=== PATIENT | male | born 1945 | race Hispanic/Latino ===

== ENCOUNTER 2018-07-09 22:51 | Inpatient (IN) | payer MEDICARE | END 2018-07-14 10:32 | LOC: ED 22:51 → ERH 07-10 01:57 → 3RSO 07-10 03:21 ==

== ENCOUNTER 2018-07-14 10:36 | Inpatient (IN) | payer MEDICARE ==
[2018-07-14 10:59] VITALS: BMI 30.4
[2018-07-14] MEDS ORDERED: Magnesium Hydroxide Susp 30 ml UD PO PRN (11:48)
[2018-07-14] MEDS ORDERED: Alum-Mag Hydrox-Simethicone Susp (30 mL) PO PRN (11:49)
--- NOTE | 2018-07-14 12:11 | PCM.BM ---
<Alban Simon - Last Filed: 07/14/18 12:07> Treatment Plan Problems - Problems identified on initial assessmt Altered thought process Date Initiated: 07/14/18 Time Initiated: 11:30 Assessment reference: NA Status: Active Priority: 1 Comment: Disorganized behavior Auditory hallucinatio Date Initiated: 07/14/18 Time Initiated: 11:30 Assessment reference: NA Status: Active Priority: 2 Low self esteem Date Initiated: 07/14/18 Time Initiated: 11:30 Assessment reference: NA Status: Active Priority: 3 Comment: believe his no good enough social isolation Date Initiated: 07/14/18 Time Initiated: 11:30 Assessment reference: NA Status: Active Priority: 4 Comment: Single ,lives by himself,retired Ineffective coping Date Initiated: 07/14/18 Time Initiated: 11:30 Assessment reference: NA Status: Active Priority: 5 Comment: Inabilty to cope with living situation Medication nonadherence Date Initiated: 07/14/18 Time Initiated: 11:30 Assessment reference: NA Status: Active Priority: 6 Comment: Nedds medications adjustment Treatment assets and liabiliti Patient Assests: cooperative, educated, insightful, motivated - Milieu Protocol Maintain good personal hygiene: every other day Encourage regular showers, every other day Assist patient to perform ADL's, every shift Remind patient to perform daily oral care Conduct patient checks and document Observation sheet: 1:1 Maintain personal safety: every shift Educate patient to report safety concerns to staff, every shift Monitor environment for contraband/sharps Medication safety: Monitor for expected outcome, potential side effects: every shift, Assess barriers to learning: every shift, Assess readiness for medication education: every shift Discharge/Continuing Care - Education Needs Education Needs: Family Personal Hygiene/Grooming, Patient Medication, Patient Diagnosis/Disease Process, Patient Coping Skills, Patient Community resources, Patient Activities of Daily Living, Patient Uses of Medical Equipment, Patient Health Practices/Safety, Patient Personal Hygiene/Grooming, Patient Aftercare Safety Plan - Discharge Discharge Criteria: Tolerates medication w/o severe side effects, Ability to care for self <Luh Cortez - Last Filed: 07/15/18 11:40> - Diagnosis (1) Schizophrenia Status: Acute Interventions: 07/15/18 11:38 Psychoeducation/psychotherapy Psychopharmacology/adjustment of medications as needed/ monitoring possible side effects Evaluate pt on daily basis Compliance with medications and follow up appointments Possible ECT treatmento Suicide and homicide risk assessment and prevention, coping strategies, safety plan Relapse prevention Reduction of symptoms Improve functional status Possible assertive community treatment Cognitive behavioral therapy Family involvement Possible social skill training as outpatient (2) Parkinson disease Status: Acute Interventions: 07/15/18 11:39 Neurology follow-up Physical therapy evaluation Improve motor function Possible ECT treatment, medical clearance requested Additional consultation by specialists as needed Lab work as needed (CBC, CMP, TSH, free T4, UA, Urine test for females as needed) CXR as needed EKG Physical therapy evaluation as needed 07/15/18 11:40 <Aracely Moreno - Last Filed: 07/16/18 12:09>
--- NOTE | 2018-07-14 13:42 | PN ---
DATE: 07/14/2018 SUBJECTIVE: The patient was followed up today. The patient presented to be more alert, oriented. The patient's family, his brother Abel, is next to the patient as well as patient's nephew is next to the patient. The patient presented much better to compare with yesterday. The patient was able to hold conversation. The patient was able to participate in treatment plan discussion. As per the patient's brother, the patient has long history of schizophrenia. The patient was stabilized on Prolixin for many years, more than 20 years, recently medication was changed to Seroquel, since that time, the patient has been slowly decompensating for past 6 months. The patient has tendency of wandering in the community. The patient has history of noncompliance with the medications due to side-effects, dizzy spells. The patient presented not at his bladder baseline of functioning. Going back to the patient's current presentation, patient is willing to be admitted to the psychiatric inpatient unit, signed consent with nurse, Alban. The patient was aware of his medications. The patient was aware of the treatment options of having ECT treatment in the future, narrative descriptions were provided to the patient as well as family. At the present moment, the patient will be transferred to the psychiatric inpatient unit for further evaluation and stabilization. This life underwriter discussed case with Dr. Castañeda. Neurology consultation will be called for ECT clearance. Cardiology consultation for ECT clearance will be also called. OBJECTIVE: VITAL SIGNS: Reviewed. Temperature 98.0, pulse 61, blood pressure 108/70, respirations 26 and saturation is 96. MEDICATIONS: Reviewed. This life underwriter will discontinue BuSpar because the patient does not present to be anxious, levodopa, carbidopa will be continued at 25/100. The patient is on Aricept 5 mg at the nighttime. The patient is on Lovenox. If the patient will be ambulating, this life underwriter will discontinue Lovenox. The patient is on Ativan 1 mg three times a day scheduled for catatonia and anxiety and stiffness. Zofran will be switched to p.o., Protonix, Seroquel will be 50 mg at the morning time and at the nighttime. LABORATORY DATA: Reviewed. Coagulation reviewed. Chemistry reviewed. Urinalysis reviewed. Toxicology reviewed. Serology reviewed. MENTAL STATUS EXAMINATION: The patient presented to be alert. The patient remembered this life underwriter. The patient had intense eye contact. Flat affect. Thought process concrete. Thought content, the patient presented to be mildly disorganized, but adamantly denied thoughts of harming himself or others. Insight and judgment seems to be limited, but improving. Impulses are well controlled. IMPRESSION: As per history schizophrenia. The patient has history of Parkinson's disease, was admitted to the medical side for altered mental status. PLAN: We will continue current management, current medication, ECT might be helpful for this patient to stabilize without psychotropic medications. Neurologist will be involved. Barrel Centerer will be involved. Family involved. If the patient will have capacity to point his brother to be his power of convalescent sitter, we will consider that option. The patient will be on one-to-one on the psychiatric inpatient unit for risk of falls and safety. Meanwhile, we will see the patient on the psychiatric unit tomorrow. Case was discussed with nursing staff and medical team. Should you have any questions give me a call back. Luh Cortez MD
[2018-07-15] MEDS: Pantoprazole 40 mg EC Tab PO SCH (07:04)
[2018-07-15 08:37] LABS: GLUCOSE,FASTING 85 mg/dL (65-110); HDL CHOLESTEROL 27 mg/dL (29-60)
[2018-07-15 08:48] LABS: LDL CHOLESTEROL 72 mg/dL (0-129)
[2018-07-15 08:52] LABS: FREE T4 1.41 ng/dL (0.78-2.19)
--- NOTE | 2018-07-15 11:38 | PCM.PSYCH ---
Initial Psychiatric Evaluation - Initial Psychiatric Evaluation Type of Admission: Voluntary Legal Status: Capacity (Patient has a capacity to sign consent for treatment) Chief Complaint (in patient's own words): "I feel all right, I do not know yet" Patient's Reaction to Hospitalization: Patient was transferred from the medical side for evaluation and stabilization of psychotic symptoms, disorganized thoughts/behavior, possible ECT treatment. History of Present Illness and Precipitating Events: Shortly, patient is a 72-year old male, reported history of schizophrenia, history of Parkinson's disease, denied previous history of psychiatric admissions, denied history of suicidal attempts, currently under care or of [facility] treatment, initially patient was found wandering in the community, barefoot, police brought patient to the emergency room, patient required medical admission for delirium, this personal lines underwriter was involved in to the patient care due to tree of mental illness, medication management, altered mental status. Patient was medically stable, collateral information's were obtained from patient brother Abel, patient required further evaluation and stabilization in to the psychiatric inpatient unit and possible ECT treatment. Patient was seen today in his room, patient is currently on one-to-one observation because high risk of falls and confusion. Patient presented with susceptible personal hygiene because PCP is taking good care of the patient, patient presented to be more alert, pleasant, corporative. Poor ADLs. Patient reported that she had "bad dreams, I do not know if I was hallucinating", patient reported that she ate, patient denied any thoughts of harming himself/others, patient reported that he does not feel confused, patient is aware that he is not psychiatric inpatient unit and today's date. Patient reported that no signs of anxiety, denied being ever abused in the past, patient reports he lives alone. Collaterals from patient brother Abel June 16, 2018: Patient has long history of mental illness/schizophrenia, patient was stabilized on Prolixin more than 50 years, recently Prolixin was changed to Seroquel due to worsening of parkinsonian symptoms, since that time November 2017 patient was slowly decompensating, patient had dizzy spells, lightheadedness, that is why patient would stop medications, including Parkinson's medications as well as antipsychotic medication. Patient family wants patient to be on ECT treatment this personal lines underwriter educated patient as well as family about the risk/benefits/alternatives. Discussed with Dr. Garrison, medical/neurology/cardiology clearance requested. Going back to the patient, patient is willing to have ECT treatment, but first he would like to think about it more. Patient had impression that he pointed his brother to be his power of regulatory attorney already, but it is not confirmed. Patient still wants his brother to be his power of regulatory attorney for medical decisions. Patient denied ever being abused. Patient denies using drugs, denied drinking alcohol, denies smoking cigarettes. Past psychiatric history: Patient denied ever been admitted to the psychiatric inpatient unit, denied history of suicidal attempts. Medical history: Hypertension, hyperlipidemia, obesity, diverticulosis, arthritis, Parkinson's disease (neurologist ). Family history: Denied family history of mental illness, patient denied family history of suicidal attempts. Social history: Never been , no kids, history of being a teacher, used to live with his mother, after she patient became depressed and hopeless. Lab Results 07/15/18 07:00: Free T4 1.41, TSH 3rd Generation 1.02 07/15/18 07:00: Fasting Glucose 85, Triglycerides 86, Cholesterol 121 L, LDL Cholesterol Direct 72, HDL Cholesterol 27 L Vital Signs Pulse BP 07/14/18 15:00 65 110/72 The patient failed the outpatient lower level of care: Yes Current Medications: Active Medications Generic Name Dose Route Start Last Admin Trade Name Freq PRN Reason Stop Dose Admin Acetaminophen 650 mg 07/14/18 11:49 Tylenol 325mg Tab PO Q6H PRN Pain, moderate (4-7) Al Hydrox/Mg Hydrox/Simethicone 30 ml 07/14/18 11:49 Maalox Plus 30 Ml PO DAILY PRN Indigestion / Heartburn Carbidopa/Levodopa 1 tab 07/14/18 13:00 07/15/18 09:39 Sinemet PO 1 tab DAILY JIMBO Administration Donepezil HCl 5 mg 07/14/18 22:00 07/14/18 21:42 Aricept PO 5 mg HS JIMBO Administration Lorazepam 1 mg 07/14/18 13:00 07/15/18 09:40 Ativan PO 1 mg TID JIMBO Administration Protocol Lorazepam 1 mg 07/14/18 12:44 Ativan PO TID PRN Agitation Protocol Magnesium Hydroxide 30 ml 07/14/18 11:48 Milk Of Magnesia PO DAILY PRN Constipation Ondansetron HCl 4 mg 07/14/18 12:56 Zofran Tab PO Q8H PRN Nausea/Vomiting Pantoprazole Sodium 40 mg 07/15/18 06:00 07/15/18 07:04 Protonix Ec Tab PO 40 mg 0600 JIMBO Administration Quetiapine Fumarate 50 mg 07/14/18 22:00 07/15/18 09:40 Seroquel PO 50 mg AMHS JIMBO Administration Protocol Present on Admission - Present on Admission Any Indicators Present on Admission: No Review of Systems - Review of Systems Systems not reviewed;Unavailable: Acuity of Condition - Constitutional Constitutional: As Per HPI - EENT Eyes: As Per HPI Ears: As Per HPI Nose/Mouth/Throat: As Per HPI - Cardiovascular Cardiovascular: As Per HPI - Respiratory Respiratory: As Per HPI - Gastrointestinal Gastrointestinal: As Per HPI - Genitourinary Genitourinary: As Per HPI - Reproductive: Male Reproductive:Male: As Per HPI - Musculoskeletal Musculoskeletal: As Per HPI - Integumentary Integumentary: As Per HPI - Neurological Neurological: As Per HPI - Psychiatric Psychiatric: As Per HPI - Endocrine Endocrine: As Per HPI - Hematologic/Lymphatic Hematologic: As Per HPI Past Patient History - Past Psychiatric History Previous Treatment History: None Prior Professional Help: See HPI Prior Psychiatric Treatment: See HPI At what hospital: See HPI Duration: See HPI Nature of Treatment: See HPI Explanation of prior treatment: See HPI - PSYCHIATRIC Hx Psychophysiologic Disorder: Yes Hx Paranoia: Yes Hx Psychosis: Yes Hx Substance Use: No (Unknown) - CARDIAC Hx Cardiac Disorders: Yes Hx Hypertension: Yes - PULMONARY Hx Respiratory Disorders: Yes Hx Sleep Apnea: Yes - NEUROLOGICAL Hx Neurological Disorder: Yes Hx Parkinson's Disease: Yes - HEENT Hx HEENT Problems: Yes Hx Glaucoma: Yes - RENAL Hx Chronic Kidney Disease: No - ENDOCRINE/METABOLIC Hx Endocrine Disorders: No - HEMATOLOGICAL/ONCOLOGICAL Hx Blood Disorders: Yes Hx Cancer: Yes (PROSTATE 2015) - INTEGUMENTARY Hx Dermatological Problems: No - MUSCULOSKELETAL/RHEUMATOLOGICAL Hx Musculoskeletal Disorders: No - GASTROINTESTINAL Hx Gastrointestinal Disorders: No - GENITOURINARY/GYNECOLOGICAL Hx Genitourinary Disorders: Yes Hx Prostate Problems: Yes (ca prostate) - SURGICAL HISTORY Hx Surgeries: Yes Other/Comment: TURP - Medical/Surgical History Reviewed & confirmed: by me Meds Allergies/Adverse Reactions: Allergies Allergy/AdvReac Type Severity Reaction Status Date / Time Unobtainable Allergy Verified 07/14/18 10:58 Mental Status Examination - Personal Presentation Personal Presentation: Looks stated age - Affect Affect: Constricted, Flat - Motor Activity Motor Activity: Psychomotor Retardation - Reliability in Providing Information Reliability in Providing Information: Fair - Speech Speech: Other (Underproductive, monotonic, low volume) - Mood Mood: Depressed - Formal Thought Process Formal Thought Process: Hallucinations, Other (at times disorganized) - Obsessions/Compulsions Obsessions: None Compulsions: None - Cognitive Functions Orientation: Person, Place, Situation, Time Sensorium: Alert Abstract Thinking: [place] Estimate of Intelligence: Average Judgement: Intact, as evidence by: Insight regarding need for hospitalization - Risk Risk: Self-mutilation, Diminished functioning - Strength & Assets Inventory Strength & Assets Inventory: Intelligence, Family support, Education, Employment history, Cooperative - Limitations Limitations: Other (Chronic mental illness combined with Parkinson's disease) Psychiatric Physical Exam - Physical Exam Reviewed and confirmed: Emergency Department Physical Exam Results - Vital Signs Recent Vital Signs: Last Vital Signs Temp Pulse 65 07/14/18 15:00 Resp BP 110/72 07/14/18 15:00 Pulse Ox - Labs Labs: Laboratory Results - last 24 hr 07/15/18 07/15/18 07:00 07:00 Fasting Glucose 85 Triglycerides 86 Cholesterol 121 L LDL Cholesterol Direct 72 HDL Cholesterol 27 L Free T4 1.41 TSH 3rd Generation 1.02 - EKG Data EKG Interpreted by: ER Physician DSM Plan - DSM 5 DSM 5 Diagnosis: Saira as per history, rule out schizoaffective Parkinson's disease Rule out medication induced(levodopa/carbidopa) psychosis - Recommended/Plan of Treatment Treatment Recommendations and Plan of Treatment: Milieu/structure/supportive therapy consultation for discharge plan and social issues Med management: Medications were confirmed by patient pharmacy, please see consultation note on the medical side Discussed with the family, patient brother Leonela Patient wants to point his brother to be his power of regulatory attorney for medical decisions Seroquel resumed Levodopa carbidopa Ativan 1 mg 3 times a day scheduled for catatonia/muscle relaxation/anxiety Aricept 5 mg at the nighttime Medical/neurology/cardiology clearance for ECT Patient was educated about ECT procedure, risk/benefits/alternatives discussed Patient is currently on one-to-one due to confusion, high risk of falls Physical therapy evaluation recommended Family involvement Follow up on labs Will monitor closely Pt was educated about risk/benefits and alternatives of medications, coping strategies (safety plan, suicide prevention), relapse prevention, importance of follow up with psychiatrist and therapist, stay away from drugs/alcohol/smoking Projected ELOS: 7 days Prognosis: Guarded Discharge Plan and Discharge Criteria: Mood will be stable, pt will be more hopeful, will be not psychotic or anxious, will be tolerating medications well, will not have major side effects, will be able to function, will not pose threat to self or others. - Tobacco Cessation Tobacco Use Status for the last 30 days: Non User Tobacco Use Treatment Practical Counseling Provided: No Tobacco Use Treatment FDA-Approved Cessation Medication Provided: No - Alcohol or Substance Abuse Does the patient have an Alcohol or Substance Abuse Disorder: No Initial Psych Certification - Initial Certification I certify that the inpatient psychiatric facility admission was medically necessary for either: Treatment which could reasonbly be expected to improve pt's condition, Diagnostic study I estimate of hospitalization is necessary for proper treatment of the patient: 7 Unit of Time: Days My plans for post-hospital care for this patient are: Outpatient ECT maintenance Medication management Possible day treatment program Possible adult daycare center
--- NOTE | 2018-07-15 23:14 | CON ---
DATE: 07/15/2018 The patient is now transferred out of the acute medical service to Psychiatry Service. The patient is seen and examined in room 517, bed 2. The patient is presently on one to one, lying in bed. The patient is alert, awake, responsive, oriented to person, place. Disoriented to year, date, month, time. Fourteen systems review was done. The patient is confused and disoriented. CODE STATUS: Full code. LIVING WILL/ADVANCE DIRECTIVE: None. Height is 5 feet 8 inches. Weight is 200 pounds. BMI 31. ALLERGIES: APPARENTLY UNAVAILABLE AND UNKNOWN. ACTIVE MEDICATIONS: Aricept 5 mg at bedtime, Ativan 1 mg t.i.d. p.r.n. and scheduled, Maalox 30 mL p.r.n., milk of magnesia p.r.n., Protonix 40 mg daily, Seroquel 50 mg a.m. and at bedtime. The patient is on Sinemet 25/100 once a day, Tylenol 650 mg p.o. every 6 hours p.r.n., Zofran 4 mg p.o. every 8 hours p.r.n. HOME MEDICATIONS: Aricept 5 mg at bedtime, Atacand 16 mg daily, Ativan 1 mg t.i.d. p.r.n., Avodart 0.5 mg daily, BuSpar 5 mg twice a day, Sinemet 25/100 daily, Prolixin 1 mg daily, Seroquel 25 mg at bedtime, Zoloft 25 mg daily, they are home medications prior to hospitalization. SOCIAL HISTORY: Unavailable for substance abuse, unavailable for alcohol use, unavailable for smoking use. OCCUPATIONAL HISTORY: Disabled, elderly male. FAMILY HISTORY: Not available. PAST MEDICAL AND SURGICAL HISTORY: History of hypertension, history of prostatic hypertrophy, history of prostate carcinoma as per the [facility] history, history of Parkinson disease, history of schizophrenia, psychosis, paranoia, anxiety, history of sleep apnea, history of prostate carcinoma in 2016. The patient's past medical history is recent hospitalization to [facility] from 07/10/2018 to 07/14/2018, history of early dementia with altered mental status, confusional state, and disorientation, history of asymptomatic bradycardia, history of schizophrenia, history of depression, history of Parkinson disease, history of hyperlipidemia, history of diverticulosis, history of degenerative joint disease, history of tonsillectomy, history of colonic polyp, history of hyponatremia, history of rhabdomyolysis with elevated CPK, history of leukocytosis, history of granulocytosis, history of normocytic anemia, dilutional history of transient transaminitis, history of hypokalemia, hypophosphatemia, hypomagnesemia, ketonuria, history of cardiomegaly with enlarged pulmonary artery, history of aortic arch punctate calcification, history of right lower lobe pleural thickening and trace pleural effusion, history of bilateral 20% to 39% proximal internal carotid artery stenosis, history of chronic microvascular ischemic disease of the brain, history of cerebral cortical atrophy of the brain and ventriculomegaly, history of hypertensive cardiovascular disease with left ventricular ejection fraction of 65%, history of mild tricuspid regurgitation with right ventricular systolic pressure of 33 mmHg, history of euvolemic hypo osmolar hyponatremia, etiology indeterminate, history of questionable esophagitis with diffuse esophageal mucosal thickening, history of toxic metabolic encephalopathy, history of colonic adenoma, history of deconditioning, history of gait dysfunction, history of dementia. The patient is seen in room 517, bed 2. PHYSICAL EXAMINATION: VITAL SIGNS: T-max afebrile, heart rate 65, blood pressure 110/72. GENERAL: The patient is sitting up in the bed. HEENT: Head examination, normocephalic, atraumatic. HEENT examination shows pinkish conjunctivae. Anicteric sclerae. No oropharyngeal lesion. NECK: No neck rigidity. CHEST: Kyphosis. LUNGS: Shows no audible crackle, rales, or wheezing. CARDIOVASCULAR: S1, S2. Regular rhythm. Questionable soft systolic murmur at left sternal border, right second intercostal space, left second intercostal space. ABDOMEN: Soft. Positive bowel sounds. GENITALIA: Male. RECTAL EXAMINATION: Deferred. EXTREMITIES: Show no pitting edema, no calf tenderness, no Homans sign. Positive upper extremity tremors noted. Gait examination not tested. Motor strength is 5/5 in upper and lower extremities. Cranial nerves II-XII grossly intact and limited. VASCULAR EXAMINATION: Palpable pulses. DIAGNOSTICS: Diagnostics were all reviewed. All diagnostic data, lab data, imaging study, cardiovascular testing from 07/10/2018 to 07/14/2018 was reviewed and is available in [facility] for review. The patient's today's lab, which was ordered by the Psychiatry, cholesterol 121, LDL 72, HDL 27, triglyceride 86, TSH 1.02. IMPRESSION AND PLAN: 1. Acute exacerbation of toxic metabolic encephalopathy with episodic confusion and disorientation. 2. Psychosis. 3. Questionable behavioral disorders with disorganized thoughts and behavior. 4. History of schizophrenia, history of Prolixin treatment, history of acute exacerbation of Parkinsonism, history of deconditioning. 5. Early dementia with possible behavioral disorder requiring one-to-one. 6. Anxiety disorder. 7. Parkinson's disease. 8. History of hypertension, hyperlipidemia. 9. Toxic metabolic encephalopathy. 10. Possible schizoaffective disorder. 11. Questionable drug-induced psychosis. 12. Early dementia versus advanced dementia with altered mental status, confusion, and disorientation. 13. History of depression and Parkinson disease. 14. History of hypertension, hyperlipidemia, history of diverticulosis, history of degenerative joint disease, history of prostatectomy, and colonic polyp. 15. Status post hyponatremia and rhabdomyolysis. 16. Mild normocytic anemia. 17. Transaminitis. 18. Status post hypokalemia, hypophosphatemia, hypomagnesemia. 19. Aortic arch punctate calcification. 20. Cardiomegaly with enlarged pulmonary artery. 21. Right lower lobe pleural thickening with trace pleural effusion. 22. Bilateral 20% to 39 % proximal internal carotid artery stenosis. 23. Chronic microvascular ischemic disease of the brain. 24. 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 25. Hypertensive cardiovascular disease with left ventricular ejection fraction of 65%. 26. Mild tricuspid regurgitation and right ventricular systolic pressure of 33 mmHg. 27. Euvolemic hypo-osmolar hyponatremia. etiology undetermined. 28. Questionable esophagitis with diffuse esophageal mucosal thickening. 29. Toxic metabolic encephalopathy. 30. History of colonic adenoma. 31. Deconditioning. 32. Gait dysfunction. 33. Anxiety disorder. 1. most likely dementia with altered mental status with confusion and disorientation. 2. Asymptomatic bradycardia. 3. History of schizophrenia. 4. History of depression and history of Parkinson's disease. 5. History of hypertension, hyperlipidemia, history of diverticulosis, history of degenerative joint disease, history of tonsillectomy, and history of colonic polyp. 6. Hyponatremia. 7. Rhabdomyolysis with elevated CPK. 8. Leukocytosis. 9. Leukocytosis with granulocytosis. 10. Mild normocytic anemia, probably dilutional. 11. Transient transaminitis. 12. Hypokalemia. 13. Hypophosphatemia and hypomagnesemia. 14. Trace ketonuria. 15. Cardiomegaly with enlarged pulmonary artery. 16. Aortic arch punctate calcification. 17. Right lower lobe pleural thickening and trace pleural effusion. 18. Bilateral 20% to 39% proximal internal carotid artery stenosis. 19. Chronic microvascular ischemic disease of the brain. 20. Cerebral cortical atrophy of the brain and ventriculomegaly. 21. Hypertensive cardiovascular disease with left ventricular ejection fraction of 65%. 22. Mild tricuspid regurgitation with right ventricular systolic pressure of 33 mmHg. 23. Symptomatic sinus bradycardia. 24. Euvolemic hypo-osmolar hyponatremia, etiology undetermined. 25. Ketonuria. 26. Questionable esophagitis with diffuse esophageal mucosal thickening. 27. Toxic metabolic encephalopathy. 28. History of colonic adenoma. 29. Deconditioning. 30. Gait dysfunction. 31. Mild dementia. 32. Anxiety disorder. 1. Altered mental status with confusion and disorientation, most likely dementia. 2. Asymptomatic bradycardia. 3. Questionable hypertension. 4. Transient leukocytosis with granulocytosis. 5. Mild normocytic anemia. 6. Hyponatremia. 7. Hypokalemia. 8. Hypophosphatemia. 9. Hypomagnesemia. 10. Rhabdomyolysis with elevated CPK of greater than 1000. 11. Transaminitis. 12. Trace ketonuria. 13. Cardiomegaly with enlarged pulmonary artery. 14. Aortic arch calcification. 15. Right lower lobe pleural calcification versus pleural effusion versus pleural thickening. 16. Diffuse esophageal mucosal thickening, questionable esophagitis. 17. Bilateral 20% to 39% proximal internal carotid artery stenosis. 18. White matter ischemic disease of the brain with chronic microvascular ischemic disease of the brain. 19. Mildly dilated left atrium. 20. Mild tricuspid regurgitation with left ventricular ejection fraction of 65%. 21. Euvolemic hypoosmolar hyponatremia. 22. Parkinson's disease. 23. Ketonuria. 24. History of schizophrenia. 25. Upper extremity tremors. 26. Psychosis. 27. Dementia. 28. Hypertension. 29. Prostatic hypertrophy. 30. History of depression. 1. Altered mental status, etiology undetermined. 2. Possible mild dementia. 3. Disorientation and confusion. 4. Leukocytosis, etiology undetermined. 5. Hyponatremia. 6. Rhabdomyolysis with CPK of greater than 1000. 7. Hypokalemia, hypomagnesemia, hypophosphatemia. 8. History of Parkinson's disease with upper extremity tremors. 9. Anemia. 10. Granulocytosis. 11. Transaminitis. 12. Altered mental status with toxic metabolic encephalopathy. 13. Dementia. 14. Cardiomegaly. 15. Enlarged pulmonary artery with questionable pulmonary hypertension. 16. Right lower lobe pleural thickening. 17. Esophageal thickening. 18. A 20% to 39% internal carotid artery stenosis. 19. Cerebral cortical atrophy of the brain. 20. Microvascular ischemic disease of the brain. 21. Asymptomatic sinus bradycardia. 22. Possible psychotic spectrum disorder. 23. Left ventricular ejection fraction of 65%. 24. History of depression. 25. Anxiety disorder. 26. Questionable esophagitis. 1. Altered mental status with acute encephalopathy, etiology unclear. 2. Leukocytosis with granulocytosis. 3. Mild normocytic anemia. 4. Hyponatremia, etiology undetermined. 5. Hypokalemia, hypophosphatemia, hypomagnesemia. 6. Mild transaminitis. 7. Acute rhabdomyolysis. 8. Cardiomegaly. 9. Enlarged pulmonary artery versus questionable pulmonary hypertension. 10. Right lower lobe pleural thickening. 11. Esophageal thickening, etiology undetermined versus esophagitis. 12. A 20% to 39% internal carotid artery stenosis. 13. Cerebral cortical atrophy of the brain. 14. Microvascular ischemic disease of the brain. 15. Sinus bradycardia. 16. Left ventricle ejection fraction of 65%. 17. Parkinson's disease with upper extremity tremors. 18. Psychotic spectrum disorder. 19. Hypophosphatemia. 20. Spastic metabolic encephalopathy. 21. Altered mental status. 22. Questionable dementia. 1. Altered mental status with possible acute encephalopathy and confusional state. 2. Parkinson's disease. 3. Hyponatremia. 4. Leukocytosis with granulocytosis. 5. Hypokalemia. 6. Hypophosphatemia. 7. Questionable esophagitis. 8. Cerebral cortical atrophy of the brain. 9. History of schizophrenia. 10. Hypertension. 11. Prostatic hypertrophy. 12. Depression. 13. Anxiety. 14. Granulocytosis. 15. Cardiomegaly. 16. Questionable pulmonary vascular congestion. 17. Questionable pulmonary hypertension. 18. Cardiovascular disease with left ventricular ejection fraction of 65-70%. 19. Esophagitis. At this time, the patient will be started on proton pump inhibitor. The patient will be started on all the medications as per the Psychiatry. The patient is already ordered. The patient will be resumed on Flomax. Because the patient takes Flomax at home and Avodart at home, which is not ordered, which will be ordered. The patient is on Protonix for GI prophylaxis. The patient will be continued on Aricept 5 mg at bedtime, Ativan 1 mg p.o. t.i.d. scheduled and p.r.n. The patient is on Maalox and milk of magnesia p.r.n., Protonix 40 mg daily, Seroquel 50 mg a.m. and at bedtime, Sinemet 25/100 daily, Tylenol p.r.n., Zofran p.r.n. The patient will be ordered physical therapy, occupational therapy, ambulation therapy. The patient will be started on Flomax because Avodart is non-formulary at present at this hospital. The patient is admitted to Psychiatry for possible evaluation of ECT therapy. We have requested Cardiology and Neurology evaluation and clearance for ECT therapy and the consult for Neurology and Cardiology is already requested. From medical perspective, the patient appears to be optimized and can proceed with ECT therapy with associated risk and benefits and consequences. The patient's recent neurologic and cardiac workup was not suggestive of any significant abnormalities except for age-related associated comorbidities and findings on the diagnostic testing. The patient at present is also being continued on one-to-one observation by Psychiatry, which will be continued till the patient is further stabilized and later on decision will be made regarding discontinuation of one-to-one. Dictated and electronically signed, not read. Janes Castañeda MD DAVID
--- NOTE | 2018-07-15 23:21 | CON ---
DATE: 07/15/2018 CARDIOLOGY CONSULTATION REASON FOR CONSULTATION: Questionable chest pain. HISTORY OF PRESENT ILLNESS: The patient is a 72-year-old male who has history of schizophrenia and asymptomatic bradycardia as well as history of Parkinson's who was admitted because of depression and hallucinations. When the patient was asked about his history of chest pain, he denied. He is unaware of a history of heart attack in the past. The patient's most recent cardiac workup including an echocardiographic study five days ago which revealed mildly dilated left atrium, normal left ventricular size and systolic function with mild tricuspid insufficiency. He underwent three EKGs. The first one and second one revealed normal sinus rhythm, and the third one revealed sinus bradycardia at 58 beats per minute. REVIEW OF SYSTEMS: The patient denies any chest pain or shortness of breath at this time. He feels anxious and afraid that people may be hurting him. MEDICATIONS: Aricept 5 mg at bedtime, Seroquel 50 mg twice a day, Sinemet one tablet daily, Protonix 40 mg p.o. once day, milk of magnesia 30 mL daily, Maalox Plus 30 mL daily, Flomax 0.4 mg once a day, Ativan 1 mg t.i.d. PHYSICAL EXAMINATION: GENERAL: The patient is an elderly male who does not appear to be in acute distress. VITAL SIGNS: Blood pressure 110/72, heart rate 65, temperature 98, and respirations 20. HEENT: Normocephalic. CHEST: Clear. HEART: S1 and S2 regular. EXTREMITIES: No edema. LABORATORY DATA: On 07/13; hemoglobin and hematocrit 13.5 and 40.4, white count and platelet count are within normal limit. On 07/13, SMA-7 was within normal limits except for anion gap of 9. TSH, total T3 and free T3 as well as free T4 and total T4 all within normal limits. Urine drug screen is negative. ASSESSMENT: 1. Mild sinus bradycardia on the last admission with a heart rate of 58. 2. Schizophrenia and paranoid ideation. 3. Improved hyponatremia. RECOMMENDATIONS: Obtain repeat 12-lead EKG and if within normal limits, the patient can undergo ECT from the cardiac point. Jorge Luis Babb MD
[2018-07-16] MEDS: Pantoprazole 40 mg EC Tab PO SCH (06:47)
[2018-07-16 10:52] LABS: BASO # 0.02 K/mm3 (0.0-2.0); BASO % 0.2 % (0.0-3.0); EOS # 0.1 (0.0-0.7); EOS % 1.3 % (1.5-5.0); HEMOGLOBIN 12.6 g/dL (14.0-18.0); LYMPH # 0.8 (1.2-3.4); MEAN CELL VOLUME 102.9 fl (80.0-105.0); MEAN CORPUSCULAR HEMOGLOBIN 32.9 pg (25.0-35.0); MEAN PLATELET VOLUME 10.3 fl (7.0-11.0); MONO # 0.8 (0.1-0.6); MONO % 9.1 % (1.0-6.0); RBC 3.83 10^6/uL (3.5-6.1); RED CELL DISTRIBUTION WIDTH 13.7 % (11.5-14.5); WHITE BLOOD COUNT 8.7 10^3/uL (4.5-11.0)
[2018-07-16 11:05] LABS: ALB/GLOB RATIO 1.1 (1.1-1.8); BILIRUBIN,DIRECT 0.3 mg/dL (0.0-0.4); CALCIUM 8.5 mg/dL (8.4-10.5)
--- NOTE | 2018-07-16 14:37 | PCM.PYCHPN ---
Psychiatric Progress Note - Psychiatric Progress Note Patient seen today, length of contact: 30 minutes Patient Chief Complaint: "I was diagnosed with schizophrenia, paranoid type" Problems Identified/Issues Discussed: Risk/benefits and alternatives of medications discussed, suicide/ homicide prevention, past psychiatric h/o, current psychiatric symptoms, medical problems , risk/benefits and alternatives of medications, medications compliance, coping strategies, substance abuse h/o, relapse prevention, importance of follow up with psychiatrist and therapist, discharge plan. Medical Problems: Parkinson's disease History of hypertension, history of prostatic hypertrophy, sleep apnea, history of prostatic carcinoma as per [facility] history. Diagnostic Results: 07/16/18 10:40 07/16/18 10:40 Lab Results 07/16/18 10:40: WBC 8.7, RBC 3.83, Hgb 12.6 L, Hct 39.4 L, MCV 102.9 D, MCH 32.9, MCHC 32.0, RDW 13.7, Plt Count 151, MPV 10.3, Neut % (Auto) 80.4 H, Lymph % (Auto) 9.0 L, [place] % (Auto) 9.1 H, Eos % (Auto) 1.3 L, Baso % (Auto) 0.2, Lymph # (Auto) 0.8 L, [place] # (Auto) 0.8 H, Eos # (Auto) 0.1, Baso # (Auto) 0.02, Absolute Neuts (auto) 6.99 H 07/16/18 10:40: Sodium 136, Potassium 4.4, Chloride 100, Carbon Dioxide 30, Anion Gap 11, BUN 26 H, Creatinine 1.4, Est GFR ( Amer) 60, Est GFR (Non- Af Amer) 50, Random Glucose 74, Calcium 8.5, Phosphorus 2.9, Magnesium 2.2, Total Bilirubin 0.3, Direct Bilirubin 0.3, AST 28, ALT 13, Alkaline Phosphatase 56, Total Protein 5.7 L, Albumin 3.0, Globulin 2.7, Albumin/Globulin Ratio 1.1 07/15/18 07:00: RPR Nonreactive 07/15/18 07:00: Free T4 1.41, TSH 3rd Generation 1.02 07/15/18 07:00: Fasting Glucose 85, Triglycerides 86, Cholesterol 121 L, LDL Cholesterol Direct 72, HDL Cholesterol 27 L Vital Signs Temp Pulse Resp BP 03/18/19 07:26 97.9 F 65 19 109/71 07/14/18 15:00 65 110/72 DSM 5 Symptoms Update: Shortly, patient is a 72-year old male, reported history of schizophrenia, history of Parkinson's disease, denied previous history of psychi atric admissions, denied history of suicidal attempts, currently under care or of [facility] treatment, initially patient was found wandering in the community, barefoot, police brought patient to the emergency room, patient required medical admission for delirium, this internal communications writer was involved in to the patient care due to tree of mental illness, medication management, altered mental status. Patient was medically stable, collateral information's were obtained from patient brother Abel, patient required further evaluation and stabilization in to the psychiatric inpatient unit and possible ECT treatment. Patient was seen today at the treatment team meeting, patient was on one-to-one observation because high risk of falls and confusion, today presented with some improvement, pt was able to communicate his needs, was ambulate with help of walker, will d/c 1:1. Patient was more coherent, more logical, was able to provide his past psychiatric history. Patient reported that he was diagnosed with cranial, paranoid type patient was stable for more than 15 years on Prolixin, patient reported that over last summer his Prolixin was changed for Risperdal, as a result "I was fighting off with my paranoia, I was not doing well...", After what patient was seen by psychiatrist and his family insisted that patient needs to go back on Prolixin. Patient reports incident occurred October or November 2017. pt reported that prior to admission "I am not sure what exactly happened, but I woke up in an eery trance...", pt reported that "everything was like in the movies, I am not sure if I took my medications or not...". as per report from the brother, pt was noncompliant with meds, was taking them on and off due to side effects of dizziness. Discussed treatment options, pt said that he wants to know more about ECT treatment, risk/benefits/alternatives discussed. Discussed assigning pt's family as pt's POA. Patient reports he wants to assign his brother as pt's POA. So far patient tolerates medications well, no side effects observed or reported, aims 0, no EPS. Impression: As per history of schizophrenia, paranoid type Parkinson's disease Medication Change: Yes Medical Record Reviewed: Yes Consults ordered or reviewed: Patient was seen by primary care physician Case Worker was called for ECT treatment Neurology was called for a ECT treatment Mental Status Examination - Cognitive Function Orientation: Person, Place, Situation, Time Memory: Intact Attention: Poor Concentration: Poor Association: Loose Fund of Knowledge: Poor - Mood Mood: Depressed - Affect Affect: Constricted, Flat - Formal Thought Process Formal Thought Process: Paranoia ("I am afraid that people are angry at me..."), Other (at times disorganized) - Suicidal Ideation Suicidal Ideation: No - Homicidal Ideation Homicidal Ideation: No Goal/Treatment Plan - Goal/Treatment Plan Need for Continued Stay: Remain at risks for inpatient hospitalization, Severe depression anxiety, Discharge may exacerbated symptoms, Severe functional impairment Progress Toward Problem(s) and Goals/Treatment Plan: Milieu/structure/supportive therapy SW consultation for discharge plan and social issues Med management: Medications were confirmed by patient pharmacy, please see consultation note on the medical side Discussed with the family, patient brother Leonela Patient wants to point his brother to be his power of attorney recruiter for medical decisions Seroquel 50mg in the morning and at the nighttime for psychosis Levodopa carbidopa resumed Ativan 1 mg 3 times a day scheduled for catatonia/muscle relaxation/anxiety Aricept 5 mg at the nighttime Medical/neurology/cardiology clearance for ECT Patient was educated about ECT procedure, risk/benefits/alternatives discussed One-to-one was discontinued July 16, 2018 Physical therapy evaluation, pt ambulates using a walker Family involvement Follow up on labs Will monitor closely Pt was educated about risk/benefits and alternatives of medications, coping strategies (safety plan, suicide prevention), relapse prevention, importance of follow up with psychiatrist and therapist, stay away from drugs/alcohol/smoking Estimated Date of D/C: 07/23/18
--- NOTE | 2018-07-16 22:44 | CARD ---
APPROVED REPORT Date of service: 07/16/2018 EKG Measurement Heart [id number] <Conclusion> Normal sinus rhythm Normal ECG
[2018-07-17] MEDS: Pantoprazole 40 mg EC Tab PO SCH (06:41)
--- NOTE | 2018-07-17 08:25 | PN ---
DATE: 07/16/2018 LOCATION: The patient is in room 517, bed 2. SUBJECTIVE: On one-to-one. The patient has been episodically confused, disoriented. The patient's overnight nurse's notes were reviewed. The patient requires one-to-one and in the last 24 hours, the patient has been on one-to-one. PHYSICAL EXAMINATION: VITAL SIGNS: From today are still not in the [employer]. HEENT: The patient's head examination is normocephalic, atraumatic. Examination shows pinkish conjunctivae. Anicteric sclerae. No oropharyngeal lesion. No facial asymmetry. Soft carotid bruit. CHEST: Kyphosis. LUNGS: Examination shows no audible crackle, rales or wheezing. CARDIOVASCULAR: S1, S2, regular rhythm. Questionable soft systolic murmur left sternal border, right second intercostal space, left second intercostal space. ABDOMEN: Soft. Positive bowel sound. No palpable hepatosplenomegaly. GENITALIA: Male. RECTAL: Examination is deferred. EXTREMITIES: No pitting edema. No calf tenderness. No Homans' sign. NEUROLOGIC: The patient is alert, awake, responsive, oriented to person and place. Disoriented to year, date, month. The patient is able to follow simple commands. Gait examination is not tested. VASCULAR: Palpable pulses. Cranial nerves II through XII are limited. DIAGNOSTIC DATA: None from today. IMPRESSION: 1. Acute alteration of mental status. 2. Acute exacerbation of schizophrenia. 3. Acute exacerbation of psychosis. 4. Questionable hallucination. 5. Questionable schizoaffective disorder. 6. Parkinson's disease with upper extremity tremors. 7. Asymptomatic bradycardia. 8. Early dementia. 9. History of hypertension, hyperlipidemia. 10. Status post rhabdomyolysis. 11. Status post hyponatremia. 12. Status post hypokalemia, hypomagnesemia, hypophosphatemia. PLAN: At this time, the patient was seen by rad technologist. A repeat EKG has been ordered prior to initiation of the ECT. According to the Cardiology if the repeat EKG is within normal limit, the patient can proceed with the ECT. Neurology evaluation and clearance is pending for ECT. The patient will be continued on therapeutic intervention as per the MAR of today, which has been reviewed. The patient will be ordered out of bed to chair, physical therapy, occupational therapy, ambulation therapy, gait training. The patient's condition, diagnosis, test results, all recommendation has been discussed and explained to the patient's brother by me during the acute care hospitalization on the medical service and now the patient's overall condition, diagnosis, treatment plan, management plan has been discussed with the patient's family and the brother by the psychiatrist. The patient will be followed closely on the Psychiatry service. The patient will be ordered repeat labs if needed. The patient will be continued to be monitored. Janes Castañeda MD
--- NOTE | 2018-07-17 09:44 | CP.PCM.PN ---
Objective - Vital Signs/Intake and Output Vital Signs (last 24 hours): Temp Pulse Resp BP Pulse Ox 97.8 F 64 16 121/71 97 07/17/18 07:26 07/17/18 07:26 07/17/18 07:26 07/17/18 07:26 07/17/18 07:26 - Medications Medications: Current Medications Acetaminophen (Tylenol 325mg Tab) 650 mg PO Q6H PRN PRN Reason: Pain, moderate (4-7) Al Hydrox/Mg Hydrox/Simethicone (Maalox Plus 30 Ml) 30 ml PO DAILY PRN PRN Reason: Indigestion / Heartburn Carbidopa/Levodopa (Sinemet) 1 tab PO DAILY [facility] Last Admin: 07/17/18 09:38 Dose: 1 tab Donepezil HCl (Aricept) 5 mg PO HS [facility] Last Admin: 07/16/18 21:38 Dose: 5 mg Lorazepam (Ativan) 1 mg PO TID [facility]; Protocol Last Admin: 07/17/18 09:38 Dose: 1 mg Lorazepam (Ativan) 1 mg PO TID PRN; Protocol PRN Reason: Agitation Magnesium Hydroxide (Milk Of Magnesia) 30 ml PO DAILY PRN PRN Reason: Constipation Ondansetron HCl (Zofran Tab) 4 mg PO Q8H PRN PRN Reason: Nausea/Vomiting Pantoprazole Sodium (Protonix Ec Tab) 40 mg PO 0600 [facility] Last Admin: 07/17/18 06:41 Dose: 40 mg Quetiapine Fumarate (Seroquel) 50 mg PO [facility]; Protocol Last Admin: 07/17/18 09:39 Dose: 50 mg Tamsulosin HCl (Flomax) 0.4 mg PO DAILY [facility] Last Admin: 07/17/18 09:38 Dose: 0.4 mg - Labs Labs: 07/16/18 10:40 07/16/18 10:40
--- NOTE | 2018-07-17 16:16 | PCM.PYCHPN ---
Psychiatric Progress Note - Psychiatric Progress Note Patient seen today, length of contact: 30 minutes Patient Chief Complaint: "I am willing to have ECT.." Problems Identified/Issues Discussed: Risk/benefits and alternatives of medications discussed, suicide/ homicide prev ention, past psychiatric h/o, current psychiatric symptoms, medical problems, risk/benefits and alternatives of medications, medications compliance, coping strategies, substance abuse h/o, relapse prevention, importance of follow up with psychiatrist and therapist, discharge plan. Medical Problems: Parkinson's disease History of hypertension, history of prostatic hypertrophy, sleep apnea, history of prostatic carcinoma as per [employer] history. Diagnostic Results: 07/16/18 10:40 07/16/18 10:40 Lab Results 07/16/18 10:40: WBC 8.7, RBC 3.83, Hgb 12.6 L, Hct 39.4 L, MCV 102.9 D, MCH 32.9, MCHC 32.0, RDW 13.7, Plt Count 151, MPV 10.3, Neut % (Auto) 80.4 H, Lymph % (Auto) 9.0 L, [place] % (Auto) 9.1 H, Eos % (Auto) 1.3 L, Baso % (Auto) 0.2, Lymph # (Auto) 0.8 L, [place] # (Auto) 0.8 H, Eos # (Auto) 0.1, Baso # (Auto) 0.02, Absolute Neuts (auto) 6.99 H 07/16/18 10:40: Sodium 136, Potassium 4.4, Chloride 100, Carbon Dioxide 30, Anion Gap 11, BUN 26 H, Creatinine 1.4, Est GFR ( Amer) 60, Est GFR (Non- Af Amer) 50, Random Glucose 74, Calcium 8.5, Phosphorus 2.9, Magnesium 2.2, Total Bilirubin 0.3, Direct Bilirubin 0.3, AST 28, ALT 13, Alkaline Phosphatase 56, Total Protein 5.7 L, Albumin 3.0, Globulin 2.7, Albumin/Globulin Ratio 1.1 07/15/18 07:00: RPR Nonreactive 07/15/18 07:00: Free T4 1.41, TSH 3rd Generation 1.02 07/15/18 07:00: Fasting Glucose 85, Triglycerides 86, Cholesterol 121 L, LDL Cholesterol Direct 72, HDL Cholesterol 27 L Vital Signs Temp Pulse Resp BP 07/16/18 07:26 97.9 F 65 19 109/71 07/14/18 15:00 65 110/72 DSM 5 Symptoms Update: Shortly, patient is a 72-year old male, reported history of schi zophrenia, history of Parkinson's disease, denied previous history of psychiatric admissions, denied history of suicidal attempts, currently under care or of [facility] treatment, initially patient was found wandering in the community, barefoot, police brought patient to the [facility] room, patient required medical admission for delirium, this narrative writer was involved in to the patient care due to tree of mental illness, medication management, altered mental status. Patient was medically stable, collateral information's were obtained from patient brother Abel, patient required further evaluation and stabilization in to the psychiatric inpatient unit and possible ECT treatment. Patient was seen today at the treatment team meeting with [facility], medical students, pt was educated about ECT again, risk/benefits and alternatives discussed, after narrative explanation of the ECT procedure, pt agreed to have it, pt has a capacity to make that decision. pt gave written consent to call his brother Abel, who was contacted, and was educated about the plan for ECT 07/18/18. Abel was appreciative, said that he is happy that pt will get treatment what might be beneficial. as per staff pt is more sleepy, will decrease ativan to 0.5mg tid. pt was advised NPO after midnight. cardiology/PMD cleared pt for ECT. Discussed assigning pt's family as pt's POA. Patient reports he wants to assign his brother as pt's POA. So far patient tolerates medications well, no side effects observed or reported, aims 0, no EPS. pt has resting tremor UE, flat affect, ambulates using a walker. Impression: As per history of schizophrenia, paranoid type Parkinson's disease Medication Change: Yes Medical Record Reviewed: Yes Mental Status Examination - Cognitive Function Orientation: Person, Place, Situation, Time Memory: Intact Attention: Poor Concentration: Poor Association: Loose Fund of Knowledge: Poor - Mood Mood: Depressed - Affect Affect: Constricted, Flat - Formal Thought Process Formal Thought Process: Paranoia ("I am afraid that people are angry at me..."), Other (at times disorganized) - Suicidal Ideation Suicidal Ideation: No - Homicidal Ideation Homicidal Ideation: No Goal/Treatment Plan - Goal/Treatment Plan Need for Continued Stay: Remain at risks for inpatient hospitalization, Severe depression anxiety, Discharge may exacerbated symptoms, Severe functional im pairment Progress Toward Problem(s) and Goals/Treatment Plan: Milieu/structure/supportive therapy SW consultation for discharge plan and social issues Med management: Medications were confirmed by patient pharmacy, please see consultation note on the medical side Discussed with the family, patient brother Leonela Patient wants to point his brother to be his power of reporting coordinator for medical decisions Seroquel 50mg in the morning and at the nighttime for psychosis Levodopa carbidopa resumed Ativan 0.5 mg 3 times a day scheduled for catatonia/muscle relaxation/anxiety Aricept 5 mg at the nighttime pt was cleared for ECT by cardiology, PMD Patient was educated about ECT procedure, risk/benefits/alternatives discussed ECT scheduled 07/18/18 10am One-to-one was discontinued July 16, 2018 Physical therapy evaluation, pt ambulates using a walker Family involvement Follow up on labs Will monitor closely Pt was educated about risk/benefits and alternatives of medications, coping strategies (safety plan, suicide prevention), relapse prevention, importance of follow up with psychiatrist and therapist, stay away from drugs/alcohol/smoking Estimated Date of D/C: 07/23/18
--- NOTE | 2018-07-18 02:54 | PN ---
DATE: 07/17/2018 SUBJECTIVE: The patient is seen today in room 519, bed 1. The patient is seen in the day room also. The patient is alert, awake, responsive, oriented to person, place and time, year, date, month, date of . The patient is able to follow simple commands. The patient states that he slept well without any adverse events documented. Overnight nurse's notes were reviewed. No adverse events were documented. The patient stayed calm. The patient is seen sitting up in the chair. PHYSICAL EXAMINATION: VITAL SIGNS: T-max 97.9, heart rate 64. There was one blood pressure reading of 98/48. Repeat blood pressure 131/74. HEENT: Head: Normocephalic, atraumatic. HEENT examination shows pinkish conjunctivae, anicteric sclerae. No oropharyngeal lesion. NECK: No neck rigidity. CHEST: Kyphosis. LUNGS: Show no audible crackle, rales or wheezing. CARDIOVASCULAR: S1 and S2, regular rhythm. No audible murmur, gallop or rub. Questionable soft systolic murmur in the left sternal border, right second intercostal space, left second intercostal space. ABDOMEN: Soft. Positive bowel sounds. GENITALIA: Male. RECTAL: Deferred. EXTREMITIES: No pitting edema. No calf tenderness. No Homans' sign. NEUROLOGIC: The patient is alert, awake, responsive. He is able to move upper lower extremity without assistance. Gait examination is independent. Oriented x2 to 3. Motor strength is 5/5. VASCULAR: Palpable pulses. DIAGNOSTIC DATA: WBC 8.7, hemoglobin and hematocrit 12.6 and 39.4, platelet 151. Sodium 136, potassium 4.4, chloride 100, CO2 of 30, BUN 26, creatinine 1.4, glucose 74, calcium 8.5, phosphorus 2.9, magnesium 2.2. RPR is negative. EKG done yesterday shows normal sinus rhythm, no ST elevation or depression, normal EKG. IMPRESSION AND PLAN: 1. Altered mental status with disorientation and confusion. 2. Acute exacerbation of schizophrenia with some hallucination and psychosis. 3. History of hypertension. 4. Normocytic anemia. 5. Microvascular ischemic disease of the brain. 6. Early dementia. 7. Status post rhabdomyolysis with elevated creatine phosphokinase. 8. Hypokalemia, hypomagnesemia, hypophosphatemia. 9. History of hyperlipidemia. 10. Status post granulocytosis. 11. Deconditioning. 12. Gait dysfunction. 13. History of anxiety, depression. Plan at this time, the patient is to be continued on the therapeutic intervention as per the Psychiatry and Medicine. The patient is awaiting ECT treatment. The patient's therapeutic interventions will be as per the MAR of today which is reviewed. The patient will continue to be in the psychiatry floor as per psychiatric management. The patient will be followed from medical perspective on a regular basis, and therapeutic intervention will be instituted as indicated. Dictated and electronically signed, not read. Janes Castañeda MD
[2018-07-18] MEDS: Pantoprazole 40 mg EC Tab PO SCH (06:22)
[2018-07-18] MEDS ORDERED: Sodium Chloride 0.9% 1,000 ML IV SCH (10:30)
[2018-07-18] MEDS ORDERED: Ketamine 10 mg/ml Inj (20 ml) ONE (10:30)
[2018-07-18] MEDS ORDERED: Propofol 10 mg/ml Inj (20 ML) ONE (10:31)
[2018-07-18] MEDS ORDERED: Succinylcholine 200 mg/10 ml Inj IV ONE (10:39)
--- NOTE | 2018-07-18 11:21 | PN ---
DATE: 07/18/2018 LOCATION: This patient is in the Behavioral Care Unit, [facility] in [place]. His medical doctor, Dr. Castañeda, I am covering for him. SUBJECTIVE: The patient is a 72-year-old male. He is admitted to the [facility] due to depression. The patient has history of schizophrenia in the past. The patient has history of dementia, movement disorder. The patient also has history of hypertension and speech disorder. He has no history of alcohol or smoking. The patient is not , he is single. He is seen this morning. He does not answers all questions. PHYSICAL EXAMINATION VITAL SIGNS: Pulse is 63, blood pressure 147/75, respirations 20, O2 sat is 97% on room air. HEENT: His head is normocephalic. . NECK: Thyroid is not enlarged. JVP is flat. Carotid pulses are present. LUNGS: Trachea is central. Breath sounds are vesicular. No adventitious sounds. HEART: Normal sinus rhythm. S1 and S2 present. No murmurs. ABDOMEN: Soft. Liver and spleen not palpable. GLOBAL PRESIDENT: The patient has stuttering speech, but no tremors at this time. MEDICATIONS: The patient list of medications consistent for Aricept 5 mg daily. The patient is on Ativan 1 mg three times a day p.r.n. for anxiety. The patient is on Flomax 0.4 mg daily, pantoprazole 40 mg daily. The patient is on Seroquel 50 mg at night, Sinemet dose is one tablet daily. The patient is on Tylenol for pain. His diet is heart-healthy diet. LABORATORY DATA: His white count is 8000, hemoglobin is 12.6, his platelet count 151,000. Chemistry; his chemical studies, liver function, kidney function, blood sugar ,renal functions are within normal range. His cholesterol is 121 and his thyroid functions are within normal range. ASSESSMENT AND PLAN: The patient is schedule to have ECT today and that has been approved. We will continue medical management while the patient is in the Behavioral Care Unit. Puneet Aranda MD [facility] # [id number]
--- NOTE | 2018-07-18 14:52 | PCM.PYCHPN ---
Psychiatric Progress Note - Psychiatric Progress Note Patient seen today, length of contact: 30 minutes Patient Chief Complaint: "I survived, it was not that grate..." Problems Identified/Issues Discussed: Risk/benefits and alternatives of medications as well as ECT discussed, suicide/ homicide prevention, past psychiatric h/o, current psychiatric symptoms, medical problems, risk/benefits and alternatives of medications, medications compliance, coping strategies, substance abuse h/o, relapse prevention, importance of follow up with psychiatrist and therapist, discharge plan. Medical Problems: Parkinson's disease History of hypertension, history of prostatic hypertrophy, sleep apnea, history of prostatic carcinoma as per [employer] history. Diagnostic Results: 07/16/18 10:40 07/16/18 10:40 Lab Results 07/16/18 10:40: WBC 8.7, RBC 3.83, Hgb 12.6 L, Hct 39.4 L, MCV 102.9 D, MCH 32.9, MCHC 32.0, RDW 13.7, Plt Count 151, MPV 10.3, Neut % (Auto) 80.4 H, Lymph % (Auto) 9.0 L, [place] % (Auto) 9.1 H, Eos % (Auto) 1.3 L, Baso % (Auto) 0.2, Lymph # (Auto) 0.8 L, [place] # (Auto) 0.8 H, Eos # (Auto) 0.1, Baso # (Auto) 0.02, Absolute Neuts (auto) 6.99 H 07/16/18 10:40: Sodium 136, Potassium 4.4, Chloride 100, Carbon Dioxide 30, Anion Gap 11, BUN 26 H, Creatinine 1.4, Est GFR ( Amer) 60, Est GFR (Non- Af Amer) 50, Random Glucose 74, Calcium 8.5, Phosphorus 2.9, Magnesium 2.2, Total Bilirubin 0.3, Direct Bilirubin 0.3, AST 28, ALT 13, Alkaline Phosphatase 56, Total Protein 5.7 L, Albumin 3.0, Globulin 2.7, Albumin/Globulin Ratio 1.1 07/15/18 07:00: RPR Nonreactive 07/15/18 07:00: Free T4 1.41, TSH 3rd Generation 1.02 07/15/18 07:00: Fasting Glucose 85, Triglycerides 86, Cholesterol 121 L, LDL Cholesterol Direct 72, HDL Cholesterol 27 L Vital Signs Temp Pulse Resp BP 07/16/18 07:26 97.9 F 65 19 109/71 07/14/18 15:00 65 110/72 DSM 5 Symptoms Update: Shortly, patient is a 72-year old male, reported history of schizophrenia, history of Parkinson's disease, denied previous history of psyc hiatric admissions, denied history of suicidal attempts, currently under care or of [facility] treatment, initially patient was found wandering in the community, barefoot, police brought patient to the emergency room, patient required medical admission for delirium, this teletypewriter operator was involved in to the patient care due to tree of mental illness, medication management, altered mental status. Patient was medically stable, collateral information's were obtained from patient brother Abel, patient required further evaluation and stabilization in to the psychiatric inpatient unit and possible ECT treatment. Patient was seen today in his room at am, pt presented to be anxious about ECT, pt was provided with emotional support, again this teletypewriter operator educated pt about the procedure, pt is willing to have it. later on pt was seen in OR, pt signed consent for treatment, pt had a capacity to do so, pt was educated about risk/benefits/alternatives, pt verbalized understanding. pt had BL ECT treatment: #1: BL ECT: Pulse width 0.30msec, frequency 40Hz, duration 8,000sec, current 800mA, pt had about 10seconds of motor seizures, which was considered 0% adequate by MECTA analysis, this teletypewriter operator gave another treatment after one minute of the first stimuli. #2: BL ECT:Pulse width 0.30msec,frequency 60Hz, duration 8,000sec, current 800mA, pt had about 55 seconds of motor seizures, which was considered again 0% adequate by MECTA analysis again, but motor seizures were prominent. no need for the third treatment today. anesthesiologist used 40mg succinylcholine, 30mg ketamine, 100mg propofol. pt was seen after the procedure, woke up, no agitation, no aggression, no confusion, no memory issues. pt was seen in the unit later on, pt said that "I survived...", referring to ECT treatment, pt asked this teletypewriter operator to contact his brother Abel, this wrier gave a call, notified brother about the procedure, pt's brother was appreciative, said that he will call pt later on today. pt did not make a decision about the his next treatment. so far patient tolerates medications well, no side effects observed or reported, aims 0, no EPS. pt has resting tremor UE, flat affect, ambulates using a walker. Impression: As per history of schizophrenia, paranoid type Parkinson's disease Medication Change: Yes (ativan decreased) Medical Record Reviewed: Yes Consults ordered or reviewed: Patient was seen by primary care physician Rod Cup Filler was called for ECT treatment Neurology was called for a ECT treatment Mental Status Examination - Cognitive Function Orientation: Person, Place, Situation, Time Memory: Intact Attention: Poor Concentration: Poor Association: Loose Fund of Knowledge: Poor - Mood Mood: Depressed - Affect Affect: Constricted, Flat - Formal Thought Process Formal Thought Process: Paranoia ("I am afraid that people are angry at me..."), Other (at times disorganized) - Suicidal Ideation Suicidal Ideation: No - Homicidal Ideation Homicidal Ideation: No Goal/Treatment Plan - Goal/Treatment Plan Need for Continued Stay: Remain at risks for inpatient hospitalization, Severe depression anxiety, Discharge may exacerbated symptoms, Severe functional impairment Progress Toward Problem(s) and Goals/Treatment Plan: Milieu/structure/supportive therapy SW consultation for discharge plan and social issues Med management: Medications were confirmed by patient pharmacy, please see consultation note on the medical side Discussed with the family, patient brother Leonela Patient wants to point his brother to be his power of criminal attorney for medical decisions Seroquel 50mg in the morning and at the nighttime for psychosis Levodopa carbidopa resumed Ativan 0.5 mg 3 times a day scheduled for catatonia/muscle relaxation/anxiety Aricept 5 mg at the nighttime pt was cleared for ECT by cardiology, PMD Patient was educated about ECT procedure, risk/benefits/alternatives discussed ECT scheduled 07/18/18 10am One-to-one was discontinued July 16, 2018 Physical therapy evaluation, pt ambulates using a walker Family involvement Follow up on labs Will monitor closely Pt was educated about risk/benefits and alternatives of medications, coping strategies (safety plan, suicide prevention), relapse prevention, importance of follow up with psychiatrist and therapist, stay away from drugs/alcohol/smoking Estimated Date of D/C: 07/23/18
[2018-07-19] MEDS: Pantoprazole 40 mg EC Tab PO SCH (06:44)
--- NOTE | 2018-07-19 10:50 | PN ---
DATE: 07/19/2018 SUBJECTIVE: This patient is in the Behavioral Care Unit, [facility] in [place]. He is seen this morning. He is awake and alert. He is very pleasant. He says that he is going for ECT today. PHYSICAL EXAMINATION: VITAL SIGNS: Pulse is 93, respirations are 20, his blood pressure 102/62 and his O2 stat is 100% on room air. HEENT: Head is normocephalic. LUNGS: Clear. HEART: Normal sinus rhythm. ABDOMEN: Soft. Liver and spleen not palpable. CENTRAL NERVOUS SYSTEM: The patient has no focal neurological deficit except for slurring of speech and he has had past history of movement disorder. He is on Sinemet one dose a day. MEDICATIONS: The list of medication, the patient gets Aricept for dementia, Flomax for benign prosthetic hyperplasia, pantoprazole for chronic gastritis. He is on a heart healthy diet. LABORATORY DATA: The MCV is 102 which is elevated and his hemoglobin is 12.6. The patient's chemistry no change from yesterday, his cholesterol is 121, LDL is 72 and HDL is 27 that is low. We will continue current management and we will followup. The patient's EKG shows normal sinus rhythm and no abnormalities. Puneet Aranda MD [id number]
--- NOTE | 2018-07-19 11:44 | PCM.PYCHPN ---
Psychiatric Progress Note - Psychiatric Progress Note Patient seen today, length of contact: 30 minutes Patient Chief Complaint: "I feel better, I can have another treatment tomorrow.." Problems Identified/Issues Discussed: Risk/benefits and alternatives of medications as well as ECT discussed, suicide/ homicide prevention, past psychiatric h/o, current psychiatric symptoms, medical problems, risk/benefits and alternatives of medications, medications compliance, coping strategies, substance abuse h/o, relapse prevention, importance of follow up with psychiatrist and therapist, discharge plan. Medical Problems: Parkinson's disease History of hypertension, history of prostatic hypertrophy, sleep apnea, history of prostatic carcinoma as per [facility] history. Diagnostic Results: 07/16/18 10:40 07/16/18 10:40 Lab Results 07/16/18 10:40: WBC 8.7, RBC 3.83, Hgb 12.6 L, Hct 39.4 L, MCV 102.9 D, MCH 32.9, MCHC 32.0, RDW 13.7, Plt Count 151, MPV 10.3, Neut % (Auto) 80.4 H, Lymph % (Auto) 9.0 L, [place] % (Auto) 9.1 H, Eos % (Auto) 1.3 L, Baso % (Auto) 0.2, Lymph # (Auto) 0.8 L, [place] # (Auto) 0.8 H, Eos # (Auto) 0.1, Baso # (Auto) 0.02, Absolute Neuts (auto) 6.99 H 07/16/18 10:40: Sodium 136, Potassium 4.4, Chloride 100, Carbon Dioxide 30, Anion Gap 11, BUN 26 H, Creatinine 1.4, Est GFR ( Amer) 60, Est GFR (Non- Af Amer) 50, Random Glucose 74, Calcium 8.5, Phosphorus 2.9, Magnesium 2.2, Total Bilirubin 0.3, Direct Bilirubin 0.3, AST 28, ALT 13, Alkaline Phosphatase 56, Total Protein 5.7 L, Albumin 3.0, Globulin 2.7, Albumin/Globulin Ratio 1.1 07/15/18 07:00: RPR Nonreactive 07/15/18 07:00: Free T4 1.41, TSH 3rd Generation 1.02 07/15/18 07:00: Fasting Glucose 85, Triglycerides 86, Cholesterol 121 L, LDL Cholesterol Direct 72, HDL Cholesterol 27 L Vital Signs Temp Pulse Resp BP 07/16/18 07:26 97.9 F 65 19 109/71 07/14/18 15:00 65 110/72 DSM 5 Symptoms Update: Shortly, patient is a 72-year old male, reported history of schizophrenia, history of Parkinson's disease, denied previous history of psychiatric admissions, denied history of suicidal attempts, currently under care or of [facility] treatment, initially patient was found wandering in the community, barefoot, police brought patient to the emergency room, patient required medical admission for delirium, this principal technical writer was involved in to the patient care due to tree of mental illness, medication marvin gement, altered mental status. Patient was medically stable, collateral information's were obtained from patient brother Abel, patient required further evaluation and stabilization in to the psychiatric inpatient unit and possible ECT treatment. Patient was seen today at the dinning area, pt presented better, shaved, affect was more reactive, pt said that he is willing to continue ECT treatment, second will be 07/20/18. pt has no memory issues, was ambulating with steady gait using walker. pt had BL ECT treatment 07/18/18: #1: BL ECT: Pulse width 0.30msec, frequency 40Hz, duration 8,000sec, current 800mA, pt had about 10seconds of motor seizures, which was considered 0% adequate by MECTA analysis, this principal technical writer gave another treatment after one minute of the first stimuli. #2: BL ECT:Pulse width 0.30msec,frequency 60Hz, duration 8,000sec, current 800mA, pt had about 55 seconds of motor seizures, which was considered again 0% adequate by MECTA analysis again, but motor seizures were prominent. no need for the third treatment today. anesthesiologist used 40mg succinylcholine, 30mg ketamine, 100mg propofol. so far patient tolerates medications well, no side effects observed or reported, aims 0, no EPS. as per staff pt is more visible in the unit, no agitation, no aggression. Impression: As per history of schizophrenia, paranoid type Parkinson's disease Medication Change: Yes (ativan decreased) Medical Record Reviewed: Yes Consults ordered or reviewed: Patient was seen by primary care physician Risk Control Analyst was called for ECT treatment Neurology was called for a ECT treatment Mental Status Examination - Cognitive Function Orientation: Person, Place, Situation, Time Memory: Intact Attention: Poor Concentration: Poor Association: Loose Fund of Knowledge: Poor - Mood Mood: Depressed - Affect Affect: Constricted (but more reactive today..) - Formal Thought Process Formal Thought Process: Paranoia ("I am afraid that people are angry at me..."), Other (at times disorganized) - Suicidal Ideation Suicidal Ideation: No - Homicidal Ideation Homicidal Ideation: No Goal/Treatment Plan - Goal/Treatment Plan Need for Continued Stay: Remain at risks for inpatient hospitalization, Severe depression anxiety, Discharge may exacerbated symptoms, Severe functional impairment Progress Toward Problem(s) and Goals/Treatment Plan: Milieu/structure/supportive therapy SW consultation for discharge plan and social issues Med management: Medications were confirmed by patient pharmacy, please see consultation note on the medical side Discussed with the family, patient brother Leonela Patient wants to point his brother to be his power of real estate attorney for medical decisions Seroquel 50mg in the morning and at the nighttime for psychosis Levodopa carbidopa resumed Ativan 0.5 mg 3 times a day scheduled for catatonia/muscle relaxation/anxiety Aricept 5 mg at the nighttime pt was cleared for ECT by cardiology, PMD Patient was educated about ECT procedure, risk/benefits/alternatives discussed ECT#1 BL 07/18/18 10am ECT #2 BL 07/20/18 One-to-one was discontinued July 16, 2018 Physical therapy evaluation, pt ambulates using a walker Family involvement Follow up on labs Will monitor closely Pt was educated about risk/benefits and alternatives of medications, coping strategies (safety plan, suicide prevention), relapse prevention, importance of follow up with psychiatrist and therapist, stay away from drugs/alcohol/smoking Estimated Date of D/C: 07/23/18
[2018-07-20] MEDS: Pantoprazole 40 mg EC Tab PO SCH (06:13)
[2018-07-20] MEDS ORDERED: Propofol 10 mg/ml Inj (20 ML) ONE (11:03)
[2018-07-20] MEDS ORDERED: Succinylcholine 200 mg/10 ml Inj IV ONE ×2 (11:04→11:05)
[2018-07-20] MEDS ORDERED: Ketamine 10 mg/ml Inj (20 ml) ONE (11:18)
[2018-07-20] MEDS ORDERED: Ketamine 10 mg/ml Inj (20 ml) IV ONE (11:24)
--- NOTE | 2018-07-20 11:41 | PCM.PYCHPN ---
Psychiatric Progress Note - Psychiatric Progress Note Patient seen today, length of contact: 30 minutes Patient Chief Complaint: "I feel better, I can have another treatment tomorrow.." Problems Identified/Issues Discussed: Risk/benefits and alternatives of medications as well as ECT discussed, suicide/ homicide prevention, past psychiatric h/o, current psychiatric symptoms, medical problems, risk/benefits and alternatives of medications, medications compliance, coping strategies, substance abuse h/o, relapse prevention, importance of follow up with psychiatrist and therapist, discharge plan. Medical Problems: Parkinson's disease History of hypertension, history of prostatic hypertrophy, sleep apnea, history of prostatic carcinoma as per [email or web address] history. Diagnostic Results: 07/16/18 10:40 07/16/18 10:40 Lab Results 07/16/18 10:40: WBC 8.7, RBC 3.83, Hgb 12.6 L, Hct 39.4 L, MCV 102.9 D, MCH 32.9, MCHC 32.0, RDW 13.7, Plt Count 151, MPV 10.3, Neut % (Auto) 80.4 H, Lymph % (Auto) 9.0 L, [place] % (Auto) 9.1 H, Eos % (Auto) 1.3 L, Baso % (Auto) 0.2, Lymph # (Auto) 0.8 L, [place] # (Auto) 0.8 H, Eos # (Auto) 0.1, Baso # (Auto) 0.02, Absolute Neuts (auto) 6.99 H 07/16/18 10:40: Sodium 136, Potassium 4.4, Chloride 100, Carbon Dioxide 30, Anion Gap 11, BUN 26 H, Creatinine 1.4, Est GFR ( Amer) 60, Est GFR (Non- Af Amer) 50, Random Glucose 74, Calcium 8.5, Phosphorus 2.9, Magnesium 2.2, Total Bilirubin 0.3, Direct Bilirubin 0.3, AST 28, ALT 13, Alkaline Phosphatase 56, Total Protein 5.7 L, Albumin 3.0, Globulin 2.7, Albumin/Globulin Ratio 1.1 07/15/18 07:00: RPR Nonreactive 07/15/18 07:00: Free T4 1.41, TSH 3rd Generation 1.02 07/15/18 07:00: Fasting Glucose 85, Triglycerides 86, Cholesterol 121 L, LDL Cholesterol Direct 72, HDL Cholesterol 27 L Vital Signs Temp Pulse Resp BP 07/16/18 07:26 97.9 F 65 19 109/71 07/14/18 15:00 65 110/72 DSM 5 Symptoms Update: Shortly, patient is a 72-year old male, reported history of schizophrenia, history of Parkinson's disease, denied previous history of psychiatric admissions, denied history of suicidal attempts, currently under care or of [facility] treatment, initially patient was found wandering in the community, barefoot, police brought patient to the emergency room, patient required medical admission for delirium, this technical document writer was involved in to the patient care due to tree of mental illness, medication manag ement, altered mental status. Patient was medically stable, collateral information's were obtained from patient brother Abel, patient required further evaluation and stabilization in to the psychiatric inpatient unit and possible ECT treatment. Patient was seen today in his room at am, pt presented with some improvement with his affect, pt was able to smile couple of times, pt said that he is mildly anxious about ECT "but I know what to expect", pt was provided with emotional support, again this technical document writer educated pt about the procedure, pt is willing to have it. as per report from the RNs, pt presented better yesterday, it was pt's birthday, pt was appreciative for a cake and birthday wishes. pt was seen in OR, pt signed consent for treatment, pt had a capacity to do so, pt was educated about risk/benefits/alternatives, pt verbalized understanding. first BL ECT treatment 07/18/18: this technical document writer needed to give two stimuli at the first session because pt is still on titration. MECTA analysis showed 0%adequacy on both occasions. ECT #2 BL 07/20/18 pt is still on titration. pt needed to have 2 stimuli. 1. this technical document writer increased frequency from 60 to 80Hz, Pulse width 0.30msec,duration 8,000sec, current 800mA, pt had about 8seconds of motor seizures, which was considered 20% adequate by MECTA analysis. 2. frequency again was increased from 80Hz to 100Hz, Pulse width 0.30msec,durat ion 8,000sec, current 800mA, pt had about 12seconds of motor seizures, which was considered 22% adequate by MECTA analysis. anesthesiologist used 40mg succinylcholine, 30mg ketamine, 100mg propofol. pt was seen after the procedure, woke up, no agitation, no aggression, no confusion, no memory issues. pt wants to continue with ECT, next will be on Monday. so far patient tolerates medications well, no side effects observed or reported, aims 0, no EPS. pt has resting tremor UE, flat affect, ambulates more steady, using a walker. Impression: As per history of schizophrenia, paranoid type Parkinson's disease Medication Change: Yes (seroquel decreased) Medical Record Reviewed: Yes Consults ordered or reviewed: Patient was seen by primary care physician Carpet Mechanic was called for ECT treatment Neurology was called for a ECT treatment Mental Status Examination - Cognitive Function Orientation: Person, Place, Situation, Time Memory: Intact Attention: Poor (some improvement) Concentration: Poor (some improvement) Association: Loose (some improvement) Fund of Knowledge: WNL - Mood Mood: Depressed (some improvement) - Affect Affect: Constricted (but more reactive today..) - Formal Thought Process Formal Thought Process: Paranoia (some improvement), Other (better organized thought process) - Suicidal Ideation Suicidal Ideation: No - Homicidal Ideation Homicidal Ideation: No Goal/Treatment Plan - Goal/Treatment Plan Need for Continued Stay: Remain at risks for inpatient hospitalization, Severe depression anxiety, Discharge may exacerbated symptoms, Severe functional impairment Progress Toward Problem(s) and Goals/Treatment Plan: Milieu/structure/supportive therapy SW consultation for discharge plan and social issues Med management: Medications were confirmed by patient pharmacy, please see consultation note on the medical side Discussed with the family, patient brother Leonela Patient wants to point his brother to be his power of state's attorney for medical decisions Seroquel 50mg at the morning d/c seroquel 75hs for psychosis Levodopa carbidopa resumed Ativan discontinued Aricept 5 mg at the nighttime pt was cleared for ECT by cardiology, PMD Patient was educated about ECT procedure, risk/benefits/alternatives discussed ECT#1 BL 07/18/18 10am ECT #2 BL 07/20/18 tolerated well ECT #3 BL 07/23/18 One-to-one was discontinued July 16, 2018 Physical therapy evaluation, pt ambulates using a walker Family involvement Follow up on labs Will monitor closely Pt was educated about risk/benefits and alternatives of medications, coping strategies (safety plan, suicide prevention), relapse prevention, importance of follow up with psychiatrist and therapist, stay away from drugs/alcohol/smoking Estimated Date of D/C: 07/23/18
[2018-07-20] MEDS ORDERED: Lactated Ringer's 1,000 ML IV SCH (12:00)
--- NOTE | 2018-07-20 12:53 | PN ---
DATE: 07/20/2018 SUBJECTIVE: The patient is in the Behavioral Care Unit, [facility] in [place]. He is admitted with depression. The patient has history of movement disorder and dementia. The patient also has history of benign prostatic hyperplasia. PHYSICAL EXAMINATION: GENERAL: This morning, he is comfortable. He said he feels a little bit better today. VITAL SIGNS: Pulse is 69, blood pressure 122/74, respirations are 20, his O2 sat is 100% oxygen in room air. LUNGS: Clear. HEART: Normal sinus rhythm. ABDOMEN: Soft. Liver and spleen not palpable. CENTRAL NERVOUS SYSTEM: No focal deficits. The patient has some slurring of speech, but no evidence of clear-cut tremors at this time. ASSESSMENT AND PLAN: We will continue medical management. His list of medicines consist of Aricept 10 mg daily, Flomax 0.4 mg daily. The patient is on pantoprazole, Sinemet, acetaminophen. Heart-healthy diet is ordered for the patient. Nutritional support. We will continue medical care. Puneet Aranda MD MTDCarli
[2018-07-21] MEDS: Pantoprazole 40 mg EC Tab PO SCH (06:30)
--- NOTE | 2018-07-21 10:36 | PCM.PYCHPN ---
Psychiatric Progress Note - Psychiatric Progress Note Patient seen today, length of contact: 30 minutes Problems Identified/Issues Discussed: I reviewed assessment and recent notes. I met with patient at bedside. Patient has been tolerating ECT well and staff note some improvement in his reactivity and communication on the unit. He has reported some improvement in anxiety and motivation. He can still be forgetful and vague but cooperative with treatment recommendations. There have been no major behavioral issues on the unit thus far. Diagnostic Results: As per history of schizophrenia, paranoid type Parkinson's disease Medication Change: Yes (seroquel decreased) Medical Record Reviewed: Yes Mental Status Examination - Cognitive Function Orientation: Person, Place, Situation, Time Memory: Intact Attention: Poor (some improvement) Concentration: Poor (some improvement) Association: Loose (some improvement) Fund of Knowledge: WNL - Mood Mood: Depressed (some improvement) - Affect Affect: Constricted (but more reactive today..) - Formal Thought Process Formal Thought Process: Paranoia (some improvement), Other (better organized thought process) - Suicidal Ideation Suicidal Ideation: No - Homicidal Ideation Homicidal Ideation: No Goal/Treatment Plan - Goal/Treatment Plan Need for Continued Stay: Remain at risks for inpatient hospitalization, Severe depression anxiety, Discharge may exacerbated symptoms, Severe functional impairment Progress Toward Problem(s) and Goals/Treatment Plan: * c/w current tx and plan, ECT planned for Monday07/23/18. * No new weekend lab results thus far * Vitals reviewed and noted below: Selected Entries 07/20/18 07/20/18 12:16 16:00 Temperature 98.8 F Pulse Rate 68 93 H Respiratory 14 Rate Blood Pressure 123/61 151/83 H Estimated Date of D/C: 07/23/18
--- NOTE | 2018-07-21 11:33 | PN ---
DATE: 07/21/2018 LOCATION: The patient is in [facility], Behavioral Care Unit room 519, bed 1. SUBJECTIVE: He is a 72-year-old male. The patient has history of depression and movement disorder. The patient also has history of prostatic hyperplasia and dementia. This morning, the patient is lying in bed. I talked to him, and he seems to be feeling okay; no complaints. PHYSICAL EXAMINATION: VITAL SIGNS: Pulse is 74, blood pressure 124/70 and respirations 18. HEENT: Head is normocephalic. NECK: Thyroid is not enlarged. JVP is flat. LUNGS: Trachea is central. Breath sounds are vesicular. No adventitious sounds are heard. HEART: Normal sinus rhythm. S1 and S2, present. ABDOMEN: Soft. Liver and spleen is not palpable. CENTRAL NERVOUS SYSTEM: No focal deficit. The patient does have slurred speech. LABORATORY DATA: Blood work remains the same. ASSESSMENT AND PLAN: The patient had one ECT treatment 2 days ago. He says that he feels he did have some improvement. We will continue medical management. His list of medicines consists of Aricept 5 mg daily and Flomax 0.4 mg daily. The patient is on pantoprazole 40 mg daily, Seroquel 75 mg at bedtime, and Sinemet 25/100 mg one tablet daily. Puneet Aranda MD DAVID
[2018-07-22] MEDS: Pantoprazole 40 mg EC Tab PO SCH (06:38)
--- NOTE | 2018-07-22 09:56 | PN ---
DATE: 07/22/2018 SUBJECTIVE: The patient is in Behavioral Care Unit, room 519, bed 1 on [facility] in [place]. The patient was admitted with depression. The patient has history of movement disorder. The patient also has history of benign prostatic hyperplasia and dementia. He is seen this morning, presently he says he is getting better slowly. PHYSICAL EXAMINATION: VITAL SIGNS: His pulse is 75, blood pressure 148/69, respirations 18 and O2 sat is 99% on room air. HEENT: Head is normocephalic. NECK: Thyroid is not enlarged. JVP is flat. Carotid pulses normal bilaterally. LUNGS: Trachea is central. Breath sounds are vesicular. No adventitious sounds. HEART: Normal sinus rhythm. S1 and S2, present. No murmurs. No rubs. ABDOMEN: Soft. Liver and spleen not palpable. CENTRAL NERVOUS SYSTEM: No focal deficit. The patient is able to ambulate and he has no complaints. MEDICATIONS: His medications consists of Aricept, Flomax, pantoprazole, Seroquel, Sinemet and acetaminophen. The patient will be on heart healthy diet. ASSESSMENT AND PLAN: His last blood work shows significant alteration in his MCV which is elevated. The patient is clinically improving. Puneet Aranda MD MTDCarli
--- NOTE | 2018-07-22 11:40 | PCM.PYCHPN ---
Psychiatric Progress Note - Psychiatric Progress Note Patient seen today, length of contact: 30 minutes Problems Identified/Issues Discussed: I reviewed recent notes and met with patient at bedside. Patient has been tolerating ECT well and staff note some improvement in his reactivity and comm unication on the unit. However patient has also been more confused, labile and psychotic. Multiple staff reports on Monday and Monday indicate that patient has been religiously preoccupied, delusional and hallucinating "hearing God's voice". Patient has been guarded during my questioning. He vaguely denies any new concerns including hallucinations, paranoia or emotional distress. It is difficult to elicit his full trust and cooperation. Patient remains agreeable to further ECT, aware that next treatment will be tomorrow. He remains unpredictable with poor I/J. Diagnostic Results: As per history of schizophrenia, paranoid type Parkinson's disease Medication Change: Yes (seroquel increased) Medical Record Reviewed: Yes Mental Status Examination - Cognitive Function Orientation: Person, Place, Situation, Time Memory: Intact Attention: Poor (some improvement) Concentration: Poor (some improvement) Association: Loose (some improvement) Fund of Knowledge: WNL - Mood Mood: Depressed (some improvement) - Affect Affect: Constricted (but more reactive today..) - Speech Speech: Soft - Formal Thought Process Formal Thought Process: Hallucinations, Delusions, Paranoia (some improvement), Loosening of associations, Other (better organized thought process) - Suicidal Ideation Suicidal Ideation: No - Homicidal Ideation Homicidal Ideation: No Goal/Treatment Plan - Goal/Treatment Plan Need for Continued Stay: Remain at risks for inpatient hospitalization, Severe depression anxiety, Discharge may exacerbated symptoms, Severe functional impairment Progress Toward Problem(s) and Goals/Treatment Plan: * c/w current tx and plan, ECT planned for Monday07/23/18 * * Increased Seroquel to 25 mg po daily and 100 mg po HS on 07/22/18 for disorganization, lability, delusions and hallucinations. * Appreciate f/u by Dr. Aranda on 07/21/18 and 07/22/18~. * No new weekend lab results * Vitals reviewed and noted below: Selected Entries 07/21/18 07/21/18 07:00 14:00 Temperature 98.8 F Pulse Rate 74 76 Respiratory 18 Rate Blood Pressure 124/70 142/79 Estimated Date of D/C: 07/23/18
[2018-07-23] MEDS: Pantoprazole 40 mg EC Tab PO SCH (07:16)
--- NOTE | 2018-07-23 09:39 | PN ---
DATE: 07/23/2018 SUBJECTIVE: This is a 72-year-old male. He is in [facility] in [facility]. He is in room 519, bed 1. The patient was seen this morning. He is awake. He says he might get the ECT treatment today. He is admitted with depression. The patient has history of movement disorder, dementia and also has history of benign prostate hyperplasia and gastritis. PHYSICAL EXAMINATION: VITAL SIGNS: This morning, pulse is 84, blood pressure 104/64, respirations are 20, O2 sat 100% on room air. The patient's temperature 99.2. HEENT: Head is normocephalic. NECK: Thyroid is not enlarged. Carotid pulses are present. LUNGS: Trachea is central. Breath sounds are vesicular. No adventitious sounds. HEART: Normal sinus rhythm. S1 and S2 present. No murmurs. ABDOMEN: Soft. Liver and spleen not palpable. CENTRAL NERVOUS SYSTEM: The patient has no focal deficit. He does have slurred speech, but no tremors or rigidity noted. LABORATORY DATA: The patient's blood work remains the same. MEDICATIONS: The patient is on Aricept 5 mg daily, Flomax 0.4 mg daily. The patient is on pantoprazole 40 mg daily, Seroquel 100 mg at night. The patient is on Sinemet 25/100 one daily. DIET: Heart-healthy diet. The patient is clinically improving. We will continue medical management with followup. Puneet Aranda MD MTDD
[2018-07-23] MEDS ORDERED: Propofol 10 mg/ml Inj (20 ML) ONE (15:11)
[2018-07-23] MEDS ORDERED: Sodium Chloride 0.9% 1,000 ML IV SCH (15:45)
--- NOTE | 2018-07-23 16:13 | PCM.PYCHPN ---
Psychiatric Progress Note - Psychiatric Progress Note Patient seen today, length of contact: 30 minutes Patient Chief Complaint: "I am fine.." Problems Identified/Issues Discussed: Risk/benefits and alternatives of medications as well as ECT discussed, suicide/ homicide prevention, past psychiatric h/o, current psychiatric symptoms, medical problems, risk/benefits and alternatives of medications, medications compliance, coping strategies, substance abuse h/o, relapse prevention, importance of follow up with psychiatrist and therapist, discharge plan. Medical Problems: Parkinson's disease History of hypertension, history of prostatic hypertrophy, sleep apnea, history of prostatic carcinoma as per [facility] history. Diagnostic Results: 07/16/18 10:40 07/16/18 10:40 Lab Results 07/16/18 10:40: WBC 8.7, RBC 3.83, Hgb 12.6 L, Hct 39.4 L, MCV 102.9 D, MCH 32.9, MCHC 32.0, RDW 13.7, Plt Count 151, MPV 10.3, Neut % (Auto) 80.4 H, Lymph % (Auto) 9.0 L, Baker % (Auto) 9.1 H, Eos % (Auto) 1.3 L, Baso % (Auto) 0.2, Lymph # (Auto) 0.8 L, Baker # (Auto) 0.8 H, Eos # (Auto) 0.1, Baso # (Auto) 0.02, Absolute Neuts (auto) 6.99 H 07/16/18 10:40: Sodium 136, Potassium 4.4, Chloride 100, Carbon Dioxide 30, Anion Gap 11, BUN 26 H, Creatinine 1.4, Est GFR ( Amer) 60, Est GFR (Non- Af Amer) 50, Random Glucose 74, Calcium 8.5, Phosphorus 2.9, Magnesium 2.2, Total Bilirubin 0.3, Direct Bilirubin 0.3, AST 28, ALT 13, Alkaline Phosphatase 56, Total Protein 5.7 L, Albumin 3.0, Globulin 2.7, Albumin/Globulin Ratio 1.1 07/15/18 07:00: RPR Nonreactive 07/15/18 07:00: Free T4 1.41, TSH 3rd Generation 1.02 07/15/18 07:00: Fasting Glucose 85, Triglycerides 86, Cholesterol 121 L, LDL Cholesterol Direct 72, HDL Cholesterol 27 L Vital Signs Temp Pulse Resp BP 03/18/19 07:26 97.9 F 65 19 109/71 07/14/18 15:00 65 110/72 DSM 5 Symptoms Update: Shortly, patient is a 72-year old male, reported history of schi zophrenia, history of Parkinson's disease, denied previous history of psychiatric admissions, denied history of suicidal attempts, currently under care or of [facility] treatment, initially patient was found wandering in the community, barefoot, police brought patient to the [facility] room, patient required medical admission for delirium, this senior technical writer was involved in to the patient care due to tree of mental illness, medication management, altered mental status. Patient was medically stable, collateral information's were obtained from patient brother Abel, patient required further evaluation and stabilization in to the psychiatric inpatient unit and ECT treatment. Patient was seen today in his room at am, pt presented to be mildly irritable, as per report over the weekend pt was psychotic, religiously preoccupied, pt was hearing "god's voice..." pt denied any psychotic symptoms today. it is a chance that it it related to the fact that Seroquel was decreased. will increase seroquel today. pt was seen in OR, pt signed consent for the ECT treatment, had a capacity to do so. first BL ECT treatment 07/18/18: this senior technical writer needed to give two stimuli at the first session because pt is still on titration. MECTA analysis showed 0%adequacy on both occasions. ECT #2 BL 07/20/18 pt is still on titration. pt needed to have 2 stimuli. ECT was considered 22% adequate by MECTA analysis. anesthesiologist used 40mg succinylcholine, 30mg ketamine, 100mg propofol. ECT #3 07/23/18 frequency was increased from 100Hz to 120Hz, Pulse width 0.30msec,duration 8,000sec, current 800mA, pt had about 10seconds of motor seizures, which was considered 22% adequate by MECTA analysis. this senior technical writer gave second treatment after one min of hyperventilation, pulse width was increased to 0.50msec, frequency 60Hz, duration 8,000sec, current 800mA, pt had about 12seconds of motor seizures, which was considered 27% adequate by MECTA analysis. anesthesiologist used 40mg succinylcholine, 30mg ketamine, 100mg propofol. pt was seen after the procedure, woke up, no agitation, no aggression, no confusion, no memory issues. pt wants to continue with ECT. so far patient tolerates medications well, no side effects observed or reported, aims 0, no EPS. pt has resting tremor UE, flat affect, ambulates more steady, using a walker, pt c/o pain in foot, will call fuel cell systems engineer. Impression: As per history of schizophrenia, paranoid type Parkinson's disease Medication Change: Yes (seroquel increased) Medical Record Reviewed: Yes Consults ordered or reviewed: Patient was seen by primary care physician Vibration Analyst was called for ECT treatment Neurology was called for a ECT treatment Mental Status Examination - Cognitive Function Orientation: Person, Place, Situation, Time Memory: Intact Attention: Poor (some improvement) Concentration: Poor (some improvement) Association: Loose (some improvement) Fund of Knowledge: WNL - Mood Mood: Depressed (some improvement) - Affect Affect: Constricted (but more reactive today..) - Speech Speech: Soft - Formal Thought Process Formal Thought Process: Hallucinations (over the weekend pt heard voice of god.), Delusions, Paranoia (some improvement), Loosening of associations, Other (better organized thought process) - Suicidal Ideation Suicidal Ideation: No - Homicidal Ideation Homicidal Ideation: No Goal/Treatment Plan - Goal/Treatment Plan Need for Continued Stay: Remain at risks for inpatient hospitalization, Severe depression anxiety, Discharge may exacerbated symptoms, Severe functional impairment Progress Toward Problem(s) and Goals/Treatment Plan: Milieu/structure/supportive therapy SW consultation for discharge plan and social issues Med management: Medications were confirmed by patient pharmacy, please see consultation note on the medical side Discussed with the family, patient brother Leonela Patient wants to point his brother to be his power of transactional attorney for medical decisions Seroquel 50mg at the morning 100hs for psychosis Levodopa carbidopa resumed Ativan discontinued Aricept 5 mg at the nighttime pt was cleared for ECT by cardiology, PMD Patient was educated about ECT procedure, risk/benefits/alternatives discussed ECT#1 BL 07/18/18 tolerated well ECT #2 BL 07/20/18 tolerated well ECT #3 BL 07/23/18 tolerated well One-to-one was discontinued July 16, 2018 Physical therapy evaluation, pt ambulates using a walker Family involvement Follow up on labs Will monitor closely Pt was educated about risk/benefits and alternatives of medications, coping strategies (safety plan, suicide prevention), relapse prevention, importance of follow up with psychiatrist and therapist, stay away from drugs/alcohol/smoking Estimated Date of D/C: 07/27/18
[2018-07-23 16:20] VITALS: O2SAT 99
[2018-07-24] MEDS: Pantoprazole 40 mg EC Tab PO SCH (06:45)
--- NOTE | 2018-07-24 10:02 | PN ---
DATE: 07/24/2018 LOCATION: The patient is in [facility], Behavioral Care Unit room 519, bed 1. SUBJECTIVE: The patient was admitted with schizophrenia, depression, dementia. The patient has history of gastritis. The patient is seen this morning, he is resting in bed. PHYSICAL EXAMINATION VITAL SIGNS: Pulse is 76, blood pressure 100/60 and respirations are 17. HEENT: Head is normocephalic. LUNGS: Clear. HEART: Normal sinus rhythm. ABDOMEN: Soft. Liver and spleen not palpable. CENTRAL NERVOUS SYSTEM: No focal deficits. MEDICATIONS: The patient's medications will be continued, there is no change. The patient is on Seroquel, pantoprazole, Aricept, Flomax, and Sinemet. DIET: The patient is on heart-healthy diet. ASSESSMENT AND PLAN: The patient has been treated with ECT and the patient will be continuously closely monitored for improvement. Puneet Aranda MD [email or web address]
--- NOTE | 2018-07-24 15:26 | PCM.PYCHPN ---
Psychiatric Progress Note - Psychiatric Progress Note Patient seen today, length of contact: 30 minutes Patient Chief Complaint: "I feel little better..." Problems Identified/Issues Discussed: Treatment plan, ECT procedure. Medical Problems: Parkinson's disease History of hypertension, history of prostatic hypertrophy, sleep apnea, history of prostatic carcinoma as per [facility] history. Diagnostic Results: 07/16/18 10:40 07/16/18 10:40 Lab Results 07/16/18 10:40: WBC 8.7, RBC 3.83, Hgb 12.6 L, Hct 39.4 L, MCV 102.9 D, MCH 32.9, MCHC 32.0, RDW 13.7, Plt Count 151, MPV 10.3, Neut % (Auto) 80.4 H, Lymph % (Auto) 9.0 L, [place] % (Auto) 9.1 H, Eos % (Auto) 1.3 L, Baso % (Auto) 0.2, Lymph # (Auto) 0.8 L, [place] # (Auto) 0.8 H, Eos # (Auto) 0.1, Baso # (Auto) 0.02, Absolute Neuts (auto) 6.99 H 07/16/18 10:40: Sodium 136, Potassium 4.4, Chloride 100, Carbon Dioxide 30, Anion Gap 11, BUN 26 H, Creatinine 1.4, Est GFR ( Amer) 60, Est GFR (Non- Af Amer) 50, Random Glucose 74, Calcium 8.5, Phosphorus 2.9, Magnesium 2.2, Total Bilirubin 0.3, Direct Bilirubin 0.3, AST 28, ALT 13, Alkaline Phosphatase 56, Total Protein 5.7 L, Albumin 3.0, Globulin 2.7, Albumin/Globulin Ratio 1.1 07/15/18 07:00: RPR Nonreactive 07/15/18 07:00: Free T4 1.41, TSH 3rd Generation 1.02 07/15/18 07:00: Fasting Glucose 85, Triglycerides 86, Cholesterol 121 L, LDL Cholesterol Direct 72, HDL Cholesterol 27 L Vital Signs Temp Pulse Resp BP 07/16/18 07:26 97.9 F 65 19 109/71 07/14/18 15:00 65 110/72 DSM 5 Symptoms Update: Shortly, patient is a 72-year old male, reported history of schizophrenia, history of Parkinson's disease, denied previous history of psychiatric admissions, denied history of suicidal attempts, currently under care or of [facility] treatment, initially patient was found wandering in the community, barefoot, police brought patient to the emergency room, patient required medical admission for delirium, this telegraphic typewriter operator chief was involved in to the patient care due to tree of mental illness, medication management, altered mental status. Patient was medically stable, collateral information's were obtained from patient brother Abel, patient required further evaluation and stabilization in to the psychiatric inpatient unit and ECT treatment. Patient was seen today in his room at am, pt presented to be calm and cooperative, patient reported today he feels "better", patient reported that he had lower extremity pain, redness of his right foot noticeable, will call for medical consultation. Patient reported that he did not hear any voices, denied seeing things, denied paranoid ideation. This telegraphic typewriter operator chief educated patient about ECT, patient is willing to have ECT treatment on this , July 26, 2018. There is no side effects from ECT treatment, no memory issues. yesterday patient wanted this telegraphic typewriter operator chief to give a call to his brother Abel, who was contacted 07/23/18, prolonged conversation about tx plan, pt's brother was appreciative. first BL ECT treatment 07/18/18: this telegraphic typewriter operator chief needed to give two stimuli at the first session because pt is still on titration. MECTA analysis showed 0%adequacy on both occasions. ECT #2 BL 07/20/18 pt is still on titration. pt needed to have 2 stimuli. ECT was considered 22% adequate by MECTA analysis. anesthesiologist used 40mg succinylcholine, 30mg ketamine, 100mg propofol. ECT #3 07/23/18 frequency was increased from 100Hz to 120Hz, Pulse width 0.30msec,duration 8,000sec, current 800mA, pt had about 10seconds of motor seizures, which was considered 22% adequate by MECTA analysis. this telegraphic typewriter operator chief gave second treatment after one min of hyperventilation, pulse width was increased to 0.50msec, frequency 60Hz, duration 8,000sec, current 800mA, pt had about 12seconds of motor seizures, which was considered 27% adequate by MECTA analysis. anesthesiologist used 40mg succinylcholine, 30mg ketamine, 100mg propofol. so far patient tolerates medications well, no side effects observed or reported, aims 0, no EPS. pt has resting tremor UE, affect is more reactive, pt was not able to walk due to LE pain (spur and redness) capacity planning engineer and medical team were called 07/24/18. Impression: As per history of schizophrenia, paranoid type Parkinson's disease Medication Change: Yes (seroquel increased) Medical Record Reviewed: Yes Mental Status Examination - Cognitive Function Orientation: Person, Place, Situation, Time Memory: Intact Attention: Poor (some improvement) Concentration: Poor (some improvement) Association: Loose (some improvement) Fund of Knowledge: WNL - Mood Mood: Depressed (some improvement) - Affect Affect: Constricted (but more reactive today..) - Speech Speech: Soft - Formal Thought Process Formal Thought Process: Hallucinations (over the weekend pt heard voice of god.), Delusions, Paranoia (some improvement), Loosening of associations, Other (better organized thought process) - Suicidal Ideation Suicidal Ideation: No - Homicidal Ideation Homicidal Ideation: No Goal/Treatment Plan - Goal/Treatment Plan Need for Continued Stay: Remain at risks for inpatient hospitalization, Severe depression anxiety, Discharge may exacerbated symptoms, Severe functional impairment Progress Toward Problem(s) and Goals/Treatment Plan: Milieu/structure/supportive therapy SW consultation for discharge plan and social issues Med management: Medications were confirmed by patient pharmacy, please see consultation note on the medical side Discussed with the family, patient brother Leonela Patient wants to point his brother to be his power of litigation attorney for medical decisions Seroquel 50mg at the morning 100hs for psychosis Levodopa carbidopa resumed Ativan discontinued Aricept 5 mg at the nighttime pt was cleared for ECT by cardiology, PMD Patient was educated about ECT procedure, risk/benefits/alternatives discussed ECT#1 BL 07/18/18 tolerated well ECT #2 BL 07/20/18 tolerated well ECT #3 BL 07/23/18 tolerated well One-to-one was discontinued July 16, 2018 Physical therapy evaluation, pt ambulates using a walker Family involvement Follow up on labs Will monitor closely Pt was educated about risk/benefits and alternatives of medications, coping strategies (safety plan, suicide prevention), relapse prevention, importance of follow up with psychiatrist and therapist, stay away from drugs/alcohol/smoking Estimated Date of D/C: 07/27/18
[2018-07-25] MEDS: Pantoprazole 40 mg EC Tab PO SCH (06:22)
[2018-07-25 07:01] VITALS: BP 112/59; PULSE 77; RESP 20; TEMP 99.8
--- NOTE | 2018-07-25 10:02 | CP.PCM.CON ---
<Edin Mata - Last Filed: 07/25/18 11:19> History of Present Illness - History of Present Illness History of Present Illness: Podiatry consult note - Arjun/Tommy 73M with pmhx of hypertension, hyperlipidemia, obesity, diverticulosis, arthritis, Parkinson's disease seen and evaluated at bedside in the [facility] with Dr. Oritz for left foot abscess. Patient has been on psych floor at the hospital and was sent down for evaluation of the lesion. Patient states that he has had this for about 3 days. States it is not currently painful but causes him pain and discomfort when his legs are down. States he has not noticed if it has gotten bigger or if the skin surrounding it has become more red since it started. Denies stepping on anything over the past few days or before the swell ing in his foot started. Denies n/v/f/c/sob/cp today and has no other acute complaints. PMHx: above All: quinapril Past Patient History - Infectious Disease Hx of Infectious Diseases: None - Tetanus Immunizations Tetanus Immunization: Unknown - Past Medical History & Family History Past Medical History?: Yes - Past Social History Smoking Status: Unknown If Ever Smoked - CARDIAC Hx Hypertension: Yes - PULMONARY Hx Respiratory Disorders: Yes Hx Sleep Apnea: Yes - NEUROLOGICAL Hx Neurological Disorder: Yes Hx Parkinson's Disease: Yes - HEENT Hx HEENT Problems: Yes Hx Glaucoma: Yes - RENAL Hx Chronic Kidney Disease: No - ENDOCRINE/METABOLIC Hx Endocrine Disorders: No - HEMATOLOGICAL/ONCOLOGICAL Hx Blood Transfusions: No Hx Blood Transfusion Reaction: No - INTEGUMENTARY Hx Dermatological Problems: No - MUSCULOSKELETAL/RHEUMATOLOGICAL Hx Arthritis: Yes - GASTROINTESTINAL Hx Gastrointestinal Disorders: No - GENITOURINARY/GYNECOLOGICAL Hx Genitourinary Disorders: Yes Hx Prostate Problems: Yes (ca prostate) - PSYCHIATRIC Hx Depression: Yes Hx Emotional Abuse: No Hx Physical Abuse: No - SURGICAL HISTORY Hx Surgeries: Yes - ANESTHESIA Hx Anesthesia Reactions: No Hx Malignant Hyperthermia: No Meds Allergies/Adverse Reactions: Allergies Allergy/AdvReac Type Severity Reaction Status Date / Time quinapril Allergy REDNESS Verified 07/25/18 09:18 - Medications Medications: Current Medications Acetaminophen (Tylenol 325mg Tab) 650 mg PO Q6H PRN PRN Reason: Pain, moderate (4-7) Last Admin: 03/26/19 18:01 Dose: 650 mg Al Hydrox/Mg Hydrox/Simethicone (Maalox Plus 30 Ml) 30 ml PO DAILY PRN PRN Reason: Indigestion / Heartburn Carbidopa/Levodopa (Sinemet) 1 tab PO DAILY [facility] Last Admin: 07/25/18 08:29 Dose: 1 tab Donepezil HCl (Aricept) 5 mg PO HS [facility] Last Admin: 07/24/18 21:57 Dose: 5 mg Ibuprofen (Motrin Tab) 600 mg PO TID PRN PRN Reason: Pain, severe (8-10) Magnesium Hydroxide (Milk Of Magnesia) 30 ml PO DAILY PRN PRN Reason: Constipation Ondansetron HCl (Zofran Tab) 4 mg PO Q8H PRN PRN Reason: Nausea/Vomiting Pantoprazole Sodium (Protonix Ec Tab) 40 mg PO 0600 [facility] Last Admin: 07/25/18 06:22 Dose: 40 mg Quetiapine Fumarate (Seroquel) 100 mg PO HS [facility]; Protocol Last Admin: 07/24/18 21:57 Dose: 100 mg Quetiapine Fumarate (Seroquel) 50 mg PO DAILY [facility]; Protocol Last Admin: 07/25/18 08:29 Dose: 50 mg Tamsulosin HCl (Flomax) 0.4 mg PO DAILY [facility] Last Admin: 07/25/18 08:29 Dose: 0.4 mg Physical Exam - Constitutional Appears: Non-toxic - Head Exam Head Exam: ATRAUMATIC - Extremities Exam Additional comments: LLE focused exam VASC: DP and PT pulses palpable; cap refill <3 seconds to all digits; temp gradient warm to warm; moderate edema noted to the foot, does not extend up ankle DERM: abscess noted at the plantar aspect of the forefoot with lesion present centrally; erythema and cellulitis present globally at the forefoot; no drainage or malodor present, no openings ORTHO: no pain on palpation of lesion; no pain on calf compression NEURO: gross and protective sensation intact - Neurological Exam Neurological exam: Alert, Oriented x3 - Psychiatric Exam Psychiatric exam: Normal Affect Results - Vital Signs Recent Vital Signs: Last Vital Signs Temp 99.8 F H 07/25/18 06:59 Pulse 77 07/25/18 06:59 Resp 20 07/25/18 06:59 BP 112/59 L 07/25/18 06:59 Pulse Ox 99 07/23/18 16:16 - Labs Result Diagrams: 07/16/18 10:40 07/16/18 10:40 Labs: Laboratory Results - last 24 hr 07/24/18 12:05 Uric Acid 5.3 Assessment & Plan - Assessment and Plan (Free Text) Assessment: 73M with left foot abscess and cellulitis Plan: Patient seen and evaluated with Dr. Ortiz Temp 99.8, WBC 17.5 Incision and drainage performed in the ED - ankle block performed with 20cc of 1% lidocaine plain - betadine to sterilize area - 15 blade used to incise, 10cc of purulent drainage expressed - site deroofed revealing normal healthy tissue with central lesion - patient tolerated well - flushed with betadine/saline, packed and dressed with dry sterile dressing Left foot x-ray and MRI ordered - f/u Abx per medicine Wound cx taken - f/u Will continue to follow - Date & Time Date: 07/25/18 Time: 10:06 <Alfred Ortiz - Last Filed: 07/26/18 07:09> Results - Vital Signs Recent Vital Signs: Last Vital Signs Temp 99.8 F H 07/25/18 06:59 Pulse 77 07/25/18 06:59 Resp 20 07/25/18 06:59 BP 112/59 L 07/25/18 06:59 Pulse Ox 99 07/23/18 16:16 - Labs Result Diagrams: 07/16/18 10:40 07/16/18 10:40 Attending/Attestation - Attestation I have personally seen and examined this patient.: Yes I have fully participated in the care of the patient.: Yes I have reviewed all pertinent clinical information: Yes
--- NOTE | 2018-07-25 10:20 | PN ---
DATE: 07/25/2018 SUBJECTIVE: The patient is a 73-year-old white male. He is in the Behavioral Care Unit. This morning when I saw the patient, he complained of pain in his left foot. He has a mass on the sole of the foot close to the third, fourth and fifth digits. The patient has possible abscess associated with callus. There is no open wound, no drainage. The patient has pain on touching it. PHYSICAL EXAMINATION: VITAL SIGNS: Pulse is 77, temperature 99.8 and respirations are 20. HEENT: Head is normocephalic. He does have tremors of both hands. LUNGS: Clear. HEART: Normal sinus rhythm. ABDOMEN: Soft. Liver and spleen not palpable. CENTRAL NERVOUS SYSTEM: The patient is depressed, history of schizophrenia. The patient has history of benign prostetic hyperplasia. The patient also has history of dementia and movement disorder. DIAGNOSES: The patient is on Flomax and Sinemet. The patient is on Seroquel, Aricept, Motrin for pain and pantoprazole 40 mg daily. The patient is going to be discharged from the Behavioral Care Unit and will be seen in the emergency room and admitted to medical floor. The patient will need Infectious Disease consultation, IV antibiotics and Nursing Program Manager to see the patient. He probably needs surgical drainage of that abscess. The patient's condition seems to be acute medical right now. We will continue current management. We will take care of the medications. Puneet Aranda MD [email or web address]
--- NOTE | 2018-07-25 14:20 | PCM.PYCHDC ---
Mental Status Examination - Mental Status Examination Orientation: Person, Place, Situation, Time Memory: Intact Mood: Neutral Affect: Constricted Attention: Poor Concentration: Poor Association: WNL Fund of Knowledge: WNL Formal Thought Process: Delusions, Paranoia Description of patient's judgement and insight: improving Psychotic Thoughts and Behaviors: Delusions, paranoia which seems to be improving Suicidal Ideation: No Current Homicidal Ideation?: No Plan: Patient denied intent or plan to kill himself Discharge Summary - Discharge Note Reason for Hospitalization: Patient was transferred from the medical side for evaluation and stabilization of psychotic symptoms, disorganized thoughts/behavior, possible ECT treatment. Psychiatric History (includes Medical, Family, Personal Hx): See HPI Laboratory Data: 07/16/18 10:40 07/16/18 10:40 Lab Results 07/24/18 12:05: Uric Acid 5.3 07/16/18 10:40: WBC 8.7, RBC 3.83, Hgb 12.6 L, Hct 39.4 L, MCV 102.9 D, MCH 32.9, MCHC 32.0, RDW 13.7, Plt Count 151, MPV 10.3, Neut % (Auto) 80.4 H, Lymph % (Auto) 9.0 L, [place] % (Auto) 9.1 H, Eos % (Auto) 1.3 L, Baso % (Auto) 0.2, Lymph # (Auto) 0.8 L, [place] # (Auto) 0.8 H, Eos # (Auto) 0.1, Baso # (Auto) 0.02, Absolute Neuts (auto) 6.99 H 07/16/18 10:40: Sodium 136, Potassium 4.4, Chloride 100, Carbon Dioxide 30, Anion Gap 11, BUN 26 H, Creatinine 1.4, Est GFR ( Amer) 60, Est GFR (Non- Af Amer) 50, Random Glucose 74, Calcium 8.5, Phosphorus 2.9, Magnesium 2.2, Total Bilirubin 0.3, Direct Bilirubin 0.3, AST 28, ALT 13, Alkaline Phosphatase 56, Total Protein 5.7 L, Albumin 3.0, Globulin 2.7, Albumin/Globulin Ratio 1.1 07/15/18 07:00: RPR Nonreactive 07/15/18 07:00: Free T4 1.41, TSH 3rd Generation 1.02 07/15/18 07:00: Fasting Glucose 85, Triglycerides 86, Cholesterol 121 L, LDL Cholesterol Direct 72, HDL Cholesterol 27 L Vital Signs Temp Pulse Resp BP Pulse Ox 07/25/18 06:59 99.8 F H 77 20 112/59 L 07/24/18 16:00 84 123/77 07/24/18 14:00 84 123/77 07/24/18 07:00 97.6 F 76 17 97/60 L 07/23/18 16:30 84 20 106/62 07/23/18 16:16 99.7 F H 76 18 107/56 L 99 07/23/18 16:02 92 H 109/61 07/23/18 16:01 99.7 F H 77 18 111/57 L 97 07/23/18 15:46 99.7 F H 82 18 108/55 L 97 07/23/18 15:32 84 20 106/62 98 07/23/18 15:31 98 F 81 12 110/62 99 07/23/18 14:00 99.7 F H 83 18 131/61 96 07/23/18 09:00 99.2 F 84 20 104/64 07/23/18 07:33 99.2 F 84 20 104/64 07/22/18 15:57 81 128/74 07/22/18 07:11 98.2 F 75 18 148/69 07/21/18 14:00 76 142/79 07/21/18 07:00 98.8 F 74 18 124/70 07/20/18 16:00 93 H 151/83 H 07/20/18 12:16 98.8 F 68 14 123/61 99 07/20/18 12:00 98.8 F 68 14 120/72 99 07/20/18 11:45 98.8 F 69 12 137/72 99 07/20/18 10:40 98.2 F 87 20 157/75 H 96 07/20/18 07:36 98.0 F 69 20 122/74 07/19/18 16:54 75 126/74 07/19/18 07:04 98.7 F 93 H 20 102/62 07/18/18 16:00 101 H 111/71 07/18/18 11:57 97.4 F L 86 16 155/69 H 100 07/18/18 11:42 97.4 F L 80 16 145/68 100 07/18/18 11:27 97.4 F L 88 16 118/63 99 07/18/18 11:12 97.4 F L 96 H 15 156/64 H 99 07/18/18 10:57 97.4 F L 94 H 14 186/79 H 95 07/18/18 09:40 97.4 F L 71 18 128/60 97 07/18/18 07:29 97.9 F 63 20 147/75 07/17/18 16:00 65 131/74 07/17/18 07:26 97.8 F 64 16 121/71 97 07/16/18 16:40 64 98/48 L 07/16/18 07:26 97.9 F 65 19 109/71 07/14/18 15:00 65 110/72 Consultations:: List each consultation separately and include: 1. Reason for request. 2. Findings. 3. Follow-up Consultations: Patient was seen by primary care physician Director Of Training was called for ECT treatment Neurology was called for a ECT treatment Patient was seen by podiatry team 07/25/18 for the left foot abscess Incision and drainage performed in the ED Left foot x-ray and MRI ordered - f/u Abx per medicine Wound cx taken - f/u Discussed with , ED pt requires IV abx and medical admission will f/u with pt on the medical site Summary of Hospital Course include:: 1. Description of specific treatment plan utilized for patients during their course of treatmen. 2. Summarize the time- course for resolution of acute symptoms and/or regressed behaviors. 3. Describe issues identified and worked on during hospitalization. 4. Describe medication utilized. 5. Describe medical problems identified and treated. 6. Reassessment of suicide risk Summary of Hospital Course: Shortly, patient is a 72-year old male, reported history of schizophrenia, history of Parkinson's disease, denied previous history of psychiatric admissions, denied history of suicidal attempts, currently under care or of [facility] treatment, initially patient was found wandering in the community, barefoot, police brought patient to the emergency room, patient required medical admission for delirium, this marine underwriter was involved in to the patient care due to tree of mental illness, medication management, altered mental status. Patient was medically stable, collateral information's were obtained from patient brother Abel, patient required further evaluation and stabilization in to the psychiatric inpatient unit and ECT treatment. Patient tolerated ECT treatments well, had 3 BL ECTs, no memory issues, please see previous notes for more detailed information. pt was seen by medical/podiatry consult for left food abscess, required medical transfer. pt's brother Abel, was contacted, notified that pt requires medical admission, tx plan was discussed in details. Patient will be followed up on the medical side, for now all psychotropic meds will be continued. ECT which was scheduled for 07/26/2018 will be canceled. 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
== END 2018-07-25 09:12 | disposition short-term general hospital (02) | DRG 885 ==
LOC: PSYC 10:36
PROVIDERS: ADMIT Psychiatry & Neurology Psychiatry; ATTEND Psychiatry & Neurology Psychiatry
DX: F20.0 Paranoid schizophrenia (principal); G92 Toxic encephalopathy; L02.612 Cutaneous abscess of left foot; L03.116 Cellulitis of left lower limb; M62.82 Rhabdomyolysis; F60.0 Paranoid personality disorder; F32.89 Other specified depressive episodes; G20 Parkinson's disease; F03.90 Unspecified dementia, unspecified severity, without behavioral disturbance, psychotic disturbance, mood disturbance, and anxiety; D64.9 Anemia, unspecified; E78.5 Hyperlipidemia, unspecified; G93.89 Other specified disorders of brain; G47.30 Sleep apnea, unspecified; H40.9 Unspecified glaucoma; I11.9 Hypertensive heart disease without heart failure; I25.10 Atherosclerotic heart disease of native coronary artery without angina pectoris; I65.23 Occlusion and stenosis of bilateral carotid arteries; I70.0 Atherosclerosis of aorta; K20.9 Esophagitis, unspecified; N40.0 Benign prostatic hyperplasia without lower urinary tract symptoms; Z68.31 Body mass index [BMI] 31.0-31.9, adult; Z79.899 Other long term (current) drug therapy; Z85.46 Personal history of malignant neoplasm of prostate; Z86.010 Personal history of colon polyps; Z90.79 Acquired absence of other genital organ(s); Z91.14 Patient's other noncompliance with medication regimen; Z91.81 History of falling; Z88.8 Allergy status to other drugs, medicaments and biological substances

== ENCOUNTER 2018-07-25 09:11 | Inpatient (IN) | payer MEDICARE ==
[2018-07-25] MEDS ORDERED: Vancomycin 1gm in NS 250ml 1 GM/250 ML BAG IVPB STA ×3 (09:40→16:00)
--- NOTE | 2018-07-25 09:49 | ED PDOC ---
Arrival/HPI - General Chief Complaint: Abnormal Skin Integrity Time Seen by Provider: 07/25/18 09:25 Historian: Patient - History of Present Illness Narrative History of Present Illness (Text): 07/25/18 09:35 73 year old M with pmh of hypertension, sleep apnea, prostate cancer and psych history presents with cc of left foot swelling. Patient reports that he did not notice swelling on foot until recently because he has been wearing socks. He denies any fever, chills or bodyaches. He does have pain to the foot. On 07/15/2018, patient was transferred from the medical side to the psychiatry floor (Dr. Arvizu) for evaluation and stabilization of psychotic symptoms, disorganized thoughts/behavior, and ECT treatment. During his psychiatry stay they noticed swelling of his left foot with readness and what appeared to be an abscess. They consulted Dr. Sanders at that time. PMD: Dr. Castañeda Tool Trouble Shooter: Dr. Harjit Garcia Symptom Onset: Gradual Symptom Course: Unchanged Activities at Onset: Light Context: Home Past Medical History - Provider Review Nursing Documentation Reviewed: Yes - Infectious Disease Hx of Infectious Diseases: None - Tetanus Immunization Tetanus Immunization: Unknown - Cardiac Hx Cardiac Disorders: Yes Hx Hypertension: Yes - Pulmonary Hx Respiratory Disorders: Yes Hx Sleep Apnea: Yes - Neurological Hx Neurological Disorder: Yes Hx Parkinson's Disease: Yes - HEENT Hx HEENT Disorder: Yes Hx Glaucoma: Yes - Renal Hx Renal Disorder: No - Endocrine/Metabolic Hx Endocrine Disorders: No - Hematological/Oncological Hx Blood Transfusions: No Hx Blood Transfusion Reaction: No - Integumentary Hx Dermatological Disorder: No - Musculoskeletal/Rheumatological Hx Musculoskeletal Disorders: Yes Hx Arthritis: Yes - Gastrointestinal Hx Gastrointestinal Disorders: No - Genitourinary/Gynecological Hx Genitourinary Disorders: Yes Hx Prostate Problems: Yes (ca prostate) - Psychiatric Hx Psychophysiologic Disorder: Yes Hx Depression: Yes Hx Substance Use: No - Surgical History Hx Tonsillectomy: Yes - Anesthesia Hx Anesthesia Reactions: No Hx Malignant Hyperthermia: No - Suicidal Assessment Feels Threatened In Home Enviroment: No Family/Social History - Physician Review Nursing Documentation Reviewed: Yes Family/Social History: Unknown Family HX Smoking Status: Unknown If Ever Smoked Hx Alcohol Use: No Hx Substance Use: No Allergies/Home Meds Allergies/Adverse Reactions: Allergies quinapril Allergy (Verified 03/27/19 09:18) REDNESS Home Medications: Home Meds Medication Instructions Recorded Confirmed Carbidopa/Levodopa 1 each PO DAILY 07/10/18 07/25/18 [Carbidopa-Levodopa 25-100 Tab] QUEtiapine [Seroquel] 100 mg PO HS 07/10/18 07/25/18 Aluminum Hydroxide/Magnesium H 30 ml PO PRN PRN 07/25/18 07/25/18 [Maalox 30 ml] Ibuprofen [Motrin Tab] 600 mg PO TID PRN 07/25/18 07/25/18 Ondansetron HCl [Zofran] 4 mg PO Q8 PRN 07/25/18 07/25/18 Pantoprazole [Protonix EC Tab] 40 mg PO DAILY 07/25/18 07/25/18 Quetiapine Fumarate [Seroquel] 50 mg PO DAILY 07/25/18 07/25/18 Tamsulosin [Flomax] 1 cap PO DAILY 07/25/18 07/25/18 Review of Systems - Physician Review All systems were reviewed & negative as marked: Yes - Review of Systems Constitutional: Normal Eyes: Normal ENT: Normal Respiratory: Normal Cardiovascular: Normal Gastrointestinal: Normal Genitourinary Male: Normal Musculoskeletal: Arthralgias (Left foot swelling) Skin: Cellulitis (Left foot) Neurological: Normal Endocrine: Normal Hemo/Lymphatic: Normal Psychiatric: Normal. absent: Suicidal Ideation Physical Exam Vital Signs Reviewed: Yes Vital Signs Temp Pulse Resp BP Pulse Ox 07/25/18 09:19 98.5 F 88 17 115/58 L 96 Temperature: Afebrile Blood Pressure: Normal Pulse: Regular Respiratory Rate: Normal Appearance: Positive for: Well-Appearing, Non-Toxic, Comfortable Pain Distress: Mild Mental Status: Positive for: Alert and Oriented X 3 - Systems Exam Head: Present: Atraumatic, Normocephalic Pupils: Present: PERRL Extroacular Muscles: Present: EOMI Conjunctiva: Present: Normal Mouth: Present: Moist Mucous Membranes Neck: Present: Normal Range of Motion Respiratory/Chest: Present: Clear to Auscultation, Good Air Exchange. No: Respiratory Distress, Accessory Muscle Use Cardiovascular: Present: Regular Rate and Rhythm, Normal S1, S2. No: Murmurs Abdomen: No: Tenderness, Distention, Peritoneal Signs Back: Present: Normal Inspection Upper Extremity: Present: Normal Inspection. No: Cyanosis, Edema Lower Extremity: Present: NORMAL PULSES, Tenderness (left foot), Swelling (Left foot up to ankle), Erythema (Left foot up to ankle), Other (Left foot [id number] fluctuant abscess to left foot plantar service) Neurological: Present: GCS=15, CN II-XII Intact, Speech Normal, Motor Func Grossly Intact Skin: Present: Warm, Dry, Normal Color. No: Rashes Psychiatric: Present: Alert, Oriented x 3, Normal Insight, Normal Concentration. No: Suicidal Ideation Medical Decision Making ED Course and Treatment: 07/25/18 09:37 Impression: 73 year old M presents with cc of left foot swelling Differential Diagnosis included but are not limited to: -- Left foot abscess -- Left foot cellulitis Plan: -- Labs -- Vancomycin -- Reassess and disposition Prior Visits: Notes and results from previous visits were reviewed. Progress Notes: 07/25/18 09:37Consult with podiatry resident Edin who works with Dr. Sanders, who going to come evaluate patient. Dr. Sanders mentioned that the patient has already been under their service. 07/25/18 11:02 Code sepsis was called due to suspected infection with two SIRS criteria of RR 20 and WBC 17 plus an elevated LA of 2.1. IVF were added. Discussed case with Dr. Daly covering for Dr. Castañeda. Consult requested for Dr. Vergara, infectious disease 07/25/18 12:[address] Ortiz came to evaluate foot and performed an I&D with Resident Jesus. He will continue to follow the wound. - RAD Interpretation Radiology Orders: 07/25/18 09:34 FOOT LEFT 3 VIEWS ROUTINE [RAD] Stat - Medication Orders Current Medication Orders: Vancomycin HCl (Vancomycin 1gm) 1 gm in 250 mls @ 167 mls/hr IVPB STAT STA; Protocol Stop: 07/25/18 11:09 - Scribe Statement The provider has reviewed the documentation as recorded by the Nevin Ceballos All medical record entries made by the Scribe were at my direction and personally dictated by me. I have reviewed the chart and agree that the record accurately reflects my personal performance of the history, physical exam, medical decision making, and the department course for this patient. I have also personally directed, reviewed, and agree with the discharge instructions and disposition. Disposition/Present on Arrival - Present on Arrival Any Indicators Present on Arrival: No History of DVT/PE: No History of Uncontrolled Diabetes: No Urinary Catheter: No History of Decub. Ulcer: No History Surgical Site Infection Following: None - Disposition Have Diagnosis and Disposition been Completed?: Yes Diagnosis: Foot abscess, left, Cellulitis of left foot Disposition: HOSPITALIZED Disposition Time: 11:02 Patient Plan: Admission Patient Problems: Current Active Problems Problem Status Onset Schizophrenia Acute Parkinson disease Acute Condition: FAIR
[2018-07-25] MEDS ORDERED: Lidocaine 1% Inj (20ml) IJ STA (10:13)
[2018-07-25 10:18] LABS: BASO # 0.03 K/mm3 (0.0-2.0); BASO % 0.2 % (0.0-3.0); EOS # 0.1 (0.0-0.7); EOS % 0.4 % (1.5-5.0); HEMOGLOBIN 12.7 g/dL (14.0-18.0); LYMPH # 0.8 (1.2-3.4); LYMPH % 4.6 % (22.0-35.0); MEAN CELL VOLUME 103.7 fl (80.0-105.0); MEAN CORPUSCULAR HEMOGLOBIN 33.6 pg (25.0-35.0); MEAN CORPUSCULAR HGB CONC 32.4 g/dl (31.0-37.0); MEAN PLATELET VOLUME 10.1 fl (7.0-11.0); MONO # 0.7 (0.1-0.6); MONO % 3.8 % (1.0-6.0); PLATELET COUNT 154 10^3/uL (120.0-450.0); RBC 3.78 10^6/uL (3.5-6.1); RED CELL DISTRIBUTION WIDTH 14.1 % (11.5-14.5); WHITE BLOOD COUNT 17.5 10^3/uL (4.5-11.0)
[2018-07-25] MEDS ORDERED: Lidocaine 1% 5ml Abboject ONE ×2 (10:19→10:21)
[2018-07-25 10:31] LABS: ALB/GLOB RATIO 0.9 (1.1-1.8); CALCIUM 8.6 mg/dL (8.4-10.5)
[2018-07-25 10:32] LABS: VENOUS BLOOD GAS BASE EXCESS 3.9 mmol/L (0.0-2.0); VENOUS BLOOD GAS PO2 25 mm/Hg (30-55); VENOUS BLOOD PH 7.38 (7.32-7.43)
[2018-07-25] MEDS ORDERED: Piperacill/Tazo 4.5gm in NS 4.5 GM/100 ML BAG IVPB STA (10:42)
[2018-07-25 10:48] LABS: LYMPHOCYTE 6 % (22.0-35.0); MONOCYTE 3 % (1.0-6.0); NEUTROPHIL 91 % (50.0-70.0); PLATELET ESTIMATE NORMAL (NORMAL)
[2018-07-25 10:49] LABS: ANISOCYTOSIS 1+; OVALOCYTES SLIGHT; POIKILOCYTOSIS SLIGHT; TEAR DROP CELLS SLIGHT; TOXIC GRANULATION SLIGHT
[2018-07-25] MEDS: Sodium Chloride 0.9% 1,000 ML IV SCH ×2 (11:04→21:47)
--- NOTE | 2018-07-25 12:13 | RAD ---
Date of service: 07/25/2018 PROCEDURE: Left Foot Radiographs. HISTORY: left foot abscess COMPARISON: None. TECHNIQUE: 3 views obtained. FINDINGS: BONES: Normal. No fracture. JOINTS: Normal. SOFT TISSUES: Normal. OTHER FINDINGS: None. IMPRESSION: Negative study
[2018-07-25] MEDS ORDERED: Piperacillin/Tazobact 3.375 gm 100 ML IVPB SCH (14:00)
[2018-07-25 14:09] LABS: VENOUS BLOOD GAS BASE EXCESS 2.5 mmol/L (0.0-2.0); VENOUS BLOOD GAS PO2 31 mm/Hg (30-55); VENOUS BLOOD PH 7.38 (7.32-7.43)
--- NOTE | 2018-07-25 14:18 | CP.PCM.CON ---
<Diogenes Early - Last Filed: 07/25/18 15:13> History of Present Illness - History of Present Illness History of Present Illness: Diogenes Early D.O. PGY-3, Internal Medicine Resident, Infectious Disease Consultation Note 73-year-old male with a past medical history of hypertension, hyperlipidemia, diverticulosis, paranoid schizophrenia, and arthritis who was being managed in the [facility] when he developed pain in his left foot while walking. Infectious disease consultation was called for a left foot abscess. Patient was seen and examined at bedside. Patient states that he was ambulating around in the psychiatric [facility] when he noticed that he was having increasing pain with walking. Patient states that he had a callus there and he thinks that it opened up. Patient states that he has not had these issues before. Patient denies any fevers, chills, nausea, vomiting, diarrhea, constipation, lightheadedness or other complaints at this time. Denies having any cough or shortness of breath or chest pain. Review of Systems - Review of Systems All systems: reviewed and no additional remarkable complaints except (as per HPI) Past Patient History - Infectious Disease Hx of Infectious Diseases: None - Tetanus Immunizations Tetanus Immunization: Unknown - Past Medical History & Family History Past Medical History?: Yes - Past Social History Smoking Status: Unknown If Ever Smoked - CARDIAC Hx Cardiac Disorders: Yes Hx Hypertension: Yes - PULMONARY Hx Respiratory Disorders: Yes Hx Sleep Apnea: Yes - NEUROLOGICAL Hx Neurological Disorder: Yes Hx Parkinson's Disease: Yes - HEENT Hx HEENT Problems: Yes Hx Glaucoma: Yes - RENAL Hx Chronic Kidney Disease: No - ENDOCRINE/METABOLIC Hx Endocrine Disorders: No - HEMATOLOGICAL/ONCOLOGICAL Hx Blood Transfusions: No Hx Blood Transfusion Reaction: No - INTEGUMENTARY Hx Dermatological Problems: No - MUSCULOSKELETAL/RHEUMATOLOGICAL Hx Musculoskeletal Disorders: Yes Hx Arthritis: Yes - GASTROINTESTINAL Hx Gastrointestinal Disorders: No - GENITOURINARY/GYNECOLOGICAL Hx Genitourinary Disorders: Yes Hx Prostate Problems: Yes (ca prostate) - PSYCHIATRIC Hx Psychophysiologic Disorder: Yes Hx Depression: Yes Hx Substance Use: No - SURGICAL HISTORY Hx Tonsillectomy: Yes - ANESTHESIA Hx Anesthesia Reactions: No Hx Malignant Hyperthermia: No Meds Allergies/Adverse Reactions: Allergies Allergy/AdvReac Type Severity Reaction Status Date / Time quinapril Allergy REDNESS Verified 07/25/18 09:18 - Medications Medications: Current Medications Acetaminophen (Tylenol 325mg Tab) 650 mg PO Q6 PRN PRN Reason: TEMP>=99.5F Carbidopa/Levodopa (Sinemet) 1 tab PO DAILY [facility] Sodium Chloride (Sodium Chloride 0.9%) 1,000 mls @ 100 mls/hr IV .Q10H [facility] Last Admin: 07/25/18 11:04 Dose: 100 mls/hr Piperacillin Sod/Tazobactam Sod (Zosyn 3.375 In Ns 100ml) 100 mls @ 25 mls/hr IVPB Q8 [facility] Stop: 08/01/18 14:01 Vancomycin HCl (Vancomycin 1gm) 1 gm in 250 mls @ 167 mls/hr IVPB STAT STA; Protocol Stop: 07/25/18 15:45 Ibuprofen (Motrin Tab) 600 mg PO TID PRN PRN Reason: Pain, moderate (4-7) Pantoprazole Sodium (Protonix Ec Tab) 40 mg PO DAILY [facility] Quetiapine Fumarate (Seroquel) 50 mg PO DAILY [facility] Quetiapine Fumarate (Seroquel) 100 mg PO HS [facility]; Protocol Tamsulosin HCl (Flomax) 1 mg PO DAILY [facility] Physical Exam - Constitutional Appears: Non-toxic, No Acute Distress, Chronically Ill - Head Exam Head Exam: ATRAUMATIC, NORMOCEPHALIC - Eye Exam Eye Exam: EOMI. absent: Scleral icterus - ENT Exam ENT Exam: Mucous Membranes Moist, Normal Oropharynx - Neck Exam Neck exam: Positive for: Normal Inspection - Respiratory Exam Respiratory Exam: absent: Rales, Rhonchi, Wheezes - Cardiovascular Exam Cardiovascular Exam: +S1, +S2. absent: Gallop, Rubs - GI/Abdominal Exam GI & Abdominal Exam: Normal Bowel Sounds, Soft. absent: Distended, Tenderness - Extremities Exam Additional comments: left foot s/p I&D on plantar aspect, well wrapped - Neurological Exam Neurological exam: Alert - Skin Skin Exam: Dry, Warm Results - Vital Signs Recent Vital Signs: Last Vital Signs Temp 98.2 F 07/25/18 14:05 Pulse 86 07/25/18 14:05 Resp 18 07/25/18 14:05 BP 122/75 07/25/18 14:05 Pulse Ox 96 07/25/18 14:05 - Labs Result Diagrams: 07/25/18 09:47 07/25/18 09:47 Labs: Laboratory Results - last 24 hr 07/25/18 07/25/18 07/25/18 09:47 09:47 10:20 WBC 17.5 H D RBC 3.78 Hgb 12.7 L Hct 39.2 L MCV 103.7 MCH 33.6 MCHC 32.4 RDW 14.1 Plt Count 154 MPV 10.1 Neut % (Auto) 91.0 H Lymph % (Auto) 4.6 L [place] % (Auto) 3.8 Eos % (Auto) 0.4 L Baso % (Auto) 0.2 Lymph # (Auto) 0.8 L [place] # (Auto) 0.7 H Eos # (Auto) 0.1 Baso # (Auto) 0.03 Absolute Neuts (auto) 15.89 H Neutrophils % (Manual) 91 H Lymphocytes % (Manual) 6 L Monocytes % (Manual) 3 Toxic Granulation Slight Platelet Evaluation Normal Poikilocytosis (manual Slight Anisocytosis (manual) 1+ Macrocytosis (manual) 1+ Tear Drop Cells Slight Ovalocytes Slight pO2 25 L VBG pH 7.38 VBG pCO2 51.0 VBG HCO3 30.2 H VBG Total CO2 31.8 H VBG O2 Sat (Calc) 50.5 VBG Base Excess 3.9 H VBG Potassium 3.9 Glucose 131 H Lactate 2.1 FiO2 21.0 Sodium 140 139.0 Potassium 3.8 Chloride 104 105.0 Carbon Dioxide 30 Anion Gap 10 BUN 26 H Creatinine 1.5 Est GFR ( Amer) 55 Est GFR (Non-Af Amer) 46 Random Glucose 120 H Calcium 8.6 Magnesium 2.1 Total Bilirubin 0.5 AST 28 ALT 12 Alkaline Phosphatase 96 Total Protein 6.2 Albumin 3.0 Globulin 3.2 Albumin/Globulin Ratio 0.9 L Venous Blood Potassium 3.9 07/25/18 13:52 WBC RBC Hgb Hct MCV MCH MCHC RDW Plt Count MPV Neut % (Auto) Lymph % (Auto) [place] % (Auto) Eos % (Auto) Baso % (Auto) Lymph # (Auto) [place] # (Auto) Eos # (Auto) Baso # (Auto) Absolute Neuts (auto) Neutrophils % (Manual) Lymphocytes % (Manual) Monocytes % (Manual) Toxic Granulation Platelet Evaluation Poikilocytosis (manual Anisocytosis (manual) Macrocytosis (manual) Tear Drop Cells Ovalocytes pO2 31 VBG pH 7.38 VBG pCO2 48.0 VBG HCO3 28.4 H VBG Total CO2 29.9 H VBG O2 Sat (Calc) 63.3 VBG Base Excess 2.5 H VBG Potassium 3.6 Glucose 98 Lactate 1.0 FiO2 21.0 Sodium 140.0 Potassium Chloride 108.0 H Carbon Dioxide Anion Gap BUN Creatinine Est GFR ( Amer) Est GFR (Non-Af Amer) Random Glucose Calcium Magnesium Total Bilirubin AST ALT Alkaline Phosphatase Total Protein Albumin Globulin Albumin/Globulin Ratio Venous Blood Potassium 3.6 Assessment & Plan - Assessment and Plan (Free Text) Assessment: 73-year-old male with a past medical history of hypertension, hyperlipidemia, diverticulosis, paranoid schizophrenia, and arthritis who was being managed in the psychiatric [facility] when he developed pain in his left foot while walking. Infectious disease consultation was called for a left foot abscess. Plan: Sepsis secondary to the left foot abscess and cellulitis, concern for osteomyelitis Hypertension Hyperlipidemia Schizophrenia paranoid type Arthritis Status post incision and drainage by podiatry, note appreciated and reviewed Going for MRI of the foot for concerns of osteomyelitis Given 1 g of vancomycin by ER, will give another gram x1 to reach 25 mg/kg We will continue with Zosyn 3.375 every 8 hours Creatinine clearance is 40 Wound cultured Blood culture ESR CRP ordered We will follow with you Patient was seen and examined and case was discussed with attending physician Thank you for the pleasure participating in the care of this patient - Date & Time Date: 07/25/18 Time: 14:30 <Justin Sinha - Last Filed: 07/25/18 22:45> Meds - Medications Medications: Current Medications Acetaminophen (Tylenol 325mg Tab) 650 mg PO Q6 PRN PRN Reason: TEMP>=99.5F Carbidopa/Levodopa (Sinemet) 1 tab PO DAILY [facility] Sodium Chloride (Sodium Chloride 0.9%) 1,000 mls @ 100 mls/hr IV .Q10H [facility] Last Admin: 07/25/18 21:47 Dose: 100 mls/hr Piperacillin Sod/Tazobactam Sod (Zosyn 3.375 In Ns 100ml) 100 mls @ 25 mls/hr IVPB Q8 [facility] Stop: 08/01/18 14:01 Last Admin: 07/25/18 21:46 Dose: 25 mls/hr Ibuprofen (Motrin Tab) 600 mg PO TID PRN PRN Reason: Pain, moderate (4-7) Pantoprazole Sodium (Protonix Ec Tab) 40 mg PO DAILY [facility] Quetiapine Fumarate (Seroquel) 50 mg PO DAILY [facility] Quetiapine Fumarate (Seroquel) 100 mg PO HS [facility]; Protocol Last Admin: 07/25/18 21:46 Dose: 100 mg Tamsulosin HCl (Flomax) 1 mg PO DAILY [facility] Results - Vital Signs Recent Vital Signs: Last Vital Signs Temp 98.2 F 07/25/18 14:05 Pulse 86 07/25/18 14:05 Resp 18 07/25/18 17:06 BP 122/75 07/25/18 14:05 Pulse Ox 96 07/25/18 14:05 - Labs Result Diagrams: 07/25/18 09:47 07/25/18 09:47 Labs: Laboratory Results - last 24 hr 07/25/18 07/25/18 07/25/18 09:47 09:47 09:47 WBC 17.5 H D RBC 3.78 Hgb 12.7 L Hct 39.2 L MCV 103.7 MCH 33.6 MCHC 32.4 RDW 14.1 Plt Count 154 MPV 10.1 Neut % (Auto) 91.0 H Lymph % (Auto) 4.6 L [place] % (Auto) 3.8 Eos % (Auto) 0.4 L Baso % (Auto) 0.2 Lymph # (Auto) 0.8 L [place] # (Auto) 0.7 H Eos # (Auto) 0.1 Baso # (Auto) 0.03 Absolute Neuts (auto) 15.89 H Neutrophils % (Manual) 91 H Lymphocytes % (Manual) 6 L Monocytes % (Manual) 3 Toxic Granulation Slight Platelet Evaluation Normal Poikilocytosis (manual Slight Anisocytosis (manual) 1+ Macrocytosis (manual) 1+ Tear Drop Cells Slight Ovalocytes Slight ESR 60 H pO2 VBG pH VBG pCO2 VBG HCO3 VBG Total CO2 VBG O2 Sat (Calc) VBG Base Excess VBG Potassium Glucose Lactate FiO2 Sodium 140 Potassium 3.8 Chloride 104 Carbon Dioxide 30 Anion Gap 10 BUN 26 H Creatinine 1.5 Est GFR ( Amer) 55 Est GFR (Non-Af Amer) 46 Random Glucose 120 H Calcium 8.6 Magnesium 2.1 Total Bilirubin 0.5 AST 28 ALT 12 Alkaline Phosphatase 96 C-React Prot High Sens Total Protein 6.2 Albumin 3.0 Globulin 3.2 Albumin/Globulin Ratio 0.9 L Venous Blood Potassium 07/25/18 07/25/18 07/25/18 09:47 10:20 13:52 WBC RBC Hgb Hct MCV MCH MCHC RDW Plt Count MPV Neut % (Auto) Lymph % (Auto) [place] % (Auto) Eos % (Auto) Baso % (Auto) Lymph # (Auto) [place] # (Auto) Eos # (Auto) Baso # (Auto) Absolute Neuts (auto) Neutrophils % (Manual) Lymphocytes % (Manual) Monocytes % (Manual) Toxic Granulation Platelet Evaluation Poikilocytosis (manual Anisocytosis (manual) Macrocytosis (manual) Tear Drop Cells Ovalocytes ESR pO2 25 L 31 VBG pH 7.38 7.38 VBG pCO2 51.0 48.0 VBG HCO3 30.2 H 28.4 H VBG Total CO2 31.8 H 29.9 H VBG O2 Sat (Calc) 50.5 63.3 VBG Base Excess 3.9 H 2.5 H VBG Potassium 3.9 3.6 Glucose 131 H 98 Lactate 2.1 1.0 FiO2 21.0 21.0 Sodium 139.0 140.0 Potassium Chloride 105.0 108.0 H Carbon Dioxide Anion Gap BUN Creatinine Est GFR ( Amer) Est GFR (Non-Af Amer) Random Glucose Calcium Magnesium Total Bilirubin AST ALT Alkaline Phosphatase C-React Prot High Sens > 15.00 H Total Protein Albumin Globulin Albumin/Globulin Ratio Venous Blood Potassium 3.9 3.6 Assessment & Plan - Assessment and Plan (Free Text) Plan: Infectious Diseases Attending Physician Attestation Patient seen and examined at bedside, discussed with medical esthetician. I have reviewed the HPI, ROS, Family, Medical, Social and personal histories, physical examination findings. I have also reviewed the pertinent labs and diagnostic imaging. I have fully participiated in the care of this patient. I agree with the above findings, assessment, plan.
[2018-07-25 17:24] VITALS: BMI 31.8
--- NOTE | 2018-07-25 19:03 | PCM.SEPTIC ---
Sepsis Progress Note - Reassessment Type Date of Evaluation: 07/25/18 Time of Evaluation: 15:00 Reassessment Type: Non-invasive reassessment - Non Invasive Reassessment Were the most recent vital sign reviewed: Yes Vital Sign (Latest): Temp Pulse Resp BP Pulse Ox 98.2 F 86 18 122/75 96 07/25/18 14:05 07/25/18 14:05 07/25/18 17:06 07/25/18 14:05 07/25/18 14:05 Cardiovascular: Yes: Regular Rate, Rhythm Respiratory: Yes: Normal Breath Sounds Capillary Refill: Normal (Less than 2 sec) Pulses: Normal Radial Skin: Normal Color, Warm
--- NOTE | 2018-07-25 20:32 | HP ---
DATE OF EXAM: 07/25/2018 LOCATION: I am seeing the patient on the medical floor. He is on the third floor, room 361. HISTORY OF PRESENT ILLNESS: The patient is admitted this morning after evaluation from the Behavioral Care Unit. He was found to have an abscess in the left foot involving the callus area. The patient's abscess in the foot was drained by the senior consultant and the patient was admitted for wound care as well as antibiotic treatment. PAST MEDICAL HISTORY: The patient's past history is significant in that he has history of movement disorder (Parkinson's syndrome). The patient has history of dementia, benign prostate hyperplasia. The patient has been treated with ECT up on the Behavioral Care Unit. The patient was on antipsychotic and depression medications. PHYSICAL EXAMINATION GENERAL: The patient is comfortable, lying down. He has no complaint at the moment. VITAL SIGNS: Currently temperature 99.8, blood pressure 112/59, his respirations are 20, O2 saturation is 98%, and pulse is 77. LUNGS: Clear. HEART: Normal sinus rhythm. ABDOMEN: Soft. Liver and spleen not palpable. CENTRAL NERVOUS SYSTEM: No focal deficit. The patient does have tremors that have manifested in both arms. No tremors in the legs. MEDICATIONS: The patient's list of medications consists of Aricept 5 mg daily and Flomax 0.4 mg daily. The patient is on Motrin for pain and pantoprazole. The patient is on Seroquel, Sinemet 1 tablet daily 25/100 mg. The patient is treated with antibiotics. The patient was treated with vancomycin. IMPRESSION AND PLAN: The patient will be seen by Infectious Disease for followup. We will continue medical management and follow up with the senior consultant and Infectious Disease service. The patient's drainage from the abscess was sent to the lab for test. His lab findings while in the emergency room, no results are posted. Puneet Aranda MD
[2018-07-25] MEDS: Piperacillin/Tazobact 3.375 gm 100 ML IVPB SCH (21:46)
[2018-07-26] MEDS: Piperacillin/Tazobact 3.375 gm 100 ML IVPB SCH ×3 (05:25→22:10)
[2018-07-26 08:54] LABS: BASO # 0.06 K/mm3 (0.0-2.0); BASO % 0.5 % (0.0-3.0); EOS # 0.1 (0.0-0.7); EOS % 1.1 % (1.5-5.0); HEMOGLOBIN 12.2 g/dL (14.0-18.0); LYMPH # 1.2 (1.2-3.4); LYMPH % 9.5 % (22.0-35.0); MEAN CELL VOLUME 103.8 fl (80.0-105.0); MEAN CORPUSCULAR HEMOGLOBIN 33.2 pg (25.0-35.0); MEAN PLATELET VOLUME 10.8 fl (7.0-11.0); MONO # 0.7 (0.1-0.6); MONO % 5.3 % (1.0-6.0); RBC 3.67 10^6/uL (3.5-6.1); RED CELL DISTRIBUTION WIDTH 13.9 % (11.5-14.5); WHITE BLOOD COUNT 12.7 10^3/uL (4.5-11.0)
--- NOTE | 2018-07-26 09:40 | CP.PCM.PN ---
Subjective - Date & Time of Evaluation Date of Evaluation: 07/26/18 Time of Evaluation: 09:37 - Subjective Subjective: Podiatry progress note - Drs. Ortiz/Tommy 73M seen and evaluated at bedside with Dr. Sanders. Patient in pain to left foot. Per Dr. Sanders, patient will not allow her to touch dressing and will only do it himself. States there is pain whenever the bottom of his left foot is touched. Denies n/v/f/c/sob today. Objective - Vital Signs/Intake and Output Vital Signs (last 24 hours): Temp Pulse Resp BP Pulse Ox 98.5 F 69 19 136/76 97 07/26/18 06:00 07/26/18 06:00 07/26/18 06:00 07/26/18 06:00 07/26/18 06:00 Intake and Output: 07/26/18 07/26/18 06:59 18:59 Intake Total 580 240 Output Total 800 370 Balance -220 -130 - Medications Medications: Current Medications Acetaminophen (Tylenol 325mg Tab) 650 mg PO Q6 PRN PRN Reason: TEMP>=99.5F Carbidopa/Levodopa (Sinemet) 1 tab PO DAILY [facility] Sodium Chloride (Sodium Chloride 0.9%) 1,000 mls @ 100 mls/hr IV .Q10H [facility] Last Admin: 07/25/18 21:47 Dose: 100 mls/hr Piperacillin Sod/Tazobactam Sod (Zosyn 3.375 In Ns 100ml) 100 mls @ 25 mls/hr IVPB Q8 [facility] Stop: 08/01/18 14:01 Last Admin: 07/26/18 05:25 Dose: 25 mls/hr Ibuprofen (Motrin Tab) 600 mg PO TID PRN PRN Reason: Pain, moderate (4-7) Pantoprazole Sodium (Protonix Ec Tab) 40 mg PO DAILY [facility] Quetiapine Fumarate (Seroquel) 50 mg PO DAILY [facility] Quetiapine Fumarate (Seroquel) 100 mg PO HS [facility]; Protocol Last Admin: 07/25/18 21:46 Dose: 100 mg Tamsulosin HCl (Flomax) 1 mg PO DAILY [facility] - Labs Labs: 07/26/18 06:00 07/26/18 06:00 - Constitutional Appears: Non-toxic - Head Exam Head Exam: ATRAUMATIC - Extremities Exam Additional comments: LLE focused exam VASC: DP and PT pulses palpable; cap refill <3 seconds to all digits; temp gradient warm to warm; moderate edema noted to the foot, does not extend up ankle DERM: drained abscess noted at the plantar aspect of the forefoot with lesion present centrally; purulent drainage appreciated at the central lesion, no malodor, granular wound base and margins, central lesion probes but secondary to guarding unable to explore depth ORTHO: severe pain upon palpation; no pain on calf compression NEURO: gross and protective sensation intact - Neurological Exam Neurological Exam: Alert, Awake, Oriented x3 - Psychiatric Exam Psychiatric exam: Normal Affect Assessment and Plan - Assessment and Plan (Free Text) Assessment: 73M with left foot abscess and cellulitis Plan: Patient seen and evaluated with Dr. Sanders Afebrile, WBC 12.7 Patient refused to allow Dr. Sanders to take off dressing and did himself while in severe pain Dressing reapplied without repacking as patient in too much pain and discomfort Left foot x-ray - negative study Left foot MRI pending Abx per medicine Wound cx taken - pending Patient for OR today at 4:00PM Maintain NPO Will continue to follow
[2018-07-26] MEDS: Pantoprazole 40 mg EC Tab PO SCH (10:04)
[2018-07-26] MEDS: Sodium Chloride 0.9% 1,000 ML IV SCH (10:35)
--- NOTE | 2018-07-26 14:01 | PN ---
DATE: 07/26/2018 SUBJECTIVE: The patient is in [facility], room 361, bed 2. The patient was admitted yesterday after being treated for an abscess in the foot on the left leg. The patient has cellulitis in the foot in addition. The patient has past history of schizophrenia, depression, dementia. The patient also has history of movement disorder (Parkinson's syndrome). The patient is seen this morning. He is relatively comfortable. He has no complaints. PHYSICAL EXAMINATION: VITAL SIGNS: His pulse is 86, temperature 98.2, O2 sat is 96%, respirations are 18 per minute. HEENT: Head is normocephalic. LUNGS: Trachea is central. Breath sounds are vesicular. No adventitious sounds are heard. HEART: Normal sinus rhythm. S1 and S2, present. No murmur. ABDOMEN: Soft. Liver and spleen are not palpable. CENTRAL NERVOUS SYSTEM: No focal deficits. EXTREMITIES: The patient has wound of the left foot that has been wrapped up, treated by the shop router. Excision and drainage of the abscess underlying callus of the left foot is noted. MEDICATIONS: On medications at this time, he get Flomax 0.4 mg p.o. daily. The patient is on Motrin 600 mg 8 times a day, Pantoprazole 40 mg daily, Seroquel 100 mg daily. The patient is getting Sinemet one tablet daily 25/100 mg. The patient gets antibiotic Zosyn 3.375 mg every 8 hours. ASSESSMENT AND PLAN: Of course the patient is on wound care. We will followup. Condition is improving. Puneet Aranda MD [facility]
--- NOTE | 2018-07-26 15:10 | CP.PCM.PN ---
<Diogenes Early - Last Filed: 07/26/18 15:06> Subjective - Date & Time of Evaluation Date of Evaluation: 07/26/18 Time of Evaluation: 09:05 - Subjective Subjective: Diogenes Early D.O. PGY-3, Internal Medicine Resident, Infectious Disease Progress Note 73-year-old male with a past medical history of hypertension, hyperlipidemia, diverticulosis, paranoid schizophrenia, and arthritis who was being managed in the psychiatric matthew when he developed pain in his left foot while walking. Infectious disease consultation was called for a left foot abscess. Patient was seen and examined at bedside. Somewhat anxious at the moment. Denies any discomfort. Objective - Vital Signs/Intake and Output Vital Signs (last 24 hours): Temp Pulse Resp BP Pulse Ox 98.5 F 69 19 136/76 97 07/26/18 06:00 07/26/18 06:00 07/26/18 06:00 07/26/18 06:00 07/26/18 06:00 Intake and Output: 07/26/18 07/26/18 06:59 18:59 Intake Total 580 240 Output Total 800 370 Balance -220 -130 - Medications Medications: Current Medications Acetaminophen (Tylenol 325mg Tab) 650 mg PO Q6 PRN PRN Reason: TEMP>=99.5F Carbidopa/Levodopa (Sinemet) 1 tab PO DAILY [facility] Last Admin: 07/26/18 10:05 Dose: 1 tab Sodium Chloride (Sodium Chloride 0.9%) 1,000 mls @ 100 mls/hr IV .Q10H [facility] Last Admin: 07/26/18 10:35 Dose: 100 mls/hr Piperacillin Sod/Tazobactam Sod (Zosyn 3.375 In Ns 100ml) 100 mls @ 25 mls/hr IVPB Q8 [facility] Stop: 08/01/18 14:01 Last Admin: 07/26/18 14:16 Dose: 25 mls/hr Ibuprofen (Motrin Tab) 600 mg PO TID PRN PRN Reason: Pain, moderate (4-7) Last Admin: 07/26/18 14:15 Dose: 600 mg Pantoprazole Sodium (Protonix Ec Tab) 40 mg PO DAILY [facility] Last Admin: 07/26/18 10:04 Dose: 40 mg Quetiapine Fumarate (Seroquel) 50 mg PO DAILY [facility] Last Admin: 07/26/18 10:04 Dose: 50 mg Quetiapine Fumarate (Seroquel) 100 mg PO HS [facility]; Protocol Last Admin: 07/25/18 21:46 Dose: 100 mg Tamsulosin HCl (Flomax) 0.4 mg PO DAILY [facility] Last Admin: 07/26/18 10:22 Dose: 0.4 mg - Labs Labs: 07/26/18 06:00 07/26/18 06:00 - Constitutional Appears: Non-toxic, No Acute Distress, Chronically Ill - Head Exam Head Exam: ATRAUMATIC, NORMOCEPHALIC - Eye Exam Eye Exam: EOMI. absent: Scleral icterus - ENT Exam ENT Exam: Mucous Membranes Moist, Normal Oropharynx - Neck Exam Neck exam: Positive for: Normal Inspection - Respiratory Exam Respiratory Exam: absent: Rales, Rhonchi, Wheezes - Cardiovascular Exam Cardiovascular Exam: +S1, +S2. absent: Gallop, Rubs - GI/Abdominal Exam GI & Abdominal Exam: Normal Bowel Sounds, Soft. absent: Distended, Tenderness - Extremities Exam Additional comments: left foot s/p I&D on plantar aspect, well wrapped - Neurological Exam Neurological exam: Alert, Awake, Orientedx4 - Skin Skin Exam: Dry, Warm Assessment and Plan - Assessment and Plan (Free Text) Assessment: 73-year-old male with a past medical history of hypertension, hyperlipidemia, diverticulosis, paranoid schizophrenia, and arthritis who was being managed in the psychiatric matthew when he developed pain in his left foot while walking. Infectious disease consultation was called for a left foot abscess. Plan: Sepsis secondary to the left foot abscess and cellulitis, concern for osteomyelitis Hypertension Hyperlipidemia Schizophrenia paranoid type Arthritis WCx growing group A strep For foot MRI per podiatry Per podiatry going to OR today at 4pm ESR and CRP elevated Blood culture negative / day 1 Continue with Zosyn day 2 We will follow with you Patient was seen and examined and case was discussed with attending physician Thank you for the pleasure participating in the care of this patient <Justin Sinha - Last Filed: 07/26/18 23:07> Objective - Vital Signs/Intake and Output Vital Signs (last 24 hours): Temp Pulse Resp BP Pulse Ox 98 F 77 12 149/60 98 07/26/18 17:26 07/26/18 17:26 07/26/18 17:26 07/26/18 17:26 07/26/18 17:26 Intake and Output: 07/26/18 07/27/18 18:59 06:59 Intake Total 1240 2220 Output Total 370 800 Balance 870 1420 - Medications Medications: Current Medications Acetaminophen (Tylenol 325mg Tab) 650 mg PO Q6 PRN PRN Reason: TEMP>=99.5F Carbidopa/Levodopa (Sinemet) 1 tab PO DAILY [facility] Last Admin: 07/26/18 10:05 Dose: 1 tab Sodium Chloride (Sodium Chloride 0.9%) 1,000 mls @ 100 mls/hr IV .Q10H [facility] Last Admin: 07/26/18 10:35 Dose: 100 mls/hr Piperacillin Sod/Tazobactam Sod (Zosyn 3.375 In Ns 100ml) 100 mls @ 25 mls/hr IVPB Q8 [facility] Stop: 08/01/18 14:01 Last Admin: 07/26/18 22:10 Dose: 25 mls/hr Ibuprofen (Motrin Tab) 600 mg PO TID PRN PRN Reason: Pain, moderate (4-7) Last Admin: 07/26/18 14:15 Dose: 600 mg Oxychlorosene Sodium (Clorpactin Wcs-90) 2 gm TOP DAILY [facility] Oxycodone/Acetaminophen (Percocet 5/325 Mg Tab) 1 tab PO Q4H PRN PRN Reason: Pain, moderate (4-7) Stop: 07/29/18 16:59 Oxycodone/Acetaminophen (Percocet 5/325 Mg Tab) 2 tab PO Q4H PRN PRN Reason: Pain, severe (8-10) Stop: 07/29/18 16:59 Pantoprazole Sodium (Protonix Ec Tab) 40 mg PO DAILY [facility] Last Admin: 07/26/18 10:04 Dose: 40 mg Quetiapine Fumarate (Seroquel) 50 mg PO DAILY [facility] Last Admin: 07/26/18 10:04 Dose: 50 mg Quetiapine Fumarate (Seroquel) 100 mg PO HS [facility]; Protocol Last Admin: 07/26/18 22:08 Dose: 100 mg Tamsulosin HCl (Flomax) 0.4 mg PO DAILY [facility] Last Admin: 07/26/18 10:22 Dose: 0.4 mg - Labs Labs: 07/26/18 06:00 07/26/18 06:00 Assessment and Plan - Assessment and Plan (Free Text) Plan: Infectious Diseases Attending Physician Attestation Patient seen and examined at bedside, discussed with senior medical billing specialist. I have reviewed the HPI, ROS, physical examination findings. I have also reviewed the pertinent labs and diagnostic imaging. I have fully participiated in the care of this patient. I agree with the above findings, assessment, plan.
[2018-07-26] MEDS ORDERED: Lidocaine 1% Inj (20ml) ONE (15:21)
[2018-07-26] MEDS ORDERED: Bupivacaine 0.5% 50 ML IJ ONE (15:21)
[2018-07-26] MEDS ORDERED: Gentamicin 80 mg in 0.9% NS 80 MG/100 ML BAG IVPB ONE (15:41)
[2018-07-26] MEDS ORDERED: Etomidate 20 mg/10ml Inj IV ONE (16:07)
[2018-07-26] MEDS ORDERED: Propofol 10 mg/ml Inj (20 ML) ONE (16:07)
[2018-07-26] MEDS ORDERED: Bupivacaine 0.5% Inj(30mL) IJ ONE (16:15)
[2018-07-26] MEDS ORDERED: Lidocaine 2 GM/50 ML Vial (4%) IV ONE (16:15)
[2018-07-26] MEDS ORDERED: Phenylephrine 10 mg/ml Inj ONE (16:26)
[2018-07-26] MEDS ORDERED: Oxycodone/Acetaminophen 5/325 mg Tab PO PRN (16:58)
[2018-07-26] MEDS ORDERED: Lactated Ringer's 1,000 ML IV SCH (17:00)
[2018-07-26] MEDS ORDERED: HYDROmorphone 0.5 mg/0.5 ml ISec IVP PRN (17:00)
--- NOTE | 2018-07-26 17:02 | PCM.SURG1 ---
<Edin Mata - Last Filed: 07/26/18 17:00> Surgeon's Initial Post Op Note - Surgeon's Notes Surgeon: Dr. Ortiz DPM Farm Contractor: Dr. Mata PGY1 Type of Anesthesia: General LMA, Local Pre-Operative Diagnosis: left foot abscess Operative Findings: see dictation. misonix with genta. iodoform packing Post-Operative Diagnosis: same Operation Performed: left foot incision and drainage with misonix Specimen/Specimens Removed: none Estimated Blood Loss: EBL {In ML}: 2 Blood Products Given: N/A Drains Used: No Drains Post-Op Condition: Good Date of Surgery/Procedure: 07/26/18 Time of Surgery/Procedure: 17:02 <Alfred Ortiz - Last Filed: 07/27/18 10:35> Attending/Attestation - Attestation I have personally seen and examined this patient.: Yes I have fully participated in the care of the patient.: Yes I have reviewed all pertinent clinical information: Yes
--- NOTE | 2018-07-26 20:24 | CON ---
DATE: 07/26/2018 HISTORY OF PRESENT ILLNESS: The patient is a 73-year-old male with a history of Parkinson's disease who was transferred to the medical floor from the psychiatric unit for treatment of left foot abscess. The patient had been initially admitted to the psychiatric unit due to confusion and hallucinations and treated with ECT; however as noted, that treatment could not be continued after three treatments due to necessity of a medical transfer. While the patient was on the psychiatric unit, he was treated with Seroquel and had thoughts of delusions, hallucinations, restlessness, agitation, interspersed with and anxiety/dysphoria. I met with the patient at bedside and he does appear to be a little bit more alert and focused this morning. He is aware of what year it is, that is 07/26/2018. He is aware of the current circumstances, he reports that he has pain in his foot, he is not well because of that, but he denies having any hopelessness or suicidal thoughts. He has no thoughts of harming others. He will not respond very much questions about hallucinations except to say "I really don't know what's real or what's not." The patient is aware that he is confused. He reports he has memory issues and does report desire to improve. Generally, affect is a little bit more bright and related than prior encounters, though overall it seems constricted. Insight and judgment are fair to poor. Vital signs and labs were reviewed. Relevant psychiatric medications on the medical floor include Seroquel 50 mg daily, 100 mg at bedtime. IMPRESSION: Schizophrenia by history, likely contribution to delirium at this time. RECOMMENDATIONS: We will continue with Seroquel 50 mg a.m. and 100 mg at bedtime. There is no acute indication to change his medication dose at this time. The patient should returns to the psychiatric unit once he is medically cleared. Until then, Psychiatry will follow up with him daily, monitor his progress, symptoms and indications to change medications. Sneha Rodriguez MD [facility] # [id number]
[2018-07-27] MEDS: Piperacillin/Tazobact 3.375 gm 100 ML IVPB SCH (05:33)
[2018-07-27 06:46] LABS: BASO # 0.12 K/mm3 (0.0-2.0); EOS # 0.2 (0.0-0.7); EOS % 1.9 % (1.5-5.0); HEMOGLOBIN 11.5 g/dL (14.0-18.0); LYMPH # 1.3 (1.2-3.4); LYMPH % 10.8 % (22.0-35.0); MEAN CELL VOLUME 102.9 fl (80.0-105.0); MEAN CORPUSCULAR HEMOGLOBIN 33.2 pg (25.0-35.0); MEAN CORPUSCULAR HGB CONC 32.3 g/dl (31.0-37.0); MEAN PLATELET VOLUME 10.6 fl (7.0-11.0); MONO # 0.8 (0.1-0.6); MONO % 6.5 % (1.0-6.0); RBC 3.46 10^6/uL (3.5-6.1); RED CELL DISTRIBUTION WIDTH 13.8 % (11.5-14.5); WHITE BLOOD COUNT 11.8 10^3/uL (4.5-11.0)
[2018-07-27 07:33] LABS: ALB/GLOB RATIO 0.9 (1.1-1.8); ALBUMIN 2.6 g/dL (3.0-4.8); CALCIUM 8.2 mg/dL (8.4-10.5)
[2018-07-27] MEDS: Oxychlorosene Topical 2 gm Packet TOP SCH (10:19)
[2018-07-27] MEDS: Pantoprazole 40 mg EC Tab PO SCH (10:20)
--- NOTE | 2018-07-27 10:34 | PN ---
DATE: 07/27/2018 SUBJECTIVE: The patient is in [facility] in [place], room 361,bed 2. The patient was admitted with history of depression, schizophrenia, dementia, benign prostatic hyperplasia and movement disorder. The patient had an infection in the left foot associated with callus and abscess. This was drained by the serger. The patient is on IV antibiotics. PHYSICAL EXAMINATION VITAL SIGNS: This morning, the pulse is 77, blood pressure 149/60, temperature 98 and O2 sat 98% on room air. HEENT: Head is normocephalic. NECK: Thyroid is not enlarged. JVP is flat. LUNGS: Clear. HEART: Normal sinus rhythm. S1 and S2 present. ABDOMEN: Soft. Liver and spleen not palpable. CENTRAL NERVOUS SYSTEM: The patient has no focal deficits; his speech is slurred and stammering. He answers questions, but delayed. The patient is depressed. We have requested behavioral care physician to see the patient. MEDICATIONS: The patient is on medications. Currently the patient gets wound care. The patient gets Flomax 0.4 mg daily, Motrin 600 mg 3 times a day, Percocet 1 tablet every 4 hours p.r.n. for pain. The patient gets pantoprazole 40 mg daily and Seroquel 100 mg at night. The patient gets Sinemet 25/100 mg one daily. The patient is also on Zosyn 3.375 mg 3 times a day IV. We will continue medical management. The patient is being followed up by the Cnc Router Operator, infectious disease, and also the behavioral care physician. The patient requires these medical treatments. Puneet Aranda MD [facility]
[2018-07-27] MEDS: Oxycodone/Acetaminophen 5/325 mg Tab PO PRN ×2 (10:36→21:50)
[2018-07-27] MEDS: Morphine 2 mg/ml ISec IVP PRN (10:59)
--- NOTE | 2018-07-27 11:32 | CP.PCM.PN ---
<Diogenes Early - Last Filed: 07/27/18 11:29> Subjective - Date & Time of Evaluation Date of Evaluation: 07/27/18 Time of Evaluation: 07:38 - Subjective Subjective: Diogenes Early D.O. PGY-3, Internal Medicine Resident, Infectious Disease Progress Note 73-year-old male with a past medical history of hypertension, hyperlipidemia, diverticulosis, paranoid schizophrenia, and arthritis who was being managed in the psychiatric matthew when he developed pain in his left foot while walking. Infectious disease consultation was called for a left foot abscess. Patient was seen and examined at bedside. Very anxious today. Also paranoid. States he feels "infected." Objective - Vital Signs/Intake and Output Vital Signs (last 24 hours): Temp Pulse Resp BP Pulse Ox 98.9 F 76 20 138/77 93 L 07/27/18 06:00 07/27/18 06:00 07/27/18 06:00 07/27/18 06:00 07/27/18 06:00 Intake and Output: 07/27/18 07/27/18 06:59 18:59 Intake Total 2220 Output Total 1400 Balance 820 - Medications Medications: Current Medications Acetaminophen (Tylenol 325mg Tab) 650 mg PO Q6 PRN PRN Reason: TEMP>=99.5F Carbidopa/Levodopa (Sinemet) 1 tab PO DAILY [facility] Last Admin: 07/27/18 10:20 Dose: 1 tab Sodium Chloride (Sodium Chloride 0.9%) 1,000 mls @ 100 mls/hr IV .Q10H [facility] Last Admin: 07/26/18 10:35 Dose: 100 mls/hr Piperacillin Sod/Tazobactam Sod (Zosyn 3.375 In Ns 100ml) 100 mls @ 25 mls/hr IVPB Q8 [facility] Stop: 08/01/18 14:01 Last Admin: 07/27/18 05:33 Dose: 25 mls/hr Ibuprofen (Motrin Tab) 600 mg PO TID PRN PRN Reason: Pain, moderate (4-7) Last Admin: 07/26/18 14:15 Dose: 600 mg Morphine Sulfate (Morphine) 2 mg IVP DAILY PRN PRN Reason: Pain, severe (8-10) Last Admin: 07/27/18 10:59 Dose: 2 mg Oxychlorosene Sodium (Clorpactin Wcs-90) 2 gm TOP DAILY [facility] Last Admin: 07/27/18 10:19 Dose: Not Given Oxycodone/Acetaminophen (Percocet 5/325 Mg Tab) 1 tab PO Q4H PRN PRN Reason: Pain, moderate (4-7) Stop: 07/29/18 16:59 Last Admin: 07/27/18 10:36 Dose: 1 tab Oxycodone/Acetaminophen (Percocet 5/325 Mg Tab) 2 tab PO Q4H PRN PRN Reason: Pain, severe (8-10) Stop: 07/29/18 16:59 Pantoprazole Sodium (Protonix Ec Tab) 40 mg PO DAILY [facility] Last Admin: 07/27/18 10:20 Dose: 40 mg Quetiapine Fumarate (Seroquel) 50 mg PO DAILY [facility] Last Admin: 07/27/18 10:20 Dose: 50 mg Quetiapine Fumarate (Seroquel) 100 mg PO HS [facility]; Protocol Last Admin: 07/26/18 22:08 Dose: 100 mg Tamsulosin HCl (Flomax) 0.4 mg PO DAILY [facility] Last Admin: 07/27/18 10:19 Dose: 0.4 mg - Labs Labs: 07/27/18 06:25 07/27/18 06:25 - Constitutional Appears: Non-toxic, No Acute Distress, Chronically Ill, anxious - Head Exam Head Exam: ATRAUMATIC, NORMOCEPHALIC - Eye Exam Eye Exam: EOMI. absent: Scleral icterus - ENT Exam ENT Exam: Mucous Membranes Moist, Normal Oropharynx - Neck Exam Neck exam: Positive for: Normal Inspection - Respiratory Exam Respiratory Exam: absent: Rales, Rhonchi, Wheezes - Cardiovascular Exam Cardiovascular Exam: +S1, +S2. absent: Gallop, Rubs - GI/Abdominal Exam GI & Abdominal Exam: Normal Bowel Sounds, Soft. absent: Distended, Tenderness - Extremities Exam Additional comments: left foot s/p I&D on plantar aspect, well wrapped - Neurological Exam Neurological exam: Alert, Awake, Orientedx4 - Skin Skin Exam: Dry, Warm Assessment and Plan - Assessment and Plan (Free Text) Assessment: 73-year-old male with a past medical history of hypertension, hyperlipidemia, diverticulosis, paranoid schizophrenia, and arthritis who was being managed in the psychiatric matthew when he developed pain in his left foot while walking. Infectious disease consultation was called for a left foot abscess. Plan: Sepsis secondary to the left foot abscess and cellulitis, concern for osteomyelitis Hypertension Hyperlipidemia Schizophrenia paranoid type Arthritis WCx growing group A strep For foot MRI per podiatry S/p surgical intervention with podiatry yesterday ESR and CRP elevated Blood culture negative 2/ day 2 Continue with Zosyn day 3 We will follow with you Patient was seen and examined and case was discussed with attending physician Thank you for the pleasure participating in the care of this patient <Brayan Vergara - Last Filed: 07/27/18 12:05> Objective - Vital Signs/Intake and Output Vital Signs (last 24 hours): Temp Pulse Resp BP Pulse Ox 98.9 F 76 20 138/77 93 L 07/27/18 06:00 07/27/18 06:00 07/27/18 06:00 07/27/18 06:00 07/27/18 06:00 Intake and Output: 07/27/18 07/27/18 06:59 18:59 Intake Total 2220 Output Total 1400 Balance 820 - Medications Medications: Current Medications Acetaminophen (Tylenol 325mg Tab) 650 mg PO Q6 PRN PRN Reason: TEMP>=99.5F Carbidopa/Levodopa (Sinemet) 1 tab PO DAILY [facility] Last Admin: 07/27/18 10:20 Dose: 1 tab Sodium Chloride (Sodium Chloride 0.9%) 1,000 mls @ 100 mls/hr IV .Q10H [facility] Last Admin: 07/26/18 10:35 Dose: 100 mls/hr Piperacillin Sod/Tazobactam Sod (Zosyn 3.375 In Ns 100ml) 100 mls @ 25 mls/hr IVPB Q8 [facility] Stop: 08/01/18 14:01 Last Admin: 07/27/18 05:33 Dose: 25 mls/hr Ibuprofen (Motrin Tab) 600 mg PO TID PRN PRN Reason: Pain, moderate (4-7) Last Admin: 07/26/18 14:15 Dose: 600 mg Morphine Sulfate (Morphine) 2 mg IVP DAILY PRN PRN Reason: Pain, severe (8-10) Last Admin: 07/27/18 10:59 Dose: 2 mg Oxychlorosene Sodium (Clorpactin Wcs-90) 2 gm TOP DAILY [facility] Last Admin: 07/27/18 10:19 Dose: Not Given Oxycodone/Acetaminophen (Percocet 5/325 Mg Tab) 1 tab PO Q4H PRN PRN Reason: Pain, moderate (4-7) Stop: 07/29/18 16:59 Last Admin: 07/27/18 10:36 Dose: 1 tab Oxycodone/Acetaminophen (Percocet 5/325 Mg Tab) 2 tab PO Q4H PRN PRN Reason: Pain, severe (8-10) Stop: 07/29/18 16:59 Pantoprazole Sodium (Protonix Ec Tab) 40 mg PO DAILY [facility] Last Admin: 07/27/18 10:20 Dose: 40 mg Quetiapine Fumarate (Seroquel) 50 mg PO DAILY [facility] Last Admin: 07/27/18 10:20 Dose: 50 mg Quetiapine Fumarate (Seroquel) 100 mg PO HS [facility]; Protocol Last Admin: 07/26/18 22:08 Dose: 100 mg Tamsulosin HCl (Flomax) 0.4 mg PO DAILY [facility] Last Admin: 07/27/18 10:19 Dose: 0.4 mg - Labs Labs: 07/27/18 06:25 07/27/18 06:25 Attending/Attestation - Attestation I have personally seen and examined this patient.: Yes I have fully participated in the care of the patient.: Yes I have reviewed all pertinent clinical information, including history, physical exam and plan: Yes
--- NOTE | 2018-07-27 11:45 | CP.PCM.PN ---
<Edin Mata - Last Filed: 07/27/18 11:42> Subjective - Date & Time of Evaluation Date of Evaluation: 07/27/18 Time of Evaluation: 11:42 - Subjective Subjective: Podiatry progress note - Drs. rOtiz/Tommy 73M seen and evaluated at bedside with Dr. Ortiz POD 1 left foot incision and drainage with misonix probe. Patient reports mild pain to the left foot. States there is pain whenever the bottom of his left foot is touched. Patient kicks when dressing is looked at or touched. Denies n/v/f/c/sob today. Objective - Vital Signs/Intake and Output Vital Signs (last 24 hours): Temp Pulse Resp BP Pulse Ox 98.9 F 76 20 138/77 93 L 07/27/18 06:00 07/27/18 06:00 07/27/18 06:00 07/27/18 06:00 07/27/18 06:00 Intake and Output: 07/27/18 07/27/18 06:59 18:59 Intake Total 2220 Output Total 1400 Balance 820 - Medications Medications: Current Medications Acetaminophen (Tylenol 325mg Tab) 650 mg PO Q6 PRN PRN Reason: TEMP>=99.5F Carbidopa/Levodopa (Sinemet) 1 tab PO DAILY [facility] Last Admin: 07/27/18 10:20 Dose: 1 tab Sodium Chloride (Sodium Chloride 0.9%) 1,000 mls @ 100 mls/hr IV .Q10H [facility] Last Admin: 07/26/18 10:35 Dose: 100 mls/hr Piperacillin Sod/Tazobactam Sod (Zosyn 3.375 In Ns 100ml) 100 mls @ 25 mls/hr IVPB Q8 [facility] Stop: 08/01/18 14:01 Last Admin: 07/27/18 05:33 Dose: 25 mls/hr Ibuprofen (Motrin Tab) 600 mg PO TID PRN PRN Reason: Pain, moderate (4-7) Last Admin: 07/26/18 14:15 Dose: 600 mg Morphine Sulfate (Morphine) 2 mg IVP DAILY PRN PRN Reason: Pain, severe (8-10) Last Admin: 07/27/18 10:59 Dose: 2 mg Oxychlorosene Sodium (Clorpactin Wcs-90) 2 gm TOP DAILY [facility] Last Admin: 07/27/18 10:19 Dose: Not Given Oxycodone/Acetaminophen (Percocet 5/325 Mg Tab) 1 tab PO Q4H PRN PRN Reason: Pain, moderate (4-7) Stop: 07/29/18 16:59 Last Admin: 07/27/18 10:36 Dose: 1 tab Oxycodone/Acetaminophen (Percocet 5/325 Mg Tab) 2 tab PO Q4H PRN PRN Reason: Pain, severe (8-10) Stop: 07/29/18 16:59 Pantoprazole Sodium (Protonix Ec Tab) 40 mg PO DAILY [facility] Last Admin: 07/27/18 10:20 Dose: 40 mg Quetiapine Fumarate (Seroquel) 50 mg PO DAILY [facility] Last Admin: 07/27/18 10:20 Dose: 50 mg Quetiapine Fumarate (Seroquel) 100 mg PO HS [facility]; Protocol Last Admin: 07/26/18 22:08 Dose: 100 mg Tamsulosin HCl (Flomax) 0.4 mg PO DAILY [facility] Last Admin: 07/27/18 10:19 Dose: 0.4 mg - Labs Labs: 07/27/18 06:25 07/27/18 06:25 - Constitutional Appears: Non-toxic - Head Exam Head Exam: ATRAUMATIC - Extremities Exam Additional comments: LLE focused exam VASC: DP and PT pulses palpable; cap refill <3 seconds to all digits; temp gradient warm to warm; moderate edema noted to the foot, does not extend up ankle DERM: surgical site appears well coapted with no signs of pus or necrosis or wound margins; dressing shows sanguinous drainage but no purulence; packing intact, mild erythema periwound; no streaking noted, no malodor ORTHO: severe pain upon palpation; no pain on calf compression NEURO: gross and protective sensation intact - Neurological Exam Neurological Exam: Alert, Awake - Psychiatric Exam Psychiatric exam: Normal Affect Assessment and Plan - Assessment and Plan (Free Text) Assessment: 73M POD 1 left foot incision and drainage with misonix debridement Plan: Patient seen and evaluated with Dr. Diana OROZCO, WBC 11.8 Morphine given prior to dressing change, patient amenable to change Dressing taken down, flushed with clorpactin/saline, packing removed, dressed with maxorb, dry sterile dressing, MIRI Trend WBC Continue abx per medicine/ID Continue NWB, shoe at bedside, will start PT with wedge shoe in next few days Intraop wound culture pending L foot MRI - pending Will continue to follow <Alfred Ortiz - Last Filed: 07/27/18 13:42> Objective - Vital Signs/Intake and Output Vital Signs (last 24 hours): Temp Pulse Resp BP Pulse Ox 98.9 F 76 20 138/77 93 L 07/27/18 06:00 07/27/18 06:00 07/27/18 06:00 07/27/18 06:00 07/27/18 06:00 Intake and Output: 07/27/18 07/27/18 06:59 18:59 Intake Total 2220 Output Total 1400 Balance 820 - Medications Medications: Current Medications Acetaminophen (Tylenol 325mg Tab) 650 mg PO Q6 PRN PRN Reason: TEMP>=99.5F Carbidopa/Levodopa (Sinemet) 1 tab PO DAILY [facility] Last Admin: 07/27/18 10:20 Dose: 1 tab Sodium Chloride (Sodium Chloride 0.9%) 1,000 mls @ 100 mls/hr IV .Q10H [facility] Last Admin: 07/26/18 10:35 Dose: 100 mls/hr Ceftriaxone Sodium (Rocephin 2 Gm Ivpb) 2 gm in 100 mls @ 100 mls/hr IVPB DAILY [facility]; Protocol Stop: 08/04/18 10:01 Ibuprofen (Motrin Tab) 600 mg PO TID PRN PRN Reason: Pain, moderate (4-7) Last Admin: 07/26/18 14:15 Dose: 600 mg Morphine Sulfate (Morphine) 2 mg IVP DAILY PRN PRN Reason: Pain, severe (8-10) Last Admin: 07/27/18 10:59 Dose: 2 mg Oxychlorosene Sodium (Clorpactin Wcs-90) 2 gm TOP DAILY [facility] Last Admin: 07/27/18 10:19 Dose: Not Given Oxycodone/Acetaminophen (Percocet 5/325 Mg Tab) 1 tab PO Q4H PRN PRN Reason: Pain, moderate (4-7) Stop: 07/29/18 16:59 Last Admin: 07/27/18 10:36 Dose: 1 tab Oxycodone/Acetaminophen (Percocet 5/325 Mg Tab) 2 tab PO Q4H PRN PRN Reason: Pain, severe (8-10) Stop: 07/29/18 16:59 Pantoprazole Sodium (Protonix Ec Tab) 40 mg PO DAILY [facility] Last Admin: 07/27/18 10:20 Dose: 40 mg Quetiapine Fumarate (Seroquel) 50 mg PO DAILY [facility] Last Admin: 07/27/18 10:20 Dose: 50 mg Quetiapine Fumarate (Seroquel) 100 mg PO HS [facility]; Protocol Last Admin: 07/26/18 22:08 Dose: 100 mg Tamsulosin HCl (Flomax) 0.4 mg PO DAILY [facility] Last Admin: 07/27/18 10:19 Dose: 0.4 mg - Labs Labs: 07/27/18 06:25 07/27/18 06:25 Attending/Attestation - Attestation I have personally seen and examined this patient.: Yes I have fully participated in the care of the patient.: Yes I have reviewed all pertinent clinical information, including history, physical exam and plan: Yes
[2018-07-27] MEDS: Sodium Chloride 0.9% 1,000 ML IV SCH (20:30)
--- NOTE | 2018-07-28 01:12 | CON ---
DATE: 07/27/2018 HISTORY OF PRESENT ILLNESS: The patient is a 73-year-old male with a history of Parkinson's disease, rule out schizophrenia, was transferred to the medical floor from the psychiatric unit after three ECT treatments for treatment of left foot abscess. Psychiatrist is following up with him on the medical floor to monitor his psychiatric symptoms until he is transferred back to psychiatry to resume his ECT. The patient has been fairly calm and cooperative while on the medical floor and much less verbally psychotic than he was when last following up with him last weekend. He is aware of current circumstances, and reports that he has pain, unchanged, in his foot, and otherwise he denies any other discomfort. Reports he is tolerating his current medications of Seroquel. Denies any suicidal thoughts. Does admit to having hallucination, but did not elaborate though has trouble distinguishing reality from nonreality. This is what he is aware that he is confused. He is also less religiously preoccupied and paranoid than I observed him last weekend. Overall, he remains confused, disorganized and unpredictable, but showing improvement and , and focused in the past week. The patient does not require psychiatric stabilization once he is medically cleared. Vital signs and labs were reviewed. Relevant psychiatric medications include Seroquel 50 daily and 100 at bedtime. IMPRESSION: Schizophrenia, likely contribution by delirium at this time. RECOMMENDATIONS: We will continue Seroquel 50 mg a.m. and 100 mg at bedtime. There is no acute indication to change his medication at this time. The patient will return to psychiatric unit once he is medically cleared. Until then, Psychiatrist will follow up with him and monitor his progress and any indications to modify his medications. Sneha Rodriguez MD
[2018-07-28] MEDS: Sodium Chloride 0.9% 1,000 ML IV SCH (05:37)
[2018-07-28] MEDS ORDERED: Morphine 2 mg/ml ISec IVP STA (07:23)
--- NOTE | 2018-07-28 08:50 | CP.PCM.PN ---
<Michelle Joshi - Last Filed: 07/28/18 08:46> Subjective - Date & Time of Evaluation Date of Evaluation: 07/28/18 Time of Evaluation: 08:47 - Subjective Subjective: Podiatry progress note - Drs. Ortiz/Tommy 73M seen and evaluated at bedside with Dr. Ortiz POD 2 left foot incision and drainage with misonix probe. Patient reports mild pain to the left foot. Patient irritable and kicks when dressing is looked at or touched. Denies n/v/f/c/sob today. Objective - Vital Signs/Intake and Output Vital Signs (last 24 hours): Temp Pulse Resp BP Pulse Ox 99.5 F 81 18 132/75 94 L 07/28/18 00:00 07/28/18 00:00 07/28/18 00:00 07/28/18 00:00 07/28/18 00:00 Intake and Output: 07/28/18 07/28/18 06:59 18:59 Intake Total 1080 Balance 1080 - Medications Medications: Current Medications Acetaminophen (Tylenol 325mg Tab) 650 mg PO Q6 PRN PRN Reason: TEMP>=99.5F Carbidopa/Levodopa (Sinemet) 1 tab PO DAILY [facility] Last Admin: 07/27/18 10:20 Dose: 1 tab Sodium Chloride (Sodium Chloride 0.9%) 1,000 mls @ 100 mls/hr IV .Q10H [facility] Last Admin: 07/28/18 05:37 Dose: 100 mls/hr Ceftriaxone Sodium (Rocephin 2 Gm Ivpb) 2 gm in 100 mls @ 100 mls/hr IVPB DAILY [facility]; Protocol Stop: 08/04/18 10:01 Ibuprofen (Motrin Tab) 600 mg PO TID PRN PRN Reason: Pain, moderate (4-7) Last Admin: 07/26/18 14:15 Dose: 600 mg Morphine Sulfate (Morphine) 2 mg IVP DAILY PRN PRN Reason: Pain, severe (8-10) Last Admin: 07/27/18 10:59 Dose: 2 mg Oxychlorosene Sodium (Clorpactin Wcs-90) 2 gm TOP DAILY [facility] Last Admin: 07/27/18 10:19 Dose: Not Given Oxycodone/Acetaminophen (Percocet 5/325 Mg Tab) 1 tab PO Q4H PRN PRN Reason: Pain, moderate (4-7) Stop: 07/29/18 16:59 Last Admin: 07/27/18 21:50 Dose: 1 tab Oxycodone/Acetaminophen (Percocet 5/325 Mg Tab) 2 tab PO Q4H PRN PRN Reason: Pain, severe (8-10) Stop: 07/29/18 16:59 Pantoprazole Sodium (Protonix Ec Tab) 40 mg PO DAILY [facility] Last Admin: 07/27/18 10:20 Dose: 40 mg Quetiapine Fumarate (Seroquel) 50 mg PO DAILY [facility] Last Admin: 07/27/18 10:20 Dose: 50 mg Quetiapine Fumarate (Seroquel) 100 mg PO HS [facility]; Protocol Last Admin: 07/27/18 21:46 Dose: 100 mg Tamsulosin HCl (Flomax) 0.4 mg PO DAILY [facility] Last Admin: 07/27/18 10:19 Dose: 0.4 mg - Labs Labs: 07/27/18 06:25 07/27/18 06:25 - Constitutional Appears: Well, Non-toxic, No Acute Distress - Head Exam Head Exam: ATRAUMATIC, NORMOCEPHALIC - Extremities Exam Additional comments: LLE focused exam VASC: DP and PT pulses palpable; cap refill <3 seconds to all digits; temp gradient warm to warm; moderate edema noted to the foot, does not extend up ankle DERM: surgical site appears well coapted with no signs of pus or necrosis or wound margins; dressing shows sanguinous drainage but no purulence; mild erythema periwound; no streaking noted, no malodor ORTHO: severe pain upon palpation; no pain on calf compression NEURO: gross and protective sensation intact - Neurological Exam Neurological Exam: Alert, Awake, Oriented x3 - Psychiatric Exam Psychiatric exam: Normal Affect, Normal Mood Assessment and Plan - Assessment and Plan (Free Text) Assessment: 73M POD 2 left foot incision and drainage with misonix debridement Plan: Patient seen and evaluated with Dr. Diana OROZCO, WBC 11.8 Morphine given prior to dressing change, patient amenable to change Dressing taken down, flushed with clorpactin/saline, packing removed, dressed with maxorb, dry sterile dressing, MIRI Trend WBC Continue abx per medicine/ID Continue NWB, shoe at bedside, will start PT with wedge shoe in next few days Intraop wound culture pending L foot MRI - pending Will continue to follow <Alfred Ortiz - Last Filed: 07/28/18 11:31> Objective - Vital Signs/Intake and Output Vital Signs (last 24 hours): Temp Pulse Resp BP Pulse Ox 99.5 F 81 18 132/75 94 L 07/28/18 00:00 07/28/18 00:00 07/28/18 00:00 07/28/18 00:00 07/28/18 00:00 Intake and Output: 07/28/18 07/28/18 06:59 18:59 Intake Total 1080 Balance 1080 - Medications Medications: Current Medications Acetaminophen (Tylenol 325mg Tab) 650 mg PO Q6 PRN PRN Reason: TEMP>=99.5F Carbidopa/Levodopa (Sinemet) 1 tab PO DAILY [facility] Last Admin: 07/28/18 10:09 Dose: 1 tab Sodium Chloride (Sodium Chloride 0.9%) 1,000 mls @ 100 mls/hr IV .Q10H [facility] Last Admin: 07/28/18 05:37 Dose: 100 mls/hr Ceftriaxone Sodium (Rocephin 2 Gm Ivpb) 2 gm in 100 mls @ 100 mls/hr IVPB DAILY [facility]; Protocol Stop: 08/04/18 10:01 Last Admin: 07/28/18 10:09 Dose: 100 mls/hr Ibuprofen (Motrin Tab) 600 mg PO TID PRN PRN Reason: Pain, moderate (4-7) Last Admin: 07/26/18 14:15 Dose: 600 mg Morphine Sulfate (Morphine) 2 mg IVP DAILY PRN PRN Reason: Pain, severe (8-10) Last Admin: 07/27/18 10:59 Dose: 2 mg Oxychlorosene Sodium (Clorpactin Wcs-90) 2 gm TOP DAILY [facility] Last Admin: 07/28/18 10:11 Dose: Not Given Oxycodone/Acetaminophen (Percocet 5/325 Mg Tab) 1 tab PO Q4H PRN PRN Reason: Pain, moderate (4-7) Stop: 07/29/18 16:59 Last Admin: 07/27/18 21:50 Dose: 1 tab Oxycodone/Acetaminophen (Percocet 5/325 Mg Tab) 2 tab PO Q4H PRN PRN Reason: Pain, severe (8-10) Stop: 07/29/18 16:59 Pantoprazole Sodium (Protonix Ec Tab) 40 mg PO DAILY [facility] Last Admin: 07/28/18 10:09 Dose: 40 mg Quetiapine Fumarate (Seroquel) 50 mg PO DAILY [facility] Last Admin: 07/28/18 10:09 Dose: 50 mg Quetiapine Fumarate (Seroquel) 100 mg PO [facility]; Protocol Last Admin: 07/27/18 21:46 Dose: 100 mg Tamsulosin HCl (Flomax) 0.4 mg PO DAILY [facility] Last Admin: 07/28/18 10:08 Dose: 0.4 mg - Labs Labs: 07/27/18 06:25 07/27/18 06:25 Attending/Attestation - Attestation I have personally seen and examined this patient.: Yes I have fully participated in the care of the patient.: Yes I have reviewed all pertinent clinical information, including history, physical exam and plan: Yes
[2018-07-28] MEDS: cefTRIAXone 2 GM IN NS 2 GM/100 ML BAG IVPB SCH (10:09)
[2018-07-28] MEDS: Pantoprazole 40 mg EC Tab PO SCH (10:09)
[2018-07-28] MEDS: Oxychlorosene Topical 2 gm Packet TOP SCH (10:11)
--- NOTE | 2018-07-28 15:20 | MRI ---
Date of service: 07/28/2018 PROCEDURE: MRI of the left foot without contrast HISTORY: left foot abscess, sx today COMPARISON: TECHNIQUE: The study is extremely limited. The patient was in severe pain and could not finish the exam. Only 1 sequence was performed axial to the long axis of the foot using fat-suppressed T2 imaging. FINDINGS: There is no obvious abscess or osteomyelitis. The study is limited. There is subcutaneous edema over the dorsum of the foot. IMPRESSION: Limited study. No evidence of osteomyelitis
--- NOTE | 2018-07-28 22:04 | PN ---
DATE: 07/28/2018 SUBJECTIVE: The patient is in bed, in no acute distress. PHYSICAL EXAMINATION: VITAL SIGNS: Temperature of 99, blood pressure is 150/80, and respiratory rate of 20. HEENT: Unremarkable. NECK: Supple. LUNGS: Have decreased breath sounds. HEART: Normal S1 and S2. ABDOMEN: Soft. LABORATORY DATA: Reveals a white count of 11,800 and hemoglobin 11. Chemistries are noted. Microbiology reveals left foot culture is group A Strep pyogenes. The blood cultures are negative. The patient also had an MRI of the foot. No evidence of osteomyelitis. MEDICATIONS: Review of orders reveals the patient to be on ceftriaxone. ASSESSMENT AND PLAN: This is a 73-year-old male who was seen earlier today with sepsis with group A Strep left foot cellulitis. Negative MRI for osteomyelitis. Hypertension, hyperlipidemia, schizophrenia paranoid type and currently on ceftriaxone and maybe able to switch to p.o. antibiotics to complete therapy. Brayan Vergara MD
[2018-07-29] MEDS: Sodium Chloride 0.9% 1,000 ML IV SCH ×2 (07:49→20:34)
[2018-07-29] MEDS ORDERED: Morphine 2 mg/ml ISec IVP STA (10:33)
[2018-07-29] MEDS: cefTRIAXone 2 GM IN NS 2 GM/100 ML BAG IVPB SCH (10:46)
[2018-07-29] MEDS: Pantoprazole 40 mg EC Tab PO SCH (10:46)
[2018-07-29] MEDS: Oxychlorosene Topical 2 gm Packet TOP SCH (11:18)
--- NOTE | 2018-07-29 11:52 | CP.PCM.PN ---
<Michelle Joshi - Last Filed: 07/29/18 11:50> Subjective - Date & Time of Evaluation Date of Evaluation: 07/29/18 Time of Evaluation: 11:50 - Subjective Subjective: Podiatry progress note - Drs. Ortiz/Tommy 73M seen and evaluated at bedside with Dr. Ortiz POD3 left foot incision and drainage with misonix probe. Patient reports mild pain to the left foot. Patient irritable and kicks when dressing is looked at or touched. Denies n/v/f/c/sob today. Objective - Vital Signs/Intake and Output Vital Signs (last 24 hours): Temp Pulse Resp BP Pulse Ox 98.5 F 61 18 143/81 96 07/29/18 07:00 07/29/18 07:00 07/29/18 07:00 07/29/18 07:00 07/29/18 07:00 Intake and Output: 07/29/18 07/29/18 06:59 18:59 Intake Total 0 Output Total 240 Balance -240 - Medications Medications: Current Medications Acetaminophen (Tylenol 325mg Tab) 650 mg PO Q6 PRN PRN Reason: TEMP>=99.5F Carbidopa/Levodopa (Sinemet) 1 tab PO DAILY [facility] Last Admin: 07/29/18 10:46 Dose: 1 tab Sodium Chloride (Sodium Chloride 0.9%) 1,000 mls @ 100 mls/hr IV .Q10H [facility] Last Admin: 07/29/18 07:49 Dose: 100 mls/hr Ceftriaxone Sodium (Rocephin 2 Gm Ivpb) 2 gm in 100 mls @ 100 mls/hr IVPB DAILY [facility]; Protocol Stop: 08/04/18 10:01 Last Admin: 07/29/18 10:46 Dose: 100 mls/hr Ibuprofen (Motrin Tab) 600 mg PO TID PRN PRN Reason: Pain, moderate (4-7) Last Admin: 07/29/18 06:13 Dose: 600 mg Morphine Sulfate (Morphine) 2 mg IVP DAILY PRN PRN Reason: Pain, severe (8-10) Last Admin: 07/27/18 10:59 Dose: 2 mg Oxychlorosene Sodium (Clorpactin Wcs-90) 2 gm TOP DAILY [facility] Last Admin: 07/29/18 11:18 Dose: Not Given Oxycodone/Acetaminophen (Percocet 5/325 Mg Tab) 1 tab PO Q4H PRN PRN Reason: Pain, moderate (4-7) Stop: 07/29/18 16:59 Last Admin: 07/27/18 21:50 Dose: 1 tab Oxycodone/Acetaminophen (Percocet 5/325 Mg Tab) 2 tab PO Q4H PRN PRN Reason: Pain, severe (8-10) Stop: 07/29/18 16:59 Pantoprazole Sodium (Protonix Ec Tab) 40 mg PO DAILY [facility] Last Admin: 07/29/18 10:46 Dose: 40 mg Quetiapine Fumarate (Seroquel) 50 mg PO DAILY [facility] Last Admin: 07/29/18 10:46 Dose: 50 mg Quetiapine Fumarate (Seroquel) 100 mg PO [facility]; Protocol Last Admin: 07/28/18 21:00 Dose: 100 mg Tamsulosin HCl (Flomax) 0.4 mg PO DAILY [facility] Last Admin: 07/29/18 10:46 Dose: 0.4 mg - Labs Labs: 07/27/18 06:25 07/27/18 06:25 - Constitutional Appears: Well, Non-toxic, No Acute Distress - Head Exam Head Exam: ATRAUMATIC, NORMOCEPHALIC - Extremities Exam Additional comments: LLE focused exam VASC: DP and PT pulses palpable; cap refill <3 seconds to all digits; temp gradient warm to warm; moderate edema noted to the foot, does not extend up ankle DERM: surgical site appears well coapted with no signs of pus or necrosis or wound margins; dressing shows sanguinous drainage but no purulence; mild erythema periwound; no streaking noted, no malodor ORTHO: severe pain upon palpation; no pain on calf compression NEURO: gross and protective sensation intact - Neurological Exam Neurological Exam: Awake - Psychiatric Exam Psychiatric exam: Normal Affect, Normal Mood Assessment and Plan - Assessment and Plan (Free Text) Assessment: 73M POD3 left foot incision and drainage with misonix debridement Plan: Patient seen and evaluated with Dr. Diana OROZCO, WBC 11.8 (07/27) Morphine given prior to dressing change, patient amenable to change Dressing taken down, flushed with clorpactin/saline, packing removed, dressed with maxorb, dry sterile dressing, MIRI Trend WBC Continue abx per medicine/ID Continue NWB, shoe at bedside, will start PT with wedge shoe in next few days Intraop wound culture: Prelim, no growth L foot MRI - patient refusing MRI as he is not able to be still during MRI Will continue to follow <Alfred Ortiz - Last Filed: 07/31/18 08:07> Objective - Vital Signs/Intake and Output Vital Signs (last 24 hours): Temp Pulse Resp BP Pulse Ox 98.8 F 75 20 123/76 96 07/30/18 16:28 07/30/18 16:28 07/30/18 16:28 07/30/18 16:28 07/30/18 16:28 Intake and Output: 07/31/18 07/31/18 06:59 18:59 Intake Total 120 Output Total 600 Balance -480 - Medications Medications: Current Medications Acetaminophen (Tylenol 325mg Tab) 650 mg PO Q6 PRN PRN Reason: TEMP>=99.5F Carbidopa/Levodopa (Sinemet) 1 tab PO DAILY [facility] Last Admin: 07/30/18 11:29 Dose: 1 tab Sodium Chloride (Sodium Chloride 0.9%) 1,000 mls @ 100 mls/hr IV .Q10H [facility] Last Admin: 07/31/18 05:30 Dose: 100 mls/hr Ceftriaxone Sodium (Rocephin 2 Gm Ivpb) 2 gm in 100 mls @ 100 mls/hr IVPB DAILY [facility]; Protocol Stop: 08/04/18 10:01 Last Admin: 07/30/18 11:29 Dose: 100 mls/hr Morphine Sulfate (Morphine) 2 mg IVP DAILY PRN PRN Reason: Pain, severe (8-10) Last Admin: 07/30/18 08:34 Dose: 2 mg Morphine Sulfate (Morphine) 1 mg IVP Q4H PRN PRN Reason: Pain, severe (8-10) Stop: 08/01/18 15:05 Mupirocin (Bactroban Ointment) 1 gm TOP BID [facility] Last Admin: 07/30/18 17:57 Dose: Not Given Oxychlorosene Sodium (Clorpactin Wcs-90) 2 gm TOP DAILY [facility] Last Admin: 07/30/18 11:28 Dose: Not Given Pantoprazole Sodium (Protonix Ec Tab) 40 mg PO DAILY [facility] Last Admin: 07/30/18 11:29 Dose: 40 mg Quetiapine Fumarate (Seroquel) 50 mg PO DAILY [facility] Last Admin: 07/30/18 11:29 Dose: 50 mg Quetiapine Fumarate (Seroquel) 100 mg PO [facility]; Protocol Last Admin: 07/30/18 22:00 Dose: 100 mg Tamsulosin HCl (Flomax) 0.4 mg PO DAILY [facility] Last Admin: 07/30/18 11:28 Dose: 0.4 mg - Labs Labs: 07/27/18 06:25 07/27/18 06:25 Attending/Attestation - Attestation I have personally seen and examined this patient.: Yes I have fully participated in the care of the patient.: Yes I have reviewed all pertinent clinical information, including history, physical exam and plan: Yes
--- NOTE | 2018-07-29 12:01 | PN ---
DATE: 07/29/2018 SUBJECTIVE: He is in room 361, bed 2, [facility] in [place]. He is a 73-year-old white male. He presented with depressions and schizophrenia. The patient has history of benign prostatic hyperplasia, dementia, and movement disorder. The patient developed infection in the left foot, underlying callus and abscess developed. The patient's abscess was drained by the Conservation Science Officer and now the patient is currently on antibiotic treatment. The patient seen this morning, he seem to be more happy this morning compared to he was for the last two days. PHYSICAL EXAMINATION: VITAL SIGNS: The pulse is 79, blood pressure 154/81, respirations are 20 and O2 sat is 96% on room air. HEENT: Head is normocephalic. NECK: The thyroid not enlarge. JVP is flat. LUNGS: Trachea is central. Breath sounds are vesicular. No adventitious sounds are heard. HEART: Normal sinus rhythm. S1 and S2 present. No murmurs. ABDOMEN: Soft. Liver and spleen is not palpable. CENTRAL NERVOUS SYSTEM: No focal deficit. The patient has tremors in both upper extremities. The patient also has wound on the left sole of the foot. The patient's wound is dressed by the Conservation Science Officer. MEDICATIONS: The patient's medications consistent of Clorpactin for the wound care. The patient is on Flomax, Motrin 600 mg three times a day, and Percocet, the patient does not want and pantoprazole 40 mg daily. The patient is on Rocephin 1 gram every 24 hours and Sinemet 25/100 mg one daily. LABORATORY DATA: The patient's blood work remains the same. DIET: Heart-healthy diet. PLAN: The patient's white count is 11,800, was on the , today is the . We will continue current management and followup. Puneet Aranda MD
--- NOTE | 2018-07-29 12:56 | PN ---
DATE: 07/29/2018 SUBJECTIVE: The patient is seen earlier today, Mr. Kramer, in 361, bed 2. No fevers and no chills. PHYSICAL EXAMINATION: On exam; VITAL SIGNS: Temperature was 98, blood pressure is 140/80, respiratory rate of 20, and heart rate of 72. HEENT: Unremarkable. NECK: Supple. LUNGS: Decreased breath sounds. HEART: Normal S1 and S2. ABDOMEN: Soft and nontender. EXTREMITIES: Noted. LABORATORY DATA: Laboratory examination reveals a white count of 11,800, hemoglobin of 11, and platelets of 163. Chemistry reveals a BUN of 21 and creatinine of 1.5. C-reactive protein is graded at 15 and sed rate is 60. Microbiology reveals a group A strep on the left foot with heavy growth. Blood cultures are negative, and the patient had an MRI which was negative. Currently the patient is on ceftriaxone. 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 antibiotics. We will discuss with Dr. Ortiz and Dr. Sanders and to p.o. to complete the antibiotics. The patient had a left second toe incision and drainage. Brayan Vergara MD
--- NOTE | 2018-07-29 22:03 | CON ---
DATE: 07/29/2018 HISTORY OF PRESENT ILLNESS: The patient is a 73-year-old male with history of Parkinson's disease, rule out schizophrenia who is being seen by psychiatric consultation as he is being treated on the medical floor for cellulitis. The plan is for the patient to return to Psychiatry after he is medically treated to resume ECT. The patient has been fairly calm and cooperative while on the medical floor, though with periods of confusion and yelling. He is aware of current circumstances and reports that the pain has improved a little bit in his foot and currently localized to his toe. Denies any other discomfort, aware that he is currently prescribed Seroquel. We reviewed his dose at this time and his indications. Denies any suicidal thoughts and denies having any hallucinations at this time, but does admit to having issues with distinguishing reality at times. He continues to be aware of his periods of confusion. He is much less religiously preoccupied, less paranoid, less loud, and less impulsive then observed from last weekend. Insight and judgment are improving; however, he still requires psychiatric stabilization once he is medically cleared. Vital signs and labs were reviewed. Relevant psychiatric medication only include 50 mg of Seroquel daily 100 at bedtime. IMPRESSION: Schizophrenia most likely contribution of delirium at this time, though improving. RECOMMENDATIONS: We will continue with current medications and there is no acute indication to change him at this time. He will return to the psychiatric unit once he is medically cleared to resume ECT. Until then, Psychiatry will follow up with him every other day any indications to modify his medications. Sneha Rodriguez MD
--- NOTE | 2018-07-30 08:17 | PN ---
DATE: 07/28/2018 SUBJECTIVE: The patient is in [facility] in [place] in room 261, bed 2. The patient is admitted with cellulitis of the foot, abscess of the sole of the left foot, underlying callus. The patient's wound was drained. The patient is on antibiotic. The patient has past history of schizophrenia, depression, benign prostatic hyperplasia, movement disorder. The patient has history of gastritis. The patient is seen this morning, he is lying down in bed. He answers all questions. He is very cooperative. PHYSICAL EXAMINATION VITAL SIGNS: His pulse is 81, blood pressure 132/75, respirations are 80, O2 sat is 94% on room air and temperature is 99.5. HEENT: Head is normocephalic. The hands bilateral. The patient's other cranial nerves seems to be intact. LUNGS: Clear. HEART: Normal sinus rhythm. S1 and S2 present. ABDOMEN: Soft. Liver and spleen not palpable. CENTRAL NERVOUS SYSTEM: No focal deficits. MEDICATIONS: The patient's medication consist of Clorpactin dressing to the foot. The patient gets Flomax, Motrin, Percocet, pantoprazole. The patient is on Rocephin for infection control. The patient is on Sinemet for movement disorder. The patient is also on Seroquel 100 mg at night. LABORATORY DATA: The patient's lab work; the white count is 11,800, decreasing. The patient's chemistry relatively within normal range. ASSESSMENT AND PLAN: We will continue wound care for the patient, infectious disease treatment of the cellulitis and the wound infection. The patient will get treatment for his benign prostatic hyperplasia and movement disorder. His prognosis is guarded. Condition is improving. Puneet Aranda MD
[2018-07-30] MEDS: Morphine 2 mg/ml ISec IVP PRN (08:34)
[2018-07-30] MEDS: Oxychlorosene Topical 2 gm Packet TOP SCH (11:28)
[2018-07-30] MEDS: Sodium Chloride 0.9% 1,000 ML IV SCH (11:29)
[2018-07-30] MEDS: Pantoprazole 40 mg EC Tab PO SCH (11:29)
[2018-07-30] MEDS: cefTRIAXone 2 GM IN NS 2 GM/100 ML BAG IVPB SCH (11:29)
--- NOTE | 2018-07-30 11:56 | PN ---
DATE: 07/30/2018 SUBJECTIVE: The patient is in bed, in no acute distress, was seen earlier today in 361, bed 2. PHYSICAL EXAMINATION: VITAL SIGNS: Temperature 98, blood pressure 140/80, respiratory rate 18. HEENT: Examination of HEENT is unremarkable. NECK: Supple. LUNGS: Decreased breath sounds. HEART: Normal S1, S2. ABDOMEN: Soft, nontender. EXTREMITIES: Examination of foot is noted. LABORATORY DATA: Laboratory examination reveals a group A strep. White count 11,800, hemoglobin 11. Chemistries are reviewed. note is reviewed. ASSESSMENT AND PLAN: This is a 73-year-old male who was seen earlier today in 361, bed 2 with group A strep and left foot cellulitis with a negative MRI for osteomyelitis, history of hypertension, hyperlipidemia, schizophrenia, paranoia; currently on ceftriaxone, maybe able to switch to oral Augmentin 875 mg orally twice a day, to complete 10 to 14 days of therapy. Currently, on ceftriaxone. MRI is negative for osteomyelitis. We will follow with you. Brayan Vergara MD
--- NOTE | 2018-07-30 12:17 | CP.PCM.PN ---
<Stuart Morris - Last Filed: 07/30/18 12:08> Subjective - Date & Time of Evaluation Date of Evaluation: 07/30/18 Time of Evaluation: 12:08 - Subjective Subjective: Podiatry progress note - Drs. Ortiz/Tommy 73 y/o M patient seen and evaluated at the bedside 4 days S/P left foot incision and drainage with misonix debridement. Patient reports mild pain to the left foot yesterday. Patient irritable and kicks when dressing is looked at or touched. He denies n/v/f/c/sob overnight. Patient denies any other pedal complaint at this time. Objective - Vital Signs/Intake and Output Vital Signs (last 24 hours): Temp Pulse Resp BP Pulse Ox 98.6 F 61 20 137/73 96 07/30/18 08:08 07/30/18 08:08 07/30/18 08:08 07/30/18 08:08 07/30/18 08:08 Intake and Output: 07/30/18 07/30/18 06:59 18:59 Intake Total 0 Output Total 300 Balance -300 - Medications Medications: Current Medications Acetaminophen (Tylenol 325mg Tab) 650 mg PO Q6 PRN PRN Reason: TEMP>=99.5F Carbidopa/Levodopa (Sinemet) 1 tab PO DAILY [facility] Last Admin: 07/30/18 11:29 Dose: 1 tab Sodium Chloride (Sodium Chloride 0.9%) 1,000 mls @ 100 mls/hr IV .Q10H [facility] Last Admin: 07/30/18 11:29 Dose: 100 mls/hr Ceftriaxone Sodium (Rocephin 2 Gm Ivpb) 2 gm in 100 mls @ 100 mls/hr IVPB DAILY [facility]; Protocol Stop: 08/04/18 10:01 Last Admin: 07/30/18 11:29 Dose: 100 mls/hr Ibuprofen (Motrin Tab) 600 mg PO TID PRN PRN Reason: Pain, moderate (4-7) Last Admin: 07/29/18 06:13 Dose: 600 mg Morphine Sulfate (Morphine) 2 mg IVP DAILY PRN PRN Reason: Pain, severe (8-10) Last Admin: 07/30/18 08:34 Dose: 2 mg Oxychlorosene Sodium (Clorpactin Wcs-90) 2 gm TOP DAILY [facility] Last Admin: 07/30/18 11:28 Dose: Not Given Pantoprazole Sodium (Protonix Ec Tab) 40 mg PO DAILY [facility] Last Admin: 07/30/18 11:29 Dose: 40 mg Quetiapine Fumarate (Seroquel) 50 mg PO DAILY [facility] Last Admin: 07/30/18 11:29 Dose: 50 mg Quetiapine Fumarate (Seroquel) 100 mg PO [facility]; Protocol Last Admin: 07/29/18 22:01 Dose: 100 mg Tamsulosin HCl (Flomax) 0.4 mg PO DAILY [facility] Last Admin: 07/30/18 11:28 Dose: 0.4 mg - Labs Labs: 07/27/18 06:25 07/27/18 06:25 - Constitutional Appears: No Acute Distress - Head Exam Head Exam: ATRAUMATIC, NORMOCEPHALIC - Extremities Exam Additional comments: LLE focused exam VASC: DP and PT pulses palpable 2/4; cap refill <3 seconds to all digits; temp gradient warm to warm; moderate edema noted to the foot, does not extend up ankle NEURO: Gross and protective sensation intact. DERM: Surgical site appears well coapted with no signs of pus or necrosis or wound margins; dressing shows Purulent drainage; Active purulent drainage noted today. mild periwound erythema noted; no streaking noted, no malodor. MSK: Pain upon palpation of the carito-wound area; No pain on calf compression. Muscle power intact 5/5 to all groups. - Neurological Exam Neurological Exam: Alert, Awake Assessment and Plan - Assessment and Plan (Free Text) Assessment: 73 y/o M patient seen and evaluated at the bedside 4 days S/P left foot incision and drainage with misonix debridement Plan: Patient seen and evaluated with Dr. Sanders Plan discussed with Dr Sanders Charts, labs and vitals reviewed: Afebrile, WBC 11.8 (07/27) Morphine given prior to dressing change, patient amenable to change Dressing taken down, Applied hydrogel, dry sterile dressing. Ordered bactroban. Continue abx per medicine/ID Continue NWB, shoe at bedside, will start PT with wedge shoe in next few days Intraop wound culture: Final, no growth L foot MRI - patient refusing MRI as he is not able to be still during MRI Spoke to the patient primary Dr that he needs to be sedated or calmed during cleaning and dressing change as he can't keep his foot still and keeps moving it. Patient might need to go to the OR again as his left foot ulcer is still draining pus Podiatry will continue to follow up the patient while in house. <Patsy Sanders - Last Filed: 07/31/18 08:03> Objective - Vital Signs/Intake and Output Vital Signs (last 24 hours): Temp Pulse Resp BP Pulse Ox 98.8 F 75 20 123/76 96 07/30/18 16:28 07/30/18 16:28 07/30/18 16:28 07/30/18 16:28 07/30/18 16:28 Intake and Output: 07/31/18 07/31/18 06:59 18:59 Intake Total 120 Output Total 600 Balance -480 - Medications Medications: Current Medications Acetaminophen (Tylenol 325mg Tab) 650 mg PO Q6 PRN PRN Reason: TEMP>=99.5F Carbidopa/Levodopa (Sinemet) 1 tab PO DAILY [facility] Last Admin: 07/30/18 11:29 Dose: 1 tab Sodium Chloride (Sodium Chloride 0.9%) 1,000 mls @ 100 mls/hr IV .Q10H [facility] Last Admin: 07/31/18 05:30 Dose: 100 mls/hr Ceftriaxone Sodium (Rocephin 2 Gm Ivpb) 2 gm in 100 mls @ 100 mls/hr IVPB DAILY [facility]; Protocol Stop: 08/04/18 10:01 Last Admin: 07/30/18 11:29 Dose: 100 mls/hr Morphine Sulfate (Morphine) 2 mg IVP DAILY PRN PRN Reason: Pain, severe (8-10) Last Admin: 07/30/18 08:34 Dose: 2 mg Morphine Sulfate (Morphine) 1 mg IVP Q4H PRN PRN Reason: Pain, severe (8-10) Stop: 08/01/18 15:05 Mupirocin (Bactroban Ointment) 1 gm TOP BID [facility] Last Admin: 07/30/18 17:57 Dose: Not Given Oxychlorosene Sodium (Clorpactin Wcs-90) 2 gm TOP DAILY [facility] Last Admin: 07/30/18 11:28 Dose: Not Given Pantoprazole Sodium (Protonix Ec Tab) 40 mg PO DAILY [facility] Last Admin: 07/30/18 11:29 Dose: 40 mg Quetiapine Fumarate (Seroquel) 50 mg PO DAILY [facility] Last Admin: 07/30/18 11:29 Dose: 50 mg Quetiapine Fumarate (Seroquel) 100 mg PO [facility]; Protocol Last Admin: 07/30/18 22:00 Dose: 100 mg Tamsulosin HCl (Flomax) 0.4 mg PO DAILY [facility] Last Admin: 07/30/18 11:28 Dose: 0.4 mg - Labs Labs: 07/27/18 06:25 07/27/18 06:25 Attending/Attestation - Attestation I have personally seen and examined this patient.: Yes I have fully participated in the care of the patient.: Yes I have reviewed all pertinent clinical information, including history, physical exam and plan: Yes Notes (Text): 07/31/18 08:01 Pt still has abcess with purulence coming from wound; however, he is so combative at dressing change even with on morphine that packing of the wound cannot be done; I spoke with ID resident to see if we can get some psycotrophic drug combined with narcotic to sedate patient prior to dresing change. Once we can get a way to sedate and properly treat the wound the patient will need to go back to OR for debridement and release of abcess.
--- NOTE | 2018-07-30 16:34 | CP.PCM.PN ---
Subjective - Date & Time of Evaluation Date of Evaluation: 07/30/18 Time of Evaluation: 16:27 - Subjective Subjective: Medicine progress note (Dr. Castañeda): Eder PGY - 2 Patient seen and examined at bedside. Patient has been restless overnight. Patient is a poor historian, but denies any acute complaints. Objective - Vital Signs/Intake and Output Vital Signs (last 24 hours): Temp Pulse Resp BP Pulse Ox 98.6 F 61 20 137/73 96 07/30/18 08:08 07/30/18 08:08 07/30/18 08:08 07/30/18 08:08 07/30/18 08:08 Intake and Output: 07/30/18 07/30/18 06:59 18:59 Intake Total 0 Output Total 300 Balance -300 - Medications Medications: Current Medications Acetaminophen (Tylenol 325mg Tab) 650 mg PO Q6 PRN PRN Reason: TEMP>=99.5F Carbidopa/Levodopa (Sinemet) 1 tab PO DAILY [facility] Last Admin: 07/30/18 11:29 Dose: 1 tab Sodium Chloride (Sodium Chloride 0.9%) 1,000 mls @ 100 mls/hr IV .Q10H [facility] Last Admin: 07/30/18 11:29 Dose: 100 mls/hr Ceftriaxone Sodium (Rocephin 2 Gm Ivpb) 2 gm in 100 mls @ 100 mls/hr IVPB DAILY [facility]; Protocol Stop: 08/04/18 10:01 Last Admin: 07/30/18 11:29 Dose: 100 mls/hr Morphine Sulfate (Morphine) 2 mg IVP DAILY PRN PRN Reason: Pain, severe (8-10) Last Admin: 07/30/18 08:34 Dose: 2 mg Morphine Sulfate (Morphine) 1 mg IVP Q4H PRN PRN Reason: Pain, severe (8-10) Stop: 08/01/18 15:05 Mupirocin (Bactroban Ointment) 1 gm TOP BID [facility] Oxychlorosene Sodium (Clorpactin Wcs-90) 2 gm TOP DAILY [facility] Last Admin: 07/30/18 11:28 Dose: Not Given Pantoprazole Sodium (Protonix Ec Tab) 40 mg PO DAILY [facility] Last Admin: 07/30/18 11:29 Dose: 40 mg Quetiapine Fumarate (Seroquel) 50 mg PO DAILY [facility] Last Admin: 07/30/18 11:29 Dose: 50 mg Quetiapine Fumarate (Seroquel) 100 mg PO HS [facility]; Protocol Last Admin: 07/29/18 22:01 Dose: 100 mg Tamsulosin HCl (Flomax) 0.4 mg PO DAILY [facility] Last Admin: 07/30/18 11:28 Dose: 0.4 mg - Labs Labs: 07/27/18 06:25 07/27/18 06:25 - Constitutional Appears: Well - Head Exam Head Exam: ATRAUMATIC, NORMAL INSPECTION, NORMOCEPHALIC - Eye Exam Eye Exam: EOMI, Normal appearance, PERRL Pupil Exam: NORMAL ACCOMODATION, PERRL - ENT Exam ENT Exam: Mucous Membranes Moist, Normal Exam - Neck Exam Neck Exam: Full ROM, Normal Inspection. absent: Lymphadenopathy - Respiratory Exam Respiratory Exam: Clear to Ausculation Bilateral, NORMAL BREATHING PATTERN - Cardiovascular Exam Cardiovascular Exam: REGULAR RHYTHM, +S1, +S2. absent: Murmur - GI/Abdominal Exam GI & Abdominal Exam: absent: Tenderness - Extremities Exam Extremities Exam: Full ROM, Normal Capillary Refill, Normal Inspection. absent: Joint Swelling, Pedal Edema - Back Exam Back Exam: NORMAL INSPECTION - Neurological Exam Neurological Exam: Alert, Awake, CN II-XII Intact, Normal Gait, Oriented x3 - Psychiatric Exam Psychiatric exam: Normal Affect, Normal Mood - Skin Skin Exam: Dry, Intact, Normal Color, Warm - Additional Findings Additional findings: LLE foot dressing c/d/i Assessment and Plan - Assessment and Plan (Free Text) Assessment: 73-year-old male with a past medical history of hypertension, hyperlipidemia, diverticulosis, paranoid schizophrenia, and arthritis transferred from psychiatry unit for possible LLE cellulitis. He was later found to have sepsis 2/2 LLE cellulitis and possible Osteomyelitis Plan Sepsis 2/2 LLE Cellulitis and Abscess - ID on consult: Dr. Vergara - Fluid hydration @ 100/hr - I&D per podiatry - we have added Morphine to help with the pain so that they can drain - Continue with Rocephin Day 3 - Mupirocin - ACEP for fever Hx Hypertension - No medication right now, monitor Hx Hyperlipidemia - - No medication now Hx Schizophrenia paranoid type - Psych on board - Seroquel 50 daily and 100 HS Hx BPH - Flomax
[2018-07-30] MEDS: Mupirocin 2% Ointment 15 GM TUBE TOP SCH (17:57)
--- NOTE | 2018-07-30 19:41 | PN ---
DATE: 07/30/2018 SUBJECTIVE: The patient is seen lying in the bed in room 361, bed 2. The patient is alert, awake, and responsive. The patient is refusing dressing change and wound care of the left foot despite my multiple effort for the patient to agree, but the patient is refusing to have the dressing change and wound care done and incision and drainage done. The patient according to the nurses' note is complaining of moderate pain of the left foot. The patient is seen lying in the bed. The patient's left leg and left foot has a dressing, which is intact without any drainage. OBJECTIVE: VITAL SIGNS: T-max 98.8, heart rate 61 and 75, blood pressure 123/76 and 137/63, respirations 20, and O2 sat 96%. HEENT: Head; normocephalic and atraumatic. HEENT examination shows pinkish pale conjunctivae. Anicteric sclerae. No oropharyngeal lesion. NECK: No neck rigidity. CHEST: Kyphosis. LUNGS: Shows no audible crackle, rales, or wheezing. ABDOMEN: Soft. Positive bowel sounds. No palpable hepatosplenomegaly. GENITALIA: Male. RECTAL: Deferred. EXTREMITIES: Shows positive left foot and left toe dressing. NEUROLOGIC: The patient is alert, awake, responsive, and is able to move upper lower extremity without assistance. Gait examination is not tested. VASCULAR: Palpable pulses. DIAGNOSTIC DATA: None from today. IMPRESSION AND PLAN: 1. Left foot second toe abscess, status post incision and drainage. 2. Left foot abscess and cellulitis. 3. Paranoid schizophrenia. 4. Status post incision and drainage. 5. Delirium. 6. Group A Streptococcus left foot cellulitis. 7. Status post left foot Misonix debridement. 8. Hypertension. 9. Leukocytosis with granulocytosis. 10. Elevated erythrocyte sedimentation rate of 60. 11. Mild normocytic anemia. 12. Mild prerenal kidney injury. 13. Elevated C-reactive protein of greater than 15. 14. Mild protein malnutrition and hypoalbuminemia. 15. Group A Streptococcus pyogenes left foot cellulitis versus abscess. 16. Status post left foot incision and drainage of the left foot abscess and cellulitis. Plan at this time, the patient is currently in consult with Dr. Sanders from Podiatry, Psychiatry, and Infectious Disease. CURRENT MEDICATIONS: Bactroban cream to the affected area twice a day, Clorpactin 2 g daily, Flomax 0.4 mg daily, morphine 1 mg IV every 4 hours p.r.n., Protonix 40 mg daily, Rocephin 2 g IV daily, Seroquel 50 mg daily, Seroquel 100 mg at bedtime, Sinemet 25/100 tablets daily, IV fluid 0.9 normal saline mL an hour, Tylenol 650 p.o. every 6 hours, and non-left weightbearing to the left foot. Occupational therapy and physical therapy ordered. The patient is seen by physical therapist, recommending subacute rehab, but the patient first needs to go to Psychiatry for further inpatient psychiatric treatment. The patient at present to be continued on above. The patient is seen by the cable television installer today and Infectious Disease recommendation was. The patient needs pain medications prior to dressing change. Continue nonweightbearing to the left leg. According to the Podiatry, the patient may need to go to the OR again for the left foot ulcer for further podiatry intervention. Dictated and electronically signed, not read. Janes Castañeda MD
[2018-07-31] MEDS: Sodium Chloride 0.9% 1,000 ML IV SCH (05:30)
[2018-07-31] MEDS: Mupirocin 2% Ointment 15 GM TUBE TOP SCH (09:23)
[2018-07-31] MEDS: Oxychlorosene Topical 2 gm Packet TOP SCH (09:24)
[2018-07-31] MEDS: Morphine 2 mg/ml ISec IVP PRN ×2 (09:26→18:49)
[2018-07-31] MEDS: cefTRIAXone 2 GM IN NS 2 GM/100 ML BAG IVPB SCH (09:27)
[2018-07-31] MEDS: Pantoprazole 40 mg EC Tab PO SCH (09:27)
[2018-07-31 10:42] LABS: BASO # 0.02 K/mm3 (0.0-2.0); BASO % 0.3 % (0.0-3.0); EOS # 0.1 (0.0-0.7); EOS % 1.8 % (1.5-5.0); HEMOGLOBIN 11.9 g/dL (14.0-18.0); LYMPH % 13.4 % (22.0-35.0); MEAN CELL VOLUME 103.1 fl (80.0-105.0); MEAN CORPUSCULAR HEMOGLOBIN 33.1 pg (25.0-35.0); MEAN CORPUSCULAR HGB CONC 32.2 g/dl (31.0-37.0); MEAN PLATELET VOLUME 10.4 fl (7.0-11.0); MONO # 0.4 (0.1-0.6); MONO % 4.7 % (1.0-6.0); RBC 3.59 10^6/uL (3.5-6.1); RED CELL DISTRIBUTION WIDTH 13.6 % (11.5-14.5); WHITE BLOOD COUNT 7.6 10^3/uL (4.5-11.0)
[2018-07-31 11:03] LABS: ALB/GLOB RATIO 0.9 (1.1-1.8); ALBUMIN 2.9 g/dL (3.0-4.8); ALT/SGPT 29 U/L (7-56); AST/SGOT 27 U/L (17-59); BLOOD UREA NITROGEN 16 mg/dL (7-21); CALCIUM 8.3 mg/dL (8.4-10.5); GFR NON-AFRICAN AMERICAN 54
--- NOTE | 2018-07-31 12:10 | CP.PCM.PN ---
Subjective - Date & Time of Evaluation Date of Evaluation: 07/31/18 Time of Evaluation: 11:59 - Subjective Subjective: Podiatry progress note - Drs. Ortiz/Tommy 73 y/o M patient seen and evaluated at the bedside 5 days S/P left foot incision and drainage with misonix debridement. Patient reports mild pain to the left foot. Patient is less irritable today. He denies n/v/f/c/sob overnight. Patient denies any other pedal complaint at this time. Objective - Vital Signs/Intake and Output Vital Signs (last 24 hours): Temp Pulse Resp BP Pulse Ox 98.5 F 54 L 17 142/83 96 07/31/18 08:20 07/31/18 08:20 07/31/18 08:20 07/31/18 08:20 07/31/18 08:20 Intake and Output: 07/31/18 07/31/18 06:59 18:59 Intake Total 120 Output Total 600 Balance -480 - Medications Medications: Current Medications Acetaminophen (Tylenol 325mg Tab) 650 mg PO Q6 PRN PRN Reason: TEMP>=99.5F Carbidopa/Levodopa (Sinemet) 1 tab PO DAILY [facility] Last Admin: 07/31/18 09:29 Dose: 1 tab Sodium Chloride (Sodium Chloride 0.9%) 1,000 mls @ 100 mls/hr IV .Q10H [facility] Last Admin: 07/31/18 05:30 Dose: 100 mls/hr Ceftriaxone Sodium (Rocephin 2 Gm Ivpb) 2 gm in 100 mls @ 100 mls/hr IVPB DAILY [facility]; Protocol Stop: 08/04/18 10:01 Last Admin: 07/31/18 09:27 Dose: 100 mls/hr Morphine Sulfate (Morphine) 1 mg IVP Q4H PRN PRN Reason: Pain, severe (8-10) Stop: 08/01/18 15:05 Mupirocin (Bactroban Ointment) 1 gm TOP BID [facility] Last Admin: 07/31/18 09:23 Dose: Not Given Oxychlorosene Sodium (Clorpactin Wcs-90) 2 gm TOP DAILY [facility] Last Admin: 07/31/18 09:24 Dose: Not Given Pantoprazole Sodium (Protonix Ec Tab) 40 mg PO DAILY [facility] Last Admin: 07/31/18 09:27 Dose: 40 mg Quetiapine Fumarate (Seroquel) 50 mg PO DAILY [facility] Last Admin: 07/31/18 09:29 Dose: 50 mg Quetiapine Fumarate (Seroquel) 100 mg PO [facility]; Protocol Last Admin: 07/30/18 22:00 Dose: 100 mg Tamsulosin HCl (Flomax) 0.4 mg PO DAILY [facility] Last Admin: 07/31/18 09:25 Dose: 0.4 mg - Labs Labs: 07/31/18 10:30 07/31/18 10:30 - Constitutional Appears: Well, No Acute Distress - Head Exam Head Exam: ATRAUMATIC, NORMOCEPHALIC - Extremities Exam Additional comments: LLE focused exam VASC: DP/PT pulses palpable 2/4; cap refill <3 seconds to all digits; temp gradient warm to warm; moderate edema noted to the foot, does not extend up ankle. NEURO: Gross and protective sensation intact. DERM: Surgical site appears well coapted with no signs of pus or necrosis or wound margins; dressing shows Purulent drainage; Active purulent drainage noted today. mild periwound erythema noted; no streaking noted, no malodor. MSK: Pain upon palpation of the carito-wound area; No pain on calf compression. Muscle power intact 5/5 to all groups. - Neurological Exam Neurological Exam: Awake, Oriented x3 Assessment and Plan - Assessment and Plan (Free Text) Assessment: 73 y/o M patient seen and evaluated at the bedside 5 days S/P left foot incision and drainage with misonix debridement Plan: Patient seen and evaluated with Dr. Sanders Plan discussed with Dr Sanders Charts, labs and vitals reviewed: Afebrile, WBC 7.6 Morphine given prior to dressing change, patient amenable to change Dressing taken down, Applied Iodosorb packing, dry sterile dressing. Continue abx per medicine/ID Ordered wedge shoe. Continue NWB, shoe at bedside, will start PT with wedge shoe in next few days Intraop wound culture: Final, no growth L foot MRI - patient refusing MRI as he is not able to be still during MRI Podiatry will continue to follow up the patient while in house.
--- NOTE | 2018-07-31 15:16 | CP.PCM.PN ---
Subjective - Date & Time of Evaluation Date of Evaluation: 07/31/18 Time of Evaluation: 14:59 - Subjective Subjective: Medicine progress note (Dr. Castañeda) - Eder, PGY -2 Patient seen and examined at bedside. No acute overnight events. Patient seen by SW, who spoke to brother, brother wants patient to go to psychiatry floor. Patient cooperative with exam at bedside, denies any complaints. Once again, patient is poor historian. Objective - Vital Signs/Intake and Output Vital Signs (last 24 hours): Temp Pulse Resp BP Pulse Ox 98.5 F 54 L 17 142/83 96 07/31/18 08:20 07/31/18 08:20 07/31/18 08:20 07/31/18 08:20 07/31/18 08:20 Intake and Output: 07/31/18 07/31/18 06:59 18:59 Intake Total 120 Output Total 600 Balance -480 - Medications Medications: Current Medications Acetaminophen (Tylenol 325mg Tab) 650 mg PO Q6 PRN PRN Reason: TEMP>=99.5F Carbidopa/Levodopa (Sinemet) 1 tab PO DAILY [facility] Last Admin: 07/31/18 09:29 Dose: 1 tab Sodium Chloride (Sodium Chloride 0.9%) 1,000 mls @ 100 mls/hr IV .Q10H [facility] Last Admin: 07/31/18 05:30 Dose: 100 mls/hr Ceftriaxone Sodium (Rocephin 2 Gm Ivpb) 2 gm in 100 mls @ 100 mls/hr IVPB DAILY [facility]; Protocol Stop: 08/04/18 10:01 Last Admin: 07/31/18 09:27 Dose: 100 mls/hr Morphine Sulfate (Morphine) 1 mg IVP Q4H PRN PRN Reason: Pain, severe (8-10) Stop: 08/01/18 15:05 Mupirocin (Bactroban Ointment) 1 gm TOP BID [facility] Last Admin: 07/31/18 09:23 Dose: Not Given Oxychlorosene Sodium (Clorpactin Wcs-90) 2 gm TOP DAILY [facility] Last Admin: 07/31/18 09:24 Dose: Not Given Pantoprazole Sodium (Protonix Ec Tab) 40 mg PO DAILY [facility] Last Admin: 07/31/18 09:27 Dose: 40 mg Quetiapine Fumarate (Seroquel) 50 mg PO DAILY [facility] Last Admin: 07/31/18 09:29 Dose: 50 mg Quetiapine Fumarate (Seroquel) 100 mg PO HS [facility]; Protocol Last Admin: 07/30/18 22:00 Dose: 100 mg Tamsulosin HCl (Flomax) 0.4 mg PO DAILY [facility] Last Admin: 07/31/18 09:25 Dose: 0.4 mg - Labs Labs: 07/31/18 10:30 07/31/18 10:30 - Constitutional Appears: Well - Head Exam Head Exam: ATRAUMATIC, NORMAL INSPECTION, NORMOCEPHALIC - Eye Exam Eye Exam: EOMI, Normal appearance, PERRL Pupil Exam: NORMAL ACCOMODATION, PERRL - ENT Exam ENT Exam: Mucous Membranes Moist, Normal Exam - Neck Exam Neck Exam: Full ROM, Normal Inspection. absent: Lymphadenopathy - Respiratory Exam Respiratory Exam: Clear to Ausculation Bilateral, NORMAL BREATHING PATTERN - Cardiovascular Exam Cardiovascular Exam: REGULAR RHYTHM, +S1, +S2. absent: Murmur - GI/Abdominal Exam GI & Abdominal Exam: Soft, Normal Bowel Sounds. absent: Tenderness - Extremities Exam Extremities Exam: Full ROM, Normal Capillary Refill, Normal Inspection. absent: Joint Swelling, Pedal Edema - Back Exam Back Exam: NORMAL INSPECTION - Neurological Exam Neurological Exam: Alert, Awake, CN II-XII Intact, Normal Gait, Oriented x3 - Psychiatric Exam Psychiatric exam: Normal Affect, Normal Mood - Skin Skin Exam: Dry, Intact, Normal Color, Warm Assessment and Plan - Assessment and Plan (Free Text) Assessment: 73-year-old male with a past medical history of hypertension, hyperlipidemia, diverticulosis, paranoid schizophrenia, and arthritis transferred from psychiatry unit for possible LLE cellulitis. He was later found to have sepsis 2/2 LLE cellulitis and possible Osteomyelitis but patient refusing MRI Plan Sepsis 2/2 LLE Cellulitis and Abscess - ID on consult: Dr. Vergara - Fluid hydration @ 100/hr - Continue morphine before bedside dressing change Worked well today for Podiatry Their recs: Will start PT with wedge shoe in next few days They would like an MRI but patient will not remain still - Continue with Rocephin Day 4 - Mupirocin - ACEP for fever Hx Hypertension - No medication right now, monitor Hx Hyperlipidemia - - No medication now Hx Schizophrenia paranoid type - Psych on board - Seroquel 50 daily and 100 HS Hx BPH - Flomax
--- NOTE | 2018-07-31 19:35 | PN ---
DATE: 07/31/2018 SUBJECTIVE: The patient was seen and examined today. The patient is a 73-year-old male with history of Parkinson's, history of schizophrenia. Initially, the patient was admitted on the medical site for confusion. The patient was transferred to the psychiatric inpatient unit for ECT treatment and medication management. Over the course of psychiatric admission, the patient developed sepsis and needed to be transferred to the medical site. This telegraphic typewriter installer is seeing the patient on the medical site as a education sales consultant. The patient was seen today. The patient presented relatively well. The patient reported that he feels little bit better. The patient reported that he still feels paranoid and feels that he will be judged. Also, the patient complained of the nightmares. The patient is willing to go back to the psychiatric inpatient unit after medical stabilization. Based on report from Dr. Keith, patternmaker plaster, the patient presented to be paranoid and his paranoia sometimes interfere with the patient's compliance with treatment plan. Sometimes, the patient would refuse to have bandage changes. The patient's brother also involved into the patient's care today. I spoke to Mr. Nia Roman, and he expressed his highest concerns about psychosis and wanted his brother to be admitted for ECT treatment because of good response in the past, but this plan could be complicated in the way if the patient needs to continue on IV antibiotics and if the patient needs to stay on the medical site. Also, we need to have clearance from the medical team as well as boat joiner as well as Infectious Disease. OBJECTIVE VITAL SIGNS: Reviewed. Temperature 98.5, pulse is 54, blood pressure 142/83, respirations 17, oxygen saturation is 96%. MEDICATIONS: Reviewed. The patient is on Sinemet, Rocephin, morphine, Bactroban, Cipro, Clorpactin, Protonix, Seroquel 100 mg at the nighttime and 50 mg daily, sodium chloride and Flomax. LABORATORY DATA: Reviewed. Today is the first day patient has no leukocytosis. ESR is 72, which is elevated. Chemistry reviewed. Microbiology reviewed. Streptococcus pyogenes in the left foot. MENTAL STATUS EXAMINATION: The patient presented to be alert, seems to be happy see this telegraphic typewriter installer. Mood described "little bit better". Thought process seems to be goal directed, but concrete. Thought content, the patient reported being paranoid. Sometimes, the patient's paranoia interfere with medical procedures. Insight and judgment seem to be limited, but improving. Impulses are at times unpredictable. IMPRESSION: History of schizophrenia. Also, the patient has Parkinson's, developed sepsis, and the patient needs to be transferred to the medical site for left foot cellulitis, rule out osteomyelitis. PLAN: At present moment, few options. First of all, the patient needs to have IV antibiotics. We need to speak to Infectious Disease in order to find out the plan. Also, the patient was referred to subacute rehab, needs to find out how necessary subacute rehab needs to be done. On top of that, if the patient's paranoia and psychosis interfering with the patient's participation in treatment, we need to address his paranoia while the patient is on the medical site or if it is possible for the patient to be transferred to the psychiatric inpatient unit with services, such as Infectious Disease. Also, if the patient could be on p.o. antibiotics, it will be easier. Also, the patient needs to be seen by patternmaker plaster. Also, if the patient would be cleared for ECT treatment, we will consider to perform ECT treatment while the patient is on the medical site or if there is no contraindication, the patient might be transferred back to the psychiatric inpatient unit. Care for this patient took more than 45 minutes of this telegraphic typewriter installer time. Luh Cortez MD DAVID
--- NOTE | 2018-07-31 23:24 | PN ---
DATE: 07/31/2018 SUBJECTIVE: The patient is in bed, in no acute distress, nontoxic. PHYSICAL EXAMINATION: VITAL SIGNS: Temperature is 98, blood pressure is 142/80, respiratory 20. HEENT: Unremarkable. NECK: Supple. LUNGS: Have decreased breath sounds. HEART: Normal S1, S2. ABDOMEN: Soft, nontender. No organomegaly. No rebound. No guarding. No masses. LABORATORY DATA: Reveals a white count of 7.6, hemoglobin of 11, platelets of 212. Chemistries reveals a BUN of 16, creatinine of 1.3. Microbiology reveals a group A Streptococcus pyogenes. ASSESSMENT: This is a 73-year-old male who was seen earlier today in room 361, bed 2 with group A strep, left foot cellulitis, negative MRI for osteomyelitis, hypertension, hyperlipidemia, schizophrenia, paranoia. Podiatry's note from today is reviewed. Maybe able to switch to p.o. antibiotics and complete therapy. Dr. Sanders's note from yesterday is reviewed. Currently on ceftriaxone. Brayan Vergara MD
[2018-08-01] MEDS: Sodium Chloride 0.9% 1,000 ML IV SCH (04:41)
[2018-08-01 07:41] VITALS: RESP 20
--- NOTE | 2018-08-01 09:12 | CP.PCM.PCO ---
Physician Communication Note - Physician Communication Note Physician Communication Note: discuss with pt's brother, see notes
--- NOTE | 2018-08-01 09:51 | CP.PCM.PN ---
<Stuart Morris - Last Filed: 08/01/18 09:49> Subjective - Date & Time of Evaluation Date of Evaluation: 08/01/18 Time of Evaluation: 09:49 - Subjective Subjective: Podiatry progress note - Drs. Ortiz/Tommy 73 y/o M patient seen and evaluated at the bedside 5 days S/P left foot incision and drainage with misonix debridement. Patient reports mild pain to the left foot. Patient is less irritable today. He denies n/v/f/c/sob overnight. Patient denies any other pedal complaint at this time. Objective - Vital Signs/Intake and Output Vital Signs (last 24 hours): Temp Pulse Resp BP Pulse Ox 99 F 64 20 146/79 94 L 08/01/18 07:41 08/01/18 07:41 08/01/18 07:41 08/01/18 07:41 08/01/18 07:41 Intake and Output: 08/01/18 08/01/18 06:59 18:59 Intake Total 420 Balance 420 - Medications Medications: Current Medications Acetaminophen (Tylenol 325mg Tab) 650 mg PO Q6 PRN PRN Reason: TEMP>=99.5F Carbidopa/Levodopa (Sinemet) 1 tab PO DAILY [facility] Last Admin: 07/31/18 09:29 Dose: 1 tab Sodium Chloride (Sodium Chloride 0.9%) 1,000 mls @ 100 mls/hr IV .Q10H [facility] Last Admin: 08/01/18 04:41 Dose: 100 mls/hr Ceftriaxone Sodium (Rocephin 2 Gm Ivpb) 2 gm in 100 mls @ 100 mls/hr IVPB DAILY [facility]; Protocol Stop: 08/04/18 10:01 Last Admin: 07/31/18 09:27 Dose: 100 mls/hr Morphine Sulfate (Morphine) 1 mg IVP Q4H PRN PRN Reason: Pain, severe (8-10) Stop: 08/01/18 15:05 Last Admin: 07/31/18 18:49 Dose: 1 mg Mupirocin (Bactroban Ointment) 1 gm TOP BID [facility] Last Admin: 07/31/18 09:23 Dose: Not Given Oxychlorosene Sodium (Clorpactin Wcs-90) 2 gm TOP DAILY [facility] Last Admin: 07/31/18 09:24 Dose: Not Given Pantoprazole Sodium (Protonix Ec Tab) 40 mg PO DAILY [facility] Last Admin: 07/31/18 09:27 Dose: 40 mg Quetiapine Fumarate (Seroquel) 50 mg PO DAILY [facility] Last Admin: 07/31/18 09:29 Dose: 50 mg Quetiapine Fumarate (Seroquel) 100 mg PO HS [facility]; Protocol Last Admin: 07/31/18 21:26 Dose: 100 mg Tamsulosin HCl (Flomax) 0.4 mg PO DAILY [facility] Last Admin: 07/31/18 09:25 Dose: 0.4 mg - Labs Labs: 07/31/18 10:30 07/31/18 10:30 - Constitutional Appears: Well, No Acute Distress - Head Exam Head Exam: ATRAUMATIC, NORMOCEPHALIC - Extremities Exam Additional comments: LLE focused exam VASC: DP/PT pulses palpable 2/4; cap refill <3 seconds to all digits; temp gradient warm to warm; moderate edema noted to the foot, does not extend up ankle. NEURO: Gross and protective sensation intact. DERM: Surgical site shows Purulent drainage less than yesterday. mild periwound erythema noted; no streaking noted, no malodor. MSK: Pain upon palpation of the carito-wound area; No pain on calf compression. Muscle power intact 5/5 to all groups. - Neurological Exam Neurological Exam: Alert, Awake Assessment and Plan - Assessment and Plan (Free Text) Assessment: 73 y/o M patient seen and evaluated at the bedside 5 days S/P left foot incision and drainage with misonix debridement Plan: Patient seen and evaluated. Plan discussed with Dr Ortiz Charts, labs and vitals reviewed: Afebrile, WBC 7.6 Morphine given prior to dressing change, patient amenable to change Dressing taken down, Applied Iodosorb packing, dry sterile dressing. Continue abx per medicine/ID Ordered wedge shoe. Continue NWB, shoe at bedside, will start PT with wedge shoe in next few days Intraop wound culture: Final, no growth L foot MRI - patient refusing MRI as he is not able to be still during MRI Podiatry will continue to follow up the patient while in house. <Alfred Ortiz - Last Filed: 08/01/18 10:54> Objective - Vital Signs/Intake and Output Vital Signs (last 24 hours): Temp Pulse Resp BP Pulse Ox 99 F 64 20 146/79 94 L 08/01/18 07:41 08/01/18 07:41 08/01/18 07:41 08/01/18 07:41 08/01/18 07:41 Intake and Output: 08/01/18 08/01/18 06:59 18:59 Intake Total 420 Balance 420 - Medications Medications: Current Medications Acetaminophen (Tylenol 325mg Tab) 650 mg PO Q6 PRN PRN Reason: TEMP>=99.5F Carbidopa/Levodopa (Sinemet) 1 tab PO DAILY [facility] Last Admin: 07/31/18 09:29 Dose: 1 tab Sodium Chloride (Sodium Chloride 0.9%) 1,000 mls @ 100 mls/hr IV .Q10H [facility] Last Admin: 08/01/18 04:41 Dose: 100 mls/hr Ceftriaxone Sodium (Rocephin 2 Gm Ivpb) 2 gm in 100 mls @ 100 mls/hr IVPB DAILY [facility]; Protocol Stop: 08/04/18 10:01 Last Admin: 07/31/18 09:27 Dose: 100 mls/hr Morphine Sulfate (Morphine) 1 mg IVP Q4H PRN PRN Reason: Pain, severe (8-10) Stop: 08/01/18 15:05 Last Admin: 07/31/18 18:49 Dose: 1 mg Mupirocin (Bactroban Ointment) 1 gm TOP BID [facility] Last Admin: 07/31/18 09:23 Dose: Not Given Oxychlorosene Sodium (Clorpactin Wcs-90) 2 gm TOP DAILY [facility] Last Admin: 07/31/18 09:24 Dose: Not Given Pantoprazole Sodium (Protonix Ec Tab) 40 mg PO DAILY [facility] Last Admin: 07/31/18 09:27 Dose: 40 mg Quetiapine Fumarate (Seroquel) 50 mg PO DAILY [facility] Last Admin: 07/31/18 09:29 Dose: 50 mg Quetiapine Fumarate (Seroquel) 100 mg PO HS [facility]; Protocol Last Admin: 07/31/18 21:26 Dose: 100 mg Tamsulosin HCl (Flomax) 0.4 mg PO DAILY [facility] Last Admin: 07/31/18 09:25 Dose: 0.4 mg - Labs Labs: 07/31/18 10:30 07/31/18 10:30 Attending/Attestation - Attestation I have personally seen and examined this patient.: Yes I have fully participated in the care of the patient.: Yes I have reviewed all pertinent clinical information, including history, physical exam and plan: Yes
[2018-08-01] MEDS: Pantoprazole 40 mg EC Tab PO SCH (11:06)
[2018-08-01] MEDS: Oxychlorosene Topical 2 gm Packet TOP SCH (11:11)
[2018-08-01] MEDS: Mupirocin 2% Ointment 15 GM TUBE TOP SCH ×2 (11:11→18:08)
[2018-08-01] MEDS: cefTRIAXone 2 GM IN NS 2 GM/100 ML BAG IVPB SCH (12:52)
--- NOTE | 2018-08-01 13:37 | PN ---
DATE: 08/01/2018 LOCATION: The patient is seen in room 361, bed 2. SUBJECTIVE: The patient's overnight nurse's notes were reviewed. The patient yesterday underwent dressing change by Podiatry. The patient was cooperative after the patient was given morphine for the pain control of the left foot pain and dressing change. The patient was noted to have a dressing change done by the Podiatry. PHYSICAL EXAMINATION: VITAL SIGNS: T-max 99.7, heart rate 64, blood pressure 146/79, respirations 20, O2 sat 94-99%. HEAD: Normocephalic, atraumatic. HEENT: Examination shows pinkish pale conjunctivae. Anicteric sclerae. Dry oral mucosa. NECK: No neck rigidity. CHEST: Kyphosis. LUNGS: No audible crackle, rales or wheezing. CARDIOVASCULAR: S1, S2, regular rhythm. Questionable soft systolic murmur left sternal border, right second intercostal space, left second intercostal space. ABDOMEN: Soft. Positive bowel sounds. No palpable hepatosplenomegaly. GENITALIA: Male. RECTAL: Examination is deferred. EXTREMITIES: Positive left foot plantar aspect distal foot area of some swelling and decreasing redness and incision is noted on the left foot plantar aspect, distal foot. No drainage noted from the left foot plantar aspect. Gait examination is not tested. The patient is nonweightbearing on the left foot. NEUROLOGIC: The patient is alert, awake, responsive, is able to follow command, move upper and lower extremities without assistance. LABORATORY DATA: WBC 7.6, hemoglobin/hematocrit 11.9/37, platelet 212. Granulocytes 80% segs, ESR is 72. Sodium 140, potassium 3.7, chloride 106, CO2 of 29, BUN 16, creatinine 1.3, glucose 93, calcium 8.3, phosphorus 2.8, magnesium 1.9. CRP greater than 15. IMPRESSION: 1. Streptococcus group A pyogenes left foot abscess and cellulitis. 2. Status post left foot abscess incision and drainage. 3. Normocytic anemia. 4. Granulocytosis. 5. Elevated erythrocyte sedimentation rate of 60 and 72. 6. Elevated C-reactive protein of greater than 15. 7. Left distal foot plantar aspect Streptococcus group A pyogenes abscess and cellulitis. 8. Nonweightbearing of the left lower extremity. 9. Hypertension. 10. History of multiple psychiatric disorders with history of psychosis. PLAN: At this time, the patient is to be continued on IV antibiotics as per Infectious Disease recommendation. The patient has been followed by Infectious Disease. The patient is also seen by Psychiatry. Recommendation by Psychiatry and Infectious Disease noted, possibilities of changing over to p.o. antibiotic is also noted by Infectious Disease. Podiatry evaluation and recommendations noted. We are not clear whether Podiatry needs to do any further operating room surgical incision and drainage versus local wound care at the bedside. If the patient is switched over to p.o. antibiotics and if Podiatry does not recommend any further surgical intervention, the patient can be considered for transfer to Psychiatry if cleared by Podiatry and Infectious Disease. The patient's medications are as per the MAR of today which is reviewed. Once cleared by Podiatry and Infectious Disease, the patient can be transferred to Psychiatry for further management of his psychiatric condition and treatment with ECT as recommended by Psychiatry. The patient's condition, diagnosis, management, treatment plan have been discussed with the patient's brother by Psychiatry and other physicians. The patient's overall prognosis is guarded. Janes Castañeda MD
[2018-08-01] MEDS: Morphine 2 mg/ml ISec IVP PRN (13:46)
--- NOTE | 2018-08-01 14:33 | CP.PCM.PN ---
Subjective - Date & Time of Evaluation Date of Evaluation: 08/01/18 Time of Evaluation: 14:32 - Subjective Subjective: Medicine progress note (Dr. Castañeda) - Eder, PGY -2 Patient seen and examined at bedside. No acute overnight events. Patient has no complaints. Objective - Vital Signs/Intake and Output Vital Signs (last 24 hours): Temp Pulse Resp BP Pulse Ox 99 F 64 20 146/79 94 L 08/01/18 07:41 08/01/18 07:41 08/01/18 07:41 08/01/18 07:41 08/01/18 07:41 Intake and Output: 08/01/18 08/01/18 06:59 18:59 Intake Total 420 Balance 420 - Medications Medications: Current Medications Acetaminophen (Tylenol 325mg Tab) 650 mg PO Q6 PRN PRN Reason: TEMP>=99.5F Carbidopa/Levodopa (Sinemet) 1 tab PO DAILY [facility] Last Admin: 08/01/18 11:06 Dose: 1 tab Sodium Chloride (Sodium Chloride 0.9%) 1,000 mls @ 100 mls/hr IV .Q10H [facility] Last Admin: 08/01/18 04:41 Dose: 100 mls/hr Ceftriaxone Sodium (Rocephin 2 Gm Ivpb) 2 gm in 100 mls @ 100 mls/hr IVPB DAILY [facility]; Protocol Stop: 08/04/18 10:01 Last Admin: 08/01/18 12:52 Dose: 100 mls/hr Morphine Sulfate (Morphine) 1 mg IVP Q4H PRN PRN Reason: Pain, severe (8-10) Stop: 08/01/18 15:05 Last Admin: 08/01/18 13:46 Dose: 1 mg Mupirocin (Bactroban Ointment) 1 gm TOP BID [facility] Last Admin: 08/01/18 11:11 Dose: Not Given Oxychlorosene Sodium (Clorpactin Wcs-90) 2 gm TOP DAILY [facility] Last Admin: 08/01/18 11:11 Dose: Not Given Pantoprazole Sodium (Protonix Ec Tab) 40 mg PO DAILY [facility] Last Admin: 08/01/18 11:06 Dose: 40 mg Quetiapine Fumarate (Seroquel) 50 mg PO DAILY [facility] Last Admin: 08/01/18 11:06 Dose: 50 mg Quetiapine Fumarate (Seroquel) 100 mg PO HS [facility]; Protocol Last Admin: 07/31/18 21:26 Dose: 100 mg Tamsulosin HCl (Flomax) 0.4 mg PO DAILY [facility] Last Admin: 08/01/18 11:06 Dose: 0.4 mg - Labs Labs: 07/31/18 10:30 07/31/18 10:30 - Constitutional Appears: Well - Head Exam Head Exam: ATRAUMATIC, NORMAL INSPECTION, NORMOCEPHALIC - Eye Exam Eye Exam: EOMI, Normal appearance, PERRL Pupil Exam: NORMAL ACCOMODATION, PERRL - ENT Exam ENT Exam: Mucous Membranes Moist, Normal Exam - Neck Exam Neck Exam: Full ROM, Normal Inspection. absent: Lymphadenopathy - Respiratory Exam Respiratory Exam: Clear to Ausculation Bilateral, NORMAL BREATHING PATTERN - Cardiovascular Exam Cardiovascular Exam: REGULAR RHYTHM, +S1, +S2. absent: Murmur - GI/Abdominal Exam GI & Abdominal Exam: Soft, Normal Bowel Sounds. absent: Tenderness - Extremities Exam Extremities Exam: Full ROM, Normal Capillary Refill, Normal Inspection. absent: Joint Swelling, Pedal Edema - Back Exam Back Exam: NORMAL INSPECTION - Neurological Exam Neurological Exam: Alert, Awake, CN II-XII Intact, Normal Gait, Oriented x3 - Psychiatric Exam Psychiatric exam: Normal Affect, Normal Mood - Skin Skin Exam: Dry, Intact, Normal Color, Warm Assessment and Plan - Assessment and Plan (Free Text) Assessment: 73-year-old male with a past medical history of hypertension, hyperlipidemia, diverticulosis, paranoid schizophrenia, and arthritis transferred from psychiatry unit for possible LLE cellulitis. He was later found to have sepsis 2/2 LLE cellulitis and possible Osteomyelitis but patient refusing MRI Plan Sepsis 2/2 LLE Cellulitis and Abscess - ID on consult: Dr. Vergara - Fluid hydration @ 100/hr - Continue morphine before bedside dressing change Worked well today for Podiatry Their recs: Will start PT with wedge shoe in next few days They would like an MRI but patient will not remain still - Continue with Rocephin Day 5 - Mupirocin - ACEP for fever Hx Hypertension - No medication right now, monitor Hx Hyperlipidemia - - No medication now Hx Schizophrenia paranoid type - Psych on board Recommends if patient can get switched to PO antibiotics to transfer to psych floor - Seroquel 50 daily and 100 HS Hx BPH - Flomax
[2018-08-01 17:24] VITALS: BP 143/79; PULSE 78; O2SAT 92
[2018-08-01 17:26] VITALS: TEMP 98.8
[2018-08-01] MEDS ORDERED: Amoxicillin-Clav 875-125 mg Tab PO SCH (17:30)
--- NOTE | 2018-08-01 20:42 | PN ---
DATE: 08/01/2018 SUBJECTIVE: The patient was seen today. The patient presented guarded and paranoid. The patient reported that he feels uncomfortable because of his paranoia. The patient is willing to go back to the psychiatric inpatient unit for medication management as well as ECT treatment. This teletypewriter operator had prolonged conversation with Dr. Castañeda today, also with Dr. Vergara of Infectious Disease as well as Dr. Serrano, neurologist. There is no contraindication from medical standpoint, neurological standpoint and medical standpoint for the patient to have ECT treatment. Discuss treatment plan with the patient's brother, Abel, as well as with the patient. Consent for admission will be signed. If the patient will be feeling well and willing to have ECT treatment tomorrow, we can do that. Meanwhile, the patient will be transferred back to the psychiatric inpatient unit either today or tomorrow as long as he will be on p.o. antibiotics. PHYSICAL EXAMINATION: VITAL SIGNS: Stable. Temperature 99, pulse 64, blood pressure 146/79, respiration 20 and oxygen saturation is 94%. MEDICATIONS: Medications reviewed. Tylenol, Sinemet, Rocephin 2 g IV daily, mupirocin, Protonix, Seroquel, sodium chloride and Flomax. LABORATORY DATA: Labs reviewed. No white blood cells elevation. C-reactive protein was elevated yesterday. MENTAL STATUS EXAMINATION: The patient presented to be alert, oriented, pleasant, but guarded. The patient has intense eye contact. Mood described as okay. Affect was flat. Thought process at times circumstantial. Thought content, the patient reported that he feels paranoid and unsafe, and the patient reported to feel uncomfortable. The patient denied thoughts of harming himself or others. Denied intents or plan. Insight and judgment seem to be fair. Impulses are well controlled. IMPRESSION: History of schizophrenia. At present moment, the patient was admitted on the medical site for left foot abscess and sepsis. The patient also has Parkinson's disease. PLAN: ECT treatment. Psych admission. Discussed with the family. Discussed with multiple specialties. Care for this patient took more than 45 minutes of this teletypewriter operator's time. Luh Cortez MD [facility] # [id number]
--- NOTE | 2018-08-02 00:09 | PN ---
DATE: 08/01/2018 SUBJECTIVE: The patient is in bed, in no acute distress. PHYSICAL EXAMINATION: VITAL SIGNS: Temperature of 98, blood pressure is 140/70, and respiratory rate of 18. HEENT: Unremarkable. NECK: Supple. LUNGS: Decreased breath sounds. HEART: Normal S1 and S2. ABDOMEN: Soft. LABORATORY DATA: Laboratory examination reveals a white count of 7.6. Chemistries are noted. Creatinine is 1.3 and the patient's sedimentation rate is noted to be 16 and repeat one is 72. MEDICATIONS: The patient is on p.o. Augmentin. ASSESSMENT AND PLAN: A 73-year-old male, who is seen earlier today. He was admitted with group A Streptococcus left foot cellulitis, negative MRI for osteomyelitis with a history of schizophrenia, paranoia, hyperlipidemia, osteomyelitis, hypertension, and may switch to p.o. Augmentin to complete 7 days of p.o. Augmentin. Case discussed with Dr. Dana Arvizu. Brayan Vergara MD
== END 2018-08-01 20:21 | DRG 603 ==
LOC: ED 09:11 → ERH 11:06 → 3RNO 14:12
PROVIDERS: ADMIT Internal Medicine; ATTEND Internal Medicine
PROC: 0Y9N3ZX Drainage of Left Foot, Percutaneous Approach, Diagnostic (ICD-10-PCS; principal; 2018-07-26 16:00)
DX: L02.612 Cutaneous abscess of left foot (principal); L03.116 Cellulitis of left lower limb; F20.0 Paranoid schizophrenia; E44.1 Mild protein-calorie malnutrition; M79.89 Other specified soft tissue disorders; Z85.46 Personal history of malignant neoplasm of prostate; I10 Essential (primary) hypertension; G47.30 Sleep apnea, unspecified; G20 Parkinson's disease; E78.5 Hyperlipidemia, unspecified; D64.9 Anemia, unspecified; F03.90 Unspecified dementia, unspecified severity, without behavioral disturbance, psychotic disturbance, mood disturbance, and anxiety; H40.9 Unspecified glaucoma; N40.0 Benign prostatic hyperplasia without lower urinary tract symptoms; Z79.899 Other long term (current) drug therapy; Z88.8 Allergy status to other drugs, medicaments and biological substances; M19.90 Unspecified osteoarthritis, unspecified site; R41.0 Disorientation, unspecified; B95.0 Streptococcus, group A, as the cause of diseases classified elsewhere; R70.0 Elevated erythrocyte sedimentation rate; R79.82 Elevated C-reactive protein (CRP)

== ENCOUNTER 2018-08-01 20:15 | Inpatient (IN) | payer MEDICARE ==
[2018-08-01] MEDS ORDERED: Alum-Mag Hydrox-Simethicone Susp (30 mL) PO PRN (20:57)
[2018-08-01] MEDS ORDERED: Magnesium Hydroxide Susp 30 ml UD PO PRN (20:57)
--- NOTE | 2018-08-01 23:39 | PCM.BM ---
Treatment Plan Problems - Problems identified on initial assessmt DELUSIONS Date Initiated: 08/01/18 Time Initiated: 20:00 Assessment reference: NA Status: Active Priority: 1 HEARING OF VOICES Date Initiated: 08/01/18 Time Initiated: 20:00 Assessment reference: NA Status: Active Priority: 2 RISK FOR FALL Date Initiated: 08/01/18 Time Initiated: 20:00 Assessment reference: NA Status: Active Priority: 3 Treatment assets and liabiliti Patient Assests: adapts well, cooperative, educated, insightful, motivated, self-reliant, good support system, negotiates basic needs, cognitively intact, strong tarun Patient Liabilities: live alone, financial problems, medical problems - Milieu Protocol Maintain good personal hygiene: every other day Encourage regular showers, every shift Remind patient to perform daily oral care, every shift Assist patient to perform ADL's Maintain personal safety: daily Monitor environment for contraband/sharps, every shift Educate patient to report safety concerns to staff Medication safety: Monitor for expected outcome, potential side effects: every shift, Assess barriers to learning: every shift, Assess readiness for medication education: every shift Family Contact Family involvement: Family/SO is involved Family contact: Patient agrees to contact Discharge/Continuing Care - Education Needs Education Needs: Patient Medication, Patient Diagnosis/Disease Process, Patient Coping Skills, Patient Placement options, Patient Activities of Daily Living, Patient Uses of Medical Equipment, Patient Health Practices/Safety - Discharge Discharge Criteria: Tolerates medication w/o severe side effects, Free of Suicidal thoughts, Free of paranoid thoughts, Free of agitation, Normal sleep pattern, Ability to care for self
[2018-08-02] MEDS ORDERED: Amoxicillin-Clav 875-125 mg Tab PO SCH (06:00)
[2018-08-02] MEDS ORDERED: Pantoprazole 40 mg EC Tab PO SCH (08:00)
[2018-08-02] MEDS ORDERED: Mupirocin 2% Ointment 15 GM TUBE TOP SCH (08:00)
[2018-08-02] MEDS ORDERED: Oxychlorosene Topical 2 gm Packet TOP SCH (08:00)
[2018-08-02] MEDS ORDERED: Morphine 2 mg/ml ISec IVP STA (08:33)
[2018-08-02] MEDS ORDERED: Morphine 2 mg/ml ISec IM STA (09:28)
--- NOTE | 2018-08-02 11:42 | CP.PCM.PN ---
Subjective - Date & Time of Evaluation Date of Evaluation: 08/02/18 Time of Evaluation: 11:39 - Subjective Subjective: Podiatry progress note - Drs. Ortiz/Tommy 73 y/o M patient seen and evaluated at the bedside 7 days S/P left foot incision and drainage with misonix debridement. Patient reports mild pain to the left foot. Patient is less irritable today and seen in wheelchair at bedside. He denies n/v/f/c/sob overnight. Patient denies any other pedal complaint at this time. Objective - Vital Signs/Intake and Output Vital Signs (last 24 hours): Temp Pulse Resp BP Pulse Ox 98.4 F 77 20 106/53 L 95 08/02/18 11:33 08/02/18 11:33 08/02/18 11:33 08/02/18 11:33 08/02/18 11:31 - Medications Medications: Current Medications Acetaminophen (Tylenol 325mg Tab) 650 mg PO Q4H PRN PRN Reason: Pain, Mild (1-3) Al Hydrox/Mg Hydrox/Simethicone (Maalox Plus 30 Ml) 30 ml PO DAILY PRN PRN Reason: Upset Stomach Amoxicillin/Clavulanate Potassium (Augmentin 875 Mg-125 Mg Tab) 1 tab PO Q12 [facility]; Protocol Last Admin: 08/02/18 06:26 Dose: 1 tab Carbidopa/Levodopa (Sinemet) 1 tab PO DAILY [facility] Last Admin: 08/02/18 10:07 Dose: 1 tab Magnesium Hydroxide (Milk Of Magnesia) 30 ml PO DAILY PRN PRN Reason: Constipation Oxychlorosene Sodium (Clorpactin Wcs-90) 2 gm TOP DAILY [facility] Last Admin: 08/02/18 11:03 Dose: Not Given Pantoprazole Sodium (Protonix Ec Tab) 40 mg PO DAILY [facility] Last Admin: 08/02/18 10:07 Dose: 40 mg Quetiapine Fumarate (Seroquel) 100 mg PO HS [facility]; Protocol Last Admin: 08/01/18 21:52 Dose: 100 mg Quetiapine Fumarate (Seroquel) 75 mg PO DAILY [facility]; Protocol Tamsulosin HCl (Flomax) 0.4 mg PO DAILY [facility] Last Admin: 08/02/18 10:07 Dose: 0.4 mg Zaleplon (Sonata) 5 mg PO HS PRN PRN Reason: Insomnia - Constitutional Appears: Well, Non-toxic, No Acute Distress - Head Exam Head Exam: ATRAUMATIC, NORMOCEPHALIC - Extremities Exam Additional comments: LLE focused exam VASC: DP/PT pulses palpable 2/4; cap refill <3 seconds to all digits; temp gradient warm to warm; moderate edema noted to the foot, does not extend up ankle. NEURO: Gross and protective sensation intact. DERM: Surgical site clean with packing noted, minimal sero-sanguinous drainage, negative probe to bone, no tunneling, no malodor MSK: Pain upon palpation of the carito-wound area; No pain on calf compression. Muscle power intact 5/5 to all groups. - Neurological Exam Neurological Exam: Alert, Awake - Psychiatric Exam Psychiatric exam: Normal Affect, Normal Mood Assessment and Plan - Assessment and Plan (Free Text) Assessment: 73 y/o M patient seen and evaluated at the bedside 7 days S/P left foot incision and drainage with misonix debridement Plan: Patient seen and evaluated at bedside Plan discussed with Dr Sanders Charts, labs and vitals reviewed: Afebrile, WBC 7.6 Intraop wound culture: Final, no growth L foot MRI - patient refusing MRI as he is not able to be still during MRI Morphine given prior to dressing change, patient amenable to change Dressing taken down, and packing was removed Wound was flushed and dressed with Iodosorb packing, dry sterile dressing Continue Abx per medicine/ID Continue NWB, shoe at bedside, will start PT with wedge shoe in next few days Podiatry will continue to follow up the patient while in house
[2018-08-02] MEDS ORDERED: Propofol 10 mg/ml Inj (20 ML) ONE (12:29)
[2018-08-02] MEDS ORDERED: Sodium Chloride 0.9% 1,000 ML IV SCH (13:00)
[2018-08-02 13:23] VITALS: O2SAT 98
--- NOTE | 2018-08-02 14:29 | PCM.PYCHPN ---
Psychiatric Progress Note - Psychiatric Progress Note Patient seen today, length of contact: 45min Patient Chief Complaint: "Do you think my schizophrenia will be better on ECT?" Problems Identified/Issues Discussed: ECT, treatment plan, symptoms. Medical Problems: parkinson's, left foot cellulitis and abscess, GERD, BPH Diagnostic Results: Vital Signs Temp Pulse Resp BP Pulse Ox 08/02/18 13:17 98 F 55 L 24 145/56 L 98 08/02/18 13:02 98 F 57 L 24 129/63 97 08/02/18 12:47 98 F 60 24 137/68 98 08/02/18 11:33 98.4 F 77 20 106/53 L 08/02/18 11:31 98.4 F 77 20 106/53 L 95 08/02/18 11:00 98.2 F 61 20 142/86 08/02/18 07:11 98.2 F 61 20 142/86 08/01/18 21:57 20 08/01/18 20:15 98.7 F 92 H 20 109/68 DSM 5 Symptoms Update: Refer to the Psychiatric Assess & History-Initial dated 07/15/18 for this H & P. Reviewed, no changes Shortly, patient is a 72-year old male, reported history of schizophrenia, history of Parkinson's disease, denied previous history of psychiatric admissions, denied history of suicidal attempts, currently under care or of [facility] treatment, initially patient was found wandering in the community, barefoot, police brought patient to the emergency room, patient required medical admission for delirium, this marketing copywriter was involved in to the patient care due to severeness of mental illness, medication management, altered mental status, pt staid on the medical site 07/11-. Patient was medically stable, collateral information's were obtained from patient brother Abel, patient required further evaluation and stabilization in to the psychiatric inpatient unit and ECT treatment, pt got 3 ECT treatments at the psychiatric unit, tolerated well, pt staid in psych inpatient unit 07/14- 07/25/2018, unfortunately pt developed cellulitis and abscess of left foot and needed medical transfer for IV antibiotics, pt was on the medical floor 07/25- 08/01/18, this marketing copywriter spoke to PMD , ID , [place] , Neurologist , pt was safely transferred back to the psychiatric inpatient unit for further treatment, medication management and ECT treatment, pt agreed with the plan, pt's brother Abel was notified as well, transfer to psych inpatient unit was uneventful. Patient was seen today, patient presented with improved personal hygiene because PCP is taking good care of him, had a hair caught, appears to be calm, but guarded, patient said that she is hearing voices and voices are laughing at him, patient also reports that that he feels that people are judging him and she does not feel safe. Patient asked if this marketing copywriter truly believe that ECT is going to help him with his psychotic symptoms, this marketing copywriter educated patient about risk, benefits, alternatives of the medications as well as ECT treatment, patient agreed to have ECT today. Patient was seen in the OR, patient signed consent for treatment, patient had capacity to do so. Patient tolerated ECT treatment in the past very well, no memory issues, symptoms were improving. ECT #4 BL 08/02/18 this marketing copywriter increased frequency because last treatment pt had only 25% adequate seizures by MECTA, but clinically pt is slowly improving. pulse width 0.50msec, frequency 90Hz, duration 8,000sec, current 800mA, pt had about 10seconds of motor seizures, which was considered 25% adequate by MECTA analysis. anesthesiologist used 40mg succinylcholine, 30mg ketamine, 100mg propofol. this marketing copywriter will not give another treatment because pt's medical condition. next treatment next week, will titrate ECT parameters accordingly. so far patient tolerates medications well, no side effects observed or reported, aims 0, no EPS. pt has resting tremor UE, affect is more reactive, pt was not able to walk due to Left foot abscess and dressing. Impression: As per history of schizophrenia, paranoid type Parkinson's disease Medication Change: Yes (seroquel was increased) Medical Record Reviewed: Yes Consults ordered or reviewed: PMD Mental Status Examination - Cognitive Function Orientation: Person, Place, Situation, Time Memory: Intact Attention: Poor Concentration: Poor Association: Loose Fund of Knowledge: WNL - Mood Mood: Anxious - Affect Affect: Constricted, Flat - Speech Speech: Appropriate (But yes/no answers) - Formal Thought Process Formal Thought Process: Hallucinations, Delusions, Paranoia - Suicidal Ideation Suicidal Ideation: No - Homicidal Ideation Homicidal Ideation: No Goal/Treatment Plan - Goal/Treatment Plan Need for Continued Stay: Remain at risks for inpatient hospitalization, Severe depression anxiety, Discharge may exacerbated symptoms, Severe functional impairment Progress Toward Problem(s) and Goals/Treatment Plan: Milieu/structure/supportive therapy SW consultation for discharge plan and social issues Med management: Seroquel was increased to 75 mg in the morning, 100 mg within night and for psychosis So not as needed for insomnia ECT treatment bilateral #4 08/02/2018 Family involvement, discussed with brother Abel ID f/u PMD f/u Podiatry f/u PT Follow up on labs Will monitor closely Pt was educated about risk/benefits and alternatives of medications, coping strategies (safety plan, suicide prevention), relapse prevention, importance of follow up with psychiatrist and therapist, stay away from drugs/alcohol/smoking Estimated Date of D/C: 08/10/18
--- NOTE | 2018-08-02 16:33 | CON ---
DATE: 08/02/2018 LOCATION: The patient seen in psychiatric floor in room 508. HISTORY OF PRESENT ILLNESS: This is a 73-year-old male who is transferred from acute care. The patient was seen in acute care with past medical history significant for hyperlipidemia, diverticulosis, schizophrenia, paranoid, hypertension, arthritis, depression and prostate cancer. The patient was seen in the acute care. Found to have the patient had a group A strep cellulitis of the foot and had incision and drainage of the abscess and was given antibiotics, now transferred to psychiatric floor for further care. PAST MEDICAL HISTORY: Significant for prostate cancer, depression, schizophrenia, hypertension, arthritis, diverticulitis and hyperlipidemia. PAST SURGICAL HISTORY: Significant for tonsillectomy. ALLERGIES: THE PATIENT IS ALLERGIC TO QUINAPRIL. MEDICATIONS AT HOME: Reviewed. PHYSICAL EXAMINATION VITAL SIGNS: Temperature 98, blood pressure is 109/60, respiratory rate of 20, and heart rate of 92. HEENT: Unremarkable. NECK: Supple. LUNGS: Decreased breath sounds. HEART: Normal S1 and S2. ABDOMEN: Soft and nontender. EXTREMITIES: Examination of foot appears much improved. LABORATORY DATA: Reveals a white count 17,000, is down to 7.2, of 60. Blood gases are noted. Chemistries are reviewed. C-reactive protein is greater than 15. The patient had an MRI is negative for osteomyelitis. ASSESSMENT AND PLAN: This is a 73-year-old male with group A Streptococcus, left foot cellulitis with negative MRI for osteomyelitis in a patient who has a history of hypertension, hyperlipidemia, prostate cancer, schizophrenia and paranoia and was given ceftriaxone, switched to p.o. Augmentin to complete therapy. The patient is tolerating the antibiotics well and we will follow with you. Brayan Vergara MD
--- NOTE | 2018-08-02 17:19 | PCM.RRT ---
[employer] Nurse Assessment - Situation Date: 08/02/18 Room Number: 508 [employer] Reason for Call: Hypotension - Respiratory Oxygen Delivery Method: Nasal Cannula @L/min I.Reason for [employer] - A) Acute Change in Patient: (Select all that apply): Staff member or family is worried about patient, Acute change in SBP below - Neurological Status (Select all that apply): Alert, Responsive, Oriented, Verbal, Follows Commands - Constitutional Additional Comments: anxious - Head Head Exam: ATRAUMATIC, NORMOCEPHALIC - Eyes Eye Exam: Normal appearance, PERRL - Respiratory Exam Respiratory Exam: Clear to Ausculation Bilateral, NORMAL BREATHING PATTERN - Cardiovascular Exam Cardiovascular Exam: RRR - GI/Abdominal Exam GI & Abdominal Exam: Soft. absent: Tenderness - Neurological Exam Neurological Exam: Alert, Awake - Extremities Exam Additional comments: LLE w/ bandages Plan - Assessment of Findings&Treatment Plan Patient was complaining of lightheadedness/ SOB throughout the day today; ECT performed earlier today; Nurse obtained vitals which showed patient to be hypotensive / tachycardic Upon evaluation patient is no longer complaining of lightheadedness still compl ains of some SOB; Appears relatively anxious Only complains that he doesn't feel good BP obtained manually; difficult to obtain; good distal pulses palpated; HR 86bpm on palpation. Plan: Patient to be transferred to ED for further management Attending Dr. Castañeda notified
--- NOTE | 2018-08-02 17:25 | PCM.PYCHDC ---
Mental Status Examination - Mental Status Examination Orientation: Person, Place, Situation, Time Memory: Intact Mood: Neutral Affect: Constricted Speech: Appropriate (underproductive) Attention: WNL (some improvement) Concentration: WNL (some improvement) Association: Loose Fund of Knowledge: WNL Formal Thought Process: Hallucinations, Delusions, Paranoia Description of patient's judgement and insight: improving Psychotic Thoughts and Behaviors: paranoia, voices Suicidal Ideation: No Current Homicidal Ideation?: No Plan: denied thoughts of harming self or others Discharge Summary - Discharge Note Reason for Hospitalization: psychosis Psychiatric History (includes Medical, Family, Personal Hx): schizophrenia Laboratory Data: Vital Signs Temp Pulse Resp BP Pulse Ox 08/02/18 13:48 60 14 145/83 98 08/02/18 13:17 98 F 55 L 24 145/56 L 98 08/02/18 13:02 98 F 57 L 24 129/63 97 08/02/18 12:47 98 F 60 24 137/68 98 08/02/18 11:33 98.4 F 77 20 106/53 L 08/02/18 11:31 98.4 F 77 20 106/53 L 95 08/02/18 11:00 98.2 F 61 20 142/86 08/02/18 07:11 98.2 F 61 20 142/86 08/01/18 21:57 20 08/01/18 20:15 98.7 F 92 H 20 109/68 Consultations:: List each consultation separately and include: 1. Reason for request. 2. Findings. 3. Follow-up Consultations: see today's note Summary of Hospital Course include:: 1. Description of specific treatment plan utilized for patients during their course of treatmen. 2. Summarize the time- course for resolution of acute symptoms and/or regressed behaviors. 3. Describe issues identified and worked on during hospitalization. 4. Describe medication utilized. 5. Describe medical problems identified and treated. 6. Reassessment of suicide risk Summary of Hospital Course: Shortly, patient is a 72-year old male, reported history of schizophrenia, history of Parkinson's disease, denied previous history of psychiatric admissions, denied history of suicidal attempts, currently under care or of [facility] treatment, initially patient was found wandering in the community, barefoot, police brought patient to the emergency room, patient required medical admission for delirium, this underwriter was involved in to the patient care due to severeness of mental illness, medication management, altered mental status, pt staid on the medical site 07/11-07/14-2018. Patient was medically stable, collateral information's were obtained from patient brother Abel, patient required further evaluation and stabilization in to the psychiatric inpatient unit and ECT treatment, pt got 3 ECT treatments at the psychiatric unit, tolerated well, pt staid in psych inpatient unit 07/14- 07/25/2018, unfortunately pt developed cellulitis and abscess of left foot and needed medical transfer for IV antibiotics, pt was on the medical floor 07/25- 08/01/18, this underwriter spoke to PMD , ID , [employer] , Neurologist , pt was safely transferred back to the psychiatric inpatient unit for further treatment, medication management and ECT treatment, pt agreed with the plan, pt's brother Abel was notified as well, transfer to psych inpatient unit was uneventful. Patient was seen today in psych inpatient unit, patient presented with improved personal hygiene because PCP is taking good care of him, had a hair caught, appears to be calm, but guarded, patient said that she is hearing voices and voices are laughing at him, patient also reports that that he feels that people are judging him and she does not feel safe. Patient asked if this underwriter truly believe that ECT is going to help him with his psychotic symptoms, this underwriter educated patient about risk, benefits, alternatives of the medications as well as ECT treatment, patient agreed to have ECT today. Patient was seen in the OR, patient signed consent for treatment, patient had capacity to do so. Patient tolerated ECT treatment in the past very well, no memory issues, symptoms were improving. ECT #4 BL 08/02/18 this underwriter increased frequency because last treatment pt had only 25% adequate seizures by [facility], but clinically pt is slowly improving. pulse width 0.50msec, frequency 90Hz, duration 8,000sec, current 800mA, pt had about 10seconds of motor seizures, which was considered 25% adequate by [facility] analysis. anesthesiologist used 40mg succinylcholine, 30mg ketamine, 100mg propofol. this underwriter will not give another treatment because pt's medical condition. next treatment next week, will titrate ECT parameters accordingly. so far patient tolerates medications well, no side effects observed or reported, aims 0, no EPS. pt has resting tremor UE, affect is more reactive, pt was not able to walk due to Left foot abscess and dressing. later on pt c/o SOB, rapid response called, pt had low BP, evaluated by medical team, decision is made to transfer to ED for further evaluation. this underwriter spoke to the pt while in unit, discussed with attendings and Dr. Matthew. this write called to pt's brother Abel, as per brother pt has episodes of low BP when he is not eating. considering the fact that pt was fasting since midnight, most likely low BP was related to some dehydration and not eating for more than 14hrs. pt's brother was appreciative. staff was advised to call brother and let him know about pt's disposition. Impression: As per history of schizophrenia, paranoid type Parkinson's disease - Diagnosis (1) Schizophrenia Current Visit: No Status: Acute - Final Diagnosis (DSM 5) Condition upon Discharge: STABLE Disposition: OTHER INSTITUTION Follow-up Treatment Plan: ED - Smoking Cessation Smoking Cessation Medication prescribed: No Reason for not providing: not smoking - Antipsychotic Medications Pt discharged on 2 or more routine antipsychotic medications: No
[2018-08-02 18:18] VITALS: RESP 24; TEMP 98.2
[2018-08-02 18:21] VITALS: BP 69/35; PULSE 107
--- NOTE | 2018-08-02 19:02 | CARD ---
APPROVED REPORT Date of service: 08/02/2018 EKG Measurement Heart [id number] <Conclusion> Normal sinus rhythm Minor NDSTT abnormalities [facility] ECG
--- NOTE | 2018-08-02 23:37 | CON ---
DATE: 08/02/2018 REQUESTING PHYSICIAN: Luh Cortez MD The patient is admitted to psychiatry floor. The patient is seen and examined in room 508, bed 1. The patient is seen lying in the bed. The patient is alert, awake, responsive, oriented to person, place, and time. The patient denies any left foot pain. The patient has a dressing on the left foot without any drainage, which appears to be clean. The patient's code status is full code. Living will, advanced directive, none. ALLERGIES: QUINAPRIL. Height is 5 feet 3 inches. Weight is 180. BMI is 32. HOME MEDICATIONS: Augmentin 875 twice a day, Bactroban cream to the affected area of the left foot twice a day, Clorpactin 2 g to the affected area of the left foot, Flomax 0.4 mg daily, Maalox 30 mL p.r.n., milk of magnesia 30 mL p.r.n., Protonix 40 mg daily, Seroquel 50 mg once a day, Seroquel 100 mg at bedtime, Sinemet 25/100 one tablet daily, Sonata 5 mg h.s., Tylenol 650 mg p.o. p.r.n. every 6 hours. SOCIAL HISTORY: The patient denies smoking, alcohol, drug use, communicable transmissible disease. FAMILY HISTORY: Not available. OCCUPATIONAL HISTORY: Disabled male. VITAL SIGNS TODAY: T-max is 98, pulse 98, blood pressure 128/78, O2 sat not documented. PAST MEDICAL AND SURGICAL HISTORY: History of Parkinson's disease with upper extremity tremors, history of Streptococcus pyogenes group A left forefoot plantar aspect distal foot abscess and cellulitis, status post incision and drainage, history of prostate hypertrophy, history of insomnia, history of mild normocytic anemia, history of granulocytosis, history of elevated erythrocyte sedimentation rate of 60 and 72, history of elevated C-reactive protein, history of hypertension, history of multiple psychiatric disorder including psychosis, history of asymptomatic bradycardia, history of schizophrenia, history of depression, history of hyperlipidemia, history of diverticulosis, history of degenerative joint disease, history of tonsillectomy, history of colonic polyp, history of hyponatremia, history of rhabdomyolysis, history of leukocytosis with granulocytosis, history of transaminitis, history of hypokalemia, hypophosphatemia, hypomagnesemia, history of ketonuria, history of cardiomegaly with enlarged pulmonary artery, history of aortic arch punctate calcification, history of right lower lobe pleural thickening and trace pleural effusion, history of bilateral 20-39% proximal internal carotid artery stenosis, history of chronic microvascular ischemic disease of the brain, history of cerebral cortical atrophy of the brain and ventriculomegaly, history of hypertensive cardiovascular disease with left ventricle ejection fraction of 65%, history of mild tricuspid regurgitation with right ventricular systolic pressure of 33 mmHg, history of euvolemic hypoosmolar hyponatremia, etiology undetermined, history of questionable esophagitis with diffuse esophageal mucosal thickening, history of toxic metabolic encephalopathy, history of colonic adenoma, history of gait dysfunction, history of deconditioning, history of anxiety disorder, history of possible dementia with altered mental status, confusion, and disorientation, history of possible psychotic spectrum disorder. PHYSICAL EXAMINATION: GENERAL: The patient's is seen lying in the bed in room 508. The patient is alert, awake, oriented x3 to person, place, and time. HEAD: Normocephalic, atraumatic. HEENT: [place] conjunctivae. Anicteric sclerae. Poor facial hygiene and personal hygiene. Positive body odor. No oropharyngeal lesion. NECK: No neck rigidity. Soft carotid bruit. CHEST: Kyphosis. LUNGS: No audible crackle, rales, or wheezing. CARDIOVASCULAR: S1, S2, regular rhythm. Questionable soft systolic murmur left sternal border, right second intercostal space, left second intercostal space. ABDOMEN: Soft. Positive bowel sounds. No palpable hepatosplenomegaly. GENITALIA: Male. RECTAL: Deferred. EXTREMITIES: Positive left foot dressing without any drainage and there is no odor noted. Lower extremity shows no pitting edema. The patient is nonweightbearing on the left lower extremity. VASCULAR: Palpable pulses. MUSCULOSKELETAL: Motor strength is 5/5 in upper and lower extremities. NEUROLOGIC: Cranial nerves II-XII limited. Gait examination is not tested. PSYCHIATRIC: As per the psychiatry physician. DIAGNOSTICS: None. IMPRESSION AND PLAN: 1. Possible paranoid schizophrenia versus paranoid disorder. 2. Psychotic spectrum disorder. 3. History of anxiety, depression, schizophrenia. 4. History of early dementia with altered mental status, confusion, and disorientation. 5. Left forefoot Streptococcus group A pyogenes abscess and cellulitis. 6. Status post left foot abscess incision and drainage. 7. Mild normocytic anemia. 8. Granulocytosis. 9. Elevated erythrocyte sedimentation rate of 60 and 72 with elevated C-reactive protein. 10, Gait dysfunction with nonweightbearing on the left lower extremity. 11. History of hypertension. 12. History of hyperlipidemia. 13. History of asymptomatic bradycardia. 14. History of Parkinson's disease with upper extremity tremors. 15. History of tonsillectomy. 16. History of colonic adenoma and colonic polyp. 17. History of degenerative joint disease. 18. History of hyponatremia. 20. History of rhabdomyolysis. 21. History of transient transaminitis. 22. History of hypokalemia, hypomagnesemia, hypophosphatemia. 23. History of cardiomegaly with enlarged pulmonary artery with aortic arch punctate calcification. 24. The patient has a history of right lower lobe pleural calcification versus pleural effusion versus pleural thickening. 25. White matter ischemic disease of the brain with chronic microvascular ischemic disease of the brain. 26. 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 27. Hypertensive cardiovascular disease with left ventricular ejection fraction 65%. 28. Mild tricuspid regurgitation with right ventricular systolic pressure of 33 mmHg. 29. Euvolemic hypoosmolar hyponatremia. 30. Ketonuria. 31. Questionable esophagitis with diffuse esophageal mucosal thickening. 32. Toxic metabolic encephalopathy. 33. Deconditioning. 34. Gait dysfunction. 35. Status post leukocytosis. 36. Bilateral 20-39% proximal internal carotid artery stenosis. 37. Psychosis. 38. Enlarged pulmonary artery with questionable pulmonary hypertension. PLAN: At this time, the patient has been admitted to Psychiatry under Dr. Cortez's service. The patient is presently to be continued on therapeutic intervention as per Psychiatry. In addition, the patient has been consulted with Cardiology, Infectious Disease, and Neurology for clearance to initiate treatment with ECT. CURRENT MEDICATIONS: 1. Augmentin 875 twice a day. 2. Bactroban cream to the affected area of the left foot twice a day. 3. Clorpactin 2 g daily to the left foot wound. 4. The patient is on Flomax 0.4 mg daily. 5. Maalox 30 mL p.r.n. 6. Milk of magnesia 30 mL p.r.n. 7. Protonix 40 mg daily. 8. Seroquel 50 mg during the day and Seroquel 100 mg at h.s. 9. Sinemet 25/100 one tablet daily. 10. Sonata 5 mg h.s. p.r.n. 11. Tylenol 650 mg p.o. every 6 p.r.n. At present, the patient will be continued on above therapeutic intervention. The patient has been consulted with Neurology and Cardiology regarding clearance for ECT therapy. In addition, the patient has also been consulted with Infectious Disease regarding duration of p.o. antibiotics. The patient is also being consulted with Podiatry regarding the left foot abscess management and cellulitis management. At present, the patient will be continued on nonweightbearing to the left lower extremity and left foot. In addition, the patient's further management will be dependent upon the patient's clinical condition, hemodynamic status, and as per the patient's response to therapeutic intervention, as per the patient's diagnostic test results, and as per recommendation by all the physicians involved in the care of the patient. The patient will be followed closely while on the psychiatry floor. Further diagnostic and therapeutic intervention will be ordered depending upon the patient's clinical status and subjective and objective condition. The patient's past medical history, past admissions, hospitalizations, recent hospitalization, all the diagnostic tests done since the patient has been admitted to acute care and psychiatry floor were reviewed. The patient's family including the brother is aware of the patient's clinical condition and medical diagnosis. I have spoken to the patient's brother at the time of initial admission. I have advised the patient's brother that the patient may or most likely will need 24-hour care and supervision because of the patient's decompensated neurological, medical, and psychiatric condition, which the patient's brother, Abel Kramer, understands and all questions and concerns answered. At present, the patient will be ordered physical therapy, occupational therapy, and gait training with nonweightbearing to to the left lower extremity. The patient will be ordered out of bed to chair. The patient will be followed up very closely with Medical service, Podiatry service, Infectious Disease service, Cardiology, and Neurology. Dictated and electronically signed, not read. Janes Castañeda MD [facility] # [id number]
== END 2018-08-02 17:15 | disposition short-term general hospital (02) | DRG 885 ==
LOC: PSYC 20:15
PROVIDERS: ADMIT Psychiatry & Neurology Psychiatry; ATTEND Psychiatry & Neurology Psychiatry
PROC: GZB4ZZZ Other Electroconvulsive Therapy (ICD-10-PCS; principal; 2018-08-02 12:00)
DX: F20.0 Paranoid schizophrenia (principal); G92 Toxic encephalopathy; L03.116 Cellulitis of left lower limb; L02.612 Cutaneous abscess of left foot; G20 Parkinson's disease; N40.0 Benign prostatic hyperplasia without lower urinary tract symptoms; I11.9 Hypertensive heart disease without heart failure; E78.5 Hyperlipidemia, unspecified; E86.0 Dehydration; F03.90 Unspecified dementia, unspecified severity, without behavioral disturbance, psychotic disturbance, mood disturbance, and anxiety; G93.89 Other specified disorders of brain; I65.23 Occlusion and stenosis of bilateral carotid arteries; K21.9 Gastro-esophageal reflux disease without esophagitis; Z85.46 Personal history of malignant neoplasm of prostate

== ENCOUNTER 2018-08-02 17:15 | Inpatient (IN) | payer MEDICARE ==
[2018-08-02 17:15] VITALS: BMI 31.8
[2018-08-02] MEDS ORDERED: Sodium Chloride 0.9% 1,000 ML IV STA (17:29)
[2018-08-02 17:40] LABS: VENOUS BLOOD GAS BASE EXCESS 1.9 mmol/L (0.0-2.0); VENOUS BLOOD GAS PO2 24 mm/Hg (30-55); VENOUS BLOOD PH 7.42 (7.32-7.43)
[2018-08-02 17:46] LABS: BASO # 0.02 K/mm3 (0.0-2.0); BASO % 0.2 % (0.0-3.0); EOS # 0.1 (0.0-0.7); EOS % 0.9 % (1.5-5.0); HEMOGLOBIN 13.3 g/dL (14.0-18.0); LYMPH % 12.1 % (22.0-35.0); MEAN CELL VOLUME 101.8 fl (80.0-105.0); MEAN CORPUSCULAR HEMOGLOBIN 33.4 pg (25.0-35.0); MEAN CORPUSCULAR HGB CONC 32.8 g/dl (31.0-37.0); MEAN PLATELET VOLUME 10.2 fl (7.0-11.0); MONO # 0.3 (0.1-0.6); MONO % 3.8 % (1.0-6.0); RBC 3.98 10^6/uL (3.5-6.1); RED CELL DISTRIBUTION WIDTH 13.8 % (11.5-14.5); WHITE BLOOD COUNT 8.4 10^3/uL (4.5-11.0)
[2018-08-02 17:50] LABS: INR 1.19; PARTIAL THROMBOPLASTIN TIME 29.3 Seconds (26.9-38.3); PROTHROMBIN TIME 13.5 SECONDS (9.4-12.5)
[2018-08-02 17:56] LABS: ALB/GLOB RATIO 0.8 (1.1-1.8); ALBUMIN 3.1 g/dL (3.0-4.8); ALT/SGPT 10 U/L (7-56); AST/SGOT 33 U/L (17-59); BLOOD UREA NITROGEN 18 mg/dL (7-21); CALCIUM 8.9 mg/dL (8.4-10.5); GFR NON-AFRICAN AMERICAN 49
--- NOTE | 2018-08-02 17:58 | ED PDOC ---
Arrival/HPI - General Chief Complaint: Shortness Of Breath Historian: Patient - History of Present Illness Narrative History of Present Illness (Text): 08/02/18 17:15 Anthony Kramer is a 73 year old male, with a past medical history of schizophrenia and Parkinson's disease, who presents to the emergency department from as rapid response complaining of shortness of breath and hypotension. Patient was undergoing ECT therapy when blood pressure read as 60's systolic. Patient informs shortness of breath began post therapy. Patient appreciates shortness of breath currently in the emergency department. Patient also notes of dizziness last night. Patient notes secondary complaint of left great toe pain s/p fall. Patient denies any fevers, chills, headache, vision changes, chest pain, dyspnea on exertion, cough, diaphoresis, abdominal pain, nausea, vomiting, diarrhea, back pain, neck pain, or any other complaint. PMD: Dr. Castañeda Time/Duration: Prior to Arrival Symptom Onset: Sudden Symptom Course: Improving Activities at Onset: Light Context: Other (Patient on floor; ) Past Medical History - Provider Review Nursing Documentation Reviewed: Yes - Travel History Have you recently traveled outside [place] w/in the past 3 mons?: No - Infectious Disease Hx of Infectious Diseases: None - Tetanus Immunization Tetanus Immunization: Unknown - Cardiac Hx Hypertension: Yes - Pulmonary Hx Respiratory Disorders: Yes Hx Sleep Apnea: Yes - Neurological Hx Neurological Disorder: Yes Hx Parkinson's Disease: Yes (TREMORS) - HEENT Hx HEENT Disorder: Yes - Renal Hx Renal Disorder: No - Endocrine/Metabolic Hx Endocrine Disorders: Yes - Hematological/Oncological Hx Blood Transfusions: No Hx Blood Transfusion Reaction: No - Integumentary Hx Dermatological Disorder: No - Musculoskeletal/Rheumatological Hx Musculoskeletal Disorders: Yes - Gastrointestinal Hx Gastrointestinal Disorders: No - Genitourinary/Gynecological Hx Genitourinary Disorders: Yes Hx Prostate Problems: Yes (BPH) - Psychiatric Hx Emotional Abuse: No Hx Physical Abuse: No Hx Substance Use: No - Surgical History Hx Tonsillectomy: Yes - Anesthesia Hx Anesthesia Reactions: No Hx Malignant Hyperthermia: No - Suicidal Assessment Feels Threatened In Home Enviroment: No Family/Social History - Physician Review Nursing Documentation Reviewed: Yes Family/Social History: Unknown Family HX Smoking Status: Never Smoked Hx Alcohol Use: No Hx Substance Use: No Allergies/Home Meds Allergies/Adverse Reactions: Allergies quinapril Allergy (Verified 08/06/18 23:35) REDNESS Home Medications: Home Meds Medication Instructions Recorded Confirmed Carbidopa/Levodopa 1 each PO DAILY 07/10/18 08/06/18 [Carbidopa-Levodopa 25-100 Tab] Pantoprazole [Protonix EC Tab] 40 mg PO DAILY 07/25/18 08/06/18 Review of Systems - Physician Review All systems were reviewed & negative as marked: Yes - Review of Systems Constitutional: absent: Fevers, Other (chills) Eyes: absent: Vision Changes Respiratory: SOB. absent: Cough Cardiovascular: Other (hypotension). absent: Chest Pain, BOLDEN Gastrointestinal: absent: Abdominal Pain, Diarrhea, Nausea, Vomiting Musculoskeletal: absent: Back Pain, Neck Pain Neurological: Dizziness (last night). absent: Headache Physical Exam Vital Signs Reviewed: Yes Vital Signs Temp Pulse Resp BP Pulse Ox 08/02/18 17:32 20 100 08/02/18 17:27 98.5 F 88 18 92/60 L 100 08/02/18 17:15 78 18 92/60 L 100 Blood Pressure: Hypotensive Pulse: Regular Respiratory Rate: Normal Appearance: Positive for: Non-Toxic, Comfortable, Other (Pale-appearing) Pain Distress: None Mental Status: Positive for: Alert and Oriented X 3 - Systems Exam Head: Present: Atraumatic, Normocephalic Pupils: Present: PERRL Extroacular Muscles: Present: EOMI Conjunctiva: Present: Normal Mouth: Present: Moist Mucous Membranes Neck: Present: Normal Range of Motion Respiratory/Chest: Present: Clear to Auscultation, Good Air Exchange. No: Respiratory Distress, Accessory Muscle Use, Wheezes, Rales, Rhonchi Cardiovascular: Present: Regular Rate and Rhythm, Normal S1, S2. No: Murmurs, Rub, Gallop Abdomen: Present: Normal Bowel Sounds. No: Tenderness, Distention, Peritoneal Signs, Rebound, Guarding Back: Present: Normal Inspection Upper Extremity: Present: Normal Inspection, Normal ROM, NORMAL PULSES, Neurovascularly Intact, Capillary Refill < 2s. No: Cyanosis, Edema Lower Extremity: Present: NORMAL PULSES, Neurovascularly Intact, Capillary Refill < 2 s, Other (Ulcer on left great toe, wrapped). No: Edema Neurological: Present: Speech Normal, Motor Func Grossly Intact, Normal Sensory Function Skin: Present: Warm, Dry, Normal Color. No: Rashes Psychiatric: Present: Alert, Normal Insight, Normal Concentration. No: Oriented x 3 (oriented x 2) Medical Decision Making ED Course and Treatment: 08/02/18 17:15 Impression: Patient is a 73 year old male, with a history of schizophrenia and Parkinson's disease sent from the floor (5B) as rapid response s/p ECT therapy for shortness of breath and hypotension. Plan: -- VBG -- CT Head w/o Contrast --CTPE -- Labs -- Chest X-Ray -- Potassium Chloride Oral Soln -- IV Fluids -- Urinalysis -- Reassess and disposition Prior Visits: Notes and results from previous visits were reviewed. Progress Notes: 08/02/18 18:57 Labs reviewed with negative troponin and blood pressure noted to 117/67. Hypokalemia noted as well as elevated lactate. Discussed case with Dr. Castañeda(PCP) who requests Dopplers & CTPE to be performed. He requests to be updated on image findings once resulted. Imaging tests ordered. Signout given to Dr. Fox who will resume the patient's care. - Lab Interpretations Lab Results: pO2 24 mm/Hg (30-55) L 08/02/18 15:27 VBG pH 7.42 (7.32-7.43) 08/02/18 15:27 VBG pCO2 41.0 (40-60) 08/02/18 15:27 VBG HCO3 26.6 mmol/l (21-28) 08/02/18 15:27 VBG Total CO2 27.9 mmol.L (22-28) 08/02/18 15:27 VBG O2 Sat (Calc) 44.8 % (40-65) 08/02/18 15:27 VBG Base Excess 1.9 mmol/L (0.0-2.0) 08/02/18 15:27 VBG Potassium 2.9 mmol/L (3.6-5.2) L 08/02/18 15:27 Sodium 140.0 mmol/L (132-148) 08/02/18 15:27 Chloride 104.0 mmol/L (98-107) 08/02/18 15:27 Glucose 178 mg/dl (75-110) H 08/02/18 15:27 Lactate 3.3 mmol/L (0.7-2.1) H 08/02/18 15:27 FiO2 21.0 % 08/02/18 15:27 Crit Value Called To Wiley coelho 08/02/18 15:27 Crit Value Called By Jody londono 08/02/18 15:27 Blood Gas Notified Time 173908/02/18 15:27 PT 13.5 SECONDS (9.4-12.5) H 08/02/18 17:25 INR 1.19 08/02/18 17:25 APTT 29.3 Seconds (26.9-38.3) 08/02/18 17:25 Total Bilirubin 0.6 mg/dL (0.2-1.3) 08/02/18 17:25 AST 33 U/L (17-59) 08/02/18 17:25 ALT 10 U/L (7-56) 08/02/18 17:25 Alkaline Phosphatase 73 U/L (38-126) 08/02/18 17:25 Total Protein 6.8 g/dL (5.8-8.3) 08/02/18 17:25 Albumin 3.1 g/dL (3.0-4.8) 08/02/18 17:25 Globulin 3.7 gm/dL 08/02/18 17:25 Albumin/Globulin Ratio 0.8 (1.1-1.8) L 08/02/18 17:25 08/02/18 17:25 08/02/18 17:25 Lab Results 08/02/18 21:36: pO2 36, VBG pH 7.41, VBG pCO2 39.0 L, VBG HCO3 24.7, VBG Total CO2 25.9, VBG O2 Sat (Calc) 76.3 H, VBG Base Excess 0.1, VBG Potassium 4.0, Sodium 142.0, Chloride 107.0, Glucose 106, Lactate 2.8 H, FiO2 21.0, Crit Value Called To Richelle esteban, Crit Value Called By Etheather, Blood Gas Notified Time 2141, Venous Blood Potassium 4.0 08/02/18 21:30: Urine Color Light yellow, Urine Appearance Clear, Urine pH 7.5, Ur Specific [place] 1.010, Urine Protein Negative, Urine Glucose (UA) Negative, Urine Ketones Negative, Urine Blood Negative, Urine Nitrate Negative, Urine Bilirubin Negative, Urine Urobilinogen 0.2, Ur Leukocyte Esterase Negative 08/02/18 17:25: Sodium 141, Chloride 104, Potassium 3.2 L, Carbon Dioxide 26, Anion Gap 14, BUN 18, Creatinine 1.4, Est GFR ( Amer) 60, Est GFR (Non-Af Amer) 49, Random Glucose 166 H, Calcium 8.9, Magnesium 1.9, Total Bilirubin 0.6, AST 33, ALT 10, Alkaline Phosphatase 73, Troponin I < 0.01, NT-Pro-B Natriuret Pep 422, Total Protein 6.8, Albumin 3.1, Globulin 3.7, Albumin/Globulin Ratio 0.8 L 08/02/18 17:25: PT 13.5 H, INR 1.19, APTT 29.3 08/02/18 17:25: WBC 8.4, RBC 3.98, Hgb 13.3 L, Hct 40.5 L, MCV 101.8, MCH 33.4, MCHC 32.8, RDW 13.8, Plt Count 244, MPV 10.2, Neut % (Auto) 83.0 H, Lymph % (Auto) 12.1 L, [place] % (Auto) 3.8, Eos % (Auto) 0.9 L, Baso % (Auto) 0.2, Lymph # (Auto) 1.0 L, [place] # (Auto) 0.3, Eos # (Auto) 0.1, Baso # (Auto) 0.02, Absolute Neuts (auto) 7.00 H 08/02/18 17:00: D-Dimer, Quantitative 2311 H 08/02/18 15:27: pO2 24 L, VBG pH 7.42, VBG pCO2 41.0, VBG HCO3 26.6, VBG Total CO2 27.9, VBG O2 Sat (Calc) 44.8, VBG Base Excess 1.9, VBG Potassium 2.9 L, Sodium 140.0, Chloride 104.0, Glucose 178 H, Lactate 3.3 H, FiO2 21.0, Crit Value Called To Wiley coelho, Crit Value Called By Jody londono, Blood Gas Notified Time 1740, Venous Blood Potassium 2.9 L I have reviewed the lab results: Yes - RAD Interpretation Narrative RAD Interpretations (Text): 08/02/18 17:57 Chest X-Ray shows: IMPRESSION: No active pulmonary disease. 08/02/18 18:14 CT Head w/o Contrast shows: IMPRESSION: No acute intracranial abnormality.If there is a persistent focal neurologic deficit and an ongoing clinical concern for acute infarction, an MRI of the brain without intravenous contrast would be a more sensitive modality for evaluation of hyperacute/acute ischemic infarction. Mild chronic microangiopathic changes and mild age-related global parenchymal volume loss. Radiology Orders: 08/02/18 17:28 CHEST PORTABLE [RAD] Stat 08/02/18 17:37 HEAD W/O CONTRAST [CT] Stat Gas Maker Helper: Radiologist - Medication Orders Current Medication Orders: Sodium Chloride (Sodium Chloride 0.9%) 1,000 mls @ 999 mls/hr IV .Q1H1M STA Stop: 08/02/18 18:29 Last Admin: 08/02/18 17:30 Dose: 999 mls/hr eMAR Start Stop Document 08/02/18 17:30 BB (Rec: 08/02/18 17:47 BB [id number]) Intravenous Solution Start Date 08/02/18 Start Time 17:30 Discontinued Medications Acetaminophen (Tylenol 325mg Tab) 650 mg PO Q4H PRN PRN Reason: Fever > 99.5 Acetaminophen (Tylenol 650 Mg Supp) 650 mg RC Q4H PRN PRN Reason: Fever>99.5 Acetaminophen (Tylenol 325mg Tab) 650 mg PO Q6 PRN PRN Reason: TEMP>=99.5F Acetaminophen (Tylenol 650 Mg Supp) 650 mg RC Q6H PRN PRN Reason: TEMP>=99.5F Carbidopa/Levodopa (Sinemet) 1 tab PO DAILY JIMBO Last Admin: 08/06/18 09:13 Dose: 1 tab Donepezil HCl (Aricept) 5 mg PO HS JIMBO Last Admin: 08/05/18 22:29 Dose: 5 mg Enoxaparin Sodium (Lovenox) 40 mg SC DAILY JIMBO; Protocol Last Admin: 08/06/18 09:13 Dose: 40 mg Subcutaneous Administrations Document 08/06/18 09:13 VINCE (Rec: 08/06/18 09:13 [facility]-[id number]) Injection Site MAR Injection Site Right Abdomen Charges for Administration # of Subcutaneous Administrations 1 Sodium Chloride (Sodium Chloride 0.9%) 1,000 mls @ 999 mls/hr IV .Q1H1M STA Stop: 08/02/18 18:29 Last Admin: 08/02/18 17:30 Dose: 999 mls/hr eMAR Start Stop Document 08/02/18 17:30 BB (Rec: 08/02/18 17:47 BB [id number]) Intravenous Solution Start Date 08/02/18 Start Time 17:30 Potassium Chloride (Potassium Chloride 20 Meq/100 Ml) 20 meq in 100 mls @ 50 mls/hr IVPB ONCE ONE Stop: 08/02/18 20:42 Last Admin: 08/02/18 20:10 Dose: Not Given Non-Admin Reason: Patient Refused Piperacillin Sod/Tazobactam Sod (Zosyn 3.375 In Ns 100ml) 100 mls @ 200 mls/hr IVPB STAT STA; Protocol Stop: 08/02/18 22:33 Last Admin: 08/02/18 22:36 Dose: 200 mls/hr eMAR Start Stop Document 08/02/18 22:36 KV (Rec: 08/02/18 22:39 KV [id number]) Intravenous Solution Start Date 08/02/18 Start Time 22:36 Vancomycin HCl 1,250 mg/ (Sodium Chloride) 250 mls @ 167 mls/hr IV ONCE ONE Stop: 08/02/18 23:59 Last Admin: 08/03/18 00:32 Dose: 167 mls/hr eMAR Start Stop Document 08/03/18 00:32 FG (Rec: 08/03/18 00:35 FG [id number]) Intravenous Solution Start Date 08/03/18 Start Time 00:32 End Date 08/03/18 End time 02:02 Total Infusion Time 90 Lactated Ringer's (Lactated Ringer's) 1,000 mls @ 30 mls/hr IV .Q24H JIMBO Last Admin: 08/03/18 00:36 Dose: 30 mls/hr eMAR Start Stop Document 08/03/18 00:36 FG (Rec: 08/03/18 00:36 FG [id number]) Intravenous Solution Start Date 08/03/18 Start Time 00:36 Magnesium Sulfate/Dextrose (Magnesium Sulfate 1 Gm/100 Ml D5w) 1 gm in 100 mls @ 100 mls/hr IVPB ONCE ONE Stop: 08/03/18 00:19 Last Admin: 08/03/18 00:32 Dose: 100 mls/hr eMAR Start Stop Document 08/03/18 00:32 FG (Rec: 08/03/18 00:32 FG [id number]) Intravenous Solution Start Date 08/03/18 Start Time 00:32 End Date 08/03/18 End time 01:32 Total Infusion Time 60 Piperacillin Sod/Tazobactam Sod (Zosyn 4.5 Gm In Ns 100ml) 4.5 gm in 100 mls @ 200 mls/hr IVPB STAT STA; Protocol Stop: 08/03/18 00:01 Last Admin: 08/03/18 06:07 Dose: Not Given Non-Admin Reason: given in ed Piperacillin Sod/Tazobactam Sod (Zosyn 4.5 Gm In Ns 100ml) 4.5 gm in 100 mls @ 25 mls/hr IVPB Q8 JIMBO; Protocol Stop: 08/03/18 17:59 Last Admin: 08/03/18 14:25 Dose: 25 mls/hr eMAR Start Stop Document 08/03/18 14:25 JZA (Rec: 08/03/18 14:26 JZA [id number]) Intravenous Solution Start Date 08/03/18 Start Time 14:25 End Date 08/03/18 End time 18:25 Total Infusion Time 240 Lactated Ringer's (Lactated Ringer's) 1,000 mls @ 70 mls/hr IV .[id number] [facility] Last Admin: 08/05/18 22:28 Dose: 70 mls/hr eMAR Start Stop Document 08/05/18 22:28 CDE (Rec: 08/05/18 22:29 CDE [id number]) Intravenous Solution Start Date 08/05/18 Start Time 22:28 Ceftriaxone Sodium (Rocephin 2 Gm Ivpb) 2 gm in 100 mls @ 100 mls/hr IVPB DAILY JIMBO; Protocol Stop: 08/10/18 10:01 Last Admin: 08/06/18 09:12 Dose: 100 mls/hr eMAR Start Stop Document 08/06/18 09:12 JFR (Rec: 08/06/18 09:13 JFR [id number]) Intravenous Solution Start Date 08/06/18 Start Time 09:13 Morphine Sulfate (Morphine) 1 mg IVP ONCE ONE Stop: 08/03/18 07:51 Last Admin: 08/03/18 07:55 Dose: 1 mg Comments: Dr. Ortiz at bedside to perform dressing change; morphine 1mg IVP administered [facility] Pain Assessment Document 08/03/18 07:55 KEO (Rec: 08/03/18 07:55 IamZA [id number]) Pain Reassessment Is this a pain reassessment? Yes Sleep Is patient sleeping during reassessment? No Presence of Pain Presence of Pain Yes Pain Scale Used Protocol: PSCALES Pain Scale Used Numeric Location Left, Right or Bilateral Left Pain Location Body Site Foot Description Description Acute Intensity of Pain at present 7 Pain Behavior Guarding Aggravating Factors Contant Alleviating Factors/Management Medication Techniques Alleviating Factors Medication IVP Administration Document 08/03/18 07:55 KEO (Rec: 08/03/18 07:55 KEO [id number]) Charges for Administration # of IVP Administrations 1 Re-Assess: [facility] Pain Assessment Document 08/03/18 08:55 KEO (Rec: 08/03/18 10:40 KEO [id number]) Pain Reassessment Is this a pain reassessment? Yes Sleep Is patient sleeping during reassessment? No Presence of Pain Presence of Pain No Morphine Sulfate (Morphine) 1 mg IVP ONCE ONE Stop: 08/04/18 07:29 Last Admin: 08/04/18 08:17 Dose: 1 mg [facility] Pain Assessment Document 08/04/18 08:17 DUNCAN (Rec: 08/04/18 08:18 DUNCAN [id number]) Pain Reassessment Is this a pain reassessment? No Sleep Is patient sleeping during reassessment? No Presence of Pain Presence of Pain No Description Duration for dressing change IVP Administration Document 08/04/18 08:17 DUNCAN (Rec: 08/04/18 08:18 DUNCAN [id number]) Charges for Administration # of IVP Administrations 1 Re-Assess: [facility] Pain Assessment Document 08/04/18 09:17 DUNCAN (Rec: 08/04/18 14:49 DUNCAN [id number]) Pain Reassessment Is this a pain reassessment? Yes Sleep Is patient sleeping during reassessment? No Presence of Pain Presence of Pain No Ondansetron HCl (Zofran Inj) 4 mg IVP Q4H PRN PRN Reason: Nausea/Vomiting Potassium Chloride (Potassium Chloride Oral Soln) 40 meq PO STAT STA Stop: 08/02/18 18:20 Last Admin: 08/02/18 18:30 Dose: Not Given Non-Admin Reason: Patient Refused Potassium Chloride (K-Dur 20 Meq Er Tab) 40 meq PO STAT STA Stop: 08/02/18 20:01 Last Admin: 08/02/18 20:10 Dose: 40 meq Potassium Chloride (Potassium Chloride Oral Soln) 40 meq PO STAT STA Stop: 08/02/18 23:21 Last Admin: 08/03/18 00:37 Dose: 40 meq Quetiapine Fumarate (Seroquel) 100 mg PO HS JIMBO; Protocol Last Admin: 08/05/18 22:29 Dose: 100 mg Behavioural Document 08/05/18 22:29 CDE (Rec: 08/05/18 22:29 CDE [id number]) Maintenance Maintenance Dose Yes Quetiapine Fumarate (Seroquel) 75 mg PO DAILY JIMBO; Protocol Last Admin: 08/06/18 09:13 Dose: 75 mg Behavioural Document 08/06/18 09:13 JFR (Rec: 08/06/18 09:13 [facility]-[id number]) Maintenance Maintenance Dose Yes Re-Assess: Reassess Psych Meds Document 08/06/18 10:13 JFR (Rec: 08/06/18 10:14 [email or web address]-[id number]) Reassess Psych Med Effective - Scribe Statement The provider has reviewed the documentation as recorded by the Scribfelicia Luque All medical record entries made by the Nevin were at my direction and person ally dictated by me. I have reviewed the chart and agree that the record accurately reflects my personal performance of the history, physical exam, medical decision making, and the department course for this patient. I have also personally directed, reviewed, and agree with the discharge instructions and disposition. Disposition/Present on Arrival - Present on Arrival Any Indicators Present on Arrival: No History of DVT/PE: No History of Uncontrolled Diabetes: No Urinary Catheter: No History of Decub. Ulcer: No History Surgical Site Infection Following: None - Disposition Have Diagnosis and Disposition been Completed?: Yes Diagnosis: Lactic acidosis, Hypokalemia Disposition: HOSPITALIZED Disposition Time: 19:00 Patient Plan: Admission Condition: GUARDED
--- NOTE | 2018-08-02 18:00 | RAD ---
Date of service: 08/02/2018 HISTORY: sob COMPARISON: 07/10/2018. FINDINGS: LUNGS: The lungs are well inflated and clear. PLEURA: No pleural effusions or pneumothorax. CARDIOVASCULAR: The heart is normal in size. No aortic atherosclerotic calcifications present. OSSEOUS STRUCTURES: Within normal limits for the patient's age. VISUALIZED UPPER ABDOMEN: Normal. OTHER FINDINGS: None. IMPRESSION: No active pulmonary disease.
[2018-08-02 18:01] LABS: B-TYPE NATRIURETIC PEPTIDE 422 pg/mL (0-450); TROPONIN I < 0.01 ng/mL
--- NOTE | 2018-08-02 18:18 | CT ---
Date of service: 08/02/2018 PROCEDURE: CT HEAD WITHOUT CONTRAST. HISTORY: Dizziness COMPARISON: 07/10/2018. TECHNIQUE: Axial computed tomography images were obtained through the head/brain without intravenous contrast. Radiation dose: Total exam DLP = 964.38 mGy-cm. This CT exam was performed using one or more of the following dose reduction techniques: Automated exposure control, adjustment of the mA and/or kV according to patient size, and/or use of iterative reconstruction technique. FINDINGS: HEMORRHAGE: No intracranial hemorrhage. BRAIN: There are mild chronic microangiopathic changes. There is no mass, mass effect or abnormal extra-axial fluid collection. There is no territorial infarction. The midline sagittal structures are normal. VENTRICLES: There is mild age-related global parenchymal volume loss and proportionate enlargement of the ventricles and cortical sulci. CALVARIUM: There is no calvarial fracture or extracranial soft tissue swelling. PARANASAL SINUSES: Predominantly clear. MASTOID AIR CELLS: Predominantly clear. OTHER FINDINGS: None. IMPRESSION: No acute intracranial abnormality.If there is a persistent focal neurologic deficit and an ongoing clinical concern for acute infarction, an MRI of the brain without intravenous contrast would be a more sensitive modality for evaluation of hyperacute/acute ischemic infarction. Mild chronic microangiopathic changes and mild age-related global parenchymal volume loss.
[2018-08-02] MEDS: Potassium Chloride 40 mEq/30 ml LIQ UD PO STA ×2 (18:28→18:30)
--- NOTE | 2018-08-02 19:29 | ED PDOC ---
Physical Exam Vital Signs Reviewed: Yes Vital Signs Temp Pulse Resp BP Pulse Ox 08/02/18 18:05 65 18 117/67 100 08/02/18 17:32 20 100 08/02/18 17:27 98.5 F 88 18 92/60 L 100 08/02/18 17:15 78 18 92/60 L 100 Blood Pressure: Hypotensive Pulse: Regular Respiratory Rate: Normal Appearance: Positive for: Well-Appearing, Non-Toxic, Comfortable Pain Distress: None Mental Status: Positive for: Alert and Oriented X 3 Medical Decision Making ED Course and Treatment: 08/02/18 19:09 Patient signed out to me by Dr. Grubbs. Pending US Duplex Lower Extremities & CT PE. Will update Dr. Bedolla on imaging. 08/02/18 19:32 Received preliminary report from [facility]; negative for DVT. 08/02/18 20:01 patient requesting to take pill form of potassium instead of liquid- i will honor his request 08/02/18 22:[address] bedolla, accepts admit to his service to telemetry. he has requested empiric abx and cultures. patient noticed to have a lactic acidosis but did not qualify initially for sepsis. blood pressure responded well to ivf, abx were ordered 08/02/18 22:09 - Lab Interpretations Lab Results: pO2 24 mm/Hg (30-55) L 08/02/18 15:27 VBG pH 7.42 (7.32-7.43) 08/02/18 15:27 VBG pCO2 41.0 (40-60) 08/02/18 15:27 VBG HCO3 26.6 mmol/l (21-28) 08/02/18 15:27 VBG Total CO2 27.9 mmol.L (22-28) 08/02/18 15:27 VBG O2 Sat (Calc) 44.8 % (40-65) 08/02/18 15:27 VBG Base Excess 1.9 mmol/L (0.0-2.0) 08/02/18 15:27 VBG Potassium 2.9 mmol/L (3.6-5.2) L 08/02/18 15:27 Sodium 140.0 mmol/L (132-148) 08/02/18 15:27 Chloride 104.0 mmol/L (98-107) 08/02/18 15:27 Glucose 178 mg/dl (75-110) H 08/02/18 15:27 Lactate 3.3 mmol/L (0.7-2.1) H 08/02/18 15:27 FiO2 21.0 % 08/02/18 15:27 Crit Value Called To Wiley coelho 08/02/18 15:27 Crit Value Called By Jody londono 08/02/18 15:27 Blood Gas Notified Time 1740 08/02/18 15:27 PT 13.5 SECONDS (9.4-12.5) H 08/02/18 17:25 INR 1.19 08/02/18 17:25 APTT 29.3 Seconds (26.9-38.3) 08/02/18 17:25 Troponin I < 0.01 ng/mL 08/02/18 17:25 NT-Pro-B Natriuret Pep 422 pg/mL (0-450) 08/02/18 17:25 Total Bilirubin 0.6 mg/dL (0.2-1.3) 08/02/18 17:25 AST 33 U/L (17-59) 08/02/18 17:25 ALT 10 U/L (7-56) 08/02/18 17:25 Alkaline Phosphatase 73 U/L (38-126) 08/02/18 17:25 Total Protein 6.8 g/dL (5.8-8.3) 08/02/18 17:25 Albumin 3.1 g/dL (3.0-4.8) 08/02/18 17:25 Globulin 3.7 gm/dL 08/02/18 17:25 Albumin/Globulin Ratio 0.8 (1.1-1.8) L 08/02/18 17:25 - RAD Interpretation Narrative RAD Interpretations (Text): 08/02/18 21:34 08/02/18 21:34 CTA Chest with Intravenous Contrast for Pulmonary Embolism CLINICAL HISTORY: Sob TECHNIQUE: Axial CTA images of the chest with intravenous contrast using a pulmonary embolism protocol. Reconstructed images were created and reviewed. 590.43 mGy-cm CONTRAST: With; OMNI 350 100 ml was administered without incident. COMPARISON: None provided. FINDINGS: PULMONARY ARTERIES No evidence of central or segmental pulmonary embolism is seen. AORTA There is no evidence for aneurysm or dissection of the thoracic aorta. LUNGS The lungs appear clear. PLEURAL SPACES No evidence of pneumothorax. No pleural effusion. HEART Normal heart size. No significant pericardial effusion. LYMPH NODES No lymphadenopathy is evident. A couple of non-enlarged right middle mediastinal lymph nodes are noted. BONES No focal osseous abnormality or acute fracture. UPPER ABDOMEN Images of the upper abdomen demonstrate a small hiatal hernia. Additionally, prominent extrarenal pelves are noted bilaterally; a normal variant finding. IMPRESSION: 1. Unremarkable pulmonary embolism protocol CTA of the chest. 2. A small hiatal hernia is identified. 3. Prominent extrarenal pelves are noted bilaterally; a normal variant finding. Radiology Orders: 08/02/18 17:28 CHEST PORTABLE [RAD] Stat 08/02/18 17:37 HEAD W/O CONTRAST [CT] Stat 08/02/18 18:55 ANGIO CHEST PE PROTOCOL [CT] Stat DUPLEX LOWER EXTRM VEIN BILAT [US] Stat Shear Setter: Radiologist - Medication Orders Current Medication Orders: Potassium Chloride (Potassium Chloride 20 Meq/100 Ml) 20 meq in 100 mls @ 50 mls/hr IVPB ONCE ONE Stop: 08/02/18 20:42 Discontinued Medications Sodium Chloride (Sodium Chloride 0.9%) 1,000 mls @ 999 mls/hr IV .Q1H1M STA Stop: 08/02/18 18:29 Last Admin: 08/02/18 17:30 Dose: 999 mls/hr eMAR Start Stop Document 08/02/18 17:30 BB (Rec: 08/02/18 17:47 BB [facility] [id number]) Intravenous Solution Start Date 08/02/18 Start Time 17:30 Potassium Chloride (Potassium Chloride Oral Soln) 40 meq PO STAT STA Stop: 08/02/18 18:20 Last Admin: 08/02/18 18:30 Dose: Not Given Non-Admin Reason: Patient Refused - Scribe Statement The provider has reviewed the documentation as recorded by the Scribe Ricardo Luque All medical record entries made by the Scribe were at my direction and personally dictated by me. I have reviewed the chart and agree that the record accurately reflects my personal performance of the history, physical exam, medical decision making, and the department course for this patient. I have also personally directed, reviewed, and agree with the discharge instructions and disposition. Disposition/Present on Arrival - Present on Arrival Any Indicators Present on Arrival: No History of DVT/PE: No History of Uncontrolled Diabetes: No Urinary Catheter: No History of Decub. Ulcer: No History Surgical Site Infection Following: None - Disposition Have Diagnosis and Disposition been Completed?: Yes Diagnosis: Lactic acidosis, Hypokalemia Disposition: HOSPITALIZED Disposition Time: 22:10 Patient Plan: Admission Condition: GUARDED Forms: [facility] (Sinhala)
[2018-08-02] MEDS ORDERED: Iohexol 350 MG/100 ML VIAL ONE (19:40)
[2018-08-02] MEDS ORDERED: Potassium Chloride 20 mEq ER Tab PO STA (20:00)
[2018-08-02 21:43] LABS: VENOUS BLOOD GAS BASE EXCESS 0.1 mmol/L (0.0-2.0); VENOUS BLOOD GAS PO2 36 mm/Hg (30-55); VENOUS BLOOD PH 7.41 (7.32-7.43)
[2018-08-02 21:43] LABS: PH,URINE 7.5 (4.7-8.0); URINE BILIRUBIN NEGATIVE (NEGATIVE); URINE BLOOD NEGATIVE (NEGATIVE); URINE GLUCOSE (UA) NEGATIVE (NEGATIVE); URINE LEUKOCYTE ESTERASE NEGATIVE Leu/uL (NEGATIVE); URINE PROTEIN NEGATIVE mg/dL (<30 mg/dL); URINE UROBILINOGEN 0.2 E.U./dL (<1 E.U./dL)
[2018-08-02 21:45] LABS: URINE APPEARANCE CLEAR (CLEAR); URINE COLOR LIGHT YELLOW (YELLOW)
[2018-08-02] MEDS ORDERED: Piperacillin/Tazobact 3.375 gm 100 ML IVPB STA (22:04)
[2018-08-02] MEDS ORDERED: Vancomycin 500 mg Inj IVPB STA (22:04)
[2018-08-02] MEDS ORDERED: Potassium Chloride 40 mEq/30 ml LIQ UD PO STA (23:20)
[2018-08-02] MEDS ORDERED: Magnesium Sulfate 1 gm in D5W 1 GM/100 ML BAG IVPB ONE (23:20)
[2018-08-02] MEDS ORDERED: Lactated Ringer's 1,000 ML IV SCH (23:30)
[2018-08-02] MEDS ORDERED: Piperacill/Tazo 4.5gm in NS 4.5 GM/100 ML BAG IVPB STA (23:32)
--- NOTE | 2018-08-02 23:34 | CP.PCM.HP ---
History of Present Illness - History of Present Illness History of Present Illness: PGY-1 History and Physical for Dr. Castañeda Patient is a 73 year old male with PMHx schizophrenia, anxiety, HTN who presents in ED sent from psych for as patient had an [employer] called earlier today for shortness of breath and hypotension. Patient had been complaining earlier of lightheadedness and shortness of breath that he had been having throughout the day. Patient denies any history of asthma, COPD or other respiratory disorder. Earlier today during [employer], patient was found to be hypotensive and tachycardic. He was transferred to the ED and received IV hydration which improved his blood pressure, and heart rate. Patient states he has never had problems with breathing in the past. Patient says his shortness of breath has somewhat improved and that he feels more relaxed now. He does state he still has some trouble "taking a breath". Patient did say he had chills once earlier today, but denies fevers. Patient denies headache, nausea, vomiting, chest pain. PMH: hypertension, schizophrenia, anxiety, hyperlipidemia, diverticulosis, arthritis PSH: tonsillectomy, colonoscopy with removal of precancerous polyp (2014) SHx: denies alcohol, tobacco, illicit drug use FHx: father (cardiac arrhythmia, HTN), mother (cardiac arrhythmia, stroke, HTN), brother (bladder cancer) Allergies: denies Medications: Reviewed as per JUN PMD: Dr. Garcia Present on Admission - Present on Admission Any Indicators Present on Admission: No Review of Systems - Constitutional Constitutional: Chills (Chills earlier, resolved). absent: Fever, Weight Loss, Weakness - EENT Eyes: absent: Blurred Vision, Change in Vision Ears: Dizziness (lightheadedness earlier, resolved) Nose/Mouth/Throat: absent: Nasal Congestion, Nasal Discharge - Cardiovascular Cardiovascular: absent: Chest Pain, Leg Edema - Respiratory Respiratory: absent: Cough, Dyspnea - Gastrointestinal Gastrointestinal: absent: Diarrhea, Nausea, Vomiting - Genitourinary Genitourinary: absent: Dysuria, Flank Pain - Musculoskeletal Musculoskeletal: absent: Back Pain, Stiffness - Neurological Neurological: Dizziness (lightheadedness, resolved). absent: Confusion, Numbness, Headaches, Tingling - Psychiatric Psychiatric: Anxiety Additional comments: Denies any hallucinations or irrational thoughts/delusions at present - Hematologic/Lymphatic Hematologic: absent: Easy Bleeding, Easy Bruising Past Patient History - Infectious Disease Hx of Infectious Diseases: None - Tetanus Immunizations Tetanus Immunization: Unknown - Past Medical History & Family History Past Medical History?: Yes - Past Social History Smoking Status: Never Smoked - CARDIAC Hx Hypertension: Yes - PULMONARY Hx Respiratory Disorders: Yes Hx Sleep Apnea: Yes - NEUROLOGICAL Hx Neurological Disorder: Yes Hx Parkinson's Disease: Yes (TREMORS) - HEENT Hx HEENT Problems: Yes - RENAL Hx Chronic Kidney Disease: No - ENDOCRINE/METABOLIC Hx Endocrine Disorders: Yes - HEMATOLOGICAL/ONCOLOGICAL Hx Blood Transfusions: No Hx Blood Transfusion Reaction: No - INTEGUMENTARY Hx Dermatological Problems: No - MUSCULOSKELETAL/RHEUMATOLOGICAL Hx Musculoskeletal Disorders: Yes - GASTROINTESTINAL Hx Gastrointestinal Disorders: No - GENITOURINARY/GYNECOLOGICAL Hx Genitourinary Disorders: Yes Hx Prostate Problems: Yes (BPH) - PSYCHIATRIC Hx Emotional Abuse: No Hx Physical Abuse: No Hx Substance Use: No - SURGICAL HISTORY Hx Tonsillectomy: Yes - ANESTHESIA Hx Anesthesia Reactions: No Hx Malignant Hyperthermia: No Meds Allergies/Adverse Reactions: Allergies Allergy/AdvReac Type Severity Reaction Status Date / Time quinapril Allergy REDNESS Verified 08/02/18 17:29 Physical Exam - Constitutional Appears: Non-toxic, No Acute Distress - Head Exam Head Exam: ATRAUMATIC, NORMOCEPHALIC - Eye Exam Eye Exam: EOMI, Normal appearance - ENT Exam ENT Exam: Mucous Membranes Moist - Respiratory Exam Respiratory Exam: Clear to Auscultation Bilateral, NORMAL BREATHING PATTERN. absent: Rhonchi, Wheezes - Cardiovascular Exam Cardiovascular Exam: REGULAR RHYTHM, +S1, +S2 - GI/Abdominal Exam GI & Abdominal Exam: Normal Bowel Sounds, Soft. absent: Tenderness - Extremities Exam Extremities exam: Positive for: normal inspection. Negative for: pedal edema, tenderness Additional comments: Mild lower extremity edema - Neurological Exam Neurological exam: Alert, CN II-XII Intact, Oriented x3 - Psychiatric Exam Psychiatric exam: Normal Affect, Normal Mood - Skin Skin Exam: Dry, Intact Results - Vital Signs Recent Vital Signs: Last Vital Signs Temp 98.3 F 08/02/18 22:43 Pulse 75 08/02/18 22:43 Resp 18 08/02/18 22:43 BP 153/79 H 08/02/18 22:43 Pulse Ox 98 08/02/18 22:43 - Labs Result Diagrams: 08/02/18 17:25 08/02/18 17:25 Labs: Laboratory Results - last 24 hr 08/02/18 08/02/18 08/02/18 15:27 17:00 17:25 WBC 8.4 RBC 3.98 Hgb 13.3 L Hct 40.5 L MCV 101.8 MCH 33.4 MCHC 32.8 RDW 13.8 Plt Count 244 MPV 10.2 Neut % (Auto) 83.0 H Lymph % (Auto) 12.1 L [place] % (Auto) 3.8 Eos % (Auto) 0.9 L Baso % (Auto) 0.2 Lymph # (Auto) 1.0 L [place] # (Auto) 0.3 Eos # (Auto) 0.1 Baso # (Auto) 0.02 Absolute Neuts (auto) 7.00 H PT INR APTT D-Dimer, Quantitative 2311 H pO2 24 L VBG pH 7.42 VBG pCO2 41.0 VBG HCO3 26.6 VBG Total CO2 27.9 VBG O2 Sat (Calc) 44.8 VBG Base Excess 1.9 VBG Potassium 2.9 L Sodium 140.0 Chloride 104.0 Glucose 178 H Lactate 3.3 H FiO2 21.0 Crit Value Called To Wiley coelho Crit Value Called By Jody londono Blood Gas Notified Time 1740 Potassium Carbon Dioxide Anion Gap BUN Creatinine Est GFR ( Amer) Est GFR (Non-Af Amer) Random Glucose Calcium Magnesium Total Bilirubin AST ALT Alkaline Phosphatase Troponin I NT-Pro-B Natriuret Pep Total Protein Albumin Globulin Albumin/Globulin Ratio Venous Blood Potassium 2.9 L Urine Color Urine Appearance Urine pH Ur Specific [place] Urine Protein Urine Glucose (UA) Urine Ketones Urine Blood Urine Nitrate Urine Bilirubin Urine Urobilinogen Ur Leukocyte Esterase 08/02/18 08/02/18 08/02/18 17:25 17:25 21:30 WBC RBC Hgb Hct MCV MCH MCHC RDW Plt Count MPV Neut % (Auto) Lymph % (Auto) [place] % (Auto) Eos % (Auto) Baso % (Auto) Lymph # (Auto) [place] # (Auto) Eos # (Auto) Baso # (Auto) Absolute Neuts (auto) PT 13.5 H INR 1.19 APTT 29.3 D-Dimer, Quantitative pO2 VBG pH VBG pCO2 VBG HCO3 VBG Total CO2 VBG O2 Sat (Calc) VBG Base Excess VBG Potassium Sodium 141 Chloride 104 Glucose Lactate FiO2 Crit Value Called To Crit Value Called By Blood Gas Notified Time Potassium 3.2 L Carbon Dioxide 26 Anion Gap 14 BUN 18 Creatinine 1.4 Est GFR ( Amer) 60 Est GFR (Non-Af Amer) 49 Random Glucose 166 H Calcium 8.9 Magnesium 1.9 Total Bilirubin 0.6 AST 33 ALT 10 Alkaline Phosphatase 73 Troponin I < 0.01 NT-Pro-B Natriuret Pep 422 Total Protein 6.8 Albumin 3.1 Globulin 3.7 Albumin/Globulin Ratio 0.8 L Venous Blood Potassium Urine Color Light yellow Urine Appearance Clear Urine pH 7.5 Ur Specific [place] 1.010 Urine Protein Negative Urine Glucose (UA) Negative Urine Ketones Negative Urine Blood Negative Urine Nitrate Negative Urine Bilirubin Negative Urine Urobilinogen 0.2 Ur Leukocyte Esterase Negative 08/02/18 21:36 WBC RBC Hgb Hct MCV MCH MCHC RDW Plt Count MPV Neut % (Auto) Lymph % (Auto) [place] % (Auto) Eos % (Auto) Baso % (Auto) Lymph # (Auto) [place] # (Auto) Eos # (Auto) Baso # (Auto) Absolute Neuts (auto) PT INR APTT D-Dimer, Quantitative pO2 36 VBG pH 7.41 VBG pCO2 39.0 L VBG HCO3 24.7 VBG Total CO2 25.9 VBG O2 Sat (Calc) 76.3 H VBG Base Excess 0.1 VBG Potassium 4.0 Sodium 142.0 Chloride 107.0 Glucose 106 Lactate 2.8 H FiO2 21.0 Crit Value Called To Richelle esteban Crit Value Called By Etq Blood Gas Notified Time 2141 Potassium Carbon Dioxide Anion Gap BUN Creatinine Est GFR ( Amer) Est GFR (Non-Af Amer) Random Glucose Calcium Magnesium Total Bilirubin AST ALT Alkaline Phosphatase Troponin I NT-Pro-B Natriuret Pep Total Protein Albumin Globulin Albumin/Globulin Ratio Venous Blood Potassium 4.0 Urine Color Urine Appearance Urine pH Ur Specific [place] Urine Protein Urine Glucose (UA) Urine Ketones Urine Blood Urine Nitrate Urine Bilirubin Urine Urobilinogen Ur Leukocyte Esterase Assessment & Plan - Assessment and Plan (Free Text) Assessment: 73-year-old male with a past medical history of hypertension, hyperlipidemia, diverticulosis, paranoid schizophrenia, and arthritis transferred from psychiatry unit for possible LLE cellulitis. He was later found to have sepsis 2/2 LLE cellulitis and possible Osteomyelitis but patient has been refusing MRI. Transferred back to [facility] from psych for [employer] called for hypotension and lactate elevated at 3.3 with patient c/o shortness of breath. Plan Sepsis 2/2 LLE Cellulitis and Abscess - ID on consult: Dr. Vergara - LRs @ 30 cc/hr. 1 bolus given in ED and patient's BP responded well to fluids. -Lactate 3.3 --> 2.8 s/p abx, fluids - Continue morphine before bedside dressing change Has been working well for Podiatry Their recs: Will start PT with wedge shoe in next few days They would like an MRI but patient will not remain still - Continue with Rocephin Day 5. Zosyn added - Mupirocin - ACEP for fever CT Head w/o Contrast 08/02: No acute intracranial abnormality.If there is a persistent focal neurologic deficit and an ongoing clinical concern for acute infarction, an MRI of the brain without intravenous contrast would be a more sensitive modality for eval uation of hyperacute/acute ischemic infarction. Mild chronic microangiopathic changes and mild age-related global parenchymal volume loss. Shortness of breath -DVT/PE ruled out - CTA negative for PE, negative dopplers b/l (official report pending) -CXR shows no active disease -Clinically patient reports SOB is improving -Satting 98 ORA CTA Chest 08/02 1. Unremarkable pulmonary embolism protocol CTA of the chest. 2. A small hiatal hernia is identified. 3. Prominent extrarenal pelves are noted bilaterally; a normal variant finding. Chest XR 08/02 - No active disease Hypokalemia -K 3.2 earlier today -80 mg K given in total -LR @ 30 cc/hr -F/u CMP Hx Hypertension - No medication right now, monitor Hx Hyperlipidemia - - No medication now Hx Schizophrenia paranoid type - Psych on board Recommends if patient can get switched to PO antibiotics to transfer to psych floor - Seroquel 50 daily and 100 HS Hx BPH - Flomax PPx DVT - Lovenox 40 mg SC daily Assessment and plan d/w Dr. Maddy Woodward, PGY-1
[2018-08-03 02:04] LABS: VENOUS BLOOD GAS BASE EXCESS -1.1 mmol/L (0.0-2.0); VENOUS BLOOD GAS PO2 83 mm/Hg (30-55); VENOUS BLOOD PH 7.43 (7.32-7.43)
[2018-08-03] MEDS: Piperacill/Tazo 4.5gm in NS 4.5 GM/100 ML BAG IVPB SCH ×2 (06:06→14:25)
[2018-08-03] MEDS ORDERED: Morphine 2 mg/ml ISec IM STA (07:09)
[2018-08-03] MEDS ORDERED: Morphine 2 mg/ml ISec IVP ONE (07:50)
[2018-08-03 08:08] LABS: BASO # 0.02 K/mm3 (0.0-2.0); BASO % 0.1 % (0.0-3.0); EOS % 0.3 % (1.5-5.0); HEMOGLOBIN 12.4 g/dL (14.0-18.0); LYMPH # 0.9 (1.2-3.4); LYMPH % 6.8 % (22.0-35.0); MEAN CELL VOLUME 101.9 fl (80.0-105.0); MEAN CORPUSCULAR HEMOGLOBIN 33.1 pg (25.0-35.0); MEAN CORPUSCULAR HGB CONC 32.5 g/dl (31.0-37.0); MEAN PLATELET VOLUME 10.6 fl (7.0-11.0); MONO # 0.8 (0.1-0.6); MONO % 5.6 % (1.0-6.0); RBC 3.75 10^6/uL (3.5-6.1); WHITE BLOOD COUNT 13.9 10^3/uL (4.5-11.0)
[2018-08-03 08:20] LABS: VENOUS BLOOD GAS BASE EXCESS 0.7 mmol/L (0.0-2.0); VENOUS BLOOD GAS PO2 167 mm/Hg (30-55); VENOUS BLOOD PH 7.45 (7.32-7.43)
[2018-08-03 08:24] LABS: ALBUMIN 3.2 g/dL (3.0-4.8); ALT/SGPT 29 U/L (7-56); AST/SGOT 30 U/L (17-59); BLOOD UREA NITROGEN 17 mg/dL (7-21); CALCIUM 8.6 mg/dL (8.4-10.5); GFR NON-AFRICAN AMERICAN 54
--- NOTE | 2018-08-03 08:49 | CT ---
Date of service: 08/02/2018 CTA chest PE protocol Indication: SOB Technique: Contiguous axial images were obtained through the chest with intravenous contrast enhancement. Sagittal and coronal reconstructions were generated and reviewed. This CT exam was performed using 1 or more of the following dose reduction techniques: Automated exposure control, adjustment of the MAA and/or kV according to patient size, and/or use of iterative reconstruction technique. IV contrast: 100 mL Omnipaque 350 IV Radiation dose (DLP): 590.44 MGy-cm. Comparison: Chest x-ray performed chest x-ray performed 08/02/18 Findings: Visualized portions of the inferior thyroid gland appear unremarkable. The mediastinal and hilar vascular structures appear within normal limits. The heart appears within normal limits of size. No large central or segmental pulmonary embolus evident. No focal consolidation. No pleural effusion. No pneumothorax. No suspicious pulmonary nodules measuring greater than 5 mm. Small hiatal hernia/distal esophageal wall thickening. Limited visualized portions of the upper abdomen: Bilateral adrenal gland hypertrophy. Bilateral parapelvic cysts/extra renal pelves versus hydronephrosis, partially imaged. Scoliosis. Degenerative changes. Impression: No large central or segmental pulmonary embolus evident. No focal consolidation. No pleural effusion. No pneumothorax. Small hiatal hernia/distal esophageal wall thickening. Limited visualized portions of the upper abdomen: Bilateral adrenal gland hypertrophy. Bilateral parapelvic cysts/extra renal pelves versus hydronephrosis, partially imaged. Preliminary impression was provided by [employer].
[2018-08-03] MEDS: Enoxaparin 40 mg Syringe SC SCH (10:36)
[2018-08-03 11:16] LABS: VENOUS BLOOD GAS PO2 35 mm/Hg (30-55)
--- NOTE | 2018-08-03 14:44 | PN ---
DATE: 08/03/2018 SUBJECTIVE: This is a 73-year-old male seen at bedside status post incision and drainage of severe left foot abscess. The patient was reporting shortness of breath in the psychiatric unit and was transported back to the third floor. He states he is feeling much better and has been afebrile. LABORATORY DATA: Laboratory findings reveal white count 13.9, hemoglobin 12.4, hematocrit 38.2, platelet count of 219. PHYSICAL EXAMINATION: VITAL SIGNS: Temperature 98.3, pulse rate of 61, blood pressure 157/84, respiratory rate 20. EXTREMITIES: Palpable pedal pulses noted bilaterally. Capillary filling time is within normal limits x10. There is a surgical incision site on the plantar aspect of the left foot . There is noted to be decreasing edema and erythema of the entire forefoot. There is serous drainage only. There is no purulence. There is no malodor. No underlying or residual abscess formations seen. The patient has no pain upon palpation of the gastrosoleus complex to suggest DVT. There is no noted cellulitis or ascending cellulitis. ASSESSMENT: This is a 73-year-old male status post incision and drainage of severe left foot abscess with Misonix debridement. PLAN: The patient was seen and evaluated. Charts, labs and vitals were reviewed. He does have a white count of 13.6. However, it does not appear to be the source of his infection as he has decreased edema and erythema with no purulent discharge. Morphine was given prior to dressing change. Packing that was in place yesterday was removed. The surgical site was flushed with copious amounts of normal sterile saline. Calcium alginate and a dry sterile dressing was applied. The patient's wedge shoe was put at bedside and he was encouraged to ambulate as tolerated with physical therapy. Dr. Vergara's note was read and appreciated. He is currently on Augmentin p.o. The patient will be seen and followed daily. Alfred Ortiz DPM
[2018-08-03 15:31] LABS: VENOUS BLOOD GAS BASE EXCESS 1.8 mmol/L (0.0-2.0); VENOUS BLOOD GAS PO2 31 mm/Hg (30-55); VENOUS BLOOD PH 7.45 (7.32-7.43)
--- NOTE | 2018-08-03 16:34 | US ---
HISTORY: Leg pain and swelling. Evaluate for DVT PHYSICIAN(S): Martir Blackburn MD. TECHNIQUE: Duplex sonography and color-flow Doppler with graded compression were used to evaluate the deep venous systems of both lower extremities. FINDINGS: The visualized deep venous systems of both lower extremities are sonographically normal and compressible. Normal wave forms and augmentation are seen. There is no sonographic evidence for deep venous thrombosis in the visualized segments of both lower extremities. IMPRESSION: No sonographic evidence for deep venous thrombosis in the visualized segments of both lower extremities.
[2018-08-03] MEDS: Lactated Ringer's 1,000 ML IV SCH (17:22)
--- NOTE | 2018-08-03 19:49 | PN ---
DATE: 08/03/2018 SUBJECTIVE: The patient was transferred to the medical side from the psychiatric inpatient unit status post rapid response, most likely it was related to the fact that the patient did not eat yesterday prior to ECT procedure. Right after coming back from ECT, the patient refused to eat and as per collateral information from the patient's family, the patient prone to have low blood pressure. Meanwhile, the patient required medical admission because the patient has leukocytosis 13.9 and hypotensive episode. Please see yesterday's note for more detailed information. The patient was seen today. The patient presented to be alert, pleasant. The patient is happy to see this life insurance underwriter. The patient reported overnight he did not sleep well. Based on report, the patient did not get Seroquel dose at nighttime and the patient reported that he was hearing scary voices and they were bothering him and he was not feeling safe. This life insurance underwriter resumed psychotropic medications. Seroquel 75 mg in the morning time and 100 mg at the nighttime. The patient verbalized understanding. OBJECTIVE: VITAL SIGNS: Reviewed. Today it is more stable. Temperature 98.7, pulse is 104, blood pressure 106/70, respiration 19. MEDICATIONS: Reviewed. Tylenol, Lovenox, Zosyn, Seroquel 75 mg daily and 100 mg at nighttime. The patient's Sinemet was not resumed. We will notify medical team to resume Sinemet. MENTAL STATUS EXAMINATION: As this life insurance underwriter described above. The patient presented to be alert, somewhat guarded. The patient complained that he was not able to sleep due to psychotic symptoms. Mood described as okay. Affect was constricted but more reactive. Thought process seems to be concrete. Thought content, the patient reported that he was hearing voices and was feeling paranoid. Insight and judgment seems to be improving. Impulses well controlled. IMPRESSION: As per history, schizophrenia and Parkinson's disease. PLAN: Continue current management. Continue current medication. Sinemet was resumed by medical team. Will be advised to resume if no contraindication. Meanwhile, the patient most likely would require ECT treatment, but we will follow up and advise accordingly. The patient is seen by breastfeeding program coordinator as well as the patient is on antibiotics right now. Family was notified about transfer to the medical side. Should you have any questions give me a call back. Dr. Rodriguez will see the patient over the weekend. Luh Cortez MD
--- NOTE | 2018-08-04 00:12 | PN ---
DATE: 08/03/2018 SUBJECTIVE: The patient is in bed in no acute distress, nontoxic. No fevers and chills. The patient was seen earlier today in room 271, bed 1. PHYSICAL EXAMINATION: VITAL SIGNS: On exam, temperature is 97, blood pressure is 140/86, respiratory rate of 19, heart rate of 76. HEENT: Unremarkable. NECK: Supple. LUNGS: Have decreased breath sounds. HEART: Normal S1 and S2. ABDOMEN: Soft. LABORATORY DATA: Reveals a white count of 13,900, hemoglobin of 12. Chemistries are noted. Urinalysis is noted. ASSESSMENT AND PLAN: This is a 73-year-old male who was in the psychiatric floor was admitted with group A streptococcus left foot cellulitis, negative MRI, history of hypertension, hyperlipidemia, prostate cancer, schizophrenia, paranoia and currently on oral Augmentin who was in the psychiatric floor, now transferred to acute care. We will restart the Augmentin. The patient did have an episode of hypertension and leukocytosis, which has resolved. We will check on the white count in the morning. The patient's blood pressure is now at 143/86. The patient did have group A streptococcus from the foot culture, Streptococcus pyogenes. We will resume ceftriaxone for now while the patient is back in the acute care. We will follow with you. We will check on repeat blood cultures, repeat urine cultures. The patient had a CAT scan of the chest yesterday, negative for focal consolidation, and negative for pulmonary emboli. Brayan Vergara MD
[2018-08-04] MEDS ORDERED: Morphine 2 mg/ml ISec IVP ONE (07:28)
[2018-08-04 07:55] LABS: BASO # 0.03 K/mm3 (0.0-2.0); BASO % 0.3 % (0.0-3.0); EOS # 0.3 (0.0-0.7); EOS % 3.2 % (1.5-5.0); HEMOGLOBIN 12.2 g/dL (14.0-18.0); LYMPH # 1.4 (1.2-3.4); LYMPH % 14.2 % (22.0-35.0); MEAN CELL VOLUME 102.9 fl (80.0-105.0); MEAN CORPUSCULAR HEMOGLOBIN 32.7 pg (25.0-35.0); MEAN CORPUSCULAR HGB CONC 31.8 g/dl (31.0-37.0); MEAN PLATELET VOLUME 10.4 fl (7.0-11.0); MONO # 0.6 (0.1-0.6); RBC 3.73 10^6/uL (3.5-6.1); RED CELL DISTRIBUTION WIDTH 14.6 % (11.5-14.5); WHITE BLOOD COUNT 9.6 10^3/uL (4.5-11.0)
[2018-08-04 08:11] LABS: ALBUMIN 2.9 g/dL (3.0-4.8); ALT/SGPT 21 U/L (7-56); AST/SGOT 24 U/L (17-59); BILIRUBIN,DIRECT 0.2 mg/dL (0.0-0.4); BLOOD UREA NITROGEN 16 mg/dL (7-21); CALCIUM 8.5 mg/dL (8.4-10.5); GFR NON-AFRICAN AMERICAN 54
[2018-08-04] MEDS: cefTRIAXone 2 GM IN NS 2 GM/100 ML BAG IVPB SCH (10:54)
[2018-08-04] MEDS: Enoxaparin 40 mg Syringe SC SCH (10:54)
--- NOTE | 2018-08-04 11:12 | PN ---
DATE: 08/04/2018 SUBJECTIVE: A 73-year-old male seen at bedside for continued evaluation and management of a resolving left foot abscess that required operational incision and drainage procedure. The patient states he is feeling much better and has no pain in his foot at this time. The patient's stat order for morphine 1 mg was ordered as he is usually quite agitated in thrashing about when dressing change is performed. PHYSICAL EXAMINATION: VITAL SIGNS: Revealed temperature of 97.9, pulse rate of 64, blood pressure of 158/92, respiratory rate of 19. EXTREMITIES: Palpable pedal pulses noted bilaterally. There is protective sensation noted bilaterally. Capillary filling time is within normal limits x10. There is a surgical incision site noted on the plantar aspect of the left foot, submetatarsal head II. There is noted to be minimal serous drainage, there is no purulence. The entire forefoot shows minimal edema and minimal erythema. At this point, there is no malodor. No clinical signs of underlying or residual abscess formation is noted. The patient has no pain upon palpation of the gastroc soleus complex to suggest DVT. There continues to be no cellulitis or ascending cellulitis present. LABORATORY DATA: The patient's laboratory findings revealed white count of 9.6, down from 13.9 yesterday, hemoglobin of 12.2, hematocrit of 38.4, platelet count of 209. ASSESSMENT: A 73-year-old male status post incision and drainage of a severe left foot abscess which shows no active infection at this time. PLAN: The patient was seen and evaluated. Charts, labs, and vitals were reviewed. His white count has decreased from 13.9 to 9.6 and the overall area has minimal edema and erythema, however, there is an open incision site which will require time and offloading to resolve. The area was flushed with normal sterile saline. An application of calcium alginate with silver and a dry sterile dressing was applied. The patient has a forefoot offloading shoe which is vital to keep the pressure off the surgical area and allowing them to heal. He was told repeatedly that he must use the shoe at all times when ambulating until further notice. The patient will be seen in followup daily. Alfred Ortiz DPM
--- NOTE | 2018-08-04 11:52 | CP.PCM.PN ---
Subjective - Date & Time of Evaluation Date of Evaluation: 08/04/18 Time of Evaluation: 08:50 - Subjective Subjective: Not in distress, afebrile. Objective - Vital Signs/Intake and Output Vital Signs (last 24 hours): Temp Pulse Resp BP Pulse Ox 97.9 F 64 19 158/92 H 96 08/04/18 06:00 08/04/18 06:00 08/04/18 06:00 08/04/18 06:00 08/04/18 06:00 Intake and Output: 08/04/18 08/04/18 06:59 18:59 Intake Total 1080 Output Total 0 Balance 1080 - Medications Medications: Current Medications Acetaminophen (Tylenol 325mg Tab) 650 mg PO Q4H PRN PRN Reason: Fever > 99.5 Acetaminophen (Tylenol 650 Mg Supp) 650 mg RC Q4H PRN PRN Reason: Fever>99.5 Carbidopa/Levodopa (Sinemet) 1 tab PO DAILY [facility] Last Admin: 08/03/18 17:23 Dose: 1 tab Enoxaparin Sodium (Lovenox) 40 mg SC DAILY [facility]; Protocol Last Admin: 08/03/18 10:36 Dose: 40 mg Lactated Ringer's (Lactated Ringer's) 1,000 mls @ 70 mls/hr IV .[id number] [facility] Last Admin: 08/03/18 17:22 Dose: 70 mls/hr Ceftriaxone Sodium (Rocephin 2 Gm Ivpb) 2 gm in 100 mls @ 100 mls/hr IVPB DAILY [facility]; Protocol Stop: 08/10/18 10:01 Quetiapine Fumarate (Seroquel) 100 mg PO HS [facility]; Protocol Last Admin: 08/03/18 22:23 Dose: 100 mg Quetiapine Fumarate (Seroquel) 75 mg PO DAILY [facility]; Protocol Last Admin: 08/03/18 10:36 Dose: 75 mg - Labs Labs: 08/03/18 07:55 08/03/18 07:55 PT 13.5 SECONDS (9.4-12.5) H 08/02/18 17:25 INR 1.19 08/02/18 17:25 APTT 29.3 Seconds (26.9-38.3) 08/02/18 17:25 - Constitutional Appears: Chronically Ill - Head Exam Head Exam: NORMAL INSPECTION - Respiratory Exam Respiratory Exam: Decreased Breath Sounds - Cardiovascular Exam Cardiovascular Exam: +S1, +S2 - GI/Abdominal Exam GI & Abdominal Exam: Soft. absent: Tenderness Assessment and Plan - Assessment and Plan (Free Text) Plan: Assessment Group A strep left foot cellulitis HTN schizophrenia anxierty dyslipidemia diverticulosis arthritis S/P tonsillectomy Plan continue Ceftriaxone and will continue to monitor clinically - needs at least 5- 7 days of antibiotics (day 5 today) discussed with Dr. Smith
--- NOTE | 2018-08-04 14:30 | PN ---
DATE: 08/04/2018 LOCATION: The patient is seen in room 271, bed 1. SUBJECTIVE: The patient is seen lying in the bed. The patient appears to be comfortable. The patient does not appear to be any distress. Telemetry shows sinus rhythm. Heart rate in the 70s and 80s beats per minute, T-max is 98.3, blood pressure in the last 12-24 hours 158/92, 133/79, 143/86, 106/70, 125/77, 157/84, respirations 18-19, O2 sat 96%. The patient is seen lying in the bed. PHYSICAL EXAMINATION: HEENT: Head normocephalic, atraumatic. Pinkish pale conjunctivae. Anicteric sclerae. No oropharyngeal lesion. No neck rigidity. CHEST: Kyphosis. LUNGS: No audible crackle, rales or wheezing. CARDIOVASCULAR: S1, S2. Regular rhythm. No audible murmur, gallop, or rub. ABDOMEN: Soft. Positive bowel sound. GENITALIA: Male. RECTAL: Deferred. EXTREMITIES: Positive left foot dressing. Gait examination not tested. MUSCULOSKELETAL: A body mass index of 29.4. NEUROLOGIC: The patient is alert, awake, responsive, oriented x3. Motor strength is 5/5 in upper and lower extremities. DIAGNOSTIC DATA: On 08/04/2018, WBC 9.6, hemoglobin and hematocrit 12.2 and 38.4, platelets 209. The patient's lactic acid is corrected to 1.1. Sodium 140, potassium 4, chloride 109, CO2 of 26, anion gap 9, BUN 16, creatinine 1.3, GFR greater than 60, glucose 83, calcium 8.5, phosphorus 3, magnesium 2.1. LFTs are within normal limits. Urinalysis is negative. Blood cultures are negative after 24 hours. IMPRESSION AND PLAN: 1. Status post hypotension post electroconvulsive therapy. 2. Status post post-electroconvulsive therapy hypoxemia and tachycardia. 3. Left forefoot abscess and cellulitis secondary to strep group A pyogenes. 4. Lactic acidosis (resolved). 5. Small hiatal hernia with distal esophageal thickening. 6. Hypokalemia. 7. Status post hypotension. 8. Leukocytosis with granulocytosis. 9. Mild normocytic anemia. 10. Elevated D-dimer of greater than 2,300. 11. Bilateral adrenal gland hypertrophy. 12. Bilateral parapelvic cyst versus extrarenal pelvis. 13. Degenerative joint disease of the spine. 14. Chronic microangiopathic changes of the brain. 15. 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 16. History of paranoid schizophrenia and Parkinson's disease. PLAN: At this time, the patient is to be continued on therapeutic intervention as per the MAR of today, which was reviewed. The patient has been ordered incentive spirometry. The patient has been ordered elevation of the head of the bed. The patient has been ordered out of bed to chair with assistance. The patient has been ordered SCDs to both legs. The patient has been ordered physical therapy and occupational therapy. The patient is awaiting for further recommendation by Infectious Disease regarding the duration of IV antibiotic therapy. The patient has been ordered repeat labs for the morning. The patient's final blood cultures, urine cultures results are pending. Current consultation with Infectious Disease, Podiatry, Psychiatry. Current medications; Ringer's lactate at 70 mL/hour, Lovenox 40 mg subcutaneously daily, Rocephin 2 g IV daily as per Infectious Disease, Seroquel 100 mg at bedtime, Seroquel 75 mg at 10 a.m. and Seroquel 100 mg at 10 p.m., Sinemet 25/100 one tablet daily, Tylenol p.r.n., Zofran 4 mg IV every 4 hours p.r.n. Regular diet. The patient has been ordered out of bed, physical therapy, occupational therapy, and ambulation therapy. Depending upon the Infectious Disease recommendation for the duration of IV antibiotic, which will determine the patient's transfer back to the psychiatry. As soon as the patient's IV antibiotics are stopped and changed to oral antibiotics, the patient will be cleared for discharge to psychiatry. Janes Castañeda MD
[2018-08-04] MEDS: Lactated Ringer's 1,000 ML IV SCH ×2 (18:26→21:55)
--- NOTE | 2018-08-04 18:53 | CON ---
DATE: 08/04/2018 HISTORY OF PRESENT ILLNESS: I reviewed recent notes in the unit and the patient was seen at bedside. He is well known to me from prior followups with him on the psychiatric inpatient unit from on the medical service. The patient does recognize me from our prior encounters and he reports some improvement in clarity of thought and reports that he is tolerating the medication that was prescribed to him. Today, he denies having any hallucinations; however, he is a little oddly related, preoccupied and guarded. The patient according to Dr. Cortez's notes, he was hearing voices that were bothering him recently, but denied such issues or perceptual disturbance this morning. It is noted he is tolerating his medications, denies any side affects from them, denies any current discomfort or pain. He is not actively hallucinating during my visit with him; however, he is preoccupied and on further questioning reveals that he is still religiously preoccupied and delusional. He indicated a wish to see a auto motor mechanic for absolution as he is dying and he needs his last rites. He insists a Quakerseparator tender and is under the impression that he is in danger of passing away, although he does strongly deny having any thoughts of harming himself. His insight and judgment continue to be poor. Although he is aware of what month and year but he is not aware of current location and correctly guesses he is at [facility]. Labs and vitals were reviewed. IMPRESSION: Schizophrenia, Parkinson's disease. RECOMMENDATIONS: We will continue Seroquel 75 mg daily, 100 mg at bedtime. The patient clearly has psychosis and would benefit from more electroconvulsive therapy, though it does show improvement from when he was initially hospitalized a few weeks prior to the psychiatric unit. His impulse control is better, he is not actively hallucinating, he is less overtly disorganized, though still delusional and hallucinating. He remains unpredictable and needs continued treatment and monitoring. Psychiatry will continue followup, next followup with be on 08/06/2018. Should he be medically cleared before then he could be transferred back to the psychiatric unit. Sneha Rodriguez MD [facility] # [id number]
[2018-08-05] MEDS: Lactated Ringer's 1,000 ML IV SCH ×2 (05:47→22:28)
[2018-08-05 07:49] LABS: BASO # 0.04 K/mm3 (0.0-2.0); BASO % 0.5 % (0.0-3.0); EOS # 0.2 (0.0-0.7); HEMOGLOBIN 11.8 g/dL (14.0-18.0); LYMPH # 1.4 (1.2-3.4); LYMPH % 17.7 % (22.0-35.0); MEAN CELL VOLUME 103.6 fl (80.0-105.0); MEAN CORPUSCULAR HEMOGLOBIN 32.7 pg (25.0-35.0); MEAN CORPUSCULAR HGB CONC 31.6 g/dl (31.0-37.0); MEAN PLATELET VOLUME 10.5 fl (7.0-11.0); MONO # 0.5 (0.1-0.6); MONO % 6.2 % (1.0-6.0); RBC 3.61 10^6/uL (3.5-6.1); RED CELL DISTRIBUTION WIDTH 14.4 % (11.5-14.5); WHITE BLOOD COUNT 7.9 10^3/uL (4.5-11.0)
[2018-08-05 08:58] LABS: ALBUMIN 2.9 g/dL (3.0-4.8); ALT/SGPT 26 U/L (7-56); AST/SGOT 24 U/L (17-59); BILIRUBIN,DIRECT 0.2 mg/dL (0.0-0.4); BLOOD UREA NITROGEN 19 mg/dL (7-21); CALCIUM 8.4 mg/dL (8.4-10.5); GFR NON-AFRICAN AMERICAN 59
[2018-08-05] MEDS: Enoxaparin 40 mg Syringe SC SCH (09:48)
[2018-08-05] MEDS: cefTRIAXone 2 GM IN NS 2 GM/100 ML BAG IVPB SCH (09:49)
--- NOTE | 2018-08-05 10:41 | CP.PCM.PN ---
<Carey Birmingham - Last Filed: 08/05/18 10:46> Subjective - Date & Time of Evaluation Date of Evaluation: 08/05/18 Time of Evaluation: 10:41 - Subjective Subjective: Podiatry progress note - Dr. Ortiz/Tommy 73 year old male patient seen and examined today at bedside POD#10 left foot incision and drainage with misonix debridement. Patient reports he is experiencing less pain to his L foot at this time. He denies nausea/vom iting/fever/shortness of breath. Objective - Vital Signs/Intake and Output Vital Signs (last 24 hours): Temp Pulse Resp BP Pulse Ox 97.6 F 56 L 19 126/76 93 L 08/05/18 06:00 08/05/18 10:00 08/05/18 06:00 08/05/18 06:00 08/05/18 06:00 Intake and Output: 08/05/18 08/05/18 06:59 18:59 Intake Total 1080 Balance 1080 - Medications Medications: Current Medications Acetaminophen (Tylenol 325mg Tab) 650 mg PO Q4H PRN PRN Reason: Fever > 99.5 Acetaminophen (Tylenol 650 Mg Supp) 650 mg RC Q4H PRN PRN Reason: Fever>99.5 Acetaminophen (Tylenol 325mg Tab) 650 mg PO Q6 PRN PRN Reason: TEMP>=99.5F Acetaminophen (Tylenol 650 Mg Supp) 650 mg RC Q6H PRN PRN Reason: TEMP>=99.5F Carbidopa/Levodopa (Sinemet) 1 tab PO DAILY [facility] Last Admin: 08/05/18 09:49 Dose: 1 tab Enoxaparin Sodium (Lovenox) 40 mg SC DAILY [facility]; Protocol Last Admin: 08/05/18 09:48 Dose: 40 mg Lactated Ringer's (Lactated Ringer's) 1,000 mls @ 70 mls/hr IV .[id number] [facility] Last Admin: 08/05/18 05:47 Dose: 70 mls/hr Ceftriaxone Sodium (Rocephin 2 Gm Ivpb) 2 gm in 100 mls @ 100 mls/hr IVPB DAILY [facility]; Protocol Stop: 08/10/18 10:01 Last Admin: 08/05/18 09:49 Dose: 100 mls/hr Ondansetron HCl (Zofran Inj) 4 mg IVP Q4H PRN PRN Reason: Nausea/Vomiting Quetiapine Fumarate (Seroquel) 100 mg PO HS [facility]; Protocol Last Admin: 08/04/18 21:55 Dose: 100 mg Quetiapine Fumarate (Seroquel) 75 mg PO DAILY [facility]; Protocol Last Admin: 08/05/18 09:48 Dose: 75 mg - Labs Labs: 08/05/18 07:00 08/05/18 07:00 PT 13.5 SECONDS (9.4-12.5) H 08/02/18 17:25 INR 1.19 08/02/18 17:25 APTT 29.3 Seconds (26.9-38.3) 08/02/18 17:25 - Constitutional Appears: Non-toxic, No Acute Distress - Head Exam Head Exam: ATRAUMATIC, NORMOCEPHALIC - Extremities Exam Additional comments: LLE focused exam VASC: DP/PT pulses palpable 2/4; cap refill <3 seconds to all digits; temp gradient warm to warm; mild edema noted to the foot, improving NEURO: Gross and protective sensation intact. DERM: Surgical site clean with minimal serous drainage, negative probe to bone, no tunneling, no malodor, no purulence appreciated MSK: Pain upon palpation of the carito-wound area; No pain on calf compression. Muscle power intact 5/5 to all groups. - Neurological Exam Neurological Exam: Alert, Awake, Oriented x3 - Psychiatric Exam Psychiatric exam: Normal Affect, Normal Mood - Skin Skin Exam: Warm Assessment and Plan - Assessment and Plan (Free Text) Assessment: 73 year old male patient POD#10 left foot incision and drainage with misonix debridement Plan: Patient seen and evaluated at bedside Plan discussed with Dr. Ortiz Afebrile, WBC 7.9 Intraop wound culture: Final, no growth L foot MRI - patient refusing MRI as he is not able to be still during MRI Local wound care: surgical site flushed with normal sterile saline and dressed with silver alginate, DSD Continue Abx per ID recs; continue Ceftriaxone and will continue to monitor clinically - needs at least 5-7 days of antibiotics (day 6 today) Continue NWB, shoe at bedside, will start PT with wedge shoe in next few days Will continue to follow up the patient while in house <Alfred Ortiz - Last Filed: 08/07/18 07:53> Objective - Vital Signs/Intake and Output Vital Signs (last 24 hours): Temp Pulse Resp BP Pulse Ox 98.1 F 65 20 127/71 96 08/06/18 18:00 08/06/18 18:00 08/06/18 18:00 08/06/18 18:00 08/06/18 18:00 Intake and Output: 08/07/18 08/07/18 06:59 18:59 Intake Total 1200 Balance 1200 - Labs Labs: 08/05/18 07:00 08/05/18 07:00 PT 13.5 SECONDS (9.4-12.5) H 08/02/18 17:25 INR 1.19 08/02/18 17:25 APTT 29.3 Seconds (26.9-38.3) 08/02/18 17:25 Attending/Attestation - Attestation I have personally seen and examined this patient.: Yes I have fully participated in the care of the patient.: Yes I have reviewed all pertinent clinical information, including history, physical exam and plan: Yes
--- NOTE | 2018-08-05 10:43 | CP.PCM.PN ---
Subjective - Date & Time of Evaluation Date of Evaluation: 08/05/18 Time of Evaluation: 09:25 - Subjective Subjective: Comfortable in bed, not in distress. Objective - Vital Signs/Intake and Output Vital Signs (last 24 hours): Temp Pulse Resp BP Pulse Ox 97.6 F 56 L 19 126/76 93 L 08/05/18 06:00 08/05/18 10:00 08/05/18 06:00 08/05/18 06:00 08/05/18 06:00 Intake and Output: 08/05/18 08/05/18 06:59 18:59 Intake Total 1080 Balance 1080 - Medications Medications: Current Medications Acetaminophen (Tylenol 325mg Tab) 650 mg PO Q4H PRN PRN Reason: Fever > 99.5 Acetaminophen (Tylenol 650 Mg Supp) 650 mg RC Q4H PRN PRN Reason: Fever>99.5 Acetaminophen (Tylenol 325mg Tab) 650 mg PO Q6 PRN PRN Reason: TEMP>=99.5F Acetaminophen (Tylenol 650 Mg Supp) 650 mg RC Q6H PRN PRN Reason: TEMP>=99.5F Carbidopa/Levodopa (Sinemet) 1 tab PO DAILY [facility] Last Admin: 08/05/18 09:49 Dose: 1 tab Enoxaparin Sodium (Lovenox) 40 mg SC DAILY [facility]; Protocol Last Admin: 08/05/18 09:48 Dose: 40 mg Lactated Ringer's (Lactated Ringer's) 1,000 mls @ 70 mls/hr IV .[id number] [facility] Last Admin: 08/05/18 05:47 Dose: 70 mls/hr Ceftriaxone Sodium (Rocephin 2 Gm Ivpb) 2 gm in 100 mls @ 100 mls/hr IVPB DAILY [facility]; Protocol Stop: 08/10/18 10:01 Last Admin: 08/05/18 09:49 Dose: 100 mls/hr Ondansetron HCl (Zofran Inj) 4 mg IVP Q4H PRN PRN Reason: Nausea/Vomiting Quetiapine Fumarate (Seroquel) 100 mg PO HS [facility]; Protocol Last Admin: 08/04/18 21:55 Dose: 100 mg Quetiapine Fumarate (Seroquel) 75 mg PO DAILY [facility]; Protocol Last Admin: 08/05/18 09:48 Dose: 75 mg - Labs Labs: 08/05/18 07:00 08/05/18 07:00 PT 13.5 SECONDS (9.4-12.5) H 08/02/18 17:25 INR 1.19 08/02/18 17:25 APTT 29.3 Seconds (26.9-38.3) 08/02/18 17:25 - Constitutional Appears: Chronically Ill - Head Exam Head Exam: NORMAL INSPECTION - Respiratory Exam Respiratory Exam: Decreased Breath Sounds - Cardiovascular Exam Cardiovascular Exam: +S1, +S2 - GI/Abdominal Exam GI & Abdominal Exam: Soft. absent: Tenderness Assessment and Plan - Assessment and Plan (Free Text) Plan: Assessment Group A strep left foot cellulitis HTN schizophrenia anxierty dyslipidemia diverticulosis arthritis S/P tonsillectomy Plan continue Ceftriaxone and will continue to monitor clinically - needs at least 5- 7 days of antibiotics (day 6 today) discussed with Dr. Smith previously
--- NOTE | 2018-08-06 07:46 | CP.PCM.PN ---
Subjective - Date & Time of Evaluation Date of Evaluation: 08/06/18 Time of Evaluation: 07:26 - Subjective Subjective: John Costa PGY2 GI Progress Note for Dr. Castañeda Patient was seen and examined at bedside. Patient state that he is getting out of bed, but continues to be NWB per podiatry recs. Left food is properly dressed by podiatry team. Continues to be on abx per ID recs. No fevers overnight. Objective - Vital Signs/Intake and Output Vital Signs (last 24 hours): Temp Pulse Resp BP Pulse Ox 98.2 F 68 18 127/68 95 08/06/18 06:00 08/06/18 06:00 08/06/18 06:00 08/06/18 06:00 08/06/18 06:00 Intake and Output: 08/06/18 08/06/18 06:59 18:59 Intake Total 2400 Balance 2400 - Medications Medications: Current Medications Acetaminophen (Tylenol 325mg Tab) 650 mg PO Q4H PRN PRN Reason: Fever > 99.5 Acetaminophen (Tylenol 650 Mg Supp) 650 mg RC Q4H PRN PRN Reason: Fever>99.5 Acetaminophen (Tylenol 325mg Tab) 650 mg PO Q6 PRN PRN Reason: TEMP>=99.5F Acetaminophen (Tylenol 650 Mg Supp) 650 mg RC Q6H PRN PRN Reason: TEMP>=99.5F Carbidopa/Levodopa (Sinemet) 1 tab PO DAILY [facility] Last Admin: 08/05/18 09:49 Dose: 1 tab Donepezil HCl (Aricept) 5 mg PO HS [facility] Last Admin: 08/05/18 22:29 Dose: 5 mg Enoxaparin Sodium (Lovenox) 40 mg SC DAILY [facility]; Protocol Last Admin: 08/05/18 09:48 Dose: 40 mg Lactated Ringer's (Lactated Ringer's) 1,000 mls @ 70 mls/hr IV .[id number] [facility] Last Admin: 08/05/18 22:28 Dose: 70 mls/hr Ceftriaxone Sodium (Rocephin 2 Gm Ivpb) 2 gm in 100 mls @ 100 mls/hr IVPB DAILY [facility]; Protocol Stop: 08/10/18 10:01 Last Admin: 08/05/18 09:49 Dose: 100 mls/hr Ondansetron HCl (Zofran Inj) 4 mg IVP Q4H PRN PRN Reason: Nausea/Vomiting Quetiapine Fumarate (Seroquel) 100 mg PO HS [facility]; Protocol Last Admin: 08/05/18 22:29 Dose: 100 mg Quetiapine Fumarate (Seroquel) 75 mg PO DAILY [facility]; Protocol Last Admin: 08/05/18 09:48 Dose: 75 mg - Labs Labs: 08/05/18 07:00 08/05/18 07:00 PT 13.5 SECONDS (9.4-12.5) H 08/02/18 17:25 INR 1.19 08/02/18 17:25 APTT 29.3 Seconds (26.9-38.3) 08/02/18 17:25 - Constitutional Appears: Well, Non-toxic, No Acute Distress - Head Exam Head Exam: ATRAUMATIC, NORMAL INSPECTION - Eye Exam Eye Exam: EOMI, Normal appearance - ENT Exam ENT Exam: Mucous Membranes Moist, Normal Exam - Neck Exam Neck Exam: Full ROM, Normal Inspection - Respiratory Exam Respiratory Exam: NORMAL BREATHING PATTERN. absent: Respiratory Distress - Cardiovascular Exam Cardiovascular Exam: RRR, +S1, +S2 - GI/Abdominal Exam GI & Abdominal Exam: Soft. absent: Distended, Tenderness - Extremities Exam Extremities Exam: Full ROM Additional comments: resting hand tremor b/l - Neurological Exam Neurological Exam: Alert, Awake - Skin Skin Exam: Normal Color, Warm Assessment and Plan - Assessment and Plan (Free Text) Assessment: 73 year old male with a PMH of hypertension, hyperlipidemia, diverticulosis, paranoid schizophrenia, and arthritis admitted from psychiatry unit for sepsis 2/2 L foot cellulitis. Osteomyelitis needs to be ruled out, however, patient has been refusing MRI. Plan: 1. Sepsis 2/2 L foot cellulitis - r/o ostemyelitis - cont Rocephin per ID (last day today) - podiatry consulted, recs appreciated - blood cultures pending - to transfer back to psych once abx is done 2. Schizophrenia s/p ECT - Psych consulted, recs appreciated - cont Seroquel 3. Parkinson's dementia - cont Aricept and Carb/Levodopa 4. PPX - Lovenox for DVT ppx Case was reviewed and discussed with Dr. Castañeda
--- NOTE | 2018-08-06 08:39 | PN ---
DATE: 08/05/2018 SUBJECTIVE: The patient was seen lying in bed in Room 271, Bed 1. The patient is seen lying, having lunch. The patient is alert, awake, responsive, in no distress. The patient still has left foot dressing. The patient is awake, alert, and responsive. The patient is comfortable. PHYSICAL EXAMINATION: VITAL SIGNS: The last 12-24 vital signs noted. T-max is 97.6, 98.7. Telemetry shows sinus rhythm. Blood pressure 126/76, respirations 18. O2 saturation is 93-98%. HEENT: Head: Normocephalic, atraumatic. HEENT examination shows pinkish pale conjunctivae. Anicteric sclerae. No oropharyngeal lesion. No neck rigidity. CHEST: Kyphosis. LUNGS: No audible crackles, rales or wheezing. CARDIOVASCULAR: S1 and S2, regular rhythm. ABDOMEN: Soft. Positive bowel sounds. No palpable hepatosplenomegaly. GENITALIA: Male, RECTAL: Deferred. EXTREMITIES: Show no pitting edema. No calf tenderness or Ana sign. NEUROLOGIC: The patient is awake, alert, and responsive, is able to move upper and lower extremities without assistance. Positive left foot dressing noted. MUSCULOSKELETAL: Examination shows a body mass index of 29.4. LABORATORY DATA: On 08/05/2018, hemoglobin and hematocrit are 11.8 and 37.4. Platelets 215. Sodium 139, potassium 3.8, chloride 108, CO2 of 26, anion gap of 10, BUN 19 and creatinine 1.2. GFR of 60. Glucose 85, calcium 8.4, phosphorus 3.1, magnesium 2, LFT's Blood urine cultures are negative. IMPRESSION: 1. Status post hypotensive hypoxemia and tachycardia post ECT therapy. 2. Streptococcus pyrogenes group A left foot cellulitis and abscess status post incision and drainage. 3. Transient leukocytosis with granulocytosis. 4. Mild normocytic anemia. 5. Transient lactic acidosis. 6. Mild hypoalbuminemia. 7. Hypokalemia. 8. History of Parkinson's disease. 9. Schizophrenia. 10. Possible early dementia. 11. Auditory hallucination. 12. Mild early dementia. PLAN: The plan at this time; the patient is currently on Aricept 5 mg at bedtime, Ringer lactate 70 mL an hour, Lovenox 40 mg subcutaneous daily, Rocephin 2 mg IV daily till one more day, Seroquel 100 mg at bedtime, Seroquel 75 mg daily, Sinemet 25/100 one tablet daily, Tylenol p.r.n., Zofran 4 mg IV every 4 hours p.r.n. Incentive spirometry every 2 hours, regular diet. Out of bed to chair. Physical and occupational therapy with normal weightbearing to the left foot. At present, the patient will be cleared by Infectious Disease after tomorrow's days of IV antibiotics. The patient's telemetry is discontinued. The patient will be cleared for discharge back to Psychiatry in the morning after completion of the Rocephin dose. Dictated and electronically signed, not read. Janes Castañeda MD
[2018-08-06] MEDS: cefTRIAXone 2 GM IN NS 2 GM/100 ML BAG IVPB SCH (09:12)
[2018-08-06] MEDS: Enoxaparin 40 mg Syringe SC SCH (09:13)
--- NOTE | 2018-08-06 13:05 | CP.PCM.PN ---
Subjective - Date & Time of Evaluation Date of Evaluation: 08/06/18 Time of Evaluation: 12:58 - Subjective Subjective: Podiatry progress note - Dr. Ortiz/Tommy 73 year old male patient seen and evaluated 11 days s/p left foot incision and drainage with misonix debridement. Patient states that he is experiencing minimal pain to his L foot at this time. He denies any overnight chills/nausea/vomiting/fever/shortness of breath. Objective - Vital Signs/Intake and Output Vital Signs (last 24 hours): Temp Pulse Resp BP Pulse Ox 98 F 73 18 101/65 95 08/06/18 11:58 08/06/18 11:58 08/06/18 11:58 08/06/18 11:58 08/06/18 06:00 Intake and Output: 08/06/18 08/06/18 06:59 18:59 Intake Total 2400 Balance 2400 - Medications Medications: Current Medications Acetaminophen (Tylenol 325mg Tab) 650 mg PO Q4H PRN PRN Reason: Fever > 99.5 Acetaminophen (Tylenol 650 Mg Supp) 650 mg RC Q4H PRN PRN Reason: Fever>99.5 Acetaminophen (Tylenol 325mg Tab) 650 mg PO Q6 PRN PRN Reason: TEMP>=99.5F Acetaminophen (Tylenol 650 Mg Supp) 650 mg RC Q6H PRN PRN Reason: TEMP>=99.5F Carbidopa/Levodopa (Sinemet) 1 tab PO DAILY [facility] Last Admin: 08/06/18 09:13 Dose: 1 tab Donepezil HCl (Aricept) 5 mg PO HS [facility] Last Admin: 08/05/18 22:29 Dose: 5 mg Enoxaparin Sodium (Lovenox) 40 mg SC DAILY [facility]; Protocol Last Admin: 08/06/18 09:13 Dose: 40 mg Ceftriaxone Sodium (Rocephin 2 Gm Ivpb) 2 gm in 100 mls @ 100 mls/hr IVPB DAILY [facility]; Protocol Stop: 08/10/18 10:01 Last Admin: 08/06/18 09:12 Dose: 100 mls/hr Ondansetron HCl (Zofran Inj) 4 mg IVP Q4H PRN PRN Reason: Nausea/Vomiting Quetiapine Fumarate (Seroquel) 100 mg PO HS [facility]; Protocol Last Admin: 08/05/18 22:29 Dose: 100 mg Quetiapine Fumarate (Seroquel) 75 mg PO DAILY [facility]; Protocol Last Admin: 08/06/18 09:13 Dose: 75 mg - Labs Labs: 08/05/18 07:00 08/05/18 07:00 PT 13.5 SECONDS (9.4-12.5) H 08/02/18 17:25 INR 1.19 08/02/18 17:25 APTT 29.3 Seconds (26.9-38.3) 08/02/18 17:25 - Constitutional Appears: Well, Non-toxic, No Acute Distress - Head Exam Head Exam: ATRAUMATIC, NORMOCEPHALIC - Extremities Exam Additional comments: LLE focused exam VASC: DP/PT pulses palpable 2/4; cap refill <3 seconds to all digits; temp gradi ent warm to warm; mild edema noted to the foot, improving. NEURO: Gross and protective sensation intact. DERM: Surgical site clean with minimal serous drainage, negative probe to bone, no tunneling, no malodor, no purulence appreciated MSK: Mild pain upon palpation of the carito-wound area; No pain on calf compression. Muscle power intact 5/5 to all groups. - Neurological Exam Neurological Exam: Alert, Awake Assessment and Plan - Assessment and Plan (Free Text) Assessment: 73 year old male patient seen and evaluated 11 days s/p left foot incision and drainage with misonix debridement Plan: Patient seen and evaluated at bedside Plan discussed with Dr. Sanders Afebrile, WBC 7.9 Intraop wound culture: Final, no growth L foot MRI - patient refused MRI as he is not able to be still during MRI Local wound care: surgical site flushed with normal sterile saline and dressed with xeroform, DSD Continue Abx per ID recs; continue Ceftriaxone and will continue to monitor cli nically - needs at least 5-7 days of antibiotics (day 6 today) Continue NWB, shoe at bedside, PT with wedge shoe. Will continue to follow up the patient while in house
[2018-08-06 18:42] VITALS: BP 127/71; PULSE 65; RESP 20; TEMP 98.1; O2SAT 96
--- NOTE | 2018-08-07 03:10 | CP.PCM.DIS ---
Provider - Provider Date of Admission: 08/02/18 22:05 Attending physician: Janes Castañeda MD Consults: 08/02/18 23:20 Infectious Disease Consult Routine Comment: Consulting Provider: Brayan Vergara Consulting Physician: Brayan Vergara Reason for Consult: Patient known to you, cellulitis/sepsis Psychiatry Consult Routine Comment: Consulting Provider: Luh Cortez Consulting Physician: Luh Cortez Reason for Consult: patient known to you 08/02/18 23:23 Podiatry Consult Routine Comment: Consulting Provider: Alfred Ortiz Consulting Physician: Alfred Ortiz Reason for Consult: Patient known to you 08/03/18 03:14 Social Work Referral Routine Comment: admission assessment Physician Instructions: Reason For Exam: bindu score 9 08/03/18 03:23 Transition In Care/Readmission Reduction Routine Comment: Physician Instructions: Reason For Exam: admission assessment 08/03/18 03:42 Nursing Referral for Palliative Care Routine Comment: Physician Instructions: Reason For Exam: admission assessment Time Spent in preparation of Discharge (in minutes): 35 Hospital Course - Lab Results Lab Results: Micro Results 08/02/18 22:55 Blood-Venous Blood Culture - Preliminary NO GROWTH AFTER 4 DAYS 08/02/18 22:35 Blood-Venous Blood Culture - Preliminary NO GROWTH AFTER 4 DAYS 08/02/18 21:37 Urine,Catheterized Urine Culture - Final No Growth (<1,000 CFU/ML) Most Recent Lab Values WBC 7.9 10^3/uL (4.5-11.0) 08/05/18 07:00 RBC 3.61 10^6/uL (3.5-6.1) 08/05/18 07:00 Hgb 11.8 g/dL (14.0-18.0) L 08/05/18 07:00 Hct 37.4 % (42.0-52.0) L 08/05/18 07:00 MCV 103.6 fl (80.0-105.0) 08/05/18 07:00 MCH 32.7 pg (25.0-35.0) 08/05/18 07:00 MCHC 31.6 g/dl (31.0-37.0) 08/05/18 07:00 RDW 14.4 % (11.5-14.5) 08/05/18 07:00 Plt Count 215 10^3/uL (120.0-450.0) 08/05/18 07:00 MPV 10.5 fl (7.0-11.0) 08/05/18 07:00 Neut % (Auto) 72.6 % (50.0-68.0) H 08/05/18 07:00 Lymph % (Auto) 17.7 % (22.0-35.0) L 08/05/18 07:00 [place] % (Auto) 6.2 % (1.0-6.0) H 08/05/18 07:00 Eos % (Auto) 3.0 % (1.5-5.0) 08/05/18 07:00 Baso % (Auto) 0.5 % (0.0-3.0) 08/05/18 07:00 Lymph # (Auto) 1.4 (1.2-3.4) 08/05/18 07:00 [place] # (Auto) 0.5 (0.1-0.6) 08/05/18 07:00 Eos # (Auto) 0.2 (0.0-0.7) 08/05/18 07:00 Baso # (Auto) 0.04 K/mm3 (0.0-2.0) 08/05/18 07:00 Absolute Neuts (auto) 5.75 (1.4-6.5) 08/05/18 07:00 PT 13.5 SECONDS (9.4-12.5) H 08/02/18 17:25 INR 1.19 08/02/18 17:25 APTT 29.3 Seconds (26.9-38.3) 08/02/18 17:25 D-Dimer, Quantitative 2311 ng/mlDDU (0-243) H 08/02/18 17:00 pO2 31 mm/Hg (30-55) 08/03/18 15:28 VBG pH 7.45 (7.32-7.43) H 08/03/18 15:28 VBG pCO2 37.0 (40-60) L 08/03/18 15:28 VBG HCO3 25.7 mmol/l (21-28) 08/03/18 15:28 VBG Total CO2 26.8 mmol.L (22-28) 08/03/18 15:28 VBG O2 Sat (Calc) 73.2 % (40-65) H 08/03/18 15:28 VBG Base Excess 1.8 mmol/L (0.0-2.0) 08/03/18 15:28 VBG Potassium 3.8 mmol/L (3.6-5.2) 08/03/18 15:28 Sodium 141.0 mmol/L (132-148) 08/03/18 15:28 Chloride 108.0 mmol/L (98-107) H 08/03/18 15:28 Glucose 102 mg/dl (75-110) 08/03/18 15:28 Lactate 1.1 mmol/L (0.7-2.1) 08/03/18 15: FiO2 21.0 % 08/03/18 15:28 Crit Value Called To Richelle esteban 08/02/18 21:36 Crit Value Called By Conrado 08/02/18 21:36 Blood Gas Notified Time 214108/02/18 21:36 Sodium 139 mmol/L (132-148) 08/05/18 07:00 Potassium 3.8 mmol/L (3.6-5.0) 08/05/18 07:00 Chloride 108 mmol/L (98-107) H 08/05/18 07:00 Carbon Dioxide 26 mmol/L (21-33) 08/05/18 07:00 Anion Gap 10 (10-20) 08/05/18 07:00 BUN 19 mg/dL (7-21) 08/05/18 07:00 Creatinine 1.2 mg/dl (0.8-1.5) 08/05/18 07:00 Est GFR ( Amer) > 60 08/05/18 07:00 Est GFR (Non-Af Amer) 59 08/05/18 07:00 Random Glucose 85 mg/dL (70-110) 08/05/18 07:00 Calcium 8.4 mg/dL (8.4-10.5) 08/05/18 07:00 Phosphorus 3.1 mg/dL (2.5-4.5) 08/05/18 07:00 Magnesium 2.0 mg/dL (1.7-2.2) 08/05/18 07:00 Total Bilirubin 0.3 mg/dL (0.2-1.3) 08/05/18 07:00 Direct Bilirubin 0.2 mg/dL (0.0-0.4) 08/05/18 07:00 AST 24 U/L (17-59) 08/05/18 07:00 ALT 26 U/L (7-56) 08/05/18 07:00 Alkaline Phosphatase 61 U/L (38-126) 08/05/18 07:00 Troponin I < 0.01 ng/mL 08/02/18 17:25 NT-Pro-B Natriuret Pep 422 pg/mL (0-450) 08/02/18 17:25 Total Protein 5.8 g/dL (5.8-8.3) 08/05/18 07:00 Albumin 2.9 g/dL (3.0-4.8) L 08/05/18 07:00 Globulin 2.9 gm/dL 08/05/18 07:00 Albumin/Globulin Ratio 1.0 (1.1-1.8) L 08/05/18 07:00 Venous Blood Potassium 3.8 mmol/L (3.6-5.2) 08/03/18 15:28 Urine Color Light yellow (YELLOW) 08/02/18 21:30 Urine Appearance Clear (CLEAR) 08/02/18 21:30 Urine pH 7.5 (4.7-8.0) 08/02/18 21:30 Ur Specific [place] 1.010 (1.005-1.035) 08/02/18 21:30 Urine Protein Negative mg/dL (<30 mg/dL) 08/02/18 21:30 Urine Glucose (UA) Negative mg/dL (NEGATIVE) 08/02/18 21:30 Urine Ketones Negative mg/dL (NEGATIVE) 08/02/18 21:30 Urine Blood Negative (NEGATIVE) 08/02/18 21:30 Urine Nitrate Negative (NEGATIVE) 08/02/18 21:30 Urine Bilirubin Negative (NEGATIVE) 08/02/18 21:30 Urine Urobilinogen 0.2 E.U./dL (<1 E.U./dL) 08/02/18 21:30 Ur Leukocyte Esterase Negative Jennifer/uL (NEGATIVE) 08/02/18 21:30 - Hospital Course Hospital Course: 73 year old male with a PMH of schizophrenia, anxiety, HTN who was initially admitted to psych unit on 08/01 and received ECT on 08/02/18 which he had tolerated without problems in the past. Post-op patient had shortness of dyspnea and hypotension and ENGRAVER WOOD was called and he was transferred to medical wards. Patient was treated for left foot abscess and lactic acidosis with improvement. ID was consulted and patient received IV Rocephin therapy, and was followed by Podiatry. Patient now returned to psych unit for continued treatment. Discharge Exam - Head Exam Head Exam: ATRAUMATIC, NORMAL INSPECTION - Eye Exam Eye Exam: EOMI, Normal appearance, PERRL Pupil Exam: NORMAL ACCOMODATION, PERRL - ENT Exam ENT Exam: Mucous Membranes Dry, Normal Exam - Neck Exam Neck exam: Full Rom - Respiratory Exam Respiratory Exam: NORMAL BREATHING PATTERN. absent: Respiratory Distress - Cardiovascular Exam Cardiovascular Exam: RRR, +S1, +S2 - GI/Abdominal Exam GI & Abdominal Exam: Normal Bowel Sounds, Soft. absent: Distended, Tenderness - Extremities Exam Extremities exam: full ROM Additional comments: L foot dressing c/d/i - Back Exam Back exam: FULL ROM, NORMAL INSPECTION - Neurological Exam Neurological exam: Alert, CN II-XII Intact, Normal Gait, Oriented x3, Reflexes Normal - Skin Skin Exam: Dry, Intact, Normal Color, Warm Discharge Plan - Follow Up Plan Condition: GUARDED Disposition: DISCHARGE TO PSYCH HOSPITAL Instructions: Hypokalemia (DC) Additional Instructions: DISCHARGE TO PSYCH AFTER TODAYS DOSE OF IV ABX Referrals: Janes Castañeda MD [Staff Provider] - Luh Cortez MD [Staff Provider] -
--- NOTE | 2018-08-07 04:23 | PN ---
DATE: 08/06/2018 SUBJECTIVE: The patient is seen earlier today in room 271, bed 1. No fevers. No chills. PHYSICAL EXAMINATION: VITAL SIGNS: Temperature is 98, blood pressure is 120/70, respiratory rate of 20. HEENT: Unremarkable. NECK: Supple. LUNGS: Decreased breath sounds. HEART: Normal S1 and S2. ABDOMEN: Soft, nontender. LABORATORY EXAMINATION: Reveals white count of 7.9, hemoglobin of 11, platelets of 215. Chemistries reveal BUN of 19, creatinine of 1.2. Blood cultures are negative. Urine cultures are negative. ASSESSMENT AND PLAN: A 73-year-old male who is seen earlier today in room 271, bed 1 with group A streptococcus left foot cellulitis, on ceftriaxone, may be able to switch to p.o. antibiotics. Discussed with . Brayan Vergara MD
--- NOTE | 2018-08-07 04:26 | DS ---
FINAL PROGRESS NOTE AND DISCHARGE SUMMARY HISTORY OF PRESENT ILLNESS: The patient is seen in room 271, bed 1. The patient is still on telemetry. Despite the patient's telemetry discontinued, overnight nurse's notes were reviewed. No adverse events were documented, notified or called for. The patient is seen and examined, lying in the bed. REVIEW OF SYSTEMS: A 14 system review was done. The patient has been episodically confused. Alert, awake, and responsive. Unable to recall year, date, and month. PHYSICAL EXAMINATION: VITAL SIGNS: T-max 98.2, pulse 66, blood pressure 127/68, respirations 18, and O2 sat 95%. HEENT: Head; normocephalic and atraumatic. HEENT examination shows pinkish conjunctivae. Anicteric sclerae. No oropharyngeal lesion. NECK: No neck rigidity. CHEST: Kyphosis. LUNGS: Shows no audible crackle, rales, or wheezing. CARDIOVASCULAR: S1 and S2, regular rhythm. No audible murmur, gallop or rub at this time. ABDOMEN: Soft. Positive bowel sounds. No palpable hepatosplenomegaly. GENITALIA: Male. RECTAL: Deferred. EXTREMITIES: Positive left foot dressing noted. No pitting edema. No calf tenderness. No Homans sign noted. Motor strength is 5/5 in upper and lower extremity. Gait examination is not tested. VASCULAR: Palpable pulses. MUSCULOSKELETAL: As per the body mass index. DIAGNOSTIC DATA: None from today. Psychiatric examination is as per the psychiatry evaluation. FINAL IMPRESSION, PLAN, AND DISCHARGE DIAGNOSES: 1. Status post rapid response. 2. Post electroconvulsive therapy, hypotension, hypoxemia, and tachycardia. 3. Hypokalemia. 4. Questionable systemic inflammatory response syndrome. 5. Transient leukocytosis. 6. Mild dementia. 7. Group A Streptococcus pyogenes left foot cellulitis and abscess. 8. Schizophrenia. 9. Status post electroconvulsive therapy. 10. Status post rhabdomyolysis (resolved). 11. Mild normocytic anemia. 12. History of Parkinson's disease. 13. Left foot abscess and cellulitis, status post incision and drainage with Masonic debridement. 14. History of hypertension and hyperlipidemia. 15. History of colonic adenoma. Plan at this time, the patient is going to receive last dose of IV antibiotics as per Infectious Disease recommendations and after that the patient has been cleared for discharge back to Psychiatry. DISCHARGE MEDICATIONS: Aricept 5 mg at bedtime, Ecotrin 81 mg daily, Protonix 40 mg daily, Lovenox 40 mg subcutaneously daily, Seroquel 75 mg in the morning and Seroquel 100 mg at bedtime, and the patient is to be continued on other medications as per the MAR of today. The patient after completion of the last dose of today's IV antibiotic, the patient has been ordered to be discharged to Psychiatry to under Dr. Luh Cortez's service. Time spent in the discharge process 45 minutes. Dictated and electronically signed, not read. Janes Castañeda MD
--- NOTE | 2018-08-07 14:35 | PQF ---
PROVIDER RESPONSE TEXT: Provider was unable to determine a response for this query. REVIEWER QUERY TEXT: Conflicting Documentation Clarification A single mention or documentation of multiple diagnoses for the same clinical presentation appears in the record. Please clarify the diagnosis/diagnoses. Please also document if the condition is: -- Confirmed and current -- Confirmed, treated and resolved -- Ruled out -- Other, please specify The patient's Clinical Indicators include: Query created by: Joanne Herndon on 08/07/2018 1:59 PM Electronically signed by: Stuart Morris 08/07/2018 2:32 PM
== END 2018-08-06 20:59 | DRG 872 ==
LOC: ED 17:15 → ERH 22:05 → 2RSO 23:33
PROVIDERS: ADMIT Internal Medicine; ATTEND Internal Medicine
DX: A41.9 Sepsis, unspecified organism (principal); F20.0 Paranoid schizophrenia; E87.2 Acidosis; L03.116 Cellulitis of left lower limb; L02.612 Cutaneous abscess of left foot; E87.6 Hypokalemia; I10 Essential (primary) hypertension; I95.9 Hypotension, unspecified; R00.0 Tachycardia, unspecified; M79.675 Pain in left toe(s); G20 Parkinson's disease; R42 Dizziness and giddiness; N40.0 Benign prostatic hyperplasia without lower urinary tract symptoms; F41.9 Anxiety disorder, unspecified; W19.XXXA Unspecified fall, initial encounter; D64.9 Anemia, unspecified; E78.00 Pure hypercholesterolemia, unspecified; E78.5 Hyperlipidemia, unspecified; F03.90 Unspecified dementia, unspecified severity, without behavioral disturbance, psychotic disturbance, mood disturbance, and anxiety; G47.30 Sleep apnea, unspecified; G93.89 Other specified disorders of brain; I73.9 Peripheral vascular disease, unspecified; K44.9 Diaphragmatic hernia without obstruction or gangrene; K57.90 Diverticulosis of intestine, part unspecified, without perforation or abscess without bleeding; M47.9 Spondylosis, unspecified; R09.02 Hypoxemia; R79.1 Abnormal coagulation profile; Z80.52 Family history of malignant neoplasm of bladder; Z82.3 Family history of stroke; Z82.49 Family history of ischemic heart disease and other diseases of the circulatory system; Z85.46 Personal history of malignant neoplasm of prostate

== ENCOUNTER 2018-08-06 20:59 | Inpatient (IN) | payer MEDICARE ==
[2018-08-06] MEDS ORDERED: Magnesium Hydroxide Susp 30 ml UD PO PRN (21:14)
[2018-08-06] MEDS ORDERED: Alum-Mag Hydrox-Simethicone Susp (30 mL) PO PRN (21:14)
--- NOTE | 2018-08-07 00:10 | PCM.BM ---
<Azra Ceballos C - Last Filed: 08/07/18 00:07> Treatment Plan Problems - Problems identified on initial assessmt ALTERED THOUGHT PROCESS Date Initiated: 08/06/18 Time Initiated: 21:00 Assessment reference: NA Status: Active Priority: 1 AUDITORY HALLUCINATION Date Initiated: 08/06/18 Time Initiated: 21:00 Assessment reference: NA Status: Active Priority: 2 INEFFECTIVE COPING Date Initiated: 08/06/18 Time Initiated: 21:00 Assessment reference: NA Status: Active Priority: 3 Treatment assets and liabiliti Patient Assests: cooperative, educated, insightful, motivated, self-reliant, good support system, negotiates basic needs, cognitively intact Patient Liabilities: live alone, physical pain, financial problems, medical problems - Milieu Protocol Maintain good personal hygiene: every other day Encourage regular showers, every shift Remind patient to perform daily oral care, every shift Assist patient to perform ADL's Maintain personal safety: every shift Educate patient to report safety concerns to staff, every shift Monitor environment for contraband/sharps Medication safety: Monitor for expected outcome, potential side effects: every shift, Assess barriers to learning: every shift, Assess readiness for medication education: every shift Family Contact Family involvement: Family/SO is involved Family contact: Patient agrees to contact Discharge/Continuing Care - Education Needs Education Needs: Patient Medication, Patient Diagnosis/Disease Process, Patient Coping Skills, Patient Placement options, Patient Community resources, Patient Activities of Daily Living, Patient Pain, Patient Uses of Medical Equipment, Patient Health Practices/Safety, Patient Personal Hygiene/Grooming, Patient Aftercare Safety Plan - Discharge Discharge Criteria: Tolerates medication w/o severe side effects, Free of paranoid thoughts, Free of agitation, Normal sleep pattern, Ability to care for self <Luh Cortez - Last Filed: 08/07/18 16:07> - Diagnosis (1) Schizophrenia Status: Acute Interventions: 08/07/18 16:07 Psychoeducation/psychotherapy Psychopharmacology/adjustment of medications as needed/ monitoring possible side effects Evaluate pt on daily basis Compliance with medications and follow up appointments ECT treatment Relapse prevention Reduction of symptoms Improve functional status Possible assertive community treatment Cognitive behavioral therapy Family involvement <Pallavi Jimenez - Last Filed: 08/08/18 16:05> Family Contact Family involvement: Family/SO is involved Family contact: Patient agrees to contact
[2018-08-07 00:34] VITALS: BMI 29.4
[2018-08-07] MEDS: Pantoprazole 40 mg EC Tab PO SCH (06:04)
--- NOTE | 2018-08-07 09:35 | CP.PCM.CON ---
History of Present Illness - History of Present Illness History of Present Illness: [facility] IM Consult Note for Dr. Castañeda Reason for consult: medical follow up Mr. Kramer is a 73 year old male with a PMH of schizophrenia, anxiety, HTN who is now admitted to psych unit for auditory hallucinations and altered thought process. Patient was initially admitted to psych unit on 08/01 and received ECT on 08/02/18 which he had tolerated without problems in the past. Post-op patient had shortness of dyspnea and hypotension and SMELTER OPERATOR was called and he was transferred to medical wards. Patient was treated for left foot abscess and lactic acidosis with improvement. Patient now returned to psych unit for continued treatment. Patient states that his leg discomfort is about the same, but denies any fevers/chills, abdominal pain or shortness of breath. 12-pt ROS was reviewed and is otherwise unremarkable. PMH: hypertension, schizophrenia, anxiety, hyperlipidemia, diverticulosis, arthritis PSH: tonsillectomy, colonoscopy with removal of precancerous polyp (2014) Medications: Reviewed as per MAR Allergies: NKDA SHx: denies alcohol, tobacco, illicit drug use FHx: father (cardiac arrhythmia, HTN), mother (cardiac arrhythmia, stroke, HTN), brother (bladder cancer) Review of Systems - Review of Systems All systems: reviewed and no additional remarkable complaints except (as per HPI) Past Patient History - Infectious Disease Hx of Infectious Diseases: None - Tetanus Immunizations Tetanus Immunization: Unknown - Past Medical History & Family History Past Medical History?: Yes - Past Social History Smoking Status: Never Smoked - CARDIAC Hx Hypertension: Yes - PULMONARY Hx Sleep Apnea: Yes - NEUROLOGICAL Hx Parkinson's Disease: Yes (Tremors) - HEENT Hx Glaucoma: Yes - RENAL Hx Chronic Kidney Disease: No - ENDOCRINE/METABOLIC Hx Diabetes Mellitus Type 1: Yes (borderline) - HEMATOLOGICAL/ONCOLOGICAL Hx Blood Disorders: No - INTEGUMENTARY Hx Dermatological Problems: No - MUSCULOSKELETAL/RHEUMATOLOGICAL Hx Arthritis: Yes - GASTROINTESTINAL Hx Gastrointestinal Disorders: No - GENITOURINARY/GYNECOLOGICAL Hx Incontinence: Yes Hx Prostate Problems: Yes (BPH) - PSYCHIATRIC Hx Depression: Yes Hx Substance Use: No - SURGICAL HISTORY Hx Surgeries: Yes (Tonsillectomy) - ANESTHESIA Hx Anesthesia Reactions: No Hx Malignant Hyperthermia: No Meds Allergies/Adverse Reactions: Allergies Allergy/AdvReac Type Severity Reaction Status Date / Time quinapril Allergy REDNESS Verified 08/06/18 23:35 - Medications Medications: Current Medications Acetaminophen (Tylenol 325mg Tab) 650 mg PO Q4H PRN PRN Reason: Pain, Mild (1-3) Al Hydrox/Mg Hydrox/Simethicone (Maalox Plus 30 Ml) 30 ml PO DAILY PRN PRN Reason: Upset Stomach Carbidopa/Levodopa (Sinemet) 1 tab PO DAILY [facility] Donepezil HCl (Aricept) 5 mg PO HS [facility] Last Admin: 08/06/18 21:27 Dose: 5 mg Enoxaparin Sodium (Lovenox) 40 mg SC DAILY [facility]; Protocol Magnesium Hydroxide (Milk Of Magnesia) 30 ml PO DAILY PRN PRN Reason: Constipation Mupirocin (Bactroban Ointment) 1 gm TOP BID [facility] Oxychlorosene Sodium (Clorpactin Wcs-90) 2 gm TOP DAILY [facility] Pantoprazole Sodium (Protonix Ec Tab) 40 mg PO 0600 [facility] Last Admin: 08/07/18 06:04 Dose: 40 mg Quetiapine Fumarate (Seroquel) 100 mg PO HS [facility]; Protocol Last Admin: 08/06/18 21:28 Dose: 100 mg Quetiapine Fumarate (Seroquel) 75 mg PO DAILY [facility]; Protocol Quetiapine Fumarate (Seroquel) 100 mg PO HS [facility]; Protocol Tamsulosin HCl (Flomax) 0.4 mg PO DAILY [facility] Physical Exam - Constitutional Appears: Well, Non-toxic, No Acute Distress - Head Exam Head Exam: ATRAUMATIC, NORMAL INSPECTION - Eye Exam Eye Exam: EOMI, Normal appearance - ENT Exam ENT Exam: Mucous Membranes Moist, Normal Exam - Neck Exam Neck exam: Positive for: Full Rom, Normal Inspection - Respiratory Exam Respiratory Exam: NORMAL BREATHING PATTERN. absent: Rales, Rhonchi, Wheezes - Cardiovascular Exam Cardiovascular Exam: RRR, +S1, +S2 - GI/Abdominal Exam GI & Abdominal Exam: Soft. absent: Distended, Tenderness - Extremities Exam Additional comments: resting hand tremor b/l left foot dressing c/d/i - Back Exam Back exam: NORMAL INSPECTION. absent: vertebral tenderness - Neurological Exam Neurological exam: Alert, Oriented x3 - Skin Skin Exam: Normal Color, Warm Results - Vital Signs Recent Vital Signs: Last Vital Signs Temp 97.9 F 08/07/18 07:00 Pulse 65 08/07/18 07:00 Resp 17 08/07/18 07:00 BP 124/77 08/07/18 07:00 Pulse Ox Assessment & Plan - Assessment and Plan (Free Text) Assessment: 73 year old male with a PMH of hypertension, hyperlipidemia, diverticulosis, paranoid schizophrenia, and arthritis admitted to psych for schizophrenia following medical admission for hypotension and sob following ECT. Patient received treatment for sepsis 2/2 L foot cellulitis. Osteomyelitis needs to be ruled out, however, patient has been refusing MRI. Plan: 1. Sepsis 2/2 L foot cellulitis - off Abx now - sepsis resolved - podiatry following, recs appreciated 2. Schizophrenia s/p ECT - Admitted to psych now - cont Seroquel 3. Parkinson's dementia - cont Aricept and Carb/Levodopa 4. PPX - Lovenox for DVT ppx - Protonix for GI ppx Further recs per Dr. Castañeda Case was reviewed and discussed with Dr. Castañeda
[2018-08-07] MEDS: Mupirocin 2% Ointment 15 GM TUBE TOP SCH ×2 (09:45→17:01)
[2018-08-07] MEDS: Enoxaparin 40 mg Syringe SC SCH (09:46)
[2018-08-07] MEDS: Oxychlorosene Topical 2 gm Packet TOP SCH (09:46)
--- NOTE | 2018-08-07 12:14 | CP.PCM.PN ---
<Stuart Morris - Last Filed: 08/07/18 12:10> Subjective - Date & Time of Evaluation Date of Evaluation: 08/07/18 Time of Evaluation: 12:10 - Subjective Subjective: Podiatry progress note - Dr. Ortiz/Tommy 73 year old male patient seen and evaluated 12 days s/p left foot incision and drainage with misonix debridement. Patient moved to Psych unit. Patient states that he didn't have pain to his L foot since yesterday. He denies any overnight chills/nausea/vomiting/fever/shortness of breath. Objective - Vital Signs/Intake and Output Vital Signs (last 24 hours): Temp Pulse Resp BP Pulse Ox 97.9 F 65 17 124/77 08/07/18 07:00 08/07/18 07:00 08/07/18 07:00 08/07/18 07:00 - Medications Medications: Current Medications Acetaminophen (Tylenol 325mg Tab) 650 mg PO Q4H PRN PRN Reason: Pain, Mild (1-3) Al Hydrox/Mg Hydrox/Simethicone (Maalox Plus 30 Ml) 30 ml PO DAILY PRN PRN Reason: Upset Stomach Carbidopa/Levodopa (Sinemet) 1 tab PO DAILY [facility] Last Admin: 08/07/18 09:45 Dose: 1 tab Donepezil HCl (Aricept) 5 mg PO HS [facility] Last Admin: 08/06/18 21:27 Dose: 5 mg Enoxaparin Sodium (Lovenox) 40 mg SC DAILY [facility]; Protocol Last Admin: 08/07/18 09:46 Dose: 40 mg Magnesium Hydroxide (Milk Of Magnesia) 30 ml PO DAILY PRN PRN Reason: Constipation Mupirocin (Bactroban Ointment) 1 gm TOP BID [facility] Last Admin: 08/07/18 09:45 Dose: 1 oin Oxychlorosene Sodium (Clorpactin Wcs-90) 2 gm TOP DAILY [facility] Last Admin: 08/07/18 09:46 Dose: 2 gm Pantoprazole Sodium (Protonix Ec Tab) 40 mg PO 0600 [facility] Last Admin: 08/07/18 06:04 Dose: 40 mg Quetiapine Fumarate (Seroquel) 100 mg PO HS [facility]; Protocol Last Admin: 08/06/18 21:28 Dose: 100 mg Quetiapine Fumarate (Seroquel) 75 mg PO DAILY [facility]; Protocol Last Admin: 08/07/18 09:44 Dose: 75 mg Tamsulosin HCl (Flomax) 0.4 mg PO DAILY [facility] Last Admin: 08/07/18 09:45 Dose: 0.4 mg - Constitutional Appears: Well, Non-toxic, No Acute Distress - Head Exam Head Exam: ATRAUMATIC, NORMOCEPHALIC - Extremities Exam Additional comments: LLE focused exam VASC: DP/PT pulses palpable 2/4; cap refill <3 seconds to all digits; temp gradient warm to warm; mild edema noted to the foot, improving. NEURO: Gross and protective sensation intact. DERM: Surgical site clean with minimal serous drainage, negative probe to bone, positive tunneling, Positive undermining, no malodor, no purulence appreciated. MSK: Mild pain upon palpation of the carito-wound area; No pain on calf compression. Muscle power intact 5/5 to all groups. - Neurological Exam Neurological Exam: Alert, Awake Assessment and Plan - Assessment and Plan (Free Text) Assessment: 73 year old male patient seen and evaluated 12 days s/p left foot incision and drainage with misonix debridement Plan: Patient seen and evaluated at bedside Plan discussed with Dr. Sanders Charts, labs and vitals reviewed: Afebrile, No leukocytosis. Intraop wound culture: Final, no growth L foot MRI - patient refused MRI as he is not able to be still during MRI Local wound care: surgical site flushed with normal sterile saline, Packed with Iodosorb packing and dressed with DSD Continue Abx per ID recs. Ordered PT evaluation and treatment. Ordered left forefoot wedge shoe. Patient to ambulate in the left forefoot wedge shoe. Will continue to follow up the patient while in house. <Patsy Sanders - Last Filed: 08/18/18 20:40> Objective - Vital Signs/Intake and Output Vital Signs (last 24 hours): Temp Pulse Resp BP Pulse Ox 97.9 F 91 H 20 113/68 97 08/17/18 07:23 08/17/18 16:00 08/17/18 07:23 08/17/18 16:00 08/15/18 11:32 - Labs Labs: 08/12/18 13:30 Attending/Attestation - Attestation I have personally seen and examined this patient.: Yes I have fully participated in the care of the patient.: Yes I have reviewed all pertinent clinical information, including history, physical exam and plan: Yes
--- NOTE | 2018-08-07 16:16 | PCM.PYCHPN ---
Psychiatric Progress Note - Psychiatric Progress Note Patient seen today, length of contact: 45min Patient Chief Complaint: "I did not know that I had a hallucinations, I thought it was real..." Problems Identified/Issues Discussed: ECT, treatment plan, symptoms. Medical Problems: parkinson's, left foot cellulitis and abscess, GERD, BPH Diagnostic Results: Vital Signs Temp Pulse Pulse Resp BP 08/07/18 07:00 97.9 F 65 17 124/77 08/06/18 22:00 68 20 08/06/18 21:31 98.9 F 68 20 122/74 DSM 5 Symptoms Update: Refer to the Psychiatric Assess & History-Initial dated 07/15/18 for this H & P. Reviewed, no changes Shortly, patient is a 72-year old male, reported history of schizophrenia, history of Parkinson's disease, denied previous history of psychiatric admissions, denied history of suicidal attempts, currently under care or of [facility] treatment, initially patient was found wandering in the community, barefoot, police brought patient to the emergency room, patient required medical admission for delirium, this automobile and property underwriter was involved in to the patient care due to severeness of mental illness, medication management, altered mental status, pt staid on the medical site 07/11-. Patient was medically stable, collateral information's were obtained from patient brother Abel, patient required further evaluation and stabilization in to the psychiatric inpatient unit and ECT treatment, pt got 3 ECT treatments at the psychiatric unit, tolerated well, pt staid in psych inpatient unit 07/14- 07/25/2018, unfortunately pt developed cellulitis and abscess of left foot and needed medical transfer for IV antibiotics, pt was on the medical floor 07/25- 08/01/18, this automobile and property underwriter spoke to PMD , ID , Hand Sizer , Neurologist , pt was safely transferred back to the psychiatric inpatient unit for further treatment, medication management and ECT treatment, pt agreed with the plan, pt's brother Abel was notified as well, pt staid in psychiatric inpatient unit 08/01/18-08/02/18, pt got ECT on 08/02/18, no complication, pt refused to eat at lunch after coming back from ECT, as a result pt was found to have hypotension, needed to be transferred back to the medical floor, where he staid 08/02/18-08/06/18, pt was transferred back to the psychiatric inpatient unit 08/06/18 uneventfully, please see 's note. Patient was seen today next to the nursing station. as per report from the nursing staff, pt was loud, angry and cursing from room, pt obviously was responding to internal stimuli, was observed talking madly with imaginary person, seemed like half way sleeping. pt then became apologetic. when was asked about this event pt said that he did not know that it was not real. he is hearing voices and voices are laughing at him, patient also reports that that he feels that people are judging him and he does not feel safe. Patient asked if this automobile and property underwriter truly believe that ECT is going to help him with his psychotic symptoms, this automobile and property underwriter educated patient about risk, benefits, alternatives of the medications as well as ECT treatment, patient agreed to have ECT 08/08/18. ECT #4 BL 08/02/18 this automobile and property underwriter increased frequency because last treatment pt had only 25% adequate seizures by MECTA, but clinically pt is slowly improving. pulse width 0.50msec, frequency 90Hz, duration 8,000sec, current 800mA, pt had about 10seconds of motor seizures, which was considered 25% adequate by MECTA analysis. anesthesiologist used 40mg succinylcholine, 30mg ketamine, 100mg propofol. will titrate ECT parameters accordingly. so far patient tolerates medications well, no side effects observed or reported, aims 0, no EPS. pt has resting tremor UE, affect is more reactive, pt was not able to walk due to Left foot abscess and dressing. Impression: As per history of schizophrenia, paranoid type Parkinson's disease Medication Change: No (ect 08/08/18) Consults ordered or reviewed: pt was seen by PMD assistant community manager see notes for more detailed info Mental Status Examination - Cognitive Function Orientation: Person, Place Memory: Intact Attention: Poor Concentration: Poor Association: Loose Fund of Knowledge: WNL - Mood Mood: Depressed, Anxious - Affect Affect: Constricted - Speech Speech: Appropriate (underproductive) - Formal Thought Process Formal Thought Process: Hallucinations, Delusions, Paranoia - Suicidal Ideation Suicidal Ideation: No - Homicidal Ideation Homicidal Ideation: No Goal/Treatment Plan - Goal/Treatment Plan Need for Continued Stay: Remain at risks for inpatient hospitalization, Severe depression anxiety, Discharge may exacerbated symptoms, Severe functional impairment Progress Toward Problem(s) and Goals/Treatment Plan: Milieu/structure/supportive therapy SW consultation for discharge plan and social issues Med management: Seroquel 75 mg in the morning, 100 mg within night and for psychosis Sonata needed for insomnia ECT treatment bilateral #4 08/02/2018 ECT tx #5 08/08/18 Family involvement, discussed with brother Abel ID f/u PMD f/u Podiatry f/u PT Follow up on labs Will monitor closely Pt was educated about risk/benefits and alternatives of medications, coping strategies (safety plan, suicide prevention), relapse prevention, importance of follow up with psychiatrist and therapist, stay away from drugs/alcohol/smoking Estimated Date of D/C: 08/13/18
--- NOTE | 2018-08-08 03:32 | CON ---
DATE: 08/07/2018 REQUESTING PHYSICIAN: Luh Cortez MD LOCATION: The patient has been now admitted to Psychiatry floor, 508, bed 1. The patient is seen and examined in room 508, bed 1. CODE STATUS: Full code. LIVING WILL: None. ADVANCED DIRECTIVE: None. Height is 5 feet 3 inches, weight is 166, body mass index is 29. ALLERGIES: TO QUINAPRIL. MEDICATIONS: The patient's active medications, Aricept 5 mg h.s., Bactroban cream to the affected area of the left foot, Clorpactin 2 g daily to the left foot, Flomax 0.4 mg daily, Lovenox 40 mg subcu daily for DVT prophylaxis, Maalox and Milk of Magnesia p.r.n., Protonix 40 mg daily for GI prophylaxis, Seroquel 100 mg h.s. and Seroquel 75 mg daily in the morning, Sinemet 25 -100 one tablet daily, Tylenol 650 p.o. every 4 hours p.r.n. for pain. VITAL SIGNS: T-max 97.9, heart rate 65, blood pressure 124/77. 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 FAMILY HISTORY: Positive for psychiatric disorder. PAST MEDICAL AND SURGICAL HISTORY: History of left foot Streptococcus pyogenes group A left foot cellulitis, abscess, status post incision and drainage and Misonix debridement; history of hyponatremia; history of hypokalemia; history of hypophosphatemia; history of cerebral cortical atrophy of the brain; history of schizophrenia; history of prostatic hypertrophy; history of depression; history of granulocytosis; history of hypertensive cardiovascular disease with left ventricular ejection fraction of 65 to 70%; history of dementia; history of toxic metabolic encephalopathy; history of psychotic spectrum disorder; history of Parkinson's disease with upper extremity tremors; history of asymptomatic sinus bradycardia; history of microvascular ischemic disease of the brain; history of cerebral cortical atrophy of the brain; history of right lower lobe pleural thickening; history of enlarged pulmonary artery; history of rhabdomyolysis with elevated CPK (resolved); history of hypomagnesemia; history of deconditioning; history of euvolemic hypo-osmolar hyponatremia; history of mild tricuspid regurgitation, mildly dilated left atrium; history of white matter ischemic disease of the brain with chronic microvascular ischemic disease of the brain; history of bilateral 20 to 39% proximal internal carotid artery stenosis; history of right lower lobe pleural calcification versus pleural effusion versus pleural thickening; history of aortic arch calcification; history of cardiomegaly; history of trace ketonuria; history of transaminitis; history of hypertension; history of anxiety disorder; history of colonic adenoma; history of diffuse esophageal mucosal thickening, esophagitis; history of asymptomatic sinus bradycardia; history of status post rhabdomyolysis with elevated CPK; history of encephalopathy, altered mental status, confusion, and disorientation, most likely early dementia; history of diverticulosis; history of degenerative joint disease; history of tonsillectomy; history of colonic polyp; history of gait dysfunction with nonweightbearing of the left lower extremity; history of questionable poor compliance; history of paranoid schizophrenia and Parkinson's disease; history of chronic microangiopathic changes of the brain; history of bilateral parapelvic cyst versus extrarenal pelvis; history of bilateral adrenal gland hypertrophy; history of elevated d-dimer of greater than 2300; history of recent Rapid Response called on psychiatry floor post ECT therapy with hypotension, tachycardia, hypoxemia; history of hiatal hernia with distal esophageal thickening; history of auditory hallucination; history of mild hypoalbuminemia; history of transient lactic acidosis; history of transient leukocytosis and granulocytosis; history of questionable systemic inflammatory response syndrome. PHYSICAL EXAMINATION: GENERAL: The patient was seen and examined in room 508. The patient is seen lying in the bed. The patient is comfortable, in no distress. The patient is alert, awake, oriented x1 to 2. HEENT: The patient's head examination, normocephalic, atraumatic. The patient was able to sit up without assistance. HENT examination shows pinkish conjunctivae. Anicteric sclerae. Dry oral mucosa. No neck rigidity. CHEST: Kyphosis. LUNGS: Shows no audible crackle, rales, or wheezing. ABDOMEN: Soft. Positive bowel sounds. No palpable hepatosplenomegaly. GENITALIA: Male. RECTAL: Deferred. EXTREMITIES: Shows positive left foot dressing. No drainage noted. No pitting edema of the left lower leg is noted. Vascular examination, palpable pulses. MUSCULOSKELETAL: Shows a body mass index of 29. NEUROLOGIC: Cranial nerves II through XII limited. Gait examination not tested as the patient is nonweightbearing on the left foot. PSYCHIATRIC: As per the psychiatrist. DIAGNOSTIC DATA: None. IMPRESSION: 1. Paranoid schizophrenia versus paranoid disorder. 2. Status post Rapid Response post electroconvulsive therapy with hypotension, hypoxemia, tachycardia. 3. Questionable systemic inflammatory response syndrome. 4. Streptococcus pyogenes group A left foot cellulitis and abscess, status post incision and drainage with Misonix debridement. 5. Status post hypokalemia, hypomagnesemia, hypophosphatemia, and hyponatremia. 6. Status post leukocytosis, granulocytosis. 7. Dementia with episodic confusion and disorientation. 8. History of rhabdomyolysis. 9. Mild normocytic anemia. 10. Parkinson's disease with upper extremity tremors. 11. History of hypertension and hyperlipidemia. 12. History of colonic polyp and colonic adenoma. 13. History of mild hypoalbuminemia. 14. Transient lactic acidosis. 15. Small hiatal hernia with distal esophageal thickening. 16. History of elevated d-dimer of greater than 2300. 17. Bilateral adrenal gland hypertrophy. 18. Bilateral parapelvic cyst versus extrarenal pelvis. 19. Degenerative joint disease of the spine. 20. Chronic microangiopathic disease of the brain. 21. 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 22. History of paranoid schizophrenia and Parkinson's disease. 23. Gait dysfunction with nonweightbearing status of the left foot. 24. History of depression. 25. History of diverticulosis. 26. History of euvolemic hypo-osmolar hyponatremia, etiology undetermined. 27. History of transient transaminitis. 28. History of cardiomegaly with enlarged pulmonary artery. 29. Right lower lobe pleural thickening and trace pleural effusion. 30. Bilateral 20 to 39% proximal internal carotid artery stenosis. 31. Chronic microvascular ischemic disease of the brain with cerebral cortical atrophy of the brain and ventriculomegaly. 32. Hypertensive cardiovascular disease with left ventricular ejection fraction of 65%. 33. History of mild tricuspid regurgitation with right ventricular systolic pressure of 33 mmHg. 34. Asymptomatic sinus bradycardia. 35. Deconditioning. 36. Right lower lobe pleural calcification versus pleural effusion versus pleural thickening. 37. White matter ischemic disease of the brain with chronic microvascular ischemic disease of the brain. 38. Mildly dilated left atrium with mild tricuspid regurgitation. 39. Prostatic hypertrophy. 40. Altered mental status with toxic metabolic encephalopathy. 41. Psychotic spectrum disorder. 42. History of anxiety, depression. PLAN: At this time, the patient is readmitted to Psychiatry floor under Dr. Cortez's service. The patient had the IV antibiotic treatment of the left foot group A Streptococcus pyogenes left foot cellulitis and abscess. The patient is presently on local wound care with podiatry consultation. 1. The patient is to be continued on Bactroban cream to the affected area of the left foot. 2. The patient is to be continued Clorpactin 2 g daily to the left foot. 3. The patient is to be continued on Aricept 5 mg h.s. 4. Flomax 0.4 mg daily. 5. Lovenox 40 mg subcu daily for DVT prophylaxis. 6. The patient is on Maalox and Milk of Magnesia p.r.n. 7. Protonix 40 mg daily. 8. The patient is on Seroquel 100 mg h.s. and Seroquel 75 mg daily in the morning. 9. The patient is on Sinemet 25-100 one tablet daily. 10. Tylenol 650 mg every 4 hours p.r.n. At present, the patient is to be continued on above therapeutic intervention with followup with Medicine and Podiatry. The patient's further management will be dependent upon the patient's clinical condition, hemodynamic status, and as per the patient's response to therapeutic intervention, as per the patient's diagnostic test results, and as per recommendation by Psychiatry, Medicine, Podiatry, etc. At present, the patient will also be requested for physical therapy, occupational therapy, ambulation therapy, gait therapy evaluation for nonweightbearing status of the left foot and left leg. Dictated and electronically signed, not read. Janes Castañeda MD
[2018-08-08] MEDS: Pantoprazole 40 mg EC Tab PO SCH (06:39)
[2018-08-08] MEDS ORDERED: Ketamine 10 mg/ml Inj (20 ml) ONE (09:01)
[2018-08-08] MEDS ORDERED: Propofol 10 mg/ml Inj (20 ML) ONE (09:02)
[2018-08-08] MEDS ORDERED: Succinylcholine 200 mg/10 ml Inj IV ONE (09:02)
--- NOTE | 2018-08-08 09:16 | PCM.PYCHPN ---
Psychiatric Progress Note - Psychiatric Progress Note Patient seen today, length of contact: 30min Patient Chief Complaint: "I had a sleepless night..." Problems Identified/Issues Discussed: ECT, treatment plan, symptoms. Medical Problems: parkinson's, left foot cellulitis and abscess, GERD, BPH Diagnostic Results: Vital Signs Temp Pulse Pulse Resp BP 08/07/18 07:00 97.9 F 65 17 124/77 08/06/18 22:00 68 20 08/06/18 21:31 98.9 F 68 20 122/74 DSM 5 Symptoms Update: Shortly, patient is a 72-year old male, reported history of schizophrenia, history of Parkinson's disease, denied previous history of psychiatric admissions, denied history of suicidal attempts, currently under care or of [facility] treatment, initially patient was found wandering in the community, barefoot, police brought patient to the emergency room, patient required medical admission for delirium, this speech writer was involved in to the patient care due to severeness of mental illness, medication management, altered mental status, pt staid on the medical site 07/11-. Patient was medically stable, collateral information's were obtained from patient brother Abel, patient required further evaluation and stabilization in to the psychiatric inpatient unit and ECT treatment, pt got 3 ECT treatments at the psychiatric unit, tolerated well, pt staid in psych inpatient unit 07/14- 07/25/2018, unfortunately pt developed cellulitis and abscess of left foot and needed medical transfer for IV antibiotics, pt was on the medical floor 07/25- 08/01/18, this speech writer spoke to PMD , ID , [employer] Shift Superintendent , Neurologist , pt was safely transferred back to the psychiatric inpatient unit for further treatment, medication management and ECT treatment, pt agreed with the plan, pt's brother Abel was notified as well, pt staid in psychiatric inpatient unit 08/01/18-08/02/18, pt got ECT on 08/02/18, no complication, pt refused to eat at lunch after coming back from ECT, as a result pt was found to have hypotension, needed to be transferred back to the medical floor, where he staid 08/02/18-08/06/18, pt was transferred back to the psychiatric inpatient unit 08/06/18 uneventfully, please see 's note. Patient was seen today in OR, pt was alert and oriented, pt presented to be calm and cooperative, said that he had restless night, because of "I was feeling anxious about the ECT", pt's hygiene is far from being ideal, pt was advised to take a shower, staff was advised to assist pt with shower, pt also was advised to eat breakfast because last ECT procedure pt did not eat and had a very low blood pressure. pt still hears voices laughing at him. pt signed consent for treatment, pt had a capacity to do so. ECT #4 BL 08/08/18 this speech writer increased frequency because last treatment pt had only 25% adequate seizures by MECTA, but clinically pt is slowly improving. pulse width 0.50msec, frequency 110Hz, duration 8,000sec, current 800mA, pt had about 5seconds of motor seizures, which was considered 17% adequate by MECTA analysis. anesthesiologist used 40mg succinylcholine, 30mg ketamine, 100mg propofol. will titrate ECT parameters accordingly, most likely next treatment will be with pulse width 1msec. so far patient tolerates medications well, no side effects observed or reported, aims 0, no EPS. pt has resting tremor UE, affect is more reactive, pt was not able to walk due to Left foot abscess and dressing. Impression: As per history of schizophrenia, paranoid type Parkinson's disease Medication Change: No (ect 08/08/18) Mental Status Examination - Cognitive Function Orientation: Person, Place Memory: Intact Attention: Poor (some improvement) Concentration: Poor (some improvement) Association: Loose Fund of Knowledge: WNL - Mood Mood: Depressed, Anxious - Affect Affect: Constricted - Speech Speech: Appropriate (underproductive) - Formal Thought Process Formal Thought Process: Hallucinations, Delusions, Paranoia (somewhat better) - Suicidal Ideation Suicidal Ideation: No - Homicidal Ideation Homicidal Ideation: No Goal/Treatment Plan - Goal/Treatment Plan Need for Continued Stay: Remain at risks for inpatient hospitalization, Severe depression anxiety, Discharge may exacerbated symptoms, Severe functional impairment Progress Toward Problem(s) and Goals/Treatment Plan: Milieu/structure/supportive therapy SW consultation for discharge plan and social issues Med management: Seroquel 75 mg in the morning, 100 mg within night and for psychosis Sonata needed for insomnia ECT treatment bilateral #4 08/02/2018 ECT tx #5 08/08/18, tolerated well Family involvement, discussed with brother Abel ID f/u PMD f/u Podiatry f/u PT Follow up on labs Will monitor closely Pt was educated about risk/benefits and alternatives of medications, coping strategies (safety plan, suicide prevention), relapse prevention, importance of follow up with psychiatrist and therapist, stay away from drugs/alcohol/smoking Estimated Date of D/C: 08/13/18
[2018-08-08] MEDS ORDERED: Lactated Ringer's 1,000 ML IV SCH (09:30)
[2018-08-08] MEDS: Mupirocin 2% Ointment 15 GM TUBE TOP SCH ×2 (10:50→17:55)
[2018-08-08] MEDS: Enoxaparin 40 mg Syringe SC SCH (12:17)
[2018-08-08] MEDS: Oxychlorosene Topical 2 gm Packet TOP SCH (12:37)
--- NOTE | 2018-08-08 13:30 | CP.PCM.PN ---
<Stuart Morris - Last Filed: 08/08/18 13:29> Subjective - Date & Time of Evaluation Date of Evaluation: 08/08/18 Time of Evaluation: 13:29 - Subjective Subjective: Podiatry progress note - Dr. Ortiz/Tommy 73 year old male patient seen and evaluated 13 days s/p left foot incision and drainage with misonix debridement. Patient was seen after he had an ECT today. Patient states that he didn't have pain to his L foot since yesterday. He denies any overnight chills/nausea/vomiting/fever/shortness of breath. Objective - Vital Signs/Intake and Output Vital Signs (last 24 hours): Temp Pulse Resp BP Pulse Ox 98.1 F 64 18 137/73 98 08/08/18 10:05 08/08/18 10:05 08/08/18 10:05 08/08/18 10:05 08/08/18 10:05 - Medications Medications: Current Medications Acetaminophen (Tylenol 325mg Tab) 650 mg PO Q4H PRN PRN Reason: Pain, Mild (1-3) Al Hydrox/Mg Hydrox/Simethicone (Maalox Plus 30 Ml) 30 ml PO DAILY PRN PRN Reason: Upset Stomach Carbidopa/Levodopa (Sinemet) 1 tab PO DAILY [facility] Last Admin: 08/08/18 10:49 Dose: 1 tab Donepezil HCl (Aricept) 5 mg PO HS [facility] Last Admin: 08/07/18 21:50 Dose: 5 mg Enoxaparin Sodium (Lovenox) 40 mg SC DAILY [facility]; Protocol Last Admin: 08/08/18 12:17 Dose: Not Given Magnesium Hydroxide (Milk Of Magnesia) 30 ml PO DAILY PRN PRN Reason: Constipation Mupirocin (Bactroban Ointment) 1 gm TOP BID [facility] Last Admin: 08/08/18 10:50 Dose: 1 oin Oxychlorosene Sodium (Clorpactin Wcs-90) 2 gm TOP DAILY [facility] Last Admin: 08/08/18 12:37 Dose: 2 gm Pantoprazole Sodium (Protonix Ec Tab) 40 mg PO 0600 [facility] Last Admin: 08/08/18 06:39 Dose: Not Given Quetiapine Fumarate (Seroquel) 100 mg PO HS [facility]; Protocol Last Admin: 08/07/18 21:50 Dose: 100 mg Quetiapine Fumarate (Seroquel) 75 mg PO DAILY [facility]; Protocol Last Admin: 08/08/18 10:49 Dose: 75 mg Tamsulosin HCl (Flomax) 0.4 mg PO DAILY [facility] Last Admin: 08/08/18 10:48 Dose: 0.4 mg - Constitutional Appears: Well, Non-toxic, No Acute Distress - Head Exam Head Exam: ATRAUMATIC - Extremities Exam Additional comments: LLE focused exam VASC: DP/PT pulses palpable 2/4; cap refill <3 seconds to all digits; temp gradi ent warm to warm; mild edema noted to the foot, improving. NEURO: Gross and protective sensation intact. DERM: Surgical site clean with minimal serous drainage, negative probe to bone, positive tunneling, Positive undermining, no malodor, no purulence appreciated. MSK: Mild pain upon palpation of the carito-wound area; No pain on calf compression. Muscle power intact 5/5 to all groups. - Neurological Exam Neurological Exam: Alert, Awake Assessment and Plan - Assessment and Plan (Free Text) Assessment: 73 year old male patient seen and evaluated 13 days s/p left foot incision and drainage with misonix debridement Plan: Patient seen and evaluated at bedside Plan discussed with Dr. Ortiz Charts, labs and vitals reviewed: Afebrile, No leukocytosis. Intraop wound culture: Final, no growth L foot MRI - patient refused MRI as he is not able to be still during MRI Local wound care: surgical site flushed with normal sterile saline, Packed with Iodosorb packing and dressed with DSD Continue Abx per ID recs. Ordered PT evaluation and treatment. Ordered left forefoot wedge shoe. Patient to ambulate in the left forefoot wedge shoe. Will continue to follow up the patient while in house. <Alfred rOtiz - Last Filed: 08/09/18 15:20> Objective - Vital Signs/Intake and Output Vital Signs (last 24 hours): Temp Pulse Resp BP Pulse Ox 98.1 F 67 20 131/77 98 08/09/18 07:14 08/09/18 07:14 08/09/18 07:14 08/09/18 07:14 08/08/18 10:05 - Medications Medications: Current Medications Acetaminophen (Tylenol 325mg Tab) 650 mg PO Q4H PRN PRN Reason: Pain, Mild (1-3) Al Hydrox/Mg Hydrox/Simethicone (Maalox Plus 30 Ml) 30 ml PO DAILY PRN PRN Reason: Upset Stomach Carbidopa/Levodopa (Sinemet) 1 tab PO DAILY [facility] Last Admin: 08/09/18 11:01 Dose: 1 tab Donepezil HCl (Aricept) 5 mg PO HS [facility] Last Admin: 08/08/18 22:21 Dose: 5 mg Enoxaparin Sodium (Lovenox) 40 mg SC DAILY [facility]; Protocol Last Admin: 08/09/18 11:01 Dose: 40 mg Magnesium Hydroxide (Milk Of Magnesia) 30 ml PO DAILY PRN PRN Reason: Constipation Mupirocin (Bactroban Ointment) 1 gm TOP BID [facility] Last Admin: 08/09/18 11:00 Dose: 1 oin Oxychlorosene Sodium (Clorpactin Wcs-90) 2 gm TOP DAILY [facility] Last Admin: 08/09/18 11:45 Dose: 2 gm Pantoprazole Sodium (Protonix Ec Tab) 40 mg PO 0600 [facility] Last Admin: 08/09/18 06:30 Dose: 40 mg Quetiapine Fumarate (Seroquel) 100 mg PO HS [facility]; Protocol Last Admin: 08/08/18 22:21 Dose: 100 mg Quetiapine Fumarate (Seroquel) 75 mg PO DAILY [facility]; Protocol Last Admin: 08/09/18 11:01 Dose: 75 mg Tamsulosin HCl (Flomax) 0.4 mg PO DAILY [facility] Last Admin: 08/09/18 11:00 Dose: 0.4 mg Attending/Attestation - Attestation I have personally seen and examined this patient.: Yes I have fully participated in the care of the patient.: Yes I have reviewed all pertinent clinical information, including history, physical exam and plan: Yes
--- NOTE | 2018-08-08 14:11 | PN ---
DATE: 08/08/2018 SUBJECTIVE: The patient is seen on psychiatry floor. The patient has been in room 508, bed 1. Overnight nurse's notes were reviewed. He was noted by the nurse to have some sexual preoccupation, which I was unable to substantiate. PHYSICAL EXAMINATION: VITAL SIGNS: T-max 98.3, pulse 75, blood pressure 134/75, respirations 20. GENERAL: The patient is alert, awake, responsive, follows commands. HEENT: Normocephalic, atraumatic. Examination shows pink conjunctivae. Anicteric sclerae. No oropharyngeal lesion. NECK: No neck rigidity. CHEST: Examination kyphosis. LUNGS: Examination shows no audible rales or wheezing. CARDIAC: S1, S2, regular rhythm. ABDOMEN: Soft, positive bowel sounds. No palpable hepatosplenomegaly. GENITALIA: Male. RECTAL: Examination is deferred. EXTREMITIES: No pitting edema. No calf tenderness. No Homans' sign. NEUROLOGIC: The patient is alert, awake, responsive; is able to move upper and lower extremity without any deficit. Motor strength is 5/5 in upper and lower extremity. Gait examination is not tested. The patient has a dressing of the left foot. The patient is nonweightbearing of the left foot and left lower extremity. IMPRESSION: 1. Paranoid schizophrenia. 2. Auditory hallucination. 3. Psychosis 4. Left foot group A Streptococcus pyogenes, left foot ulcer and abscess and cellulitis, status post incision and drainage with Misonix debridement 5. History of hypertension, hyperlipidemia. 6. Status post [employer]. 7. Status post post-electroconvulsive therapy hypotension, tachycardia, hypoxemia. 8. Deconditioning and gait dysfunction. 9. History of Parkinson's disease. 10. History of anxiety and depression. 11. Mild dementia. 12. Auditory hallucination. 13. History of mild anemia. PLAN: At this time, according to the nurse's notes, the patient is scheduled for ECT therapy either today or tomorrow. The patient's further management will be dependent upon the patient's clinical condition, hemodynamic status and as per the patient response to therapeutic intervention as per the patient's diagnostic test results and as per the patient's hemodynamic status and subjective and objective data. The patient will be continued on all the medications as per the MAR of today. The patient is to be continued on all the therapeutic intervention as per the MAR of today. The patient will be followed up by Podiatry and Medicine. While the patient is on psychiatry floor, the patient will be ordered physical therapy with nonweightbearing to the left foot. The patient will be continued on all the therapeutic intervention as per Psychiatry. Janes Castañeda MD
[2018-08-09] MEDS: Pantoprazole 40 mg EC Tab PO SCH (06:30)
--- NOTE | 2018-08-09 08:57 | CP.PCM.PN ---
Subjective - Date & Time of Evaluation Date of Evaluation: 08/09/18 Time of Evaluation: 08:37 - Subjective Subjective: John Costa PGY2 IM Progress Note for Dr. Castañeda Patient was seen and examined in psych unit. Patient has no complaints. He is tolerating his diet well. Objective - Vital Signs/Intake and Output Vital Signs (last 24 hours): Temp Pulse Resp BP Pulse Ox 98.1 F 67 20 131/77 98 08/09/18 07:14 08/09/18 07:14 08/09/18 07:14 08/09/18 07:14 08/08/18 10:05 - Medications Medications: Current Medications Acetaminophen (Tylenol 325mg Tab) 650 mg PO Q4H PRN PRN Reason: Pain, Mild (1-3) Al Hydrox/Mg Hydrox/Simethicone (Maalox Plus 30 Ml) 30 ml PO DAILY PRN PRN Reason: Upset Stomach Carbidopa/Levodopa (Sinemet) 1 tab PO DAILY [facility] Last Admin: 08/08/18 10:49 Dose: 1 tab Donepezil HCl (Aricept) 5 mg PO HS [facility] Last Admin: 08/08/18 22:21 Dose: 5 mg Enoxaparin Sodium (Lovenox) 40 mg SC DAILY [facility]; Protocol Last Admin: 08/08/18 12:17 Dose: Not Given Magnesium Hydroxide (Milk Of Magnesia) 30 ml PO DAILY PRN PRN Reason: Constipation Mupirocin (Bactroban Ointment) 1 gm TOP BID [facility] Last Admin: 08/08/18 17:55 Dose: 1 oin Oxychlorosene Sodium (Clorpactin Wcs-90) 2 gm TOP DAILY [facility] Last Admin: 08/08/18 12:37 Dose: 2 gm Pantoprazole Sodium (Protonix Ec Tab) 40 mg PO 0600 [facility] Last Admin: 08/09/18 06:30 Dose: 40 mg Quetiapine Fumarate (Seroquel) 100 mg PO HS [facility]; Protocol Last Admin: 08/08/18 22:21 Dose: 100 mg Quetiapine Fumarate (Seroquel) 75 mg PO DAILY [facility]; Protocol Last Admin: 08/08/18 10:49 Dose: 75 mg Tamsulosin HCl (Flomax) 0.4 mg PO DAILY [facility] Last Admin: 08/08/18 10:48 Dose: 0.4 mg - Constitutional Appears: Well, Non-toxic, No Acute Distress - Head Exam Head Exam: ATRAUMATIC, NORMAL INSPECTION - Eye Exam Eye Exam: EOMI, Normal appearance - ENT Exam ENT Exam: Mucous Membranes Moist, Normal Exam - Neck Exam Neck Exam: Full ROM, Normal Inspection - Respiratory Exam Respiratory Exam: NORMAL BREATHING PATTERN. absent: Respiratory Distress - Cardiovascular Exam Cardiovascular Exam: RRR, +S1, +S2 - GI/Abdominal Exam GI & Abdominal Exam: Soft. absent: Distended, Tenderness - Extremities Exam Extremities Exam: Full ROM Additional comments: L foot dressing c/d/i - Neurological Exam Neurological Exam: Alert, Awake - Skin Skin Exam: Intact, Warm Assessment and Plan - Assessment and Plan (Free Text) Assessment: 73 year old male with a PMH of hypertension, hyperlipidemia, diverticulosis, paranoid schizophrenia, and arthritis admitted to psych for schizophrenia following medical admission for hypotension and sob following ECT. Patient received treatment for sepsis 2/2 L foot cellulitis. Plan: 1. Sepsis 2/2 L foot cellulitis - off Abx now - sepsis resolved - podiatry following, recs appreciated 2. Schizophrenia s/p ECT - Admitted to psych now - cont Seroquel 3. Parkinson's dementia - cont Aricept and Carb/Levodopa 4. PPX - Lovenox for DVT ppx - Protonix for GI ppx Further recs per Dr. Castañeda Case was reviewed and discussed with Dr. Castañeda
[2018-08-09] MEDS: Mupirocin 2% Ointment 15 GM TUBE TOP SCH ×2 (11:00→16:24)
[2018-08-09] MEDS: Enoxaparin 40 mg Syringe SC SCH (11:01)
--- NOTE | 2018-08-09 11:41 | PN ---
DATE: 08/09/2018 SUBJECTIVE: The patient is seen on Psychiatry floor 508, bed one. Overnight nurse's notes were reviewed. The patient noted to have auditory and visual hallucination. The patient was noted by the nurses to be questionable incontinent of urine in the bed. The patient underwent ECG yesterday without any adverse event at this time. PHYSICAL EXAMINATION: VITAL SIGNS: T-max 98.1, pulse 84, blood pressure 117/74, there was a blood pressure documented 82/50, but repeat blood pressure was 117/74, respirations 18, O2 sat 98%. HEENT: Head examination normocephalic, atraumatic. HEENT examination shows pink conjunctivae. Anicteric sclerae. No oropharyngeal lesion. No neck rigidity. CHEST: Kyphosis. LUNGS: Shows no audible crackle, rales or wheezing. CARDIOVASCULAR: S1, S2, regular rhythm. ABDOMEN: Soft, positive bowel sounds. No palpable hepatosplenomegaly. GENITALIA: Male. RECTAL: Deferred. EXTREMITIES: Shows positive left foot dressing, no pitting edema, no calf tenderness, no Homans' sign. NEUROLOGIC: The patient is alert, awake, responsive, is able to move upper and lower extremity without assistance. Gait examination is not tested. The patient is nonweightbearing to the left foot. He is able to sit up from the lying position without assistance. PSYCHIATRIC: As per Psychiatry. DIAGNOSTIC DATA: None. IMPRESSION AND PLAN: 1. Status post electroconvulsive therapy. 2. Questionable transient hypotension. 3. Parkinson's disease. 4. Paranoid schizophrenia and paranoid disorder. 5. Psychosis. 6. Auditory hallucination. 7. Depression. 8. Mild dementia. 9. Group A streptococcus pyogenes, left foot cellulitis and abscess, status post incision and drainage and Misonix debridement. 10. Gait dysfunction secondary to nonweightbearing of the left foot. 11. History of hypertension, hyperlipidemia. 12. Status post rhabdomyolysis. 13. Status post hypotension, tachycardia, hypoxemia. 14. Mild normocytic anemia. 15. Questionable esophagitis. 16. Hypertensive cardiovascular disease. 17. Deconditioning. PLAN: At this time, the patient is to be continued on psychiatry floor with continued psychiatric intervention and diagnostic therapeutic intervention. The patient is currently to be continued on all the medications as per the [facility]. The patient's current consultation has been followed up by Podiatry and Medicine. The patient will be monitored closely with subjective and objective data. The patient will be followed up on the psychiatry floor till the patient is inpatient. The patient's discharge disposition depends upon the patient's family's choice and options available. It seems that due to patient's multiple psychiatric comorbidities, the patient may benefit from 24-hour care and supervision depending upon the patient's family's and next of kin decision and acceptance of the discharge options. Janes Castañeda MD
[2018-08-09] MEDS: Oxychlorosene Topical 2 gm Packet TOP SCH (11:45)
--- NOTE | 2018-08-09 13:26 | CP.PCM.PN ---
<Stuart Morris - Last Filed: 08/09/18 13:22> Subjective - Date & Time of Evaluation Date of Evaluation: 08/09/18 Time of Evaluation: 13:22 - Subjective Subjective: Podiatry progress note - Dr. Ortiz/Tommy 73 year old male patient seen and evaluated 13 days s/p left foot incision and drainage with misonix debridement. Patient was seen after he had an ECT today. Patient states that he didn't have pain to his L foot since yesterday. He denies any overnight chills/nausea/vomiting/fever/shortness of breath. Objective - Vital Signs/Intake and Output Vital Signs (last 24 hours): Temp Pulse Resp BP Pulse Ox 98.1 F 67 20 131/77 98 08/09/18 07:14 08/09/18 07:14 08/09/18 07:14 08/09/18 07:14 08/08/18 10:05 - Medications Medications: Current Medications Acetaminophen (Tylenol 325mg Tab) 650 mg PO Q4H PRN PRN Reason: Pain, Mild (1-3) Al Hydrox/Mg Hydrox/Simethicone (Maalox Plus 30 Ml) 30 ml PO DAILY PRN PRN Reason: Upset Stomach Carbidopa/Levodopa (Sinemet) 1 tab PO DAILY [facility] Last Admin: 08/09/18 11:01 Dose: 1 tab Donepezil HCl (Aricept) 5 mg PO HS [facility] Last Admin: 08/08/18 22:21 Dose: 5 mg Enoxaparin Sodium (Lovenox) 40 mg SC DAILY [facility]; Protocol Last Admin: 08/09/18 11:01 Dose: 40 mg Magnesium Hydroxide (Milk Of Magnesia) 30 ml PO DAILY PRN PRN Reason: Constipation Mupirocin (Bactroban Ointment) 1 gm TOP BID [facility] Last Admin: 08/09/18 11:00 Dose: 1 oin Oxychlorosene Sodium (Clorpactin Wcs-90) 2 gm TOP DAILY [facility] Last Admin: 08/09/18 11:45 Dose: 2 gm Pantoprazole Sodium (Protonix Ec Tab) 40 mg PO 0600 [facility] Last Admin: 08/09/18 06:30 Dose: 40 mg Quetiapine Fumarate (Seroquel) 100 mg PO HS [facility]; Protocol Last Admin: 08/08/18 22:21 Dose: 100 mg Quetiapine Fumarate (Seroquel) 75 mg PO DAILY [facility]; Protocol Last Admin: 08/09/18 11:01 Dose: 75 mg Tamsulosin HCl (Flomax) 0.4 mg PO DAILY [facility] Last Admin: 08/09/18 11:00 Dose: 0.4 mg - Constitutional Appears: Well, Non-toxic, No Acute Distress - Head Exam Head Exam: NORMOCEPHALIC - Extremities Exam Additional comments: LLE focused exam VASC: DP/PT pulses palpable 2/4; cap refill <3 seconds to all digits; temp gradient warm to warm; mild edema noted to the foot, improving. NEURO: Gross and protective sensation intact. DERM: Surgical site clean with no drainage, negative probe to bone, positive tunneling, Positive undermining, no malodor, no purulence appreciated. MSK: Mild pain upon palpation of the carito-wound area; No pain on calf compression. Muscle power intact 5/5 to all groups. - Neurological Exam Neurological Exam: Alert, Awake Assessment and Plan - Assessment and Plan (Free Text) Assessment: 73 year old male patient seen and evaluated 13 days s/p left foot incision and drainage with misonix debridement Plan: Patient seen and evaluated at bedside Plan discussed with Dr. Sanders Charts, labs and vitals reviewed: Afebrile, No leukocytosis. Intraop wound culture: Final, no growth L foot MRI - patient refused MRI as he is not able to be still during MRI Local wound care: surgical site flushed with normal Chloropectin, Packed with Iodosorb packing and dressed with DSD Continue Abx per ID recs. Ordered PT evaluation and treatment. Ordered left forefoot wedge shoe. Patient to ambulate in the left forefoot wedge shoe. Patient needs daily dressing change with wound flush using sterile saline and p acking using Iodosorb. Will continue to follow up the patient while in house. <Patsy Sanders - Last Filed: 08/18/18 20:39> Objective - Vital Signs/Intake and Output Vital Signs (last 24 hours): Temp Pulse Resp BP Pulse Ox 97.9 F 91 H 20 113/68 97 08/17/18 07:23 08/17/18 16:00 08/17/18 07:23 08/17/18 16:00 08/15/18 11:32 - Labs Labs: 08/12/18 13:30 Attending/Attestation - Attestation I have personally seen and examined this patient.: Yes I have fully participated in the care of the patient.: Yes I have reviewed all pertinent clinical information, including history, physical exam and plan: Yes
--- NOTE | 2018-08-09 15:34 | PCM.PYCHPN ---
Psychiatric Progress Note - Psychiatric Progress Note Patient seen today, length of contact: 30min Patient Chief Complaint: "I had a fantasies..." Problems Identified/Issues Discussed: ECT, treatment plan, symptoms. Medical Problems: parkinson's, left foot cellulitis and abscess, GERD, BPH Diagnostic Results: Vital Signs Temp Pulse Pulse Resp BP 08/07/18 07:00 97.9 F 65 17 124/77 08/06/18 22:00 68 20 08/06/18 21:31 98.9 F 68 20 122/74 DSM 5 Symptoms Update: Shortly, patient is a 72-year old male, reported history of schizophrenia, history of Parkinson's disease, denied previous history of psychiatric admissions, denied history of suicidal attempts, currently under care or of [facility] treatment, initially patient was found wandering in the community, barefoot, police brought patient to the emergency room, patient required medical admission for delirium, this typewriter aligner was involved in to the patient care due to severeness of mental illness, medication management, altered mental status, pt staid on the medical site 07/11-. Patient was medically stable, collateral information's were obtained from patient brother Abel, patient required further evaluation and stabilization in to the psychiatric inpatient unit and ECT treatment, pt got 3 ECT treatments at the psychiatric unit, tolerated well, pt staid in psych inpatient unit 07/14- 07/25/2018, unfortunately pt developed cellulitis and abscess of left foot and needed medical transfer for IV antibiotics, pt was on the medical floor 07/25- 08/01/18, this typewriter aligner spoke to PMD , ID , [employer] , Neurologist , pt was safely transferred back to the psychiatric inpatient unit for further treatment, medication management and ECT treatment, pt agreed with the plan, pt's brother Abel was notified as well, pt staid in psychiatric inpatient unit 08/01/18-08/02/18, pt got ECT on 08/02/18, no complication, pt refused to eat at lunch after coming back from ECT, as a result pt was found to have hypotension, needed to be transferred back to the medical floor, where he staid 08/02/18-08/06/18, pt was transferred back to the psychiatric inpatient unit 08/06/18 uneventfully, please see 's note. Patient was seen today in the dinning area. pt said that "I have a fantasies..., it is hard to explain..." later on pt said that he heard his brother's voice telling him to undress and be naked... pt did not follow of voice instruction, aware it is hallucination. pt has residual symptoms of schizophrenia. pt has ECT scheduled tomorrow. NPO after midnight. pt tolerated ECT well, no problems at the facility, no memory issues. ECT #4 BL 08/08/18 this typewriter aligner increased frequency because last treatment pt had only 25% adequate seizures by MECTA, but clinically pt is slowly improving. pulse width 0.50msec, frequency 110Hz, duration 8,000sec, current 800mA, pt had about 5seconds of motor seizures, which was considered 17% adequate by MECTA analysis. anesthesiologist used 40mg succinylcholine, 30mg ketamine, 100mg propofol. will titrate ECT parameters accordingly, most likely next treatment will be with pulse width 1msec. so far patient tolerates medications well, no side effects observed or reported, aims 0, no EPS. pt has resting tremor UE, affect is more reactive, pt was not able to walk due to Left foot abscess and dressing. Discussed with Dr. Sanders today, abscesses very deep, patient needs dressing on daily basis, most likely patient would required subacute rehab. Impression: As per history of schizophrenia, paranoid type Parkinson's disease Medication Change: No (ect 08/10/18) Mental Status Examination - Cognitive Function Orientation: Person, Place Memory: Intact Attention: Poor (some improvement) Concentration: Poor (some improvement) Association: Loose Fund of Knowledge: WNL - Mood Mood: Depressed, Anxious - Affect Affect: Constricted - Speech Speech: Appropriate (underproductive) - Formal Thought Process Formal Thought Process: Hallucinations, Delusions, Paranoia (somewhat better) - Suicidal Ideation Suicidal Ideation: No - Homicidal Ideation Homicidal Ideation: No Goal/Treatment Plan - Goal/Treatment Plan Need for Continued Stay: Remain at risks for inpatient hospitalization, Severe depression anxiety, Discharge may exacerbated symptoms, Severe functional impairment Progress Toward Problem(s) and Goals/Treatment Plan: Milieu/structure/supportive therapy SW consultation for discharge plan and social issues Med management: Tael 75 mg in the morning, 100 mg within night and for psychosis Sonata needed for insomnia ECT treatment bilateral #4 08/02/2018 ECT tx #5 08/08/18, tolerated well ECT #6 08/10/18 N.p.o. after midnight Family involvement, discussed with brother Abel ID f/u PMD f/u Podiatry f/u PT Follow up on labs Will monitor closely Pt was educated about risk/benefits and alternatives of medications, coping strategies (safety plan, suicide prevention), relapse prevention, importance of follow up with psychiatrist and therapist, stay away from drugs/alcohol/smoking Estimated Date of D/C: 08/13/18
[2018-08-10] MEDS: Pantoprazole 40 mg EC Tab PO SCH (06:05)
[2018-08-10] MEDS ORDERED: Propofol 10 mg/ml Inj (20 ML) ONE (08:00)
[2018-08-10] MEDS ORDERED: Succinylcholine 200 mg/10 ml Inj IV ONE (08:01)
[2018-08-10] MEDS ORDERED: Sodium Chloride 0.9% 1,000 ML IV SCH (08:30)
[2018-08-10] MEDS ORDERED: Ketamine 10 mg/ml Inj (20 ml) ONE (08:38)
--- NOTE | 2018-08-10 08:55 | PCM.PYCHPN ---
Psychiatric Progress Note - Psychiatric Progress Note Patient seen today, length of contact: 30min Patient Chief Complaint: "I am little anxious, but not that bad..." Problems Identified/Issues Discussed: ECT, treatment plan, symptoms. Medical Problems: parkinson's, left foot cellulitis and abscess, GERD, BPH Diagnostic Results: Vital Signs Temp Pulse Pulse Resp BP 08/07/18 07:00 97.9 F 65 17 124/77 08/06/18 22:00 68 20 08/06/18 21:31 98.9 F 68 20 122/74 DSM 5 Symptoms Update: Shortly, patient is a 72-year old male, reported history of schizophrenia, history of Parkinson's disease, denied previous history of psychiatric admissions, denied history of suicidal attempts, currently under care or of [facility] treatment, initially patient was found wandering in the community, barefoot, police brought patient to the emergency room, patient required medical admission for delirium, this chief writer was involved in to the patient care due to severeness of mental illness, medication management, altered mental status, pt staid on the medical site 07/11-. Patient was medically stable, collateral information's were obtained from patient brother Abel, patient required further evaluation and stabilization in to the psychiatric inpatient unit and ECT treatment, pt got 3 ECT treatments at the psychiatric unit, tolerated well, pt staid in psych inpatient unit 07/14- 07/25/2018, unfortunately pt developed cellulitis and abscess of left foot and needed medical transfer for IV antibiotics, pt was on the medical floor 07/25- 08/01/18, this chief writer spoke to PMD , ID , Cannery Worker , Neurologist , pt was safely transferred back to the psychiatric inpatient unit for further treatment, medication management and ECT treatment, pt agreed with the plan, pt's brother Abel was notified as well, pt staid in psychiatric inpatient unit 08/01/18-08/02/18, pt got ECT on 08/02/18, no complication, pt refused to eat at lunch after coming back from ECT, as a result pt was found to have hypotension, needed to be transferred back to the medical floor, where he staid 08/02/18-08/06/18, pt was transferred back to the psychiatric inpatient unit 08/06/18 uneventfully, please see 's note. Patient was seen today in OR, pt was alert and oriented, pt presented to be calm and cooperative, said that he had a good night sleep "I am little anxious, but not that bad", pt's hygiene is slowly improving, pt took a shower yesterday, pt also was advised to eat breakfast because last ECT procedure pt did not eat and had a very low blood pressure. pt said that he has "fantasies, it is hard to explain..", yesterday pt said that he heard his brother voiced saying to go to his room and be naked, but pt did not act on the command type hallucinations, has good insight into his psychosis. pt signed consent for treatment, pt had a capacity to do so. correction to my previous note, today ECT #6 not #5 BL 08/10/18 this chief writer increased frequency because last treatment pt had only 17% adequate seizures by MECTA, but clinically pt is slowly improving. pulse width 1.0msec,frequency 40, duration 8.000sec, current 800, , pt had about 12seconds of motor seizures, which was considered 41% adequate by MECTA analysis. anesthesiologist used 40mg succinylcholine, 30mg ketamine, 100mg propofol. will titrate ECT parameters accordingly, most likely next treatment will be with pulse width 1msec, will increase frequency to 45. so far patient tolerates medications well, no side effects observed or reported, aims 0, no EPS. pt has resting tremor UE, affect is more reactive, pt was not able to walk due to Left foot abscess and dressing. Impression: As per history of schizophrenia, paranoid type Parkinson's disease Medication Change: No (ect 08/10/18) Consults ordered or reviewed: pt was seen by PMD correctional therapy director (discussed 08/08/18) see notes for more detailed info Mental Status Examination - Cognitive Function Orientation: Person, Place Memory: Intact Attention: Poor (some improvement) Concentration: Poor (some improvement) Association: Loose Fund of Knowledge: WNL - Mood Mood: Depressed, Anxious - Affect Affect: Constricted - Speech Speech: Appropriate (underproductive) - Formal Thought Process Formal Thought Process: Hallucinations, Delusions, Paranoia (somewhat better) - Suicidal Ideation Suicidal Ideation: No - Homicidal Ideation Homicidal Ideation: No Goal/Treatment Plan - Goal/Treatment Plan Need for Continued Stay: Remain at risks for inpatient hospitalization, Severe depression anxiety, Discharge may exacerbated symptoms, Severe functional impairment Progress Toward Problem(s) and Goals/Treatment Plan: Milieu/structure/supportive therapy SW consultation for discharge plan and social issues Med management: Seroquel 75 mg in the morning, 100 mg within night and for psychosis Sonata needed for insomnia ECT treatment bilateral #4 08/02/2018 ECT tx #5 08/08/18, tolerated well ECT #6 08/10/18 ECT #7 08/14/18 N.p.o. after midnight Family involvement, discussed with brother Abel ID f/u PMD f/u Podiatry f/u PT Follow up on labs Will monitor closely Pt was educated about risk/benefits and alternatives of medications, coping strategies (safety plan, suicide prevention), relapse prevention, importance of follow up with psychiatrist and therapist, stay away from drugs/alcohol/smoking Estimated Date of D/C: 08/13/18
[2018-08-10] MEDS: Mupirocin 2% Ointment 15 GM TUBE TOP SCH ×2 (10:30→18:07)
[2018-08-10] MEDS: Enoxaparin 40 mg Syringe SC SCH (10:31)
[2018-08-10] MEDS: Oxychlorosene Topical 2 gm Packet TOP SCH (11:20)
--- NOTE | 2018-08-10 12:30 | CP.PCM.PN ---
<Stuart Morris - Last Filed: 08/10/18 12:28> Subjective - Date & Time of Evaluation Date of Evaluation: 08/10/18 Time of Evaluation: 12:28 - Subjective Subjective: Podiatry progress note - Dr. Ortiz/Tommy 73 year old male patient seen and evaluated with Dr. Ortiz 14 days s/p left foot incision and drainage with misonix debridement. Patient states that he didn't have pain to his L foot since yesterday. He denies any overnight chills/nausea/vomiting/fever/shortness of breath. Objective - Vital Signs/Intake and Output Vital Signs (last 24 hours): Temp Pulse Resp BP Pulse Ox 97.9 F 71 17 156/85 H 99 08/10/18 10:00 08/10/18 10:00 08/10/18 10:00 08/10/18 10:00 08/10/18 10:00 - Medications Medications: Current Medications Acetaminophen (Tylenol 325mg Tab) 650 mg PO Q4H PRN PRN Reason: Pain, Mild (1-3) Al Hydrox/Mg Hydrox/Simethicone (Maalox Plus 30 Ml) 30 ml PO DAILY PRN PRN Reason: Upset Stomach Carbidopa/Levodopa (Sinemet) 1 tab PO DAILY [facility] Last Admin: 08/10/18 10:30 Dose: 1 tab Donepezil HCl (Aricept) 5 mg PO HS [facility] Last Admin: 08/09/18 22:02 Dose: 5 mg Enoxaparin Sodium (Lovenox) 40 mg SC DAILY [facility]; Protocol Last Admin: 08/10/18 10:31 Dose: 40 mg Magnesium Hydroxide (Milk Of Magnesia) 30 ml PO DAILY PRN PRN Reason: Constipation Mupirocin (Bactroban Ointment) 1 gm TOP BID [facility] Last Admin: 08/10/18 10:30 Dose: 1 oin Oxychlorosene Sodium (Clorpactin Wcs-90) 2 gm TOP DAILY [facility] Last Admin: 08/09/18 11:45 Dose: 2 gm Pantoprazole Sodium (Protonix Ec Tab) 40 mg PO 0600 [facility] Last Admin: 08/10/18 06:05 Dose: Not Given Quetiapine Fumarate (Seroquel) 100 mg PO HS [facility]; Protocol Last Admin: 08/09/18 22:02 Dose: 100 mg Quetiapine Fumarate (Seroquel) 75 mg PO DAILY [facility]; Protocol Last Admin: 08/10/18 10:30 Dose: 75 mg Tamsulosin HCl (Flomax) 0.4 mg PO DAILY [facility] Last Admin: 08/10/18 10:30 Dose: 0.4 mg - Constitutional Appears: Non-toxic, No Acute Distress - Head Exam Head Exam: ATRAUMATIC - Extremities Exam Additional comments: LLE focused exam VASC: DP/PT pulses palpable 2/4; cap refill <3 seconds to all digits; temp gradient warm to warm; mild edema noted to the foot, improving. NEURO: Gross and protective sensation intact. DERM: Surgical site clean with no drainage, negative probe to bone, positive tunneling, Positive undermining, no malodor, no purulence appreciated. MSK: Mild pain upon palpation of the carito-wound area; No pain on calf compression. Muscle power intact 5/5 to all groups. - Neurological Exam Neurological Exam: Alert, Awake Assessment and Plan - Assessment and Plan (Free Text) Assessment: 73 year old male patient seen and evaluated 14 days s/p left foot incision and drainage with misonix debridement Plan: Patient seen and evaluated at bedside Plan discussed with Dr. Ortiz Charts, labs and vitals reviewed: Afebrile, No leukocytosis. Intraop wound culture: Final, no growth L foot MRI - patient refused MRI as he is not able to be still during MRI Local wound care: surgical site flushed with normal Chloropectin, Packed with Iodosorb packing and dressed with DSD Continue Abx per ID recs. Ordered PT evaluation and treatment. Ordered left forefoot wedge shoe. Patient to ambulate in the left forefoot wedge shoe. Patient needs daily dressing change with wound flush using sterile saline and packing using Iodosorb. Will continue to follow up the patient while in house. <Alfred Ortiz - Last Filed: 08/10/18 16:43> Objective - Vital Signs/Intake and Output Vital Signs (last 24 hours): Temp Pulse Resp BP Pulse Ox 97.9 F 71 17 156/85 H 99 08/10/18 10:00 08/10/18 10:00 08/10/18 10:00 08/10/18 10:00 08/10/18 10:00 - Medications Medications: Current Medications Acetaminophen (Tylenol 325mg Tab) 650 mg PO Q4H PRN PRN Reason: Pain, Mild (1-3) Al Hydrox/Mg Hydrox/Simethicone (Maalox Plus 30 Ml) 30 ml PO DAILY PRN PRN Reason: Upset Stomach Carbidopa/Levodopa (Sinemet) 1 tab PO DAILY [facility] Last Admin: 08/10/18 10:30 Dose: 1 tab Donepezil HCl (Aricept) 5 mg PO HS [facility] Last Admin: 08/09/18 22:02 Dose: 5 mg Enoxaparin Sodium (Lovenox) 40 mg SC DAILY [facility]; Protocol Last Admin: 08/10/18 10:31 Dose: 40 mg Magnesium Hydroxide (Milk Of Magnesia) 30 ml PO DAILY PRN PRN Reason: Constipation Mupirocin (Bactroban Ointment) 1 gm TOP BID [facility] Last Admin: 08/10/18 10:30 Dose: 1 oin Oxychlorosene Sodium (Clorpactin Wcs-90) 2 gm TOP DAILY [facility] Last Admin: 08/09/18 11:45 Dose: 2 gm Pantoprazole Sodium (Protonix Ec Tab) 40 mg PO 0600 [facility] Last Admin: 08/10/18 06:05 Dose: Not Given Quetiapine Fumarate (Seroquel) 100 mg PO HS [facility]; Protocol Last Admin: 08/09/18 22:02 Dose: 100 mg Quetiapine Fumarate (Seroquel) 75 mg PO DAILY [facility]; Protocol Last Admin: 08/10/18 10:30 Dose: 75 mg Tamsulosin HCl (Flomax) 0.4 mg PO DAILY [facility] Last Admin: 08/10/18 10:30 Dose: 0.4 mg Attending/Attestation - Attestation I have personally seen and examined this patient.: Yes I have fully participated in the care of the patient.: Yes I have reviewed all pertinent clinical information, including history, physical exam and plan: Yes
--- NOTE | 2018-08-10 15:13 | PN ---
DATE: 08/10/2018 SUBJECTIVE: The patient is seen while returning from the ECT from the recovery room and then, the patient was evaluated on the Psychiatry floor. The patient tolerated the ECT today. The patient is post-ECT vitals were stable. The patient blood pressure was stable which was noted in the recovery room. The patient is presently awake, responsive. PHYSICAL EXAMINATION: VITAL SIGNS: T-max 98, pulse 70, blood pressure 125/74, 120/71, 135/81, respirations 12, O2 sat 97%. HEENT: Head examination normocephalic, atraumatic. HEENT examination shows pinkish pale conjunctivae. Anicteric sclerae. No oropharyngeal lesion. No neck rigidity. CHEST: Kyphosis. LUNGS: No audible crackle, rales or wheezing. CARDIOVASCULAR: S1, S2, regular rhythm, questionable soft systolic murmur, left sternal border, right second intercostal space, left second intercostal space. ABDOMEN: Soft, positive bowel sound, no palpable hepatosplenomegaly. GENITALIA: Male. ECTAL: Deferred. EXTREMITIES: No pitting edema, no calf tenderness, no Homans sign. Positive left foot dressing noted. MUSCULOSKELETAL: Examination is appropriate for stated age and height. NEUROLOGIC: The patient is alert, awake, responsive, is able to move upper and lower extremity without assistance. Gait examination is not tested because the patient is nonweightbearing on the left foot. PSYCHIATRIC: As per the Psychiatry note. DIAGNOSTICS: None from today. IMPRESSION: 1. Status post electroconvulsive therapy. 2. Depression. 3. Paranoid schizophrenia. 4. Psychosis. 5. Parkinson's disease. 6. Early dementia. 7. Gait dysfunction. 8. Deconditioning. 9. Episodic transient hypotension. 10. History of hypertension and hyperlipidemia. 11. Left foot group A Streptococcus pyogenes abscess and cellulitis, status post incision and drainage and Misonix debridement. 12. Paranoia. 13. Questionable history of auditory hallucination. PLAN: At this time, the patient is to be continued on all the medications as per the MAR of today. The patient will be continued to be followed up on Psychiatry floor. The patient's further psychiatric management is as per the psychiatrist. The patient is also being followed by the machine stamper for the left foot abscess postop care and treatment. The patient has already completed the recommended duration of IV antibiotic for the left foot abscess and cellulitis. Once the patient is cleared by Psychiatry for discharge, the patient's brother has been told earlier during these multiple admissions that the patient most likely may require 24-hour care and supervision with his activities of daily living and the patient might require 24-hour care and supervision upon discharge. The patient will be continued on all the medications as per MAR. Dictated and electronically signed, not read. Janes Castañeda MD
[2018-08-11] MEDS: Pantoprazole 40 mg EC Tab PO SCH (06:11)
--- NOTE | 2018-08-11 08:35 | PCM.PYCHPN ---
Psychiatric Progress Note - Psychiatric Progress Note Patient seen today, length of contact: 30min Problems Identified/Issues Discussed: I reviewed recent notes and met with patient at bedside. Patient is well known to this provider from his psychiatric admissions and consultations on the [facility] floor. He has returned to the psychiatric unit to resume ECT and is scheduled for treatment #7 on Monday. He is improving. Focus and organization are more consistent and patient is no longer overtly psychotic. During the initial part of his admission, patient was religiously preoccupied, disorganized and yelling incoherently in bed. He is no longer demonstrating these behaviors. He is oriented x3 and delusions were not elicited. Affect remains blunt and preoccupied. His responses are brief, superficial and a little disengaged but they are relevant and logical. Currently he denies any new concerns and has been in good behavioral control. Denies any side effects, discomfort or pain. Diagnostic Results: As per history of schizophrenia, paranoid type Parkinson's disease Medication Change: No (ect scheduled 08/13/18) Medical Record Reviewed: Yes Mental Status Examination - Cognitive Function Orientation: Person, Place, Situation Memory: Intact Attention: WNL (some improvement) Concentration: Poor (some improvement) Association: Loose Fund of Knowledge: WNL - Mood Mood: Depressed, Anxious - Affect Affect: Blunted, Flat - Speech Speech: Appropriate (underproductive) - Formal Thought Process Formal Thought Process: Hallucinations (denied), Delusions (none elicited today), Paranoia (somewhat better) - Suicidal Ideation Suicidal Ideation: No - Homicidal Ideation Homicidal Ideation: No Goal/Treatment Plan - Goal/Treatment Plan Need for Continued Stay: Remain at risks for inpatient hospitalization, Severe depression anxiety, Discharge may exacerbated symptoms, Severe functional impairment Progress Toward Problem(s) and Goals/Treatment Plan: * c/w current tx and plan * No new weekend lab results thus far * Vitals reviewed and noted below: Selected Entries 08/10/18 08/10/18 08/10/18 10:00 13:52 17:35 Temperature 97.9 F Pulse Rate 71 86 80 Blood Pressure 156/85 H 84/52 L 101/64 O2 Sat by Pulse 99 Oximetry Estimated Date of D/C: 08/13/18
[2018-08-11] MEDS: Enoxaparin 40 mg Syringe SC SCH (08:50)
[2018-08-11] MEDS: Mupirocin 2% Ointment 15 GM TUBE TOP SCH ×2 (09:23→16:23)
--- NOTE | 2018-08-11 09:49 | CP.PCM.PN ---
Subjective - Date & Time of Evaluation Date of Evaluation: 08/11/18 Time of Evaluation: 08:00 - Subjective Subjective: SUBJECTIVE: No acute events overnight. He remains afebrile and hemodynamically stable. OBJECTIVE: VS: T 97.9, P 68, BP 151/82, RR 16, O2 99% RA Gen: NAD HEENT: PERRL, EOMI, no icterus, no conjunctival pallor Neck: no JVD Lungs: CTA CV: RRR, normal S1, S2, no m/r/g Abd: NABS, soft, NT, ND Ext: no c/c/e. Left foot with dressing in place. Neurologic: AAO x 3, no focal motor deficits LABORATORY DATA: No new labs. ASSESSMENT: The patient is a 73 year old man admitted to the inpatient psychiatric unit for management of paranoid schizophrenia. PLAN: 1. Paranoid schizophrenia s/p ECT. Continue with care as per psychiatric team. 2. Cellulitis of the left foot. Continue with local wound care as per podiatry. 3. BPH. Continue Flomax. Objective - Vital Signs/Intake and Output Vital Signs (last 24 hours): Temp Pulse Resp BP Pulse Ox 97.4 F L 68 20 151/82 H 99 08/11/18 07:03 08/11/18 07:03 08/11/18 07:03 08/11/18 07:03 08/10/18 10:00 - Medications Medications: Current Medications Acetaminophen (Tylenol 325mg Tab) 650 mg PO Q4H PRN PRN Reason: Pain, Mild (1-3) Al Hydrox/Mg Hydrox/Simethicone (Maalox Plus 30 Ml) 30 ml PO DAILY PRN PRN Reason: Upset Stomach Carbidopa/Levodopa (Sinemet) 1 tab PO DAILY [facility] Last Admin: 08/11/18 08:51 Dose: 1 tab Donepezil HCl (Aricept) 5 mg PO HS [facility] Last Admin: 08/10/18 21:53 Dose: 5 mg Enoxaparin Sodium (Lovenox) 40 mg SC DAILY [facility]; Protocol Last Admin: 08/11/18 08:50 Dose: 40 mg Magnesium Hydroxide (Milk Of Magnesia) 30 ml PO DAILY PRN PRN Reason: Constipation Mupirocin (Bactroban Ointment) 1 gm TOP BID [facility] Last Admin: 08/10/18 18:07 Dose: Not Given Oxychlorosene Sodium (Clorpactin Wcs-90) 2 gm TOP DAILY [facility] Last Admin: 08/10/18 11:20 Dose: 2 gm Pantoprazole Sodium (Protonix Ec Tab) 40 mg PO 0600 [facility] Last Admin: 08/11/18 06:11 Dose: 40 mg Quetiapine Fumarate (Seroquel) 100 mg PO HS [facility]; Protocol Last Admin: 08/10/18 21:53 Dose: 100 mg Quetiapine Fumarate (Seroquel) 75 mg PO DAILY [facility]; Protocol Last Admin: 08/11/18 08:50 Dose: 75 mg Tamsulosin HCl (Flomax) 0.4 mg PO DAILY [facility] Last Admin: 08/11/18 08:50 Dose: 0.4 mg
--- NOTE | 2018-08-11 11:57 | CP.PCM.PN ---
<Stuart Morris - Last Filed: 08/11/18 11:55> Subjective - Date & Time of Evaluation Date of Evaluation: 08/11/18 Time of Evaluation: 11:55 - Subjective Subjective: Podiatry progress note - Dr. Ortiz/Tommy 73 year old male patient seen and evaluated 15 days s/p left foot incision and drainage with misonix debridement. Patient states that he didn't have pain to his L foot now. He denies any overnight chills/nausea/vomiting/fever/shortness of breath. Objective - Vital Signs/Intake and Output Vital Signs (last 24 hours): Temp Pulse Resp BP Pulse Ox 97.4 F L 68 20 151/82 H 99 08/11/18 07:03 08/11/18 07:03 08/11/18 07:03 08/11/18 07:03 08/10/18 10:00 - Medications Medications: Current Medications Acetaminophen (Tylenol 325mg Tab) 650 mg PO Q4H PRN PRN Reason: Pain, Mild (1-3) Al Hydrox/Mg Hydrox/Simethicone (Maalox Plus 30 Ml) 30 ml PO DAILY PRN PRN Reason: Upset Stomach Carbidopa/Levodopa (Sinemet) 1 tab PO DAILY [facility] Last Admin: 08/11/18 08:51 Dose: 1 tab Donepezil HCl (Aricept) 5 mg PO HS [facility] Last Admin: 08/10/18 21:53 Dose: 5 mg Enoxaparin Sodium (Lovenox) 40 mg SC DAILY [facility]; Protocol Last Admin: 08/11/18 08:50 Dose: 40 mg Magnesium Hydroxide (Milk Of Magnesia) 30 ml PO DAILY PRN PRN Reason: Constipation Mupirocin (Bactroban Ointment) 1 gm TOP BID [facility] Last Admin: 08/10/18 18:07 Dose: Not Given Oxychlorosene Sodium (Clorpactin Wcs-90) 2 gm TOP DAILY [facility] Last Admin: 08/10/18 11:20 Dose: 2 gm Pantoprazole Sodium (Protonix Ec Tab) 40 mg PO 0600 [facility] Last Admin: 08/11/18 06:11 Dose: 40 mg Quetiapine Fumarate (Seroquel) 100 mg PO HS [facility]; Protocol Last Admin: 08/10/18 21:53 Dose: 100 mg Quetiapine Fumarate (Seroquel) 75 mg PO DAILY [facility]; Protocol Last Admin: 08/11/18 08:50 Dose: 75 mg Tamsulosin HCl (Flomax) 0.4 mg PO DAILY [facility] Last Admin: 08/11/18 08:50 Dose: 0.4 mg - Constitutional Appears: Well, Non-toxic, No Acute Distress - Head Exam Head Exam: ATRAUMATIC, NORMOCEPHALIC - Extremities Exam Additional comments: LLE focused exam VASC: DP/PT pulses palpable 2/4; cap refill <3 seconds to all digits; temp gradient warm to warm; mild edema noted to the foot, improving. NEURO: Gross and protective sensation intact. DERM: Surgical site clean with no drainage, negative probe to bone, No tunneling, No undermining, no malodor, no purulence appreciated. MSK: Mild pain upon palpation of the carito-wound area; No pain on calf compression. Muscle power intact 5/5 to all groups. - Neurological Exam Neurological Exam: Alert, Awake Assessment and Plan - Assessment and Plan (Free Text) Assessment: 73 year old male patient seen and evaluated 15 days s/p left foot incision and drainage with misonix debridement Plan: Patient seen and evaluated at bedside Plan discussed with Dr. Ortiz Charts, labs and vitals reviewed: Afebrile, No leukocytosis. Intraop wound culture: Final, no growth L foot MRI - patient refused MRI as he is not able to be still during MRI Local wound care: surgical site flushed with Chloropectin, and dressed with xeroform, DSD. Continue Abx per ID recs. Ordered PT evaluation and treatment. Ordered left forefoot wedge shoe. Patient to ambulate in the left forefoot wedge shoe. Patient needs daily dressing change with wound flush using sterile saline and packing using Iodosorb. Will continue to follow up the patient while in house. <Alfred Ortiz - Last Filed: 08/11/18 12:01> Objective - Vital Signs/Intake and Output Vital Signs (last 24 hours): Temp Pulse Resp BP Pulse Ox 97.4 F L 68 20 151/82 H 99 08/11/18 07:03 08/11/18 07:03 08/11/18 07:03 08/11/18 07:03 08/10/18 10:00 - Medications Medications: Current Medications Acetaminophen (Tylenol 325mg Tab) 650 mg PO Q4H PRN PRN Reason: Pain, Mild (1-3) Al Hydrox/Mg Hydrox/Simethicone (Maalox Plus 30 Ml) 30 ml PO DAILY PRN PRN Reason: Upset Stomach Carbidopa/Levodopa (Sinemet) 1 tab PO DAILY [facility] Last Admin: 08/11/18 08:51 Dose: 1 tab Donepezil HCl (Aricept) 5 mg PO HS [facility] Last Admin: 08/10/18 21:53 Dose: 5 mg Enoxaparin Sodium (Lovenox) 40 mg SC DAILY [facility]; Protocol Last Admin: 08/11/18 08:50 Dose: 40 mg Magnesium Hydroxide (Milk Of Magnesia) 30 ml PO DAILY PRN PRN Reason: Constipation Mupirocin (Bactroban Ointment) 1 gm TOP BID [facility] Last Admin: 08/10/18 18:07 Dose: Not Given Oxychlorosene Sodium (Clorpactin Wcs-90) 2 gm TOP DAILY [facility] Last Admin: 08/10/18 11:20 Dose: 2 gm Pantoprazole Sodium (Protonix Ec Tab) 40 mg PO 0600 [facility] Last Admin: 08/11/18 06:11 Dose: 40 mg Quetiapine Fumarate (Seroquel) 100 mg PO HS [facility]; Protocol Last Admin: 08/10/18 21:53 Dose: 100 mg Quetiapine Fumarate (Seroquel) 75 mg PO DAILY [facility]; Protocol Last Admin: 08/11/18 08:50 Dose: 75 mg Tamsulosin HCl (Flomax) 0.4 mg PO DAILY [facility] Last Admin: 08/11/18 08:50 Dose: 0.4 mg Attending/Attestation - Attestation I have personally seen and examined this patient.: Yes I have fully participated in the care of the patient.: Yes I have reviewed all pertinent clinical information, including history, physical exam and plan: Yes
[2018-08-11] MEDS: Oxychlorosene Topical 2 gm Packet TOP SCH (13:23)
[2018-08-12] MEDS: Pantoprazole 40 mg EC Tab PO SCH (06:51)
--- NOTE | 2018-08-12 08:26 | PCM.PYCHPN ---
Psychiatric Progress Note - Psychiatric Progress Note Patient seen today, length of contact: 30min Problems Identified/Issues Discussed: I reviewed recent notes and met with patient at bedside. Patient is well known to this provider from his psychiatric admissions and consultations on the [facility] floor. He has returned to the psychiatric unit to resume ECT and is scheduled for treatment #7 on Monday. He is improving. Focus and organization are more consistent and patient is no longer overtly psychotic. During the initial part of his admission, patient was religiously preoccupied, disorganized and yelling incoherently in bed. He is no longer demonstrating these behaviors. Patient is oriented x3 and delusions were not elicited. Affect remains blunt and preoccupied. His responses are brief, superficial and a little disengaged but they are fairly relevant. Patient can be vague and has issues with short term memory so it is necessary for me to repeat myself. For example, even though patient was reminded about ECT planned for tomorrow, Monday--he asks what the current day of the week is. He asks this question multiple times for confirmation though he superficially demonstrates comprehension. Currently patient denies any new concerns and has been in good behavioral control. Denies any side effects, discomfort or pain. Diagnostic Results: As per history of schizophrenia, paranoid type Parkinson's disease Medication Change: No (ect scheduled 08/13/18) Medical Record Reviewed: Yes Mental Status Examination - Cognitive Function Orientation: Person, Place, Situation Memory: Intact Attention: WNL (some improvement) Concentration: Poor (some improvement) Association: Loose Fund of Knowledge: WNL - Mood Mood: Depressed, Anxious - Affect Affect: Blunted, Flat - Speech Speech: Appropriate (underproductive) - Formal Thought Process Formal Thought Process: Hallucinations (denied), Delusions (none elicited today), Paranoia (somewhat better) - Suicidal Ideation Suicidal Ideation: No - Homicidal Ideation Homicidal Ideation: No Goal/Treatment Plan - Goal/Treatment Plan Need for Continued Stay: Remain at risks for inpatient hospitalization, Severe depression anxiety, Discharge may exacerbated symptoms, Severe functional impairment Progress Toward Problem(s) and Goals/Treatment Plan: * c/w current tx and plan * Appreciate f/u by Dr. Foy on 08/11/18 * Appreciate f/u by Podiatry Dr. Ortiz/Tommy on 08/11/18~ ~Intraop wound culture: Final, no growth ~L foot MRI - patient refused MRI as he is not able to be still during MRI ~Local wound care: surgical site flushed with Chloropectin, and dressed with xeroform, DSD. Patient needs daily dressing change with wound flush using sterile saline and packing using Iodosorb. ~Ordered PT evaluation and treatment. ~Ordered left forefoot wedge shoe. Patient to ambulate in the left forefoot wedge shoe * No new weekend lab results thus far * Vitals reviewed and noted below: Selected Entries 08/11/18 08/11/18 07:03 16:00 Temperature 97.4 F L Pulse Rate 68 76 Respiratory 20 Rate Blood Pressure 151/82 H 115/71 Estimated Date of D/C: 08/13/18
[2018-08-12] MEDS: Mupirocin 2% Ointment 15 GM TUBE TOP SCH ×2 (10:16→16:16)
[2018-08-12] MEDS: Enoxaparin 40 mg Syringe SC SCH (10:21)
[2018-08-12] MEDS: Oxychlorosene Topical 2 gm Packet TOP SCH (10:21)
--- NOTE | 2018-08-12 12:22 | CP.PCM.PN ---
<Stuart Morris - Last Filed: 08/12/18 12:19> Subjective - Date & Time of Evaluation Date of Evaluation: 08/12/18 Time of Evaluation: 12:19 - Subjective Subjective: Podiatry progress note - Dr. Ortiz/Tommy 73 year old male patient seen and evaluated 16 days s/p left foot incision and drainage with misonix debridement. Patient states that he doesn't have pain to his L foot now. He denies any overnight chills/nausea/vomiting/fever/shortness of breath. Objective - Vital Signs/Intake and Output Vital Signs (last 24 hours): Temp Pulse Resp BP Pulse Ox 98.4 F 66 17 130/76 99 08/12/18 07:05 08/12/18 07:05 08/12/18 07:05 08/12/18 07:05 08/10/18 10:00 - Medications Medications: Current Medications Acetaminophen (Tylenol 325mg Tab) 650 mg PO Q4H PRN PRN Reason: Pain, Mild (1-3) Al Hydrox/Mg Hydrox/Simethicone (Maalox Plus 30 Ml) 30 ml PO DAILY PRN PRN Reason: Upset Stomach Carbidopa/Levodopa (Sinemet) 1 tab PO DAILY [facility] Last Admin: 08/12/18 10:22 Dose: 1 tab Donepezil HCl (Aricept) 5 mg PO HS [facility] Last Admin: 08/11/18 22:52 Dose: 5 mg Enoxaparin Sodium (Lovenox) 40 mg SC DAILY [facility]; Protocol Last Admin: 08/12/18 10:21 Dose: 40 mg Magnesium Hydroxide (Milk Of Magnesia) 30 ml PO DAILY PRN PRN Reason: Constipation Mupirocin (Bactroban Ointment) 1 gm TOP BID [facility] Last Admin: 08/12/18 10:16 Dose: 1 oin Oxychlorosene Sodium (Clorpactin Wcs-90) 2 gm TOP DAILY [facility] Last Admin: 08/12/18 10:21 Dose: 2 gm Pantoprazole Sodium (Protonix Ec Tab) 40 mg PO 0600 [facility] Last Admin: 08/12/18 06:51 Dose: 40 mg Quetiapine Fumarate (Seroquel) 100 mg PO HS [facility]; Protocol Last Admin: 08/11/18 22:52 Dose: 100 mg Quetiapine Fumarate (Seroquel) 75 mg PO DAILY [facility]; Protocol Last Admin: 08/12/18 10:22 Dose: 75 mg Tamsulosin HCl (Flomax) 0.4 mg PO DAILY [facility] Last Admin: 08/12/18 10:21 Dose: 0.4 mg - Constitutional Appears: Well, Non-toxic, No Acute Distress - Head Exam Head Exam: ATRAUMATIC, NORMOCEPHALIC - Extremities Exam Additional comments: LLE focused exam VASC: DP/PT pulses palpable 2/4; cap refill <3 seconds to all digits; temp gradient warm to warm; mild edema noted to the foot, improving. NEURO: Gross and protective sensation intact. DERM: Surgical site clean with minimal serous drainage, negative probe to bone, No tunneling, No undermining, no malodor, no purulence appreciated. MSK: Mild pain upon palpation of the carito-wound area; No pain on calf compression. Muscle power intact 5/5 to all groups. - Neurological Exam Neurological Exam: Alert, Awake Assessment and Plan - Assessment and Plan (Free Text) Assessment: 73 year old male patient seen and evaluated 16 days s/p left foot incision and drainage with misonix debridement Plan: Patient seen and evaluated at bedside Plan discussed with Dr. Ortiz Charts, labs and vitals reviewed: Afebrile, No leukocytosis. Intraop wound culture: Final, no growth L foot MRI - patient refused MRI as he is not able to be still during MRI Local wound care: surgical site flushed with Chloropectin, and dressed with xeroform, DSD. Continue Abx per ID recs. continue PT. Patient to ambulate in the left forefoot wedge shoe. Ordered CBC with diff. Podiatry will continue to follow up the patient while in house. <Alfred Ortiz - Last Filed: 08/14/18 07:45> Objective - Vital Signs/Intake and Output Vital Signs (last 24 hours): Temp Pulse Resp BP Pulse Ox 98.3 F 68 20 133/77 99 08/14/18 07:10 08/14/18 07:10 08/14/18 07:10 08/14/18 07:10 08/10/18 10:00 - Medications Medications: Current Medications Acetaminophen (Tylenol 325mg Tab) 650 mg PO Q4H PRN PRN Reason: Pain, Mild (1-3) Al Hydrox/Mg Hydrox/Simethicone (Maalox Plus 30 Ml) 30 ml PO DAILY PRN PRN Reason: Upset Stomach Carbidopa/Levodopa (Sinemet) 1 tab PO DAILY [facility] Last Admin: 08/13/18 09:21 Dose: 1 tab Donepezil HCl (Aricept) 5 mg PO HS [facility] Last Admin: 08/13/18 21:00 Dose: 5 mg Enoxaparin Sodium (Lovenox) 40 mg SC DAILY [facility]; Protocol Last Admin: 08/13/18 09:20 Dose: 40 mg Magnesium Hydroxide (Milk Of Magnesia) 30 ml PO DAILY PRN PRN Reason: Constipation Mupirocin (Bactroban Ointment) 1 gm TOP BID [facility] Last Admin: 08/13/18 17:19 Dose: Not Given Oxychlorosene Sodium (Clorpactin Wcs-90) 2 gm TOP DAILY [facility] Last Admin: 08/13/18 13:18 Dose: Not Given Pantoprazole Sodium (Protonix Ec Tab) 40 mg PO 0600 [facility] Last Admin: 08/14/18 06:06 Dose: 40 mg Quetiapine Fumarate (Seroquel) 100 mg PO HS [facility]; Protocol Last Admin: 08/13/18 21:00 Dose: 100 mg Quetiapine Fumarate (Seroquel) 75 mg PO DAILY [facility]; Protocol Last Admin: 08/13/18 09:21 Dose: 75 mg Tamsulosin HCl (Flomax) 0.4 mg PO DAILY [facility] Last Admin: 08/13/18 09:21 Dose: 0.4 mg - Labs Labs: 08/12/18 13:30 Attending/Attestation - Attestation I have personally seen and examined this patient.: Yes I have fully participated in the care of the patient.: Yes I have reviewed all pertinent clinical information, including history, physical exam and plan: Yes
[2018-08-12 13:50] LABS: BASO # 0.02 K/mm3 (0.0-2.0); BASO % 0.3 % (0.0-3.0); EOS # 0.1 (0.0-0.7); EOS % 1.3 % (1.5-5.0); HEMOGLOBIN 11.9 g/dL (14.0-18.0); LYMPH # 0.8 (1.2-3.4); LYMPH % 10.4 % (22.0-35.0); MEAN CELL VOLUME 102.2 fl (80.0-105.0); MEAN CORPUSCULAR HEMOGLOBIN 32.6 pg (25.0-35.0); MEAN CORPUSCULAR HGB CONC 31.9 g/dl (31.0-37.0); MEAN PLATELET VOLUME 10.6 fl (7.0-11.0); MONO # 0.6 (0.1-0.6); MONO % 7.7 % (1.0-6.0); RBC 3.65 10^6/uL (3.5-6.1); RED CELL DISTRIBUTION WIDTH 14.6 % (11.5-14.5); WHITE BLOOD COUNT 7.9 10^3/uL (4.5-11.0)
--- NOTE | 2018-08-12 20:55 | CP.PCM.PN ---
Subjective - Date & Time of Evaluation Date of Evaluation: 08/12/18 Time of Evaluation: 15:40 - Subjective Subjective: SUBJECTIVE: No acute events overnight. He remains afebrile and hemodynamically stable. OBJECTIVE: VS: T 98,4, P 66, BP 130/76, RR 17, O2 99% RA Gen: NAD HEENT: PERRL, EOMI, no icterus, no conjunctival pallor Neck: no JVD Lungs: CTA CV: RRR, normal S1, S2, no m/r/g Abd: NABS, soft, NT, ND Ext: no c/c/e. Left foot with dressing in place. Neurologic: AAO x 3, no focal motor deficits LABORATORY DATA: No new labs. ASSESSMENT: The patient is a 73 year old man admitted to the inpatient psychiatric unit for management of paranoid schizophrenia. PLAN: 1. Paranoid schizophrenia s/p ECT. Continue with care as per psychiatric team. 2. Cellulitis of the left foot. Continue with local wound care as per podiatry. 3. BPH. Continue Flomax. Objective - Vital Signs/Intake and Output Vital Signs (last 24 hours): Temp Pulse Resp BP Pulse Ox 98.4 F 80 17 104/67 99 08/12/18 07:05 08/12/18 16:00 08/12/18 07:05 08/12/18 16:00 08/10/18 10:00 - Medications Medications: Current Medications Acetaminophen (Tylenol 325mg Tab) 650 mg PO Q4H PRN PRN Reason: Pain, Mild (1-3) Al Hydrox/Mg Hydrox/Simethicone (Maalox Plus 30 Ml) 30 ml PO DAILY PRN PRN Reason: Upset Stomach Carbidopa/Levodopa (Sinemet) 1 tab PO DAILY [facility] Last Admin: 08/12/18 10:22 Dose: 1 tab Donepezil HCl (Aricept) 5 mg PO HS [facility] Last Admin: 08/11/18 22:52 Dose: 5 mg Enoxaparin Sodium (Lovenox) 40 mg SC DAILY [facility]; Protocol Last Admin: 08/12/18 10:21 Dose: 40 mg Magnesium Hydroxide (Milk Of Magnesia) 30 ml PO DAILY PRN PRN Reason: Constipation Mupirocin (Bactroban Ointment) 1 gm TOP BID [facility] Last Admin: 04/14/19 16:16 Dose: 1 oin Oxychlorosene Sodium (Clorpactin Wcs-90) 2 gm TOP DAILY [facility] Last Admin: 08/12/18 10:21 Dose: 2 gm Pantoprazole Sodium (Protonix Ec Tab) 40 mg PO 0600 [facility] Last Admin: 08/12/18 06:51 Dose: 40 mg Quetiapine Fumarate (Seroquel) 100 mg PO HS [facility]; Protocol Last Admin: 08/11/18 22:52 Dose: 100 mg Quetiapine Fumarate (Seroquel) 75 mg PO DAILY [facility]; Protocol Last Admin: 08/12/18 10:22 Dose: 75 mg Tamsulosin HCl (Flomax) 0.4 mg PO DAILY [facility] Last Admin: 08/12/18 10:21 Dose: 0.4 mg - Labs Labs: 08/12/18 13:30
[2018-08-13] MEDS: Pantoprazole 40 mg EC Tab PO SCH (06:57)
[2018-08-13] MEDS: Enoxaparin 40 mg Syringe SC SCH (09:20)
--- NOTE | 2018-08-13 12:35 | PCM.PYCHPN ---
Psychiatric Progress Note - Psychiatric Progress Note Patient seen today, length of contact: 30min Patient Chief Complaint: "I feel little weak and tired after exercises..." Problems Identified/Issues Discussed: ECT, treatment plan, symptoms, ZULEMA, PT. Medical Problems: parkinson's, left foot cellulitis and abscess, GERD, BPH Diagnostic Results: Vital Signs Temp Pulse Pulse Resp BP 08/07/18 07:00 97.9 F 65 17 124/77 08/06/18 22:00 68 20 08/06/18 21:31 98.9 F 68 20 122/74 DSM 5 Symptoms Update: Shortly, patient is a 72-year old male, reported history of schizophrenia, history of Parkinson's disease, denied previous history of psychiatric admissions, denied history of suicidal attempts, currently under care or of [facility] treatment, initially patient was found wandering in the community, barefoot, police brought patient to the emergency room, patient required medical admission for delirium, this adjusto writer operator was involved in to the patient care due to severeness of mental illness, medication management, altered mental status, pt staid on the medical site 07/11-07/14-2018. Patient was medically stable, collateral information's were obtained from patient brother Abel, patient required further evaluation and stabilization in to the psychiatric inpatient unit and ECT treatment, pt got 3 ECT treatments at the psychiatric unit, tolerated well, pt staid in psych inpatient unit 07/14- 07/25/2018, unfortunately pt developed cellulitis and abscess of left foot and needed medical transfer for IV antibiotics, pt was on the medical floor 07/25- 08/01/18, this adjusto writer operator spoke to PMD , ID , Production Planner Scheduler , Neurologist , pt was safely transferred back to the psychiatric inpatient unit for further treatment, medication management and ECT treatment, pt agreed with the plan, pt's brother Abel was notified as well, pt staid in psychiatric inpatient unit 08/01/18-08/02/18, pt got ECT on 08/02/18, no complication, pt refused to eat at lunch after coming back from ECT, as a result pt was found to have hypotension, needed to be transferred back to the medical floor, where he staid 08/02/18-08/06/18, pt was transferred back to the psychiatric inpatient unit 08/06/18 uneventfully, please see 's note. Patient was seen today at the dinning area, pt presented with improved hygiene, shaved, took a shower. pt reported that he does not hear any voices, "last time was long time ago", pt is less paranoid, more organized. pt reported feeling "good", affect was more reactive, pt was able to smile couple of times during the interview. pt said he feels "weak and tired after exercised" as per PT, pt recommended ZULEMA. pt agreed to have ECT 08/14/18, NPO after the midnight. #6 BL 08/10/18 this adjusto writer operator increased frequency because last treatment pt had only 17% adequate seizures by MECTA, but clinically pt is slowly improving. pulse width 1.0msec,frequency 40, duration 8.000sec, current 800, , pt had about 12seconds of motor seizures, which was considered 41% adequate by MECTA analysis. anesthesiologist used 40mg succinylcholine, 30mg ketamine, 100mg propofol. will titrate ECT parameters accordingly, most likely next treatment will be with pulse width 1msec, will increase frequency to 45. so far patient tolerates medications well, no side effects observed or reported, aims 0, no EPS. Impression: As per history of schizophrenia, paranoid type Parkinson's disease Medication Change: No (ect scheduled 08/14/18) Medical Record Reviewed: Yes Mental Status Examination - Cognitive Function Orientation: Person, Place, Situation Memory: Intact Attention: WNL (some improvement) Concentration: Poor (some improvement) Association: WNL Fund of Knowledge: WNL - Mood Mood: Depressed ("I feel little better"), Anxious - Affect Affect: Blunted, Flat - Speech Speech: Appropriate (underproductive) - Formal Thought Process Formal Thought Process: Hallucinations (denied), Delusions (none elicited today), Paranoia (somewhat better) - Suicidal Ideation Suicidal Ideation: No - Homicidal Ideation Homicidal Ideation: No Goal/Treatment Plan - Goal/Treatment Plan Need for Continued Stay: Remain at risks for inpatient hospitalization, Severe depression anxiety, Discharge may exacerbated symptoms, Severe functional impairment Progress Toward Problem(s) and Goals/Treatment Plan: Milieu/structure/supportive therapy SW consultation for discharge plan and social issues Med management: Seroquel 75 mg in the morning, 100 mg within night and for psychosis Sonata needed for insomnia ECT treatment bilateral #4 08/02/2018 ECT tx #5 08/08/18, tolerated well ECT #6 08/10/18 ECT #7 08/14/18 N.p.o. after midnight Family involvement, discussed with brother Abel ID f/u PMD f/u Podiatry f/u PT recommended ZULEMA 08/13/18 Follow up on labs Will monitor closely Pt was educated about risk/benefits and alternatives of medications, coping strategies (safety plan, suicide prevention), relapse prevention, importance of follow up with psychiatrist and therapist, stay away from drugs/alcohol/smoking Estimated Date of D/C: 08/16/18
--- NOTE | 2018-08-13 13:04 | CP.PCM.PN ---
<MadelynMichelle quevedo - Last Filed: 08/13/18 13:02> Subjective - Date & Time of Evaluation Date of Evaluation: 08/13/18 Time of Evaluation: 13:04 - Subjective Subjective: Podiatry progress note - Dr. Ortiz/Tommy 73 year old male patient seen and evaluated 17 days s/p left foot incision and drainage with misonix debridement. Patient denies any pain at this time. He denies any overnight chills/nausea/vomiting/fever/shortness of breath. Objective - Vital Signs/Intake and Output Vital Signs (last 24 hours): Temp Pulse Resp BP Pulse Ox 97.7 F 91 H 17 111/69 99 08/13/18 07:16 08/13/18 07:16 08/13/18 07:16 08/13/18 07:16 08/10/18 10:00 - Medications Medications: Current Medications Acetaminophen (Tylenol 325mg Tab) 650 mg PO Q4H PRN PRN Reason: Pain, Mild (1-3) Al Hydrox/Mg Hydrox/Simethicone (Maalox Plus 30 Ml) 30 ml PO DAILY PRN PRN Reason: Upset Stomach Carbidopa/Levodopa (Sinemet) 1 tab PO DAILY [facility] Last Admin: 08/13/18 09:21 Dose: 1 tab Donepezil HCl (Aricept) 5 mg PO HS [facility] Last Admin: 08/12/18 22:17 Dose: 5 mg Enoxaparin Sodium (Lovenox) 40 mg SC DAILY [facility]; Protocol Last Admin: 08/13/18 09:20 Dose: 40 mg Magnesium Hydroxide (Milk Of Magnesia) 30 ml PO DAILY PRN PRN Reason: Constipation Mupirocin (Bactroban Ointment) 1 gm TOP BID [facility] Last Admin: 08/12/18 16:16 Dose: 1 oin Oxychlorosene Sodium (Clorpactin Wcs-90) 2 gm TOP DAILY [facility] Last Admin: 08/12/18 10:21 Dose: 2 gm Pantoprazole Sodium (Protonix Ec Tab) 40 mg PO 0600 [facility] Last Admin: 08/13/18 06:57 Dose: 40 mg Quetiapine Fumarate (Seroquel) 100 mg PO HS [facility]; Protocol Last Admin: 08/12/18 22:17 Dose: 100 mg Quetiapine Fumarate (Seroquel) 75 mg PO DAILY [facility]; Protocol Last Admin: 08/13/18 09:21 Dose: 75 mg Tamsulosin HCl (Flomax) 0.4 mg PO DAILY [facility] Last Admin: 08/13/18 09:21 Dose: 0.4 mg - Labs Labs: 08/12/18 13:30 - Constitutional Appears: Well, Non-toxic, No Acute Distress - Head Exam Head Exam: ATRAUMATIC, NORMOCEPHALIC - Extremities Exam Additional comments: LLE focused exam VASC: DP/PT pulses palpable 2/4; cap refill <3 seconds to all digits; temp gradient warm to warm; mild edema noted to the foot, improving. NEURO: Gross and protective sensation intact. DERM: Surgical site clean with minimal serous drainage, negative probe to bone, No tunneling, No undermining, no malodor, no purulence appreciated. MSK: Mild pain upon palpation of the carito-wound area; No pain on calf compression. Muscle power intact 5/5 to all groups. - Neurological Exam Neurological Exam: Alert, Awake, Oriented x3 - Psychiatric Exam Psychiatric exam: Normal Affect, Normal Mood Assessment and Plan - Assessment and Plan (Free Text) Assessment: 73 year old male patient seen and evaluated 17 days s/p left foot incision and drainage with misonix debridement Plan: Patient seen and evaluated at bedside Plan discussed with Dr. Sanders Charts, labs and vitals reviewed: Afebrile, No leukocytosis Intraop wound culture: Final, no growth L foot MRI - patient refused MRI as he is not able to be still during MRI Local wound care: surgical site flushed with Chloropectin, and dressed with iodoform packing, DSD Continue Abx per ID recs continue PT Patient to ambulate in the left forefoot wedge shoe Podiatry will continue to follow up the patient while in house <Patsy Sanders - Last Filed: 08/18/18 20:37> Objective - Vital Signs/Intake and Output Vital Signs (last 24 hours): Temp Pulse Resp BP Pulse Ox 97.9 F 91 H 20 113/68 97 08/17/18 07:23 08/17/18 16:00 08/17/18 07:23 08/17/18 16:00 08/15/18 11:32 - Labs Labs: 08/12/18 13:30 Attending/Attestation - Attestation I have personally seen and examined this patient.: Yes I have fully participated in the care of the patient.: Yes I have reviewed all pertinent clinical information, including history, physical exam and plan: Yes
[2018-08-13] MEDS: Mupirocin 2% Ointment 15 GM TUBE TOP SCH ×2 (13:17→17:19)
[2018-08-13] MEDS: Oxychlorosene Topical 2 gm Packet TOP SCH (13:18)
--- NOTE | 2018-08-13 15:34 | CP.PCM.PN ---
Subjective - Date & Time of Evaluation Date of Evaluation: 08/13/18 Time of Evaluation: 09:33 - Subjective Subjective: John Costa PGY2 IM Progress Note for Dr. Castañeda Patient was seen and examined at bedside. He denies any abdominal pain, shortness of breath or fevers/chills. He is tolerating his diet well. Objective - Vital Signs/Intake and Output Vital Signs (last 24 hours): Temp Pulse Resp BP Pulse Ox 97.7 F 91 H 17 111/69 99 08/13/18 07:16 08/13/18 07:16 08/13/18 07:16 08/13/18 07:16 08/10/18 10:00 - Medications Medications: Current Medications Acetaminophen (Tylenol 325mg Tab) 650 mg PO Q4H PRN PRN Reason: Pain, Mild (1-3) Al Hydrox/Mg Hydrox/Simethicone (Maalox Plus 30 Ml) 30 ml PO DAILY PRN PRN Reason: Upset Stomach Carbidopa/Levodopa (Sinemet) 1 tab PO DAILY [facility] Last Admin: 08/13/18 09:21 Dose: 1 tab Donepezil HCl (Aricept) 5 mg PO HS [facility] Last Admin: 08/12/18 22:17 Dose: 5 mg Enoxaparin Sodium (Lovenox) 40 mg SC DAILY [facility]; Protocol Last Admin: 08/13/18 09:20 Dose: 40 mg Magnesium Hydroxide (Milk Of Magnesia) 30 ml PO DAILY PRN PRN Reason: Constipation Mupirocin (Bactroban Ointment) 1 gm TOP BID [facility] Last Admin: 08/13/18 13:17 Dose: Not Given Oxychlorosene Sodium (Clorpactin Wcs-90) 2 gm TOP DAILY [facility] Last Admin: 08/13/18 13:18 Dose: Not Given Pantoprazole Sodium (Protonix Ec Tab) 40 mg PO 0600 [facility] Last Admin: 08/13/18 06:57 Dose: 40 mg Quetiapine Fumarate (Seroquel) 100 mg PO HS [facility]; Protocol Last Admin: 08/12/18 22:17 Dose: 100 mg Quetiapine Fumarate (Seroquel) 75 mg PO DAILY [facility]; Protocol Last Admin: 08/13/18 09:21 Dose: 75 mg Tamsulosin HCl (Flomax) 0.4 mg PO DAILY [facility] Last Admin: 08/13/18 09:21 Dose: 0.4 mg - Labs Labs: 08/12/18 13:30 - Constitutional Appears: Well, Non-toxic, No Acute Distress - Head Exam Head Exam: ATRAUMATIC, NORMAL INSPECTION - Eye Exam Eye Exam: EOMI, Normal appearance - ENT Exam ENT Exam: Mucous Membranes Moist, Normal Exam - Neck Exam Neck Exam: Full ROM, Normal Inspection - Respiratory Exam Respiratory Exam: NORMAL BREATHING PATTERN. absent: Respiratory Distress - Cardiovascular Exam Cardiovascular Exam: RRR, +S1, +S2 - GI/Abdominal Exam GI & Abdominal Exam: Soft. absent: Distended, Tenderness - Extremities Exam Extremities Exam: Full ROM Additional comments: L foot dressing c/d/i - Neurological Exam Neurological Exam: Alert, Awake - Skin Skin Exam: Intact, Warm Assessment and Plan - Assessment and Plan (Free Text) Assessment: 73 year old male with a PMH of hypertension, hyperlipidemia, diverticulosis, paranoid schizophrenia, and arthritis admitted to psych for schizophrenia following medical admission for hypotension and sob following ECT. Patient received treatment for sepsis 2/2 L foot cellulitis. Plan: 1. Sepsis 2/2 L foot cellulitis - off Abx now - sepsis resolved - podiatry following, recs appreciated 2. Schizophrenia s/p ECT (6 sessions so far) - Admitted to psych now - cont Seroquel 3. Parkinson's dementia - cont Aricept and Carb/Levodopa 4. PPX - Lovenox for DVT ppx - Protonix for GI ppx Further recs per Dr. Castañeda Case was reviewed and discussed with Dr. Castañeda
--- NOTE | 2018-08-13 22:35 | PN ---
DATE: 08/13/2018 SUBJECTIVE: The patient is seen sitting up in the room, in room 508, bed 1. The patient is sitting up in the wheelchair. The patient is alert, awake, and responsive. According to the nurse's note, the patient has been found to be alert, awake, and oriented x3. REVIEW OF SYSTEMS: A 14-system review was done, which was negative. OBJECTIVE: VITAL SIGNS: T-max , heart rate 80-97, blood pressure 111/67 and 104/67, and respirations 18. HEENT: Head; normocephalic and atraumatic. HEENT examination shows pink conjunctivae. Anicteric sclerae. No oropharyngeal lesion. NECK: No neck rigidity. CHEST: Kyphosis. LUNGS: Shows no audible crackle, rales, or wheezing. CARDIOVASCULAR: S1 and S2, regular rhythm. ABDOMEN: Soft. Positive bowel sounds. No palpable hepatosplenomegaly noted. GENITALIA: Male. RECTAL: Deferred. EXTREMITIES: Show positive left foot dressing. VASCULAR: Shows palpable pulses. No pitting edema noted. No calf tenderness. No Homans sign. NEUROLOGIC: The patient is alert, awake, and oriented to person, place, and time. He is able to follow command and move upper and lower extremity without assistance. Gait examination is not tested as the patient is nonweightbearing on the left foot. DIAGNOSTIC DATA: The patient has a CBC done in the last 24 hours; WBC 7.9, hemoglobin and hematocrit 11.9 and 37.3, platelet 152, and granulocytes 80% segs. IMPRESSION AND PLAN: 1. Psychosis. 2. Acute exacerbation of paranoia. 3. Paranoid schizophrenia. 4. History of anxiety and depression. 5. Dementia. 6. Parkinson's disease. 7. Mild normocytic anemia. 8. Granulocytosis. 9. Status post electroconvulsive therapy x6. 10. Streptococcus group A Streptococcus pyogenes left foot cellulitis and abscess, status post incision and drainage with Masonic debridement. 11. Gait dysfunction. 12. Deconditioning. 13. Episodic asymptomatic hypotension. 14. History of hypertension. 15. Normocytic anemia. 16. Hyperlipidemia. 17.. Hypovitaminosis D. 18. Status post rhabdomyolysis. Plan at this time, the patient is to be continued on all the therapeutic intervention as per the MAR, which was reviewed. The patient is to be continued on all the medications by the Psychiatry. The patient is followed up by the Podiatry for the left foot abscess followup and incision and drainage followup. The patient appears to be still nonweightbearing on the left foot and left lower extremity. The patient's medications will be as per the MAR including pharmacological, nonpharmacological DVT prophylaxis, and GI prophylaxis. The patient's discharge disposition requires the patient to have 24-hour care and supervision with long-term placement with specialized psychiatric treatment facility. The patient's family including the patient's brother is in contact with the rn social services and psychiatrist with the discharge planning process. The patient will be followed up while the patient is inpatient on psychiatry floor. The patient is awaiting for the next ECT treatment, which is anticipated in the next 48 hours. Dictated and electronically signed, not read. Janes Castañeda MD
[2018-08-14] MEDS: Pantoprazole 40 mg EC Tab PO SCH (06:06)
[2018-08-14] MEDS: Enoxaparin 40 mg Syringe SC SCH (09:38)
[2018-08-14] MEDS: Mupirocin 2% Ointment 15 GM TUBE TOP SCH ×2 (10:37→18:37)
[2018-08-14] MEDS: Oxychlorosene Topical 2 gm Packet TOP SCH (10:37)
--- NOTE | 2018-08-14 10:45 | CP.PCM.PN ---
<MadelynMichelle quevedo - Last Filed: 08/14/18 10:43> Subjective - Date & Time of Evaluation Date of Evaluation: 08/14/18 Time of Evaluation: 10:43 - Subjective Subjective: Podiatry progress note - Dr. Ortiz/Tommy 73 year old male patient seen and evaluated 18 days s/p left foot incision and drainage with misonix debridement. Patient denies any pain at this time. He denies any overnight chills/nausea/vomiting/fever/shortness of breath. Patient sitting comfortably in chair at bedside and noted to be in good spirits Objective - Vital Signs/Intake and Output Vital Signs (last 24 hours): Temp Pulse Resp BP Pulse Ox 98.3 F 68 20 133/77 99 08/14/18 07:10 08/14/18 07:10 08/14/18 07:10 08/14/18 07:10 08/10/18 10:00 - Medications Medications: Current Medications Acetaminophen (Tylenol 325mg Tab) 650 mg PO Q4H PRN PRN Reason: Pain, Mild (1-3) Al Hydrox/Mg Hydrox/Simethicone (Maalox Plus 30 Ml) 30 ml PO DAILY PRN PRN Reason: Upset Stomach Carbidopa/Levodopa (Sinemet) 1 tab PO DAILY [facility] Last Admin: 08/14/18 09:36 Dose: 1 tab Donepezil HCl (Aricept) 5 mg PO HS [facility] Last Admin: 08/13/18 21:00 Dose: 5 mg Enoxaparin Sodium (Lovenox) 40 mg SC DAILY [facility]; Protocol Last Admin: 08/14/18 09:38 Dose: 40 mg Magnesium Hydroxide (Milk Of Magnesia) 30 ml PO DAILY PRN PRN Reason: Constipation Mupirocin (Bactroban Ointment) 1 gm TOP BID [facility] Last Admin: 08/14/18 10:37 Dose: 1 oin Oxychlorosene Sodium (Clorpactin Wcs-90) 2 gm TOP DAILY [facility] Last Admin: 08/14/18 10:37 Dose: Not Given Pantoprazole Sodium (Protonix Ec Tab) 40 mg PO 0600 [facility] Last Admin: 08/14/18 06:06 Dose: 40 mg Quetiapine Fumarate (Seroquel) 100 mg PO HS [facility]; Protocol Last Admin: 08/13/18 21:00 Dose: 100 mg Quetiapine Fumarate (Seroquel) 75 mg PO DAILY [facility]; Protocol Last Admin: 08/14/18 09:36 Dose: 75 mg Tamsulosin HCl (Flomax) 0.4 mg PO DAILY [facility] Last Admin: 08/14/18 09:37 Dose: 0.4 mg - Labs Labs: 08/12/18 13:30 - Constitutional Appears: Well, Non-toxic, No Acute Distress - Head Exam Head Exam: ATRAUMATIC, NORMOCEPHALIC - Extremities Exam Additional comments: LLE focused exam VASC: DP/PT pulses palpable 2/4; cap refill <3 seconds to all digits; temp gradient warm to warm; mild edema noted to the foot, improving. NEURO: Gross and protective sensation intact. DERM: Surgical site clean with minimal serous drainage, negative probe to bone, No tunneling, No undermining, no malodor, no purulence appreciated. MSK: Mild pain upon palpation of the carito-wound area; No pain on calf compression. Muscle power intact 5/5 to all groups. - Neurological Exam Neurological Exam: Alert, Awake, Oriented x3 - Psychiatric Exam Psychiatric exam: Normal Affect, Normal Mood Assessment and Plan - Assessment and Plan (Free Text) Assessment: 73 year old male patient seen and evaluated 18 days s/p left foot incision and drainage with misonix debridement Plan: Patient seen and evaluated at bedside Plan discussed with Dr. Sanders Charts, labs and vitals reviewed: Afebrile, No leukocytosis Intraop wound culture: Final, no growth L foot MRI - patient refused MRI as he is not able to be still during MRI Local wound care: surgical site flushed with Chloropectin, and dressed with iodoform packing, DSD Continue Abx per ID recs continue PT Patient to ambulate in the left forefoot wedge shoe Podiatry will continue to follow up the patient while in house <Patsy Sanders - Last Filed: 08/18/18 20:35> Objective - Vital Signs/Intake and Output Vital Signs (last 24 hours): Temp Pulse Resp BP Pulse Ox 97.9 F 91 H 20 113/68 97 08/17/18 07:23 08/17/18 16:00 08/17/18 07:23 08/17/18 16:00 08/15/18 11:32 - Labs Labs: 08/12/18 13:30 Attending/Attestation - Attestation I have personally seen and examined this patient.: Yes I have fully participated in the care of the patient.: Yes I have reviewed all pertinent clinical information, including history, physical exam and plan: Yes
--- NOTE | 2018-08-14 14:53 | PCM.PYCHPN ---
Psychiatric Progress Note - Psychiatric Progress Note Patient seen today, length of contact: 30min Patient Chief Complaint: "I feel tired, I didn't sleep well last night" Problems Identified/Issues Discussed: ECT, treatment plan, symptoms, ZULEMA, PT. Medical Problems: parkinson's, left foot cellulitis and abscess, GERD, BPH Diagnostic Results: Vital Signs Temp Pulse Pulse Resp BP 08/07/18 07:00 97.9 F 65 17 124/77 08/06/18 22:00 68 20 08/06/18 21:31 98.9 F 68 20 122/74 DSM 5 Symptoms Update: Shortly, patient is a 72-year old male, reported history of schizophrenia, history of Parkinson's disease, denied previous history of psychiatric admissions, denied history of suicidal attempts, currently under care or of [facility] treatment, initially patient was found wandering in the community, barefoot, police brought patient to the emergency room, patient required medical admission for delirium, this film writer was involved in to the patient care due to severeness of mental illness, medication management, altered mental status, pt staid on the medical site 07/11-. Patient was medically stable, collateral information's were obtained from patient brother Abel, patient required further evaluation and stabilization in to the psychiatric inpatient unit and ECT treatment, pt got 3 ECT treatments at the psychiatric unit, tolerated well, pt staid in psych inpatient unit 07/14- 07/25/2018, unfortunately pt developed cellulitis and abscess of left foot and needed medical transfer for IV antibiotics, pt was on the medical floor 07/25- 08/01/18, this film writer spoke to PMD , ID , Nanny Babysitter , Neurologist , pt was safely transferred back to the psychiatric inpatient unit for further treatment, medication management and ECT treatment, pt agreed with the plan, pt's brother Abel was notified as well, pt staid in psychiatric inpatient unit 08/01/18-08/02/18, pt got ECT on 08/02/18, no complication, pt refused to eat at lunch after coming back from ECT, as a result pt was found to have hypotension, needed to be transferred back to the medical floor, where he staid 08/02/18-08/06/18, pt was transferred back to the psychiatric inpatient unit 08/06/18 uneventfully, please see 's note. Patient was seen today in his room, pt presented with improved hygiene, shaved, took a shower, pt c/o "restless night" patient reported that he needed to use the bathroom a few times. pt reported that he does not hear any voices, "last time was long time ago", pt is less paranoid, more organized. Patient is aware of discharge plan to subacute rehab, agreed to that. pt reported feeling "good", affect was more reactive, pt was able to smile couple of times during the in [place]. prolonged conversation took place yesterday with pt's brother AbelMOON and this film writer, d/c plan was discussed in details, please see MOON note for more detailed information. as per PT, pt recommended ZULEMA. pt agreed to have ECT 08/15/18, NPO after the midnight. #6 BL 08/10/18 this film writer increased frequency because last treatment pt had only 17% adequate seizures by MECTA, but clinically pt is slowly improving. pulse width 1.0msec,frequency 40, duration 8.000sec, current 800, , pt had about 12seconds of motor seizures, which was considered 41% adequate by MECTA a nalysis. anesthesiologist used 40mg succinylcholine, 30mg ketamine, 100mg propofol. will titrate ECT parameters accordingly, most likely next treatment will be with pulse width 1msec, will increase frequency to 45. so far patient tolerates medications well, no side effects observed or reported, aims 0, no EPS. Impression: As per history of schizophrenia, paranoid type Parkinson's disease Medication Change: No (ect scheduled 08/15/18) Medical Record Reviewed: Yes Consults ordered or reviewed: pt was seen by PMD clinical documentation improvement specialist (discussed 08/08/18) see notes for more detailed info Mental Status Examination - Cognitive Function Orientation: Person, Place, Situation Memory: Intact Attention: WNL (some improvement) Concentration: Poor (some improvement) Association: WNL Fund of Knowledge: WNL - Mood Mood: Depressed ("I feel little better"), Anxious - Affect Affect: Blunted, Flat - Speech Speech: Appropriate (underproductive) - Formal Thought Process Formal Thought Process: Hallucinations (denied), Delusions (none elicited today), Paranoia (somewhat better) - Suicidal Ideation Suicidal Ideation: No - Homicidal Ideation Homicidal Ideation: No Goal/Treatment Plan - Goal/Treatment Plan Need for Continued Stay: Remain at risks for inpatient hospitalization, Severe depression anxiety, Discharge may exacerbated symptoms, Severe functional impairment Progress Toward Problem(s) and Goals/Treatment Plan: Milieu/structure/supportive therapy SW consultation for discharge plan and social issues Med management: Seroquel 75 mg in the morning, 100 mg within night and for psychosis Sonata needed for insomnia ECT treatment bilateral #4 08/02/2018 ECT tx #5 08/08/18, tolerated well ECT #6 08/10/18 ECT #7 08/15/18 N.p.o. after midnight Family involvement, discussed with brother Abel ID f/u PMD f/u Podiatry f/u PT recommended ZULEMA 08/13/18 Follow up on labs Will monitor closely Pt was educated about risk/benefits and alternatives of medications, coping strategies (safety plan, suicide prevention), relapse prevention, importance of follow up with psychiatrist and therapist, stay away from drugs/alcohol/smoking Estimated Date of D/C: 08/17/18
--- NOTE | 2018-08-14 16:09 | PN ---
DATE: 08/14/2018 SUBJECTIVE: The patient was seen in room 508, bed 1. The patient is seen lying in the bed. The patient is alert, awake, responsive, in no distress. The patient is lying comfortably. The patient denies any chest pain. Denies nausea, denies vomiting, denies hematemesis, denies melena, denies syncope and denies falls. Denies suicidal and homicidal ideation. PHYSICAL EXAMINATION VITAL SIGNS: T-max 98.4; heart rate 68, 91, 97 and 80; blood pressure 133/77 and 111/67, respiration 20 and O2 sat is 99%. HEENT: Head examination normocephalic and atraumatic. HEENT examination shows pink conjunctivae. Anicteric sclerae. No oropharyngeal lesion. No neck rigidity. CHEST: Symmetrical and kyphosis. LUNGS: Shows no audible crackle, rales or wheezing. CARDIOVASCULAR: Regular rhythm. Questionable soft systolic murmur left sternal border, right second intercostal space and left second intercostal space. ABDOMEN: Soft, positive bowel sound. No palpable hepatosplenomegaly. GENITALIA: Male. RECTAL: Examination is deferred. EXTREMITIES: Shows positive left foot dressing. No pitting . MUSCULOSKELETAL: Examination shows as per the body mass index of 29.8. NEUROLOGIC: The patient is alert, awake, responsive, follows command, move upper and lower extremity without assistance. Gait examination is not tested, but according to the nurse's note, the patient has been going around in the wheelchair. IMPRESSION: 1. Acute exacerbation of depression and anxiety with psychosis. 2. Status post electroconvulsive therapy x6. 3. History of schizophrenia. 4. Parkinson's disease. 5. Dementia. 6. Left foot Streptococcus pyogenes group A left foot abscess and cellulitis, status post incision and drainage with Misonix debridement. 7. Encephalopathy with episodic confusion. 8. Deconditioning. 9. Paranoid schizophrenia. 10. Depression. 11. History of auditory hallucination. 12. History of hypertension. 13. Mild normocytic anemia. 14. Granulocytosis. 15. Dementia. 16. Prostatic hypertrophy. PLAN: At this time, the patient is awaiting repeat ECT tomorrow. The patient's case has been referred by 7th grade social studies teacher to subacute rehab versus long-term placement. The patient's current medications are Aricept 5 mg at bedtime, Bactroban cream to the affected area, Clorpactin 2 gram daily, Flomax 0.4 mg daily, Lovenox 40 mg subcutaneously daily Maalox 30 mL daily p.r.n., milk for magnesia 30 mL daily p.r.n., Protonix 40 mg daily, Seroquel 100 mg at bedtime, Seroquel 75 mg at 08:00 a.m., Sinemet 1 tablet daily 25/100 and Tylenol 650 mg every 4 hours p.r.n. The patient will be continued while the patient is on the Psychiatry floor. The patient's further management will be dependent upon the patient's clinical condition, hemodynamic status and as per the patient response to therapeutic intervention, as per the patient's diagnostic test results and as per recommendation by all the physicians involved in the care of the patient. Dictated and electronically signed, not read. Signing off Janes Castañeda MD. Janes Castañeda MD
--- NOTE | 2018-08-14 22:41 | CP.PCM.CON ---
History of Present Illness - History of Present Illness History of Present Illness: passr form completed august 13 Past Patient History - Infectious Disease Hx of Infectious Diseases: None - Tetanus Immunizations Tetanus Immunization: Unknown - Past Medical History & Family History Past Medical History?: Yes - Past Social History Smoking Status: Never Smoked - CARDIAC Hx Hypertension: Yes - PULMONARY Hx Sleep Apnea: Yes - NEUROLOGICAL Hx Parkinson's Disease: Yes (Tremors) - HEENT Hx Glaucoma: Yes - RENAL Hx Chronic Kidney Disease: No - ENDOCRINE/METABOLIC Hx Diabetes Mellitus Type 1: Yes (borderline) - HEMATOLOGICAL/ONCOLOGICAL Hx Blood Transfusions: No Hx Blood Transfusion Reaction: No - INTEGUMENTARY Hx Dermatological Problems: No - MUSCULOSKELETAL/RHEUMATOLOGICAL Hx Musculoskeletal Disorders: Yes - GASTROINTESTINAL Hx Gastrointestinal Disorders: No - GENITOURINARY/GYNECOLOGICAL Hx Incontinence: Yes Hx Prostate Problems: Yes (BPH) - PSYCHIATRIC Hx Emotional Abuse: No Hx Physical Abuse: No Hx Substance Use: No - SURGICAL HISTORY Hx Surgeries: Yes (Tonsillectomy) - ANESTHESIA Hx Anesthesia Reactions: No Hx Malignant Hyperthermia: No Meds Allergies/Adverse Reactions: Allergies Allergy/AdvReac Type Severity Reaction Status Date / Time quinapril Allergy REDNESS Verified 08/06/18 23:35 - Medications Medications: Current Medications Acetaminophen (Tylenol 325mg Tab) 650 mg PO Q4H PRN PRN Reason: Pain, Mild (1-3) Al Hydrox/Mg Hydrox/Simethicone (Maalox Plus 30 Ml) 30 ml PO DAILY PRN PRN Reason: Upset Stomach Carbidopa/Levodopa (Sinemet) 1 tab PO DAILY [facility] Last Admin: 08/14/18 09:36 Dose: 1 tab Donepezil HCl (Aricept) 5 mg PO HS [facility] Last Admin: 08/14/18 21:39 Dose: 5 mg Enoxaparin Sodium (Lovenox) 40 mg SC DAILY [facility]; Protocol Last Admin: 08/14/18 09:38 Dose: 40 mg Magnesium Hydroxide (Milk Of Magnesia) 30 ml PO DAILY PRN PRN Reason: Constipation Mupirocin (Bactroban Ointment) 1 gm TOP BID [facility] Last Admin: 08/14/18 18:37 Dose: Not Given Oxychlorosene Sodium (Clorpactin Wcs-90) 2 gm TOP DAILY [facility] Last Admin: 08/14/18 10:37 Dose: Not Given Pantoprazole Sodium (Protonix Ec Tab) 40 mg PO 0600 [facility] Last Admin: 08/14/18 06:06 Dose: 40 mg Quetiapine Fumarate (Seroquel) 100 mg PO HS [facility]; Protocol Last Admin: 08/14/18 21:39 Dose: 100 mg Quetiapine Fumarate (Seroquel) 75 mg PO DAILY [facility]; Protocol Last Admin: 08/14/18 09:36 Dose: 75 mg Tamsulosin HCl (Flomax) 0.4 mg PO DAILY [facility] Last Admin: 08/14/18 09:37 Dose: 0.4 mg Results - Vital Signs Recent Vital Signs: Last Vital Signs Temp 98.3 F 08/14/18 07:10 Pulse 92 H 08/14/18 16:19 Resp 20 08/14/18 07:10 BP 96/58 L 08/14/18 16:19 Pulse Ox 99 08/10/18 10:00 - Labs Result Diagrams: 08/12/18 13:30
[2018-08-15] MEDS: Pantoprazole 40 mg EC Tab PO SCH (06:13)
[2018-08-15 10:02] VITALS: O2SAT 97
[2018-08-15] MEDS ORDERED: Propofol 10 mg/ml Inj (20 ML) ONE (10:30)
[2018-08-15] MEDS ORDERED: Succinylcholine 200 mg/10 ml Inj IV ONE (10:30)
[2018-08-15] MEDS ORDERED: Ketamine 10 mg/ml Inj (20 ml) ONE (10:34)
--- NOTE | 2018-08-15 11:00 | PCM.PYCHPN ---
Psychiatric Progress Note - Psychiatric Progress Note Patient seen today, length of contact: 30min Patient Chief Complaint: "I am feeling good...." Problems Identified/Issues Discussed: ECT risk/benefits and alternatives discussed, treatment plan, symptoms, ZULEMA, PT. Medical Problems: parkinson's, left foot cellulitis and abscess, GERD, BPH Diagnostic Results: Vital Signs Temp Pulse Pulse Resp BP 08/07/18 07:00 97.9 F 65 17 124/77 08/06/18 22:00 68 20 08/06/18 21:31 98.9 F 68 20 122/74 DSM 5 Symptoms Update: Shortly, patient is a 72-year old male, reported history of schizophrenia, history of Parkinson's disease, denied previous history of psychiatric admissions, denied history of suicidal attempts, currently under care or of [facility] treatment, initially patient was found wandering in the community, barefoot, police brought patient to the emergency room, patient required medical admission for delirium, this underwriter solicitation director was involved in to the patient care due to severeness of mental illness, medication management, altered mental status, pt staid on the medical site 07/11-. Patient was medically stable, collateral information's were obtained from patient brother Abel, patient required further evaluation and stabilization in to the psychiatric inpatient unit and ECT treatment, pt got 3 ECT treatments at the psychiatric unit, tolerated well, pt staid in psych inpatient unit 07/14- 07/25/2018, unfortunately pt developed cellulitis and abscess of left foot and needed medical transfer for IV antibiotics, pt was on the medical floor 07/25- 08/01/18, this underwriter solicitation director spoke to PMD , ID , Manager [employer] , Neurologist , pt was safely transferred back to the psychiatric inpatient unit for further treatment, medication management and ECT treatment, pt agreed with the plan, pt's brother Abel was notified as well, pt staid in psychiatric inpatient unit 08/01/18-08/02/18, pt got ECT on 08/02/18, no complication, pt refused to eat at lunch after coming back from ECT, as a result pt was found to have hypotension, needed to be transferred back to the medical floor, where he staid 08/02/18-08/06/18, pt was transferred back to the psychiatric inpatient unit 08/06/18 uneventfully, please see 's note. initially patient was seen today in his room with , treatment plan was discussed in details, pt presented with improved hygiene, shaved, took a shower, pt reported to feel "good", pt reported that he does not hear any voices, "last time was long time ago", pt is less paranoid, more organized. Patient is aware of discharge plan to subacute rehab, agreed to that. pt reported feeling "good", affect was more reactive, pt was able to smile couple of times during the interview. prolonged conversation took place 08/13/18 with pt's brother AbelMOON and this underwriter solicitation director, d/c plan was discussed in details, please see MOON note for more detailed information. as per PT, pt recommended ZULEMA. pt agreed to have ECT, pt was NPO after the midnight. pt was seen in OR holding area, pt signed consent for ECT, has a capacity to do so. #7 BL 08/10/18 this underwriter solicitation director increased frequency because last treatment pt had only 41% adequate seizures by MECTA, but clinically pt is slowly improving. pulse width 1.0msec,frequency 45, duration 8.000sec, current 800, , pt had about 19seconds of motor seizures, which was considered 22% adequate by MECTA analysis. anesthesiologist used 40mg succinylcholine, 30mg ketamine, 100mg propofol. will continue with 40 frequency because pt had 41% adequate seizures at Treatment #6. so far patient tolerates medications well, no side effects observed or reported, aims 0, no EPS. Impression: As per history of schizophrenia, paranoid type Parkinson's disease Medication Change: No (ect scheduled 08/15/18) Medical Record Reviewed: Yes Consults ordered or reviewed: pt was seen by PMD law firm consultant (discussed 08/08/18) see notes for more detailed info Mental Status Examination - Cognitive Function Orientation: Person, Place, Situation Memory: Intact Attention: WNL (some improvement) Concentration: Poor (some improvement) Association: WNL Fund of Knowledge: WNL - Mood Mood: Depressed ("I feel little better"), Anxious - Affect Affect: Blunted, Flat - Speech Speech: Appropriate (underproductive) - Formal Thought Process Formal Thought Process: Hallucinations (denied), Delusions (none elicited today), Paranoia (somewhat better) - Suicidal Ideation Suicidal Ideation: No - Homicidal Ideation Homicidal Ideation: No Goal/Treatment Plan - Goal/Treatment Plan Need for Continued Stay: Remain at risks for inpatient hospitalization, Severe depression anxiety, Discharge may exacerbated symptoms, Severe functional impairment Progress Toward Problem(s) and Goals/Treatment Plan: Milieu/structure/supportive therapy SW consultation for discharge plan and social issues Med management: Seroquel 75 mg in the morning, 100 mg within night and for psychosis Sonata needed for insomnia ECT treatment bilateral #4 08/02/2018 ECT tx #5 08/08/18, tolerated well ECT #6 08/10/18 ECT #7 08/15/18, tolerated well, no agitation, no confusions N.p.o. after midnight Family involvement, discussed with brother Abel ID f/u PMD f/u Podiatry f/u PT recommended ZULEMA 08/13/18 Follow up on labs Will monitor closely Pt was educated about risk/benefits and alternatives of medications, coping strategies (safety plan, suicide prevention), relapse prevention, importance of follow up with psychiatrist and therapist, stay away from drugs/alcohol/smoking Estimated Date of D/C: 08/17/18
[2018-08-15] MEDS ORDERED: Lactated Ringer's 1,000 ML IV SCH (11:15)
--- NOTE | 2018-08-15 15:01 | CP.PCM.PN ---
<Michelle Joshi - Last Filed: 08/15/18 14:59> Subjective - Date & Time of Evaluation Date of Evaluation: 08/15/18 Time of Evaluation: 14:59 - Subjective Subjective: Podiatry progress note - Dr. Ortiz/Tommy 73 year old male patient seen and evaluated 19 days s/p left foot incision and drainage with misonix debridement. Patient denies any pain at this time. He denies any overnight chills/nausea/vomiting/fever/shortness of breath. Patient sitting comfortably in chair at bedside and noted to be in good spirits Objective - Vital Signs/Intake and Output Vital Signs (last 24 hours): Temp Pulse Resp BP Pulse Ox 99 F 71 16 133/74 97 08/15/18 11:32 08/15/18 11:32 08/15/18 11:32 08/15/18 11:32 08/15/18 11:32 - Medications Medications: Current Medications Acetaminophen (Tylenol 325mg Tab) 650 mg PO Q4H PRN PRN Reason: Pain, Mild (1-3) Al Hydrox/Mg Hydrox/Simethicone (Maalox Plus 30 Ml) 30 ml PO DAILY PRN PRN Reason: Upset Stomach Carbidopa/Levodopa (Sinemet) 1 tab PO DAILY [facility] Last Admin: 08/14/18 09:36 Dose: 1 tab Donepezil HCl (Aricept) 5 mg PO HS [facility] Last Admin: 08/14/18 21:39 Dose: 5 mg Enoxaparin Sodium (Lovenox) 40 mg SC DAILY [facility]; Protocol Last Admin: 08/14/18 09:38 Dose: 40 mg Magnesium Hydroxide (Milk Of Magnesia) 30 ml PO DAILY PRN PRN Reason: Constipation Mupirocin (Bactroban Ointment) 1 gm TOP BID [facility] Last Admin: 08/14/18 18:37 Dose: Not Given Oxychlorosene Sodium (Clorpactin Wcs-90) 2 gm TOP DAILY [facility] Last Admin: 08/14/18 10:37 Dose: Not Given Pantoprazole Sodium (Protonix Ec Tab) 40 mg PO 0600 [facility] Last Admin: 08/15/18 06:13 Dose: Not Given Quetiapine Fumarate (Seroquel) 100 mg PO HS [facility]; Protocol Last Admin: 08/14/18 21:39 Dose: 100 mg Quetiapine Fumarate (Seroquel) 75 mg PO DAILY [facility]; Protocol Last Admin: 08/14/18 09:36 Dose: 75 mg Tamsulosin HCl (Flomax) 0.4 mg PO DAILY [facility] Last Admin: 08/14/18 09:37 Dose: 0.4 mg - Labs Labs: 08/12/18 13:30 - Constitutional Appears: Well, Non-toxic, No Acute Distress - Head Exam Head Exam: ATRAUMATIC, NORMOCEPHALIC - Extremities Exam Additional comments: LLE focused exam VASC: DP/PT pulses palpable 2/4; cap refill <3 seconds to all digits; temp gradient warm to warm; mild edema noted to the foot, improving. NEURO: Gross and protective sensation intact. DERM: Surgical site clean with minimal serous drainage, negative probe to bone, No tunneling, No undermining, no malodor, no purulence appreciated. MSK: Mild pain upon palpation of the carito-wound area; No pain on calf compression. Muscle power intact 5/5 to all groups. - Neurological Exam Neurological Exam: Alert, Awake, Oriented x3 - Psychiatric Exam Psychiatric exam: Normal Affect, Normal Mood Assessment and Plan - Assessment and Plan (Free Text) Assessment: 73 year old male patient seen and evaluated 19 days s/p left foot incision and drainage with misonix debridement Plan: Patient seen and evaluated at bedside Plan discussed with Dr. Ortiz Charts, labs and vitals reviewed: Afebrile, No leukocytosis Intraop wound culture: Final, no growth L foot MRI - patient refused MRI as he is not able to be still during MRI Local wound care: surgical site flushed with saline and dressed with iodoform packing, 4X4, Abdominal pad and Kerlix Patient stable for discharge from Podiatry standpoint, dressing can be changed MWF Patient to follow up with Dr. Sanders in office within 1 week of discharge Continue Abx per ID recs continue PT Patient to ambulate in the left forefoot wedge shoe Podiatry will continue to follow up the patient while in house <Alfred Ortiz - Last Filed: 08/15/18 17:51> Objective - Vital Signs/Intake and Output Vital Signs (last 24 hours): Temp Pulse Resp BP Pulse Ox 99 F 89 16 104/68 97 08/15/18 11:32 08/15/18 16:06 08/15/18 11:32 08/15/18 16:06 08/15/18 11:32 - Medications Medications: Current Medications Acetaminophen (Tylenol 325mg Tab) 650 mg PO Q4H PRN PRN Reason: Pain, Mild (1-3) Al Hydrox/Mg Hydrox/Simethicone (Maalox Plus 30 Ml) 30 ml PO DAILY PRN PRN Reason: Upset Stomach Carbidopa/Levodopa (Sinemet) 1 tab PO DAILY [facility] Last Admin: 08/15/18 15:10 Dose: 1 tab Donepezil HCl (Aricept) 5 mg PO HS [facility] Last Admin: 08/14/18 21:39 Dose: 5 mg Enoxaparin Sodium (Lovenox) 40 mg SC DAILY [facility]; Protocol Last Admin: 08/15/18 15:24 Dose: 40 mg Magnesium Hydroxide (Milk Of Magnesia) 30 ml PO DAILY PRN PRN Reason: Constipation Mupirocin (Bactroban Ointment) 1 gm TOP BID [facility] Last Admin: 08/15/18 15:07 Dose: 1 oin Oxychlorosene Sodium (Clorpactin Wcs-90) 2 gm TOP DAILY [facility] Last Admin: 08/15/18 15:08 Dose: 2 gm Pantoprazole Sodium (Protonix Ec Tab) 40 mg PO 0600 [facility] Last Admin: 08/15/18 06:13 Dose: Not Given Quetiapine Fumarate (Seroquel) 100 mg PO HS [facility]; Protocol Last Admin: 08/14/18 21:39 Dose: 100 mg Quetiapine Fumarate (Seroquel) 75 mg PO DAILY [facility]; Protocol Last Admin: 08/15/18 15:10 Dose: 75 mg Tamsulosin HCl (Flomax) 0.4 mg PO DAILY [facility] Last Admin: 08/15/18 15:10 Dose: 0.4 mg - Labs Labs: 08/12/18 13:30 Attending/Attestation - Attestation I have personally seen and examined this patient.: Yes I have fully participated in the care of the patient.: Yes I have reviewed all pertinent clinical information, including history, physical exam and plan: Yes
[2018-08-15] MEDS: Mupirocin 2% Ointment 15 GM TUBE TOP SCH ×2 (15:07→19:13)
[2018-08-15] MEDS: Oxychlorosene Topical 2 gm Packet TOP SCH (15:08)
[2018-08-15] MEDS: Enoxaparin 40 mg Syringe SC SCH (15:24)
[2018-08-16] MEDS: Pantoprazole 40 mg EC Tab PO SCH (06:28)
[2018-08-16 07:15] VITALS: RESP 20
[2018-08-16] MEDS: Mupirocin 2% Ointment 15 GM TUBE TOP SCH ×2 (09:25→17:28)
[2018-08-16] MEDS: Enoxaparin 40 mg Syringe SC SCH (09:25)
[2018-08-16] MEDS: Oxychlorosene Topical 2 gm Packet TOP SCH (09:25)
--- NOTE | 2018-08-16 10:59 | CP.PCM.PN ---
<MadelynMichelle quevedo - Last Filed: 08/16/18 10:57> Subjective - Date & Time of Evaluation Date of Evaluation: 08/16/18 Time of Evaluation: 10:57 - Subjective Subjective: Podiatry progress note - Dr. Ortiz/Tommy 73 year old male patient seen and evaluated 20 days s/p left foot incision and drainage with misonix debridement. Patient denies any pain at this time. He denies any overnight chills/nausea/vomiting/fever/shortness of breath. Patient sitting comfortably in chair at bedside and noted to be in good spirits. Patient reports he would like to go home. Objective - Vital Signs/Intake and Output Vital Signs (last 24 hours): Temp Pulse Resp BP Pulse Ox 98.2 F 71 20 143/83 97 08/16/18 07:14 08/16/18 07:14 08/16/18 07:14 08/16/18 07:14 08/15/18 11:32 - Medications Medications: Current Medications Acetaminophen (Tylenol 325mg Tab) 650 mg PO Q4H PRN PRN Reason: Pain, Mild (1-3) Al Hydrox/Mg Hydrox/Simethicone (Maalox Plus 30 Ml) 30 ml PO DAILY PRN PRN Reason: Upset Stomach Carbidopa/Levodopa (Sinemet) 1 tab PO DAILY [facility] Last Admin: 08/16/18 09:24 Dose: 1 tab Donepezil HCl (Aricept) 5 mg PO HS [facility] Last Admin: 08/15/18 21:40 Dose: 5 mg Enoxaparin Sodium (Lovenox) 40 mg SC DAILY [facility]; Protocol Last Admin: 08/16/18 09:25 Dose: 40 mg Magnesium Hydroxide (Milk Of Magnesia) 30 ml PO DAILY PRN PRN Reason: Constipation Mupirocin (Bactroban Ointment) 1 gm TOP BID [facility] Last Admin: 08/16/18 09:25 Dose: 1 oin Oxychlorosene Sodium (Clorpactin Wcs-90) 2 gm TOP DAILY [facility] Last Admin: 08/16/18 09:25 Dose: 2 gm Pantoprazole Sodium (Protonix Ec Tab) 40 mg PO 0600 [facility] Last Admin: 08/16/18 06:28 Dose: 40 mg Quetiapine Fumarate (Seroquel) 100 mg PO HS [facility]; Protocol Last Admin: 08/15/18 21:40 Dose: 100 mg Quetiapine Fumarate (Seroquel) 75 mg PO DAILY [facility]; Protocol Last Admin: 08/16/18 09:24 Dose: 75 mg Tamsulosin HCl (Flomax) 0.4 mg PO DAILY [facility] Last Admin: 08/16/18 09:24 Dose: 0.4 mg - Labs Labs: 08/12/18 13:30 - Constitutional Appears: Well, Non-toxic, No Acute Distress - Head Exam Head Exam: ATRAUMATIC, NORMOCEPHALIC - Extremities Exam Additional comments: LLE focused exam VASC: DP/PT pulses palpable 2/4; cap refill <3 seconds to all digits; temp gradient warm to warm; mild edema noted to the foot, improving. NEURO: Gross and protective sensation intact. DERM: Surgical site clean with minimal serous drainage, incision measuring 1.5 cm and depth of 0.5 cm, negative probe to bone, No tunneling, No undermining, no malodor, no purulence appreciated. Wound significantly healed MSK: Mild pain upon palpation of the carito-wound area; No pain on calf compr ession. Muscle power intact 5/5 to all groups. - Neurological Exam Neurological Exam: Alert, Awake, Oriented x3 - Psychiatric Exam Psychiatric exam: Normal Affect, Normal Mood Assessment and Plan - Assessment and Plan (Free Text) Assessment: 73 year old male patient seen and evaluated 20 days s/p left foot incision and drainage with misonix debridement Plan: Patient seen and evaluated at bedside with Dr. Sanders Plan discussed Charts, labs and vitals reviewed: Afebrile, No leukocytosis Intraop wound culture: Final, no growth L foot MRI - patient refused MRI as he is not able to be still during MRI Local wound care: surgical site flushed with saline and dressed with iodoform packing, 4X4, Abdominal pad and Kerlix Patient stable for discharge from Podiatry standpoint, dressing can be changed MWF Patient to follow up with Dr. Sanders in office within 1 week of discharge Continue Abx per ID recs continue PT Patient to ambulate in the left forefoot wedge shoe Podiatry will continue to follow up the patient while in house <Patsy Sanders - Last Filed: 08/18/18 20:32> Objective - Vital Signs/Intake and Output Vital Signs (last 24 hours): Temp Pulse Resp BP Pulse Ox 97.9 F 91 H 20 113/68 97 08/17/18 07:23 08/17/18 16:00 08/17/18 07:23 08/17/18 16:00 08/15/18 11:32 - Labs Labs: 08/12/18 13:30 Attending/Attestation - Attestation I have personally seen and examined this patient.: Yes I have fully participated in the care of the patient.: Yes I have reviewed all pertinent clinical information, including history, physical exam and plan: Yes Notes (Text): 08/18/18 20:32 sinus is closing; pt to be d/c home with VNA; will f/u at office number given to patient and to social group worker
--- NOTE | 2018-08-16 17:05 | PCM.PYCHPN ---
Psychiatric Progress Note - Psychiatric Progress Note Patient seen today, length of contact: 30min Patient Chief Complaint: "I feel much better.." Problems Identified/Issues Discussed: ECT risk/benefits and alternatives discussed, treatment plan, symptoms, ZULEMA, PT. Medical Problems: parkinson's, left foot cellulitis and abscess, GERD, BPH Diagnostic Results: Vital Signs Temp Pulse Pulse Resp BP 08/07/18 07:00 97.9 F 65 17 124/77 08/06/18 22:00 68 20 08/06/18 21:31 98.9 F 68 20 122/74 DSM 5 Symptoms Update: Shortly, patient is a 72-year old male, reported history of schizophrenia, history of Parkinson's disease, denied previous history of psychiatric admissions, denied history of suicidal attempts, currently under care or of [facility] treatment, initially patient was found wandering in the community, barefoot, police brought patient to the emergency room, patient required medical admission for delirium, this telegraphic typewriter operator was involved in to the patient care due to severeness of mental illness, medication management, altered mental status, pt staid on the medical site 07/11-07/14-2018. Patient was medically stable, collateral information's were obtained from patient brother Abel, patient required further evaluation and stabilization in to the psychiatric inpatient unit and ECT treatment, pt got 3 ECT treatments at the psychiatric unit, tolerated well, pt staid in psych inpatient unit 07/14- 07/25/2018, unfortunately pt developed cellulitis and abscess of left foot and needed medical transfer for IV antibiotics, pt was on the medical floor 07/25- 08/01/18, this telegraphic typewriter operator spoke to PMD , ID , Associate Chemist , Neurologist , pt was safely transferred back to the psychiatric inpatient unit for further treatment, medication management and ECT treatment, pt agreed with the plan, pt's brother Abel was notified as well, pt staid in psychiatric inpatient unit 08/01/18-08/02/18, pt got ECT on 08/02/18, no complication, pt refused to eat at lunch after coming back from ECT, as a result pt was found to have hypotension, needed to be transferred back to the medical [facility], where he staid 08/02/18-08/06/18, pt was transferred back to the psychiatric inpatient unit 08/06/18 uneventfully, please see 's note. initially patient was seen today at the day treatment area, treatment plan/d/c plan was discussed in details, pt presented with improved hygiene, shaved, pt reported to feel "good", pt reported that he does not hear any voices, "last time was long time ago", pt is less paranoid, more organized. Patient is aware of discharge plan to subacute rehab, agreed to that. pt reported feeling "good", affect was more reactive, pt was able to smile couple of times during the interview. pt's Parkinson's tremor is much better, pt is willing to continue ECT treatment as outpatient. prolonged conversation took place 08/13/18 with pt's brother AbelMOON and this telegraphic typewriter operator, d/c plan was discussed in details, please see MOON note for more detailed information. as per PT, pt recommended ZULEMA. #7 BL 08/15/18 this telegraphic typewriter operator increased frequency because last treatment pt had only 41% adequate seizures by MECTA, but clinically pt is slowly improving. pulse width 1.0msec,frequency 45, duration 8.000sec, current 800, , pt had about 19seconds of motor seizures, which was considered 22% adequate by MECTA analysis. anesthesiologist used 40mg succinylcholine, 30mg ketamine, 100mg propofol. will continue with 40 frequency because pt had 41% adequate seizures at Treatment #6. so far patient tolerates medications well, no side effects observed or reported, aims 0, no EPS. Impression: As per history of schizophrenia, paranoid type Parkinson's disease Medication Change: No Medical Record Reviewed: Yes Mental Status Examination - Cognitive Function Orientation: Person, Place, Situation Memory: Intact Attention: WNL (some improvement) Concentration: Poor (some improvement) Association: WNL Fund of Knowledge: WNL - Mood Mood: Depressed ("I feel little better"), Anxious - Affect Affect: Blunted, Flat - Speech Speech: Appropriate (underproductive) - Formal Thought Process Formal Thought Process: Hallucinations (denied), Delusions (none elicited today), Paranoia (somewhat better) - Suicidal Ideation Suicidal Ideation: No - Homicidal Ideation Homicidal Ideation: No Goal/Treatment Plan - Goal/Treatment Plan Need for Continued Stay: Remain at risks for inpatient hospitalization, Severe depression anxiety, Discharge may exacerbated symptoms, Severe functional impairment Progress Toward Problem(s) and Goals/Treatment Plan: Milieu/structure/supportive therapy SW consultation for discharge plan and social issues Med management: Seroquel 75 mg in the morning, 100 mg within night and for psychosis Sonata needed for insomnia ECT treatment bilateral #4 08/02/2018 ECT tx #5 08/08/18, tolerated well ECT #6 08/10/18 ECT #7 08/15/18, tolerated well, no agitation, no confusions Family involvement, discussed with brother Abel ID f/u PMD f/u Podiatry f/u PT recommended ZULEMA 08/13/18 Follow up on labs Will monitor closely Pt was educated about risk/benefits and alternatives of medications, coping strategies (safety plan, suicide prevention), relapse prevention, importance of follow up with psychiatrist and therapist, stay away from drugs/alcohol/smoking Estimated Date of D/C: 08/17/18
--- NOTE | 2018-08-17 00:08 | CP.PCM.PN ---
Subjective - Date & Time of Evaluation Date of Evaluation: 08/17/18 Time of Evaluation: 07:30 - Subjective Subjective: John Costa PGY2 IM Progress Note for Dr. Castañeda Patient was seen and examined at bedside. He denies any abdominal pain, shortness of breath or fevers/chills. He is tolerating his diet well. Objective - Vital Signs/Intake and Output Vital Signs (last 24 hours): Temp Pulse Resp BP Pulse Ox 98.2 F 98 H 20 106/67 97 08/16/18 07:14 08/16/18 16:00 08/16/18 07:14 08/16/18 16:00 08/15/18 11:32 - Medications Medications: Current Medications Acetaminophen (Tylenol 325mg Tab) 650 mg PO Q4H PRN PRN Reason: Pain, Mild (1-3) Al Hydrox/Mg Hydrox/Simethicone (Maalox Plus 30 Ml) 30 ml PO DAILY PRN PRN Reason: Upset Stomach Carbidopa/Levodopa (Sinemet) 1 tab PO DAILY [facility] Last Admin: 08/16/18 09:24 Dose: 1 tab Donepezil HCl (Aricept) 5 mg PO HS [facility] Last Admin: 08/16/18 21:11 Dose: 5 mg Enoxaparin Sodium (Lovenox) 40 mg SC DAILY [facility]; Protocol Last Admin: 08/16/18 09:25 Dose: 40 mg Magnesium Hydroxide (Milk Of Magnesia) 30 ml PO DAILY PRN PRN Reason: Constipation Mupirocin (Bactroban Ointment) 1 gm TOP BID [facility] Last Admin: 08/16/18 17:28 Dose: 1 oin Oxychlorosene Sodium (Clorpactin Wcs-90) 2 gm TOP DAILY [facility] Last Admin: 08/16/18 09:25 Dose: 2 gm Pantoprazole Sodium (Protonix Ec Tab) 40 mg PO 0600 [facility] Last Admin: 08/16/18 06:28 Dose: 40 mg Quetiapine Fumarate (Seroquel) 100 mg PO HS [facility]; Protocol Last Admin: 08/16/18 21:11 Dose: 100 mg Quetiapine Fumarate (Seroquel) 75 mg PO DAILY [facility]; Protocol Last Admin: 08/16/18 09:24 Dose: 75 mg Tamsulosin HCl (Flomax) 0.4 mg PO DAILY [facility] Last Admin: 08/16/18 09:24 Dose: 0.4 mg - Labs Labs: 08/12/18 13:30 - Constitutional Appears: Well, Non-toxic, No Acute Distress - Head Exam Head Exam: ATRAUMATIC, NORMAL INSPECTION - Eye Exam Eye Exam: EOMI, Normal appearance - ENT Exam ENT Exam: Mucous Membranes Moist, Normal Exam - Neck Exam Neck Exam: Full ROM, Normal Inspection - Respiratory Exam Respiratory Exam: NORMAL BREATHING PATTERN. absent: Respiratory Distress - Cardiovascular Exam Cardiovascular Exam: RRR, +S1, +S2 - GI/Abdominal Exam GI & Abdominal Exam: Soft. absent: Distended, Tenderness - Extremities Exam Extremities Exam: Full ROM Additional comments: L foot dressing c/d/i - Neurological Exam Neurological Exam: Alert, Awake - Skin Skin Exam: Intact, Warm Assessment and Plan - Assessment and Plan (Free Text) Assessment: 73 year old male with a PMH of hypertension, hyperlipidemia, diverticulosis, paranoid schizophrenia, and arthritis admitted to psych for schizophrenia following medical admission for hypotension and sob following ECT. Patient received treatment for sepsis 2/2 L foot cellulitis. Plan: 1. Sepsis 2/2 L foot cellulitis - off Abx now - sepsis resolved - podiatry following, recs appreciated 2. Schizophrenia s/p ECT (7 sessions so far) - Admitted to psych now - cont Seroquel 3. Parkinson's dementia - cont Aricept and Carb/Levodopa 4. PPX - Lovenox for DVT ppx - Protonix for GI ppx Further recs per Dr. Castañeda Case was reviewed and discussed with Dr. Castañeda
--- NOTE | 2018-08-17 02:43 | PN ---
DATE: 08/16/2018 SUBJECTIVE: The patient was seen and examined in room 508, bed 1. The patient is seen sitting up in the bed. The patient is alert, awake, responsive. The patient is getting prepared for the ECT therapy. Overnight nurse's notes were reviewed. No auditory hallucination, no visual hallucination. No anxiety or depression. No suicidal or homicidal ideation noted. PHYSICAL EXAMINATION: VITAL SIGNS: T-max 98.2, heart rate 71-89, blood pressure 106/67, 144/83, 104/68, 133/74, 140/78, respiration 20, O2 sat 97%. GENERAL: The patient is seen sitting up in the bed. HEENT: Head examination normocephalic, atraumatic. HEENT examination shows pinkish conjunctivae. Anicteric sclerae. No oropharyngeal lesion. NECK: No neck rigidity. CHEST: Kyphosis. LUNGS: Shows no audible crackle, rales or wheezing. CARDIOVASCULAR: S1, S2, regular rhythm. ABDOMEN: Soft, positive bowel sound. No palpable hepatosplenomegaly. GENITALIA: Male. RECTAL: Deferred. EXTREMITIES: Shows positive left foot dressing. MUSCULOSKELETAL: Shows a body mass index of 29.8. NEUROLOGIC: The patient is alert, awake, oriented x3, is able to move upper and lower extremity without assistance. Gait examination is not tested. The patient is nonweightbearing on the left lower extremity. IMPRESSION: 1. Acute exacerbation of anxiety and depression. 2. Status post electroconvulsive therapy x7. 3. Gait dysfunction with nonweightbearing status of the left lower extremity. 4. Parkinson's disease. 5. Group A Streptococcus pyogenes left foot abscess and cellulitis. 6. Dementia. 7. History of paranoid schizophrenia. 8. Auditory hallucination. 9. Delirium. 10. Altered mental status. 11. History of hypertension, hyperlipidemia. 12. Prostatic hypertrophy. CURRENT MEDICATIONS: Aricept 5 mg h.s., Bactroban cream to the affected area, Clorpactin to the affected area, Flomax 0.4 mg daily, Lovenox 40 mg subcu daily, Maalox and milk of magnesia p.r.n., Protonix 40 mg daily, Seroquel 100 mg h.s., Seroquel 75 mg daily, Sinemet 25/100 mg tablet daily. PLAN: At this time, the patient is awaiting clearance by Psychiatry and Podiatry for discharge to subacute rehab. The patient is nonweightbearing. The patient is awaiting discharge to subacute rehab. Dictated and electronically signed, not read. Janes Castañeda MD
[2018-08-17] MEDS: Pantoprazole 40 mg EC Tab PO SCH (06:57)
[2018-08-17 07:24] VITALS: TEMP 97.9
[2018-08-17] MEDS: Enoxaparin 40 mg Syringe SC SCH (08:09)
[2018-08-17] MEDS: Oxychlorosene Topical 2 gm Packet TOP SCH (08:10)
[2018-08-17] MEDS: Mupirocin 2% Ointment 15 GM TUBE TOP SCH ×2 (08:10→16:47)
[2018-08-17] MEDS ORDERED: Magnesium Citrate Oral SOL (300 ml) PO ONE (14:32)
--- NOTE | 2018-08-17 16:21 | PCM.PYCHDC ---
Mental Status Examination - Mental Status Examination Orientation: Person, Place, Situation, Time Memory: Intact Mood: Neutral Affect: Constricted Speech: Appropriate (But under) Attention: WNL (Much improved) Concentration: WNL (Much improved) Association: Loose (But much improved, seems to be baseline) Fund of Knowledge: WNL Formal Thought Process: Other (Patient has residual symptoms of paranoia and psychosis, but much improved compared with the time of admission) Description of patient's judgement and insight: Patient has good insight into his mental illness as well as medical issues, patient was compliant with her medications and ECT treatment as well as unit rules and regulations, no agitation, no depression, patient was pleasant, cooperative, was attending groups. Psychotic Thoughts and Behaviors: Patient has residual symptoms of schizophrenia such as mild paranoia, but overall much improved. Suicidal Ideation: No Current Homicidal Ideation?: No Plan: Patient adamantly denied thoughts of harming himself or others, denied intent or plan. Discharge Summary - Discharge Note Reason for Hospitalization: Psychosis Psychiatric History (includes Medical, Family, Personal Hx): Patient has long history of schizophrenia, paranoid type. Laboratory Data: 08/12/18 13:30 Lab Results 08/13/18 10:12: POC Glucose (mg/dL) 114 H 08/12/18 13:30: WBC 7.9, RBC 3.65, Hgb 11.9 L, Hct 37.3 L, MCV 102.2, MCH 32.6, MCHC 31.9, RDW 14.6 H, Plt Count 152, MPV 10.6, Neut % (Auto) 80.3 H, Lymph % (Auto) 10.4 L, [place] % (Auto) 7.7 H, Eos % (Auto) 1.3 L, Baso % (Auto) 0.3, Lymph # (Auto) 0.8 L, [place] # (Auto) 0.6, Eos # (Auto) 0.1, Baso # (Auto) 0.02, Absolute Neuts (auto) 6.33 Vital Signs Temp Pulse Pulse Resp BP Pulse Ox 08/17/18 07:23 97.9 F 68 20 147/71 08/16/18 16:00 98 H 106/67 08/16/18 07:14 98.2 F 71 20 143/83 08/15/18 16:06 89 104/68 08/15/18 11:32 99 F 71 16 133/74 97 08/15/18 11:17 99 F 68 16 140/78 97 08/15/18 11:06 79 150/84 08/15/18 11:02 99 F 79 16 133/74 97 08/15/18 10:01 99 F 68 18 134/66 97 08/15/18 08:00 98.1 F 65 20 136/72 08/15/18 07:01 98.1 F 65 20 136/72 08/14/18 16:19 92 H 96/58 L 08/14/18 07:10 98.3 F 68 20 133/77 08/13/18 07:16 97.7 F 91 H 17 111/69 08/12/18 22:24 97 H 88/58 L 08/12/18 16:00 80 104/67 08/12/18 07:05 98.4 F 66 17 130/76 08/11/18 16:00 76 115/71 08/11/18 07:03 97.4 F L 68 20 151/82 H 08/10/18 17:35 80 101/64 08/10/18 13:52 86 84/52 L 08/10/18 10:00 97.9 F 71 17 156/85 H 99 08/10/18 09:24 98 F 70 12 125/74 97 08/10/18 09:09 98 F 70 12 120/71 96 08/10/18 08:54 98 F 76 12 135/81 96 08/10/18 08:26 86 84/52 L 08/10/18 07:52 97.9 F 69 18 157/81 H 94 L 08/10/18 07:03 98.1 F 82 20 136/81 08/09/18 16:42 80 122/72 08/09/18 16:00 83 82/54 L 08/09/18 07:14 98.1 F 67 20 131/77 08/08/18 16:00 84 82/50 L 08/08/18 12:16 80 117/74 08/08/18 10:05 98.1 F 64 18 137/73 98 08/08/18 09:50 98.1 F 63 18 137/73 98 08/08/18 09:35 98.1 F 65 18 127/74 100 08/08/18 09:20 98.1 F 63 18 133/68 99 08/08/18 08:26 98.1 F 64 18 137/73 08/08/18 08:00 98.1 F 67 18 130/63 98 08/08/18 07:06 98.3 F 75 20 134/75 08/07/18 16:00 81 96/62 L 08/07/18 07:00 97.9 F 65 17 124/77 08/06/18 22:00 68 20 08/06/18 21:31 98.9 F 68 20 122/74 Consultations:: List each consultation separately and include: 1. Reason for request. 2. Findings. 3. Follow-up Consultations: pt was seen by PMD snow removal/plowing (discussed 08/08/18) PT recommended ZULEMA see notes for more detailed info Summary of Hospital Course include:: 1. Description of specific treatment plan utilized for patients during their course of treatmen. 2. Summarize the time- course for resolution of acute symptoms and/or regressed behaviors. 3. Describe issues identified and worked on during hospitalization. 4. Describe medication utilized. 5. Describe medical problems identified and treated. 6. Reassessment of suicide risk Summary of Hospital Course: Shortly, patient is a 72-year old male, reported history of schizophrenia, history of Parkinson's disease, denied previous history of psychiatric admissions, denied history of suicidal attempts, currently under care or of [facility] treatment, initially patient was found wandering in the community, barefoot, police brought patient to the emergency room, patient required medical admission for delirium. This ad writer was involved in to the patient care due to severeness of mental illness, medication management, altered mental status. Pt staid on the medical site 07/11-. Patient was medically stable, collateral information's were obtained from patient brother Abel, patient required further evaluation and stabilization in to the psychiatric inpatient unit and ECT treatment. Pt got 3 ECT treatments at the psychiatric unit, tolerated well, pt staid in psych inpatient unit 07/14- 07/25/2018. Unfortunately pt developed cellulitis and abscess of left foot and needed medical transfer for IV antibiotics, pt was on the medical floor 07/25- 08/01/18. This ad writer spoke to PMD , ID Dr.Boghossian, Comic Artist , Neurologist , pt was safely transferred back to the psychiatric inpatient unit for further treatment, medication management and continuum ECT treatment. Pt agreed with the plan, pt's brother Abel as well. Pt staid in psychiatric inpatient unit 08/01/18-08/02/18, pt got ECT on 08/02/18, no complication, pt refused to eat at lunch after coming back from ECT, as a result pt was found to have hypotension, needed to be transferred back to the medical floor, where he staid 08/02/18-08/06/18, pt was transferred back to the psychiatric inpatient unit 08/06/18 and staid in the psychiatric inpatient unit till 08/17/18. Urine please follow-up hospitalization patient had 7 ECT treatmens, patient tolerated procedure well, no memory issues, patient psychosis improved significantly, as well as Parkinson's symptoms. pt was tolerating well the following parameters: pulse width 1.0msec,frequency 45, duration 8.000sec, current 800, , pt had about 19seconds of motor seizures, which was considered 22% adequate by MECTA analysis. anesthesiologist used 40mg succinylcholine, 30mg ketamine, 100mg propofol. will continue with 45 frequency because pt had 41% adequate seizures at Treatment #6. as well as ECT treatment pt was on the following medications: levodopa/carbidopa 25/100 mg daily for Parkinson's disease Aricept 5 mg at the nighttime for possible dementia Seroquel 75 mg daily and 100 mg at the nighttime for psychosis Patient also was on Protonix 40 mg daily Tylenol as needed MiraLAX as needed Colace 100 mg 3 times a day Lovenox 40 mg subcu daily Milk of magnesia Bactroban ointment 1 g topical twice a day Clorpactin Wcs-90, 2gm packet top daily Flomax 0.4 mg daily Patient tolerated medications well, no side effects observed or reported, AIMS 0, no EPS. prolonged conversation took place with pt's brother Abel (pt gave written consent), on multiple occasions, with [facility] and this ad writer, treatment and discharge plan was discussed in details, please see SW note for more detailed information. pt's brother was informed that pt needs to come back to the ECT maintenance, both pt and his brother verbalized understanding. SW provided pt's brother contact info for ECT scheduling department. Overall patient improved significantly, psychosis almost disappeared, patient had residual symptoms of paranoia but no voices, no command type hallucinations, patient's affect is more reactive, patient is pleasant/corporative/socially appropriate, actively participating in treatment and discharge plan. As per nursing report patient is compliant with her medications, no aggression, patient has good appetite and sleep, patient is socially appropriate. Patient reached maximum effect from this acute psychiatric hospitalization, patient was accepted to subacute rehab, patient will be transferred today, bailey worrell's brother was notified. while pt was in inpatient unit pt wanted his brother to be his POA for medical decisions. At the time of the discharge patient pose no imminent danger to self or others, will be transferred to [facility] with the plan to be f/u with psychiatrist in the facility within [phone], after that pt needs to schedule appt for maintenance ECT at [phone], as well as psychiatrist at [facility] [phone] or [facility]. It is a patient responsibility to follow up with outpatient clinic, PMD as well as specialists In case patient will need to obtain results of studies pending at discharge, patient was provided with contact information of Psychiatric Inpatient unit [phone] as well as Medical Record Department [phone], as well as [facility] team [phone]. Patient denied drinking alcohol, denies smoking, denies using drugs pt was provided with prescriptions (see medication reconciliation form) Pt was educated about safety plan in case of worsening of symptoms or in case of suicidal or homicidal ideation call 911 or go to the nearest ER, also was educated to take meds as prescribed and stay away from drugs, pt verbalized understanding. - Diagnosis (1) Schizophrenia Current Visit: Yes Status: Chronic Priority: High - Final Diagnosis (DSM 5) Condition upon Discharge: GOOD Disposition: NURSING FACILITY MEDICAID CERT Follow-up Treatment Plan: At the time of the discharge patient pose no imminent danger to self or others, will be transferred to [facility] with the plan to be f/u with psychiatrist in the facility within [phone], after that pt needs to schedule appt for maintenance ECT at [phone], as well as psychiatrist at [facility] [phone] or [facility]. It is a patient responsibility to follow up with outpatient clinic, PMD as well as specialists In case patient will need to obtain results of studies pending at discharge, patient was provided with contact information of Psychiatric Inpatient unit [phone] as well as Medical Record Department [phone], as well as [facility] team [phone]. Patient denied drinking alcohol, denies smoking, denies using drugs pt was provided with prescriptions (see medication reconciliation form) Pt was educated about safety plan in case of worsening of symptoms or in case of suicidal or homicidal ideation call 911 or go to the nearest ER, also was educated to take meds as prescribed and stay away from drugs, pt verbalized understanding. - Smoking Cessation Smoking Cessation Medication prescribed: No Reason for not providing: denies smoking - Antipsychotic Medications Pt discharged on 2 or more routine antipsychotic medications: No
[2018-08-17 16:34] VITALS: BP 113/68; PULSE 91
--- NOTE | 2018-08-17 18:39 | CP.PCM.PN ---
<MadelynMichelle quevedo - Last Filed: 08/17/18 18:38> Subjective - Date & Time of Evaluation Date of Evaluation: 08/17/18 Time of Evaluation: 18:38 - Subjective Subjective: Podiatry progress note - Dr. Ortiz/Tommy 73 year old male patient seen and evaluated 20 days s/p left foot incision and drainage with misonix debridement. Patient denies any pain at this time. He denies any overnight chills/nausea/vomiting/fever/shortness of breath. Patient sitting comfortably in chair at bedside and noted to be in good spirits. Patient reports he would like to go home. Objective - Vital Signs/Intake and Output Vital Signs (last 24 hours): Temp Pulse Resp BP Pulse Ox 97.9 F 91 H 20 113/68 97 08/17/18 07:23 08/17/18 16:00 08/17/18 07:23 08/17/18 16:00 08/15/18 11:32 - Medications Medications: Current Medications Acetaminophen (Tylenol 325mg Tab) 650 mg PO Q4H PRN PRN Reason: Pain, Mild (1-3) Al Hydrox/Mg Hydrox/Simethicone (Maalox Plus 30 Ml) 30 ml PO DAILY PRN PRN Reason: Upset Stomach Carbidopa/Levodopa (Sinemet) 1 tab PO DAILY [facility] Last Admin: 08/17/18 08:10 Dose: 1 tab Docusate Sodium (Colace) 100 mg PO TID [facility] Last Admin: 08/17/18 16:49 Dose: 100 mg Donepezil HCl (Aricept) 5 mg PO HS [facility] Last Admin: 08/16/18 21:11 Dose: 5 mg Enoxaparin Sodium (Lovenox) 40 mg SC DAILY [facility]; Protocol Last Admin: 08/17/18 08:09 Dose: 40 mg Magnesium Hydroxide (Milk Of Magnesia) 30 ml PO DAILY PRN PRN Reason: Constipation Mupirocin (Bactroban Ointment) 1 gm TOP BID [facility] Last Admin: 08/17/18 16:47 Dose: 1 oin Oxychlorosene Sodium (Clorpactin Wcs-90) 2 gm TOP DAILY [facility] Last Admin: 08/17/18 08:10 Dose: 2 gm Pantoprazole Sodium (Protonix Ec Tab) 40 mg PO 0600 [facility] Last Admin: 08/17/18 06:57 Dose: 40 mg Quetiapine Fumarate (Seroquel) 100 mg PO HS [facility]; Protocol Last Admin: 08/16/18 21:11 Dose: 100 mg Quetiapine Fumarate (Seroquel) 75 mg PO DAILY [facility]; Protocol Last Admin: 08/17/18 08:10 Dose: 75 mg Tamsulosin HCl (Flomax) 0.4 mg PO DAILY [facility] Last Admin: 08/17/18 08:10 Dose: 0.4 mg - Labs Labs: 08/12/18 13:30 - Constitutional Appears: Well, Non-toxic, No Acute Distress - Head Exam Head Exam: ATRAUMATIC, NORMOCEPHALIC - Extremities Exam Additional comments: LLE focused exam VASC: DP/PT pulses palpable 2/4; cap refill <3 seconds to all digits; temp gradient warm to warm; mild edema noted to the foot, improving. NEURO: Gross and protective sensation intact. DERM: Surgical site clean with minimal serous drainage, incision measuring 1.5 cm and depth of 0.5 cm, negative probe to bone, No tunneling, No undermining, no malodor, no purulence appreciated. Wound significantly healed MSK: Mild pain upon palpation of the carito-wound area; No pain on calf compression. Muscle power intact 5/5 to all groups. - Neurological Exam Neurological Exam: Alert, Awake, Oriented x3 - Psychiatric Exam Psychiatric exam: Normal Affect, Normal Mood Assessment and Plan - Assessment and Plan (Free Text) Assessment: 73 year old male patient seen and evaluated 20 days s/p left foot incision and drainage with misonix debridement Plan: Patient seen and evaluated at bedside Plan discussed Charts, labs and vitals reviewed: Afebrile, No leukocytosis Intraop wound culture: Final, no growth L foot MRI - patient refused MRI as he is not able to be still during MRI Local wound care: surgical site flushed with saline and dressed with iodoform packing, 4X4, Abdominal pad and Kerlix Patient stable for discharge from Podiatry standpoint, dressing can be changed MWF Patient to follow up with Dr. Sanders in office within 1 week of discharge Continue Abx per ID recs continue PT Patient to ambulate in the left forefoot wedge shoe Podiatry will continue to follow up the patient while in house <Alfred Ortiz - Last Filed: 08/21/18 08:33> Objective - Vital Signs/Intake and Output Vital Signs (last 24 hours): Temp Pulse Resp BP Pulse Ox 97.9 F 91 H 20 113/68 97 08/17/18 07:23 08/17/18 16:00 08/17/18 07:23 08/17/18 16:00 08/15/18 11:32 - Labs Labs: 08/12/18 13:30 Attending/Attestation - Attestation I have personally seen and examined this patient.: Yes I have fully participated in the care of the patient.: Yes I have reviewed all pertinent clinical information, including history, physical exam and plan: Yes
--- NOTE | 2018-08-17 21:38 | PN ---
DATE: 08/17/2018 SUBJECTIVE: The patient was seen in Psychiatry floor 508, bed 1. The patient is seen lying in the bed. The patient is alert, awake, responsive, oriented x3. The patient does not appear to be in any distress. REVIEW OF SYSTEMS: A 14-system reviewed and positive for hard stool, constipation. PHYSICAL EXAMINATION: VITAL SIGNS: For the last 24 hours, T-max is 98.2, pulse 68, 98, 71 and 89, blood pressure 147/71, 106/67, 143/83, respiration 20, O2 sat 97%. HEENT: Head examination normocephalic, atraumatic. HEENT examination shows pink conjunctivae. Anicteric sclerae. No oropharyngeal lesion. NECK: No neck rigidity. CHEST: Kyphosis. LUNGS: Shows no audible crackle, rales or wheezing. CARDIOVASCULAR: S1, S2, regular rhythm. Questionable soft systolic murmur left sternal border, right second intercostal space, left second intercostal space. ABDOMEN: Soft, positive bowel sound. No palpable hepatosplenomegaly. GENITALIA: Male. RECTAL: Deferred. EXTREMITIES: Shows positive left foot dressing. MUSCULOSKELETAL: As per the body mass index of 29.8. NEUROLOGIC: The patient is alert, awake, oriented x3. He is able to move upper and lower extremities without assistance. Gait examination is not tested. The patient is nonweightbearing on the left lower extremity. DIAGNOSTICS: None. IMPRESSION: 1. Constipation versus . 2. Acute exacerbation of anxiety and depression. 3. Paranoid schizophrenia. 4. Parkinson's disease. 5. Dementia. 6. Left foot Streptococcus pyogenes group A cellulitis and abscess, status post incision and drainage of the left foot abscess and Misonix debridement. 7. Anemia. 8. History of hypertension, episodic hypotension. 9. Dementia 10. Prostatic hypertrophy. 11. Constipation. 12. Paranoid schizophrenia. 13. Status post electroconvulsive therapy by x3 sessions. PLAN: At this time, the patient is to be continued on Aricept 5 mg at h.s., Bactroban cream to the left foot area, Clorpactin to the left foot area, Flomax 0.4 mg daily, Lovenox 40 mg subcu daily for deep venous thrombosis prophylaxis, Maalox and milk of magnesia p.r.n., Protonix 40 mg daily, Seroquel 100 mg h.s., Seroquel 75 mg daily, Sinemet 25/100 mg one tablet daily, Tylenol 650 mg every 4 hours p.r.n. At present, the patient is awaiting for subacute rehab placement at the approved facility and of family's choice. The patient will be given laxatives, stool softeners or suppository for the patient's constipation. Dictated and electronically signed, not read. Janes Castañeda MD
== END 2018-08-17 18:44 | DRG 885 ==
LOC: PSYC 20:59
PROVIDERS: ADMIT Psychiatry & Neurology Psychiatry; ATTEND Psychiatry & Neurology Psychiatry
PROC: GZ3ZZZZ Medication Management (ICD-10-PCS; principal; 2018-08-06)
DX: F20.0 Paranoid schizophrenia (principal); L03.116 Cellulitis of left lower limb; G20 Parkinson's disease; F02.80 Dementia in other diseases classified elsewhere, unspecified severity, without behavioral disturbance, psychotic disturbance, mood disturbance, and anxiety; F32.9 Major depressive disorder, single episode, unspecified; N40.0 Benign prostatic hyperplasia without lower urinary tract symptoms; R73.03 Prediabetes; E78.5 Hyperlipidemia, unspecified; D64.9 Anemia, unspecified; I65.23 Occlusion and stenosis of bilateral carotid arteries; K21.9 Gastro-esophageal reflux disease without esophagitis; E55.9 Vitamin D deficiency, unspecified; R26.9 Unspecified abnormalities of gait and mobility; K59.00 Constipation, unspecified; K44.9 Diaphragmatic hernia without obstruction or gangrene; I10 Essential (primary) hypertension; G47.30 Sleep apnea, unspecified; H40.9 Unspecified glaucoma; M47.9 Spondylosis, unspecified

== ENCOUNTER 2018-09-11 08:50 | Day surgery (SDC) | payer MEDICARE ==
[2018-09-04 15:53] VITALS: BMI 30.4
[2018-09-11] MEDS ORDERED: Propofol 10 mg/ml Inj (20 ML) ONE (12:58)
[2018-09-11] MEDS ORDERED: Succinylcholine 200 mg/10 ml Inj IV ONE (12:58)
[2018-09-11] MEDS ORDERED: Ketamine 10 mg/ml Inj (20 ml) ONE (13:05)
[2018-09-11] MEDS ORDERED: Sodium Chloride 0.9% 1,000 ML IV SCH (13:30)
[2018-09-11 13:43] VITALS: TEMP 98.2; O2SAT 100
[2018-09-11 14:47] VITALS: BP 140/60; PULSE 64; RESP 18
--- NOTE | 2018-09-11 17:29 | CP.PCM.HP ---
History of Present Illness - History of Present Illness History of Present Illness: Shortly, patient is a 72-year old male, reported history of schizophrenia, history of Parkinson's disease, denied previous history of psychiatric admissions, denied history of suicidal attempts, was under care or of [facility] treatment. initially patient was found wandering in the community, barefoot, police brought patient to the emergency room, patient required medical admission for delirium 06/2018. This news writer was involved in to the patient care due to severeness of mental illness, medication management, altered mental status. Pt staid on the medical site 07/11-07/14-2018. Patient was medically stable, collateral information's were obtained from patient brother Abel, patient required further evaluation and stabilization in to the psychiatric inpatient unit and ECT treatment. Pt got 3 ECT treatments at the psychiatric unit, tolerated well, pt staid in psych inpatient unit 07/14- 07/25/2018. Unfortunately pt developed cellulitis and abscess of left foot and needed medical transfer for IV antibiotics, pt was on the medical floor 07/25- 08/01/18. This news writer spoke to PMD , ID , [employer] , Neurologist , pt was safely transferred back to the psychiatric inpatient unit for further treatment, medication management and continuum ECT treatment. Pt agreed with the plan, pt's brother Abel as well. Pt staid in psychiatric inpatient unit 08/01/18-08/02/18, pt got ECT on 08/02/18, no complication, pt refused to eat at lunch after coming back from ECT, as a result pt was found to have hypotension, needed to be transferred back to the medical floor, where he staid 08/02/18-08/06/18, pt was transferred back to the psychiatric inpatient unit 08/06/18 and staid in the psychiatric inpatient unit till 08/17/18. pt was referred to [facility], which pt successfully completed and came back to continue ECT treatment. pt was seen today in OR, pt was accompanied by pt's brother Abel, who is pt's POA. as per brother and pt himself pt is doing better on ECT. Patient reported that his motor functioning is improving, patient ambulates using cane, psychosis is improving. Patient as well as his brother wants to continue on ECT treatment once a week for the next month, after that every week for another month and maintenance ECT monthly. pt wants to continue ECT treatment, risk/benefits and alternatives discussed, pt and POA agreed, both singed consent for treatment. ECT #8 09/11/18 pulse width 1.0msec,frequency 45, duration 8.000sec, current 800, and this news writer continued with the same parameters pt had 87% seizure adequacy by MECTA analysis. anesthesiologist used 40mg succinylcholine, 30mg ketamine, 100mg propofol. Patient reported being on the following medications: levodopa/carbidopa 25/100 mg daily for Parkinson's disease Aricept 5 mg at the nighttime for possible dementia Seroquel 75 mg daily and 100 mg at the nighttime for psychosis Patient also was on Protonix 40 mg daily Tylenol as needed MiraLAX as needed Colace 100 mg 3 times a day Lovenox 40 mg subcu daily Milk of magnesia Bactroban ointment 1 g topical twice a day Clorpactin Wcs-90, 2gm packet top daily Flomax 0.4 mg daily Patient tolerated medications well, no side effects observed or reported, AIMS 0, no EPS. Patient wants to follow-up at [facility] clinic with , contact information provided. Present on Admission - Present on Admission Any Indicators Present on Admission: No History of DVT/PE: No History of Uncontrolled Diabetes: No Urinary Catheter: No Decubitus Ulcer Present: No Review of Systems - Review of Systems Systems not reviewed;Unavailable: Acuity of Condition - Constitutional Constitutional: As Per HPI - EENT Eyes: As Per HPI Ears: As Per HPI Nose/Mouth/Throat: As Per HPI - Cardiovascular Cardiovascular: As Per HPI - Respiratory Respiratory: As Per HPI - Gastrointestinal Gastrointestinal: As Per HPI - Genitourinary Genitourinary: As Per HPI - Reproductive: Male Reproductive:Male: As Per HPI - Musculoskeletal Musculoskeletal: As Per HPI - Integumentary Integumentary: As Per HPI - Neurological Neurological: As Per HPI - Psychiatric Psychiatric: As Per HPI - Endocrine Endocrine: As Per HPI - Hematologic/Lymphatic Hematologic: As Per HPI Past Patient History - Infectious Disease Hx of Infectious Diseases: None - Tetanus Immunizations Tetanus Immunization: Unknown - Past Medical History & Family History Past Medical History?: Yes - Past Social History Smoking Status: Never Smoked - CARDIAC Hx Pacemaker: No - PULMONARY Hx Sleep Apnea: Yes - NEUROLOGICAL Hx Paralysis: No - HEENT Hx Glaucoma: Yes - RENAL Hx Chronic Kidney Disease: No - ENDOCRINE/METABOLIC Hx Diabetes Mellitus Type 1: Yes (borderline) - HEMATOLOGICAL/ONCOLOGICAL Hx Blood Transfusions: No Hx Blood Transfusion Reaction: No - INTEGUMENTARY Hx Dermatological Problems: No - MUSCULOSKELETAL/RHEUMATOLOGICAL Hx Musculoskeletal Disorders: Yes - GASTROINTESTINAL Hx Gastrointestinal Disorders: No - GENITOURINARY/GYNECOLOGICAL Hx Incontinence: Yes Hx Prostate Problems: Yes (BPH) - PSYCHIATRIC Hx Emotional Abuse: No Hx Physical Abuse: No Hx Substance Use: No - SURGICAL HISTORY Hx Surgeries: Yes - ANESTHESIA Hx Anesthesia Reactions: No Hx Malignant Hyperthermia: No Meds Allergies/Adverse Reactions: Allergies Allergy/AdvReac Type Severity Reaction Status Date / Time quinapril Allergy REDNESS Verified 08/06/18 23:35 Physical Exam - Constitutional Appears: Well, Non-toxic Results - Vital Signs Recent Vital Signs: Last Vital Signs Temp 98.3 F 09/11/18 09:23 Pulse 80 09/11/18 09:23 Resp 18 09/11/18 09:23 BP 144/81 09/11/18 09:23 Pulse Ox 97 09/11/18 09:23 - EKG Data EKG Interpreted by: Myself Assessment & Plan - Assessment and Plan (Free Text) Assessment: Schizophrenia, paranoid type Parkinson's disease Plan: Patient as well as his brother wants to continue on ECT treatment once a week for the next month.September 20, October 04. after that every week for another month and maintenance ECT monthly. Decision To Admit - Pt Status Changed To: Hospital Disposition Of: Extended Recovery/Post Procedure
== END 2018-09-11 14:30 | disposition home or self-care (01) ==
LOC: SDS 08:50
PROVIDERS: ATTEND Psychiatry & Neurology Psychiatry
DX: F20.0 Paranoid schizophrenia (principal); G20 Parkinson's disease; N40.1 Benign prostatic hyperplasia with lower urinary tract symptoms; N39.498 Other specified urinary incontinence
CPT/HCPCS: 90870; J0330; J2704; J7030

== ENCOUNTER 2018-09-20 07:39 | Day surgery (SDC) | payer MEDICARE ==
[2018-09-04 15:53] VITALS: BMI 30.4
[2018-09-20 08:22] VITALS: RESP 18
[2018-09-20] MEDS ORDERED: Succinylcholine 200 mg/10 ml Inj IV ONE (09:28)
[2018-09-20] MEDS ORDERED: Lidocaine PF 2% (5 ml) Inj (For Cardiac Arrhy) ONE (09:28)
[2018-09-20] MEDS ORDERED: Propofol 10 mg/ml Inj (20 ML) ONE (09:28)
[2018-09-20] MEDS ORDERED: Etomidate 20 mg/10ml Inj IV ONE (09:28)
[2018-09-20] MEDS ORDERED: Ketamine 10 mg/ml Inj (20 ml) ONE (09:40)
[2018-09-20] MEDS ORDERED: Sodium Chloride 0.9% 1,000 ML IV SCH (10:15)
[2018-09-20 11:27] VITALS: BP 141/65; PULSE 68; TEMP 98.4; O2SAT 100
--- NOTE | 2018-09-20 15:01 | CP.PCM.HP ---
History of Present Illness - History of Present Illness History of Present Illness: pt came back for ECT treatment, pt has h/o schizophrenia and Parkinson's disease. (please see previous notes for more detailed information) pt was seen today in OR, pt was accompanied by pt's brother Abel, who is pt's POA. as per brother and pt himself pt is doing better on ECT. Patient reported that his motor functioning is improving, patient ambulates using cane, psychosis is improving. pt is able to take care of self, was managing dressing of his affected foot. pt wants to continue ECT treatment, risk/benefits and alternatives discussed, pt and POA agreed, both singed consent for treatment. ECT BL #9 09/20/18 pulse width 1.0msec,frequency 45, duration 8.000sec, current 800, and this fiction writer continued with the same parameters because pt had 87%efficacy last time pt had 44% seizure adequacy by MECTA analysis. anesthesiologist used 40mg succinylcholine, 30mg ketamine, 100mg propofol. Patient reported being on the following medications: levodopa/carbidopa 25/100 mg daily for Parkinson's disease Aricept 5 mg at the nighttime for possible dementia Seroquel 50 mg daily and 100 mg at the nighttime for psychosis (as it was advised over the phone conversation, see addendum last ECT tx) Patient also was on Protonix 40 mg daily Tylenol as needed MiraLAX as needed Colace 100 mg 3 times a day Lovenox 40 mg subcu daily Milk of magnesia Bactroban ointment 1 g topical twice a day Clorpactin Wcs-90, 2gm packet top daily Flomax 0.4 mg daily Patient tolerated medications well but c/o somnolence on daily dose of seroquel, was advised to hold am dose and continue 100mg hs, AIMS 0, no EPS. Patient wants to follow-up at [facility] with , by the end of September. DSM V Schizophrenia, paranoid type Parkinson's disease Present on Admission - Present on Admission Any Indicators Present on Admission: No History of DVT/PE: No History of Uncontrolled Diabetes: No Urinary Catheter: No Decubitus Ulcer Present: No Review of Systems - Review of Systems Systems not reviewed;Unavailable: Acuity of Condition - Constitutional Constitutional: As Per HPI - EENT Eyes: As Per HPI Ears: As Per HPI Nose/Mouth/Throat: As Per HPI - Cardiovascular Cardiovascular: As Per HPI - Respiratory Respiratory: As Per HPI - Gastrointestinal Gastrointestinal: As Per HPI - Genitourinary Genitourinary: As Per HPI - Reproductive: Male Reproductive:Male: As Per HPI - Musculoskeletal Musculoskeletal: As Per HPI - Integumentary Integumentary: As Per HPI - Neurological Neurological: As Per HPI Past Patient History - Infectious Disease Hx of Infectious Diseases: None - Tetanus Immunizations Tetanus Immunization: Unknown - Past Medical History & Family History Past Medical History?: Yes - Past Social History Smoking Status: Never Smoked - CARDIAC Hx Pacemaker: No - PULMONARY Hx Sleep Apnea: Yes - NEUROLOGICAL Hx Paralysis: No - HEENT Hx Glaucoma: Yes - RENAL Hx Chronic Kidney Disease: No - ENDOCRINE/METABOLIC Hx Diabetes Mellitus Type 1: Yes (borderline) - HEMATOLOGICAL/ONCOLOGICAL Hx Blood Transfusions: No Hx Blood Transfusion Reaction: No - INTEGUMENTARY Hx Dermatological Problems: No - MUSCULOSKELETAL/RHEUMATOLOGICAL Hx Musculoskeletal Disorders: Yes - GASTROINTESTINAL Hx Gastrointestinal Disorders: No - GENITOURINARY/GYNECOLOGICAL Hx Incontinence: Yes Hx Prostate Problems: Yes (BPH) - PSYCHIATRIC Hx Emotional Abuse: No Hx Physical Abuse: No Hx Substance Use: No - SURGICAL HISTORY Hx Surgeries: Yes - ANESTHESIA Hx Anesthesia Reactions: No Hx Malignant Hyperthermia: No Meds Allergies/Adverse Reactions: Allergies Allergy/AdvReac Type Severity Reaction Status Date / Time quinapril Allergy REDNESS Verified 09/13/18 09:53 Physical Exam - Constitutional Appears: Well, Non-toxic Results - EKG Data EKG Interpreted by: Myself EKG shows normal: Sinus rhythm Rate: Normal Assessment & Plan - Assessment and Plan (Free Text) Assessment: schizophrenia, paranoid type parkinson's disease Plan: Patient as well as his brother wants to continue on ECT treatment once a week September 20, October 04. after that every other week for another month and maintenance ECT monthly. this fiction writer contacted pt's neurologist , let him know that pt currently under ECT treatment, advised to consider to review pt's Parkinson's medications Decision To Admit - Pt Status Changed To: Hospital Disposition Of: Extended Recovery/Post Procedure
== END 2018-09-20 11:40 | disposition home or self-care (01) ==
LOC: SDS 07:39
PROVIDERS: ATTEND Psychiatry & Neurology Psychiatry
DX: F20.0 Paranoid schizophrenia (principal); G20 Parkinson's disease; N40.0 Benign prostatic hyperplasia without lower urinary tract symptoms; R32 Unspecified urinary incontinence; E10.9 Type 1 diabetes mellitus without complications; Z88.8 Allergy status to other drugs, medicaments and biological substances
CPT/HCPCS: 90870; J0330; J2704; J7030

== ENCOUNTER 2018-09-27 07:23 | Day surgery (SDC) | payer MEDICARE ==
[2018-09-04 15:53] VITALS: BMI 30.4
[2018-09-27] MEDS ORDERED: Succinylcholine 200 mg/10 ml Inj IV ONE (08:42)
[2018-09-27] MEDS ORDERED: Propofol 10 mg/ml Inj (20 ML) ONE (08:42)
[2018-09-27] MEDS ORDERED: Ketamine 10 mg/ml Inj (20 ml) ONE (08:59)
[2018-09-27] MEDS ORDERED: Sodium Chloride 0.9% 1,000 ML IV SCH (09:15)
[2018-09-27 09:55] VITALS: TEMP 97.8
[2018-09-27 10:41] VITALS: PULSE 80; RESP 18; O2SAT 97
[2018-09-27 12:04] VITALS: BP 106/52
--- NOTE | 2018-09-27 14:46 | CP.PCM.HP ---
History of Present Illness - History of Present Illness History of Present Illness: please see previous notes for more detailed information pt was seen today in OR, pt was accompanied by pt's brother Abel, who is pt's POA. as per brother and pt himself pt is doing better on ECT. Patient reported that his motor functioning is improving, patient ambulates using cane, psychosis is improving. pt is able to take care of self, was managing dressing of his affected foot. pt wants to continue ECT treatment, risk/benefits and alternatives discussed, pt and POA agreed, both singed consent for treatment. ECT BL #10 09/27/18 pulse width 1.0msec,frequency 45, duration 8.000sec, current 800, and this chief underwriter continued with the same parameters because pt had good efficacy last time, motor seizure 16seck today pt had 44% seizure adequacy by MECTA analysis. anesthesiologist used 40mg succinylcholine, 30mg ketamine, 100mg propofol. Patient reported being on the following medications: levodopa/carbidopa 25/100 mg daily for Parkinson's disease Aricept 5 mg at the nighttime for possible dementia Seroquel 50 mg daily is on hold and 100 mg at the nighttime for psychosis Patient also was on Protonix 40 mg daily Tylenol as needed MiraLAX as needed Colace 100 mg 3 times a day Lovenox 40 mg subcu daily Milk of magnesia Bactroban ointment 1 g topical twice a day Clorpactin Wcs-90, 2gm packet top daily Flomax 0.4 mg daily Patient tolerated medications well but c/o somnolence on daily dose of seroquel, was advised to hold am dose and continue 100mg hs, AIMS 0, no EPS. Patient wants to follow-up at [facility] [place] [facility] with , by the end of September. discussed with pt's neurologist over the phone to adjust parkinsonian meds. DSM V Schizophrenia, paranoid type Parkinson's disease Present on Admission - Present on Admission Any Indicators Present on Admission: No History of DVT/PE: No History of Uncontrolled Diabetes: No Urinary Catheter: No Decubitus Ulcer Present: No Review of Systems - Review of Systems Systems not reviewed;Unavailable: Acuity of Condition - Constitutional Constitutional: As Per HPI - EENT Eyes: As Per HPI Ears: As Per HPI Nose/Mouth/Throat: As Per HPI - Cardiovascular Cardiovascular: As Per HPI - Respiratory Respiratory: As Per HPI - Gastrointestinal Gastrointestinal: As Per HPI - Genitourinary Genitourinary: As Per HPI - Reproductive: Male Reproductive:Male: As Per HPI - Musculoskeletal Musculoskeletal: As Per HPI - Integumentary Integumentary: As Per HPI - Neurological Neurological: As Per HPI - Psychiatric Psychiatric: As Per HPI - Endocrine Endocrine: As Per HPI - Hematologic/Lymphatic Hematologic: As Per HPI Past Patient History - Infectious Disease Hx of Infectious Diseases: None - Tetanus Immunizations Tetanus Immunization: Unknown - Past Medical History & Family History Past Medical History?: Yes - Past Social History Smoking Status: Never Smoked - CARDIAC Hx Pacemaker: No - PULMONARY Hx Sleep Apnea: Yes - NEUROLOGICAL Hx Paralysis: No - HEENT Hx Glaucoma: Yes - RENAL Hx Chronic Kidney Disease: No - ENDOCRINE/METABOLIC Hx Diabetes Mellitus Type 1: Yes (borderline) - HEMATOLOGICAL/ONCOLOGICAL Hx Blood Transfusions: No Hx Blood Transfusion Reaction: No - INTEGUMENTARY Hx Dermatological Problems: No - MUSCULOSKELETAL/RHEUMATOLOGICAL Hx Musculoskeletal Disorders: Yes - GASTROINTESTINAL Hx Gastrointestinal Disorders: No - GENITOURINARY/GYNECOLOGICAL Hx Incontinence: Yes Hx Prostate Problems: Yes (BPH) - PSYCHIATRIC Hx Emotional Abuse: No Hx Physical Abuse: No Hx Substance Use: No - SURGICAL HISTORY Hx Surgeries: Yes - ANESTHESIA Hx Anesthesia Reactions: No Hx Malignant Hyperthermia: No Meds Allergies/Adverse Reactions: Allergies Allergy/AdvReac Type Severity Reaction Status Date / Time quinapril Allergy REDNESS Verified 09/20/18 15:24 Physical Exam - Constitutional Appears: Well, Non-toxic Results - Vital Signs Recent Vital Signs: Last Vital Signs Temp 98.3 F 09/27/18 07:30 Pulse 78 09/27/18 07:30 Resp 18 09/27/18 07:30 BP 118/68 09/27/18 07:30 Pulse Ox 94 L 09/27/18 07:30 - EKG Data EKG shows normal: Sinus rhythm Assessment & Plan - Assessment and Plan (Free Text) Assessment: schizophrenia pakrinson's disease Plan: will continue meds ECT next week Decision To Admit - Pt Status Changed To: Hospital Disposition Of: Extended Recovery/Post Procedure
== END 2018-09-27 12:00 | disposition home or self-care (01) ==
LOC: SDS 07:23
PROVIDERS: ATTEND Psychiatry & Neurology Psychiatry
DX: F20.0 Paranoid schizophrenia (principal); G20 Parkinson's disease; N40.0 Benign prostatic hyperplasia without lower urinary tract symptoms
CPT/HCPCS: 90870; J0330; J2704; J7030